=== PATIENT | female | born 1985 | race Caucasian/White ===

== ENCOUNTER 2017-04-28 20:04 | Emergency (ER) | payer SELFPAY ==
[2017-04-28 20:09] VITALS: BP 121/73
--- NOTE | 2017-04-28 20:25 | ED.ABDFE ---
HPI - Time seen Time seen: 20:20 - PCP Primary Care Physician: ROBERTS - Complaint Chief Complaint:: CONSTANT LOWER ABD PAIN SINCE THURSDAY NIGHT. DENIES ANY N/V/D, DENIES FEVER. - Nurses notes reviewed Nurses Notes Review: Yes - Source History Provided: Patient - Mode of arrival Mode of Arrival: Ambulatory - Timing Onset of Chief Complaint: 04/26/17 Came on: Gradually - Duration Duration: Constant How lon Duration: Days - Location Location: [facility] - Severity Severity: Moderate - Quality Quality: Aching - Context Onset: Gradually - Modifying Worsening Factors: Nothing Improving Factors: Nothing - Associated signs and symptoms Associated Signs and Symptoms: None - Other History Other History: hx of same in past PMH - PMH Past Medical History: Yes Past Medical History Comment: OVARIAN CYST Past Surgical History: Yes Past Surgical History Comment: PARTIAL HYSTERECTOMY - Family History History of Family Medical Conditions: No - Social History Type of Tobacco Use: Cigarettes Alcohol Use: None Do you use any recreational Drugs:: No Lives With: Spouse Lives Where: Home - infectious screening Have you traveled outside the country in the last 6 months?: No Isolation: Standard ROS - Review of Systems Constitutional: No Symptoms Reported Eyes: No Symptoms Reported ENTM: No Symptoms Reported Respiratoy: No Symptoms Reported Cardiovascular: No Symptoms Reported Gastrointestinal/Abdominal: Abdominal Pain (both lower quadrants) Genitourinary: No Symptoms Reported Neurological: No Symptoms Reported Musculoskeletal: No Symptoms Reported Integumentary: No Symptoms Reported Hematologic/Lymphatic: No Symptoms Reported Endocrine: No Symptoms Reported Psychiatric: No Symptoms Reported All Other Systems: Reviewed and Negative PE - Vital Signs Vitals: Temperature 99.1 F Pulse Rate 73 Respiratory Rate 16 Blood Pressure 121/73 O2 Sat by Pulse Oximetry 98 - General Limitations: No Limitations General Appearance: Alert, In No Apparent Distress - Head Head Exam: Normal Inspection - Eyes Eye exam: Normal Appearance, EOMI. negative: Scleral Icterus, Conjunctival Injection - Neck Neck Exam: Normal Inspection, Full ROM, Trachea Midline - Respiratory Respiratory Exam: negative: Accessory Muscle Use, Respiratory Distress - Cardiovascular Cardiovascular Exam: Regular Rate - Abdominal Exam Abdominal Exam: Normal Inspection, Normal Bowel Sounds, Soft, Tenderness (mild bilateral lower quadrant pain). negative: Distention, Guarding, Rebound - Extremeties Extremities Exam: Normal Inspection, Full ROM - Neurologic Neurological Exam: Alert, Oriented X3, CN II-XII Intact - Psychiatric Psychiatric Exam: Normal Mood - Skin Skin Exam: Intact, Normal Color ROR - Labs Reviewed Result Diagrams: 04/28/17 20:38 04/28/17 20:38 Laboratory: WBC 10.3 X10^3/uL (3.6-10.0) H 04/28/17 20:38 RBC 4.34 X10^6/uL (3.5-5.4) 04/28/17 20:38 Hgb 14.1 g/dL (12.0-16.0) 04/28/17 20:38 Hct 40.4 % (36.0-47.0) 04/28/17 20:38 MCV 93.3 fL (80.0-100.0) 04/28/17 20:38 MCH 32.6 pg (27.0-34.0) 04/28/17 20:38 MCHC 35.0 g/dL (33.0-35.0) 04/28/17 20:38 RDW 12.7 % (11.6-16.5) 04/28/17 20:38 Plt Count 323 X10^3/uL (150.0-450.0) 04/28/17 20:38 MPV 8.3 fL (7.4-11.0) 04/28/17 20:38 Neut % 49.3 % (42.0-75.0) 04/28/17 20:38 Lymph % 38.7 % (21.0-51.0) 04/28/17 20:38 Riley % 5.9 % (0.0-13.0) 04/28/17 20:38 Eos % 4.8 % (0.9-2.9) H 04/28/17 20:38 Baso % 1.3 % (0.2-1.0) H 04/28/17 20:38 Neut # 5.1 x10^3/uL (2.2-4.8) H 04/28/17 20:38 Lymph # 4.0 X10^3/uL (1.3-2.9) H 04/28/17 20:38 Riley # 0.6 x10^3/uL (0.3-0.8) 04/28/17 20:38 Eos # 0.5 x10^3/uL (0.0-0.2) H 04/28/17 20:38 Baso # 0.1 X10^3/uL (0.0-0.1) 04/28/17 20:38 Absolute Nucleated RBC 0.1 /100WBC 04/28/17 20:38 Sodium 144 mmol/L (136-145) 04/28/17 20:38 Corrected Sodium TNP 04/28/17 20:38 Potassium 3.8 mmol/L (3.5-5.1) 04/28/17 20:38 Chloride 109 mmol/L (98-107) H 04/28/17 20:38 Carbon Dioxide 25.2 mmol/L (21-32) 04/28/17 20:38 BUN 11 mg/dL (7-18) 04/28/17 20:38 Creatinine 0.86 mg/dL (0.55-1.02) 04/28/17 20:38 Est GFR (MDRD) Af Amer > 60 (>60) 04/28/17 20:38 Est GFR (MDRD) Non-Af > 60 (>60) 04/28/17 20:38 Glucose 84 mg/dL (65-99) 04/28/17 20:38 Calcium 8.4 mg/dL (8.5-10.1) L 04/28/17 20:38 Corrected Calcium TNP 04/28/17 20:38 Total Bilirubin 0.30 mg/dL (0.2-1.0) 04/28/17 20:38 AST 19 Units/L (15-37) 04/28/17 20:38 ALT 45 Units/L (12-78) 04/28/17 20:38 Alkaline Phosphatase 57 Units/L (46-116) 04/28/17 20:38 Total Protein 6.4 g/dL (6.4-8.2) 04/28/17 20:38 Albumin 3.4 g/dL (3.4-5.0) 04/28/17 20:38 Globulin 3.0 g/dL (2.5-4.5) 04/28/17 20:38 Albumin/Globulin Ratio 1.1 Ratio (1.1-2.1) 04/28/17 20:38 Specimen Type Clean catch urine 04/28/17 20:43 Urine Color Yellow (YELLOW) 04/28/17 20:43 Urine Appearance Hazy (CLEAR) 04/28/17 20:43 Urine pH 5.0 (5.0 - 8.0) 04/28/17 20:43 Ur Specific [place] 1.025 (1.000-1.030) 04/28/17 20:43 Urine Protein 2+ (NEGATIVE) 04/28/17 20:43 Urine Glucose (UA) Negative (NEGATIVE) 04/28/17 20:43 Urine Ketones 1+ (NEGATIVE) 04/28/17 20:43 Urine Occult Blood Negative (NEGATIVE) 04/28/17 20:43 Urine Nitrite Negative (NEGATIVE) 04/28/17 20:43 Urine Bilirubin 1+ (NEGATIVE) 04/28/17 20:43 Urine Urobilinogen 1+ (NORMAL) 04/28/17 20:43 Ur Leukocyte Esterase 1+ (NEGATIVE) 04/28/17 20:43 Urine RBC 0-2 /HPF (NEGATIVE) 04/28/17 20:43 Urine WBC 3-5 /HPF (NEGATIVE) 04/28/17 20:43 Ur Squamous Epith Cells Few /HPF (NEGATIVE) 04/28/17 20:43 Urine Bacteria Trace /HPF (NEGATIVE) 04/28/17 20:43 Urine Mucus Few /HPF (NEGATIVE) 04/28/17 20:43 Ur Culture Indicated? No/not indicated 04/28/17 20:43 Urine Opiates Screen Negative (NEG=<300) 04/28/17 20:43 Urine Methadone Screen Negative (NEG=<300) 04/28/17 20:43 Ur Barbiturates Screen Negative (NEG=<200) 04/28/17 20:43 Ur Phencyclidine Scrn Negative (NEG=<25) 04/28/17 20:43 Ur Amphetamines Screen Negative (NEG=<1000) 04/28/17 20:43 U Benzodiazepines Scrn Negative (NEG=<200) 04/28/17 20:43 Urine Cocaine Screen Negative (NEG=<300) 04/28/17 20:43 U Marijuana (THC) Screen Negative (NEG=<50) 04/28/17 20:43 - XRAY XRAY Interpreted by: Radiologist XRAY Findings: CT abdo/pelvis: right ovarian cyst - Diagnosis Discharge Problem: Ovarian cyst - Discharge Plan Condition: Stable Prescriptions: Tramadol HCl [ULTRAM 50 MG *] 50 mg PO Q8H PRN #21 tab PRN Reason: Pain - Follow ups/Referrals Follow ups/Referrals: NFD,None [Primary Care Provider] - 3 days - Instructions
[2017-04-28 20:50] LABS: BASOPHILS # (AUTO) 0.1 X10^3/uL (0.0-0.1); BASOPHILS % (AUTO) 1.3 % (0.2-1.0); EOSINOPHILS # (AUTO) 0.5 x10^3/uL (0.0-0.2); EOSINOPHILS % (AUTO) 4.8 % (0.9-2.9); HEMATOCRIT 40.4 % (36.0-47.0); HEMOGLOBIN 14.1 g/dL (12.0-16.0); LYMPHOCYTES % (AUTO) 38.7 % (21.0-51.0); MEAN CORPUSCULAR HEMOGLOBIN 32.6 pg (27.0-34.0); MEAN CORPUSCULAR VOLUME 93.3 fL (80.0-100.0); MEAN PLATELET VOLUME 8.3 fL (7.4-11.0); MONOCYTES # (AUTO) 0.6 x10^3/uL (0.3-0.8); MONOCYTES % (AUTO) 5.9 % (0.0-13.0); NEUTROPHILS # (AUTO) 5.1 x10^3/uL (2.2-4.8); NEUTROPHILS % (AUTO) 49.3 % (42.0-75.0); PLATELET COUNT 323 X10^3/uL (150.0-450.0); RED BLOOD COUNT 4.34 X10^6/uL (3.5-5.4); RED CELL DISTRIBUTION WIDTH 12.7 % (11.6-16.5); WHITE BLOOD COUNT 10.3 X10^3/uL (3.6-10.0)
[2017-04-28 20:51] LABS: BILIRUBIN,URINE 1+ (NEGATIVE); BLOOD/HEMOGLOBIN,URINE NEGATIVE (NEGATIVE); GLUCOSE, URINE NEGATIVE (NEGATIVE); KETONES,URINE 1+ (NEGATIVE); LEUKOCYTE ESTERASE ,URINE 1+ (NEGATIVE); NITRITES,URINE NEGATIVE (NEGATIVE); PROTEIN,URINE 2+ (NEGATIVE); UROBILINOGEN,URINE 1+ (NORMAL)
[2017-04-28 21:00] LABS: ALANINE AMINOTRANSFERASE 45 Units/L (12-78); ALBUMIN 3.4 g/dL (3.4-5.0); ALKALINE PHOSPHATASE 57 Units/L (46-116); ASPARTATE AMINO TRANSFERASE 19 Units/L (15-37); BLOOD UREA NITROGEN 11 mg/dL (7-18); CALCIUM 8.4 mg/dL (8.5-10.1); CARBON DIOXIDE 25.2 mmol/L (21-32); CHLORIDE 109 mmol/L (98-107); CREATININE 0.86 mg/dL (0.55-1.02); GLUCOSE 84 mg/dL (65-99); SODIUM 144 mmol/L (136-145); TOTAL PROTEIN 6.4 g/dL (6.4-8.2); eGFR BLACK RACES > 60 (>60); eGFR NON BLACK RACES > 60 (>60)
[2017-04-28 21:04] LABS: APPEARANCE,URINE HAZY (CLEAR); BACTERIA,URINE TRACE /HPF (NEGATIVE); COLOR,URINE YELLOW (YELLOW); MUCUS,URINE FEW /HPF (NEGATIVE); RBC,URINE 0-2 /HPF (NEGATIVE); SQUAMOUS EPITHELIAL CELL,UR FEW /HPF (NEGATIVE)
[2017-04-28] MEDS ORDERED: NS 100 ML IV 100 ML IV ONE (21:19)
--- NOTE | 2017-04-28 22:20 | CT ---
HISTORY: Subacute lower abdominal pain Study: CT abdomen and pelvis with contrast Comparison: None Technique: Multiple axial images of the abdomen and pelvis were obtained from the lung bases to the pubic symphysis after the administration of IV contrast. AEC was utilized. Findings: The visualized portions of the lung bases are unremarkable. The liver, spleen, pancreas, kidneys, a nd adrenal glands are unremarkable other than incidental tiny left renal hypodensities which are too small to accurately characterize but most likely reflect benign cysts. The gallbladder is unremarka ble in its CT appearance. No significant mesenteric or retroperitoneal lymphadenopathy can be obser joseph. No free fluid or free air is seen within the abdomen. No bowel wall thickening or bowel dilat ation is present. The patient is status post hysterectomy. However , there is bilateral heterogeneo us adnexal soft tissue fullness which may represent remaining ovaries with a 2 cm right ovarian cyst for which nonemergent temporal surveillance ultrasound is recommended. Unopacified loops of small b owel could also give this appearance. Bilateral pelvic sidewall lymphadenopathy cannot be excluded i f the patient has a previous history of oophorectomy. There is mild injection of the suprapubic mese nteric fat for which correlation with urinalysis is recommended as these findings could be seen with cystitis. The urinary bladder is grossly unremarkable. The bony structures are grossly intact. IMPRESSION: 1. Possible findings of cystitis for which correlation with urinalysis is recommended. 2. Status post hysterectomy with probable remaining ovaries and a 2 cm right ovarian cyst for which temporal surveillance pelvic ultrasound is recommended. 3. Tiny left renal hypodensities favored to represent benign cysts. Reported By:
[2017-04-28] MEDS ORDERED: ULTRAM PO ONE (22:28)
[2017-04-28] MEDS ORDERED: ULTRAM ONE (22:29)
== END 2017-04-28 22:41 | disposition home or self-care (01) ==
LOC: ER 20:13
DX: N83.201 Unspecified ovarian cyst, right side (principal); R10.31 Right lower quadrant pain
CPT/HCPCS: 36415; 74177; 80053; 80307; 81001; 85025; 96365; 99283; A4222; G0434

== ENCOUNTER 2017-05-01 23:19 | Emergency (ER) | payer SELFPAY ==
[2017-05-01 23:26] VITALS: BP 107/72; BMI 18.2
[2017-05-02 01:14] LABS: BILIRUBIN,URINE NEGATIVE (NEGATIVE); BLOOD/HEMOGLOBIN,URINE NEGATIVE (NEGATIVE); GLUCOSE, URINE NEGATIVE (NEGATIVE); KETONES,URINE NEGATIVE (NEGATIVE); LEUKOCYTE ESTERASE ,URINE NEGATIVE (NEGATIVE); NITRITES,URINE NEGATIVE (NEGATIVE); PH,URINE 6.5 (5.0 - 8.0); PROTEIN,URINE NEGATIVE (NEGATIVE); UROBILINOGEN,URINE NORMAL (NORMAL)
[2017-05-02 01:18] LABS: APPEARANCE,URINE CLEAR (CLEAR); COLOR,URINE YELLOW (YELLOW); RBC,URINE NONE SEEN /HPF (NEGATIVE)
[2017-05-02 01:19] LABS: BACTERIA,URINE TRACE /HPF (NEGATIVE); SQUAMOUS EPITHELIAL CELL,UR FEW /HPF (NEGATIVE)
[2017-05-02] MEDS ORDERED: TORADOL 30 MG VIAL IVP STA (01:22)
[2017-05-02] MEDS ORDERED: NS 1000 ML 1,000 ML IV ONE (01:22)
--- NOTE | 2017-05-02 01:26 | DR.GENAD ---
HPI - PCP Primary Care Physician: Mirna - Complaint/Symptoms Chief Complaint Doctors Comments: Patient complains of RLQ pain for the past five days getting progressively worst today with nausea. States she is having sharp pain RLQ that is non radiating with the pain being 10 of 10. states she was in the emergency room two days ago with the same pain and they told her she had an ovarian cyst. she was trying to see Dr. Roberst today but she did not have any insurance or money so she was unable to see him. State she smokes one pack cigarettes daily but denies alcohol or drug usage. state she had had a partial hysterectomy 2012. States she has had a problem with kidney stones in the past. Chief Complaint:: "Thursday I came in the ER and discovered that I have cysts on my right overy. They gave me tramadol but that's not even touching it. I tried to go to Dr. Roberts today but there was something wrong with my insurance and I didn't have the money to pay." Self Treatment fo Chief Complaint: Tramadol and ibuprofen - Nurses notes reviewed Nurses Notes Review: Yes - Source History Provided: Patient - Mode of Arrival Mode of Arrival: Ambulatory - Timing Onset of Chief Complaint: 04/26/17 Came on: Gradually - Duration Duration: Intermittent How lon Duration: Days - Location Location: RLQ pain - Severity Severity: Moderate, Severe - Modifying Factors Worsens:: nothing Improves:: nothing PMH - PMH Past Medical History: Yes Past Medical History Comment: ovarian cyst Past Surgical History: Yes 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 - Family History History of Family Medical Conditions: No - Social History Does patient currently use any type of tobacco product: Yes Have you used tobacco products in the last 12 months: Yes Type of Tobacco Use: Cigarettes Does any household member use tobacco: No Alcohol Use: None Do you use any recreational Drugs:: No Lives With: Spouse Lives Where: Home - infectious screening In the last 2 months have you had wt loss of >10#?: NO Have you had fever, night sweats or hemotysis?: No Have you traveled outside the country in the last 6 months?: No Isolation: Standard ROS - Review of Systems Constitutional: No Symptoms Reported Eyes: No Symptoms Reported ENTM: No Symptoms Reported Respiratoy: No Symptoms Reported Cardiovascular: No Symptoms Reported Gastrointestinal/Abdominal: No Symptoms Reported, Abdominal Pain (RLQ tendederness) Genitourinary: No Symptoms Reported. negative: See HPI, Discharge, Dysuria, Frequency, Hematuria, Pain, Bleeding, Other Neurological: No Symptoms Reported Musculoskeletal: No Symptoms Reported Integumentary: No Symptoms Reported Hematologic/Lymphatic: No Symptoms Reported Endocrine: No Symptoms Reported Psychiatric: No Symptoms Reported PE - Vital Signs Vitals: Temperature 98.1 F Pulse Rate 65 Respiratory Rate 20 Blood Pressure 107/72 O2 Sat by Pulse Oximetry 98 - General Limitations: No Limitations General Appearance: Alert, In Distress (mild) - Head Head Exam: Normal Inspection, Atraumatic, Normocephalic - Eyes Eye exam: Normal Appearance, PERRL, EOMI. negative: Scleral Icterus, Conjunctival Injection, Nystagmus, Miosis, Mydrasis, Periorbital Swelling, Periorbital Tenderness, Other - ENT ENT Exam: Normal Exam, Normal Oropharynx, Normal External Ear Exam, Mucous Membranes Moist, TM's Normal Bilaterally External Ear Exam: Normal External Inspection TM/Canal Exam: Bilateral Normal Nose Exam: Normal Nose Exam Mouth Exam: Normal Inspection Throat Exam: Normal Inspection - Neck Neck Exam: Normal Inspection, Full ROM, Trachea Midline - Chest Chest Inspection: Normal Inspection, Symmetric Chest Wall Rise - Respiratory Respiratory Exam: Normal Lung Sounds Bilat Respiratory Exam: Bilateral Clear to Auscultation - Cardiovascular Cardiovascular Exam: Regular Rate, Normal Rhythm, Normal Heart Sounds - Abdominal Exam Abdominal Exam: Normal Inspection, Normal Bowel Sounds, Soft, Tenderness, Guarding, Hyperactive Bowel Sounds Abdominal Tenderness: RLQ, Moderate - Extremities Extremities Exam: Normal Inspection, Full ROM, Normal Capillary Refill. negative: Tenderness, Edema, Joint Swelling, Calf Tenderness, Other - Back Back Exam: Normal Inspection, Full ROM. negative: Tenderness, (R) CVA Tenderness, (L) CVA Tenderness, Muscle Spasm, Paraspinal Tenderness, Vertebral Tenderness, Rashes, (R) Sciatic Notch Tenderness, (L) Sciatic Notch Tendern, (R ) Straight Leg Raise, (L) Straight Leg Raise, Other - Neurologic Neurological Exam: Alert, Oriented X3, CN II-XII Intact, Normal Gait, Reflexes Normal - Psychiatric Psychiatric Exam: Normal Affect, Normal Mood. negative: Depressed, Agitated, Anxious, Flat Affect, Manic, Homicidal Ideation, Suicidal Ideation, Other - Skin Skin Exam: Warm, Dry, Intact, Normal Color. negative: Rash, Cyanosis, Diaphoresis, Erythema, Pallor, Mottled, Other ROR - Labs Reviewed Laboratory Results Reviewed?: Yes (All labs and x-ray results reviewed and discussed with patient) Result Diagrams: 05/02/17 01:32 05/02/17 01:32 Laboratory: WBC 10.3 X10^3/uL (3.6-10.0) H 05/02/17 01:32 RBC 4.51 X10^6/uL (3.5-5.4) 05/02/17 01:32 Hgb 14.6 g/dL (12.0-16.0) 05/02/17 01:32 Hct 41.8 % (36.0-47.0) 05/02/17 01:32 MCV 92.7 fL (80.0-100.0) 05/02/17 01:32 MCH 32.4 pg (27.0-34.0) 05/02/17 01:32 MCHC 35.0 g/dL (33.0-35.0) 05/02/17 01:32 RDW 12.6 % (11.6-16.5) 05/02/17 01:32 Plt Count 350 X10^3/uL (150.0-450.0) 05/02/17 01:32 MPV 8.1 fL (7.4-11.0) 05/02/17 01:32 Neut % 44.5 % (42.0-75.0) 05/02/17 01:32 Lymph % 44.7 % (21.0-51.0) 05/02/17 01:32 [place] % 4.3 % (0.0-13.0) 05/02/17 01:32 Eos % 3.2 % (0.9-2.9) H 05/02/17 01:32 Baso % 3.3 % (0.2-1.0) H 05/02/17 01:32 Neut # 4.6 x10^3/uL (2.2-4.8) 05/02/17 01:32 Lymph # 4.6 X10^3/uL (1.3-2.9) H 05/02/17 01:32 [place] # 0.4 x10^3/uL (0.3-0.8) 05/02/17 01:32 Eos # 0.3 x10^3/uL (0.0-0.2) H 05/02/17 01:32 Baso # 0.3 X10^3/uL (0.0-0.1) H 05/02/17 01:32 Absolute Nucleated RBC 0.1 /100WBC 05/02/17 01:32 Sodium 141 mmol/L (136-145) 05/02/17 01:32 Corrected Sodium TNP 05/02/17 01:32 Potassium 4.1 mmol/L (3.5-5.1) 05/02/17 01:32 Chloride 106 mmol/L (98-107) 05/02/17 01:32 Carbon Dioxide 26.4 mmol/L (21-32) 05/02/17 01:32 BUN 6 mg/dL (7-18) L 05/02/17 01:32 Creatinine 0.74 mg/dL (0.55-1.02) 05/02/17 01:32 Est GFR (MDRD) Af Amer > 60 (>60) 05/02/17 01:32 Est GFR (MDRD) Non-Af > 60 (>60) 05/02/17 01:32 Glucose 85 mg/dL (65-99) 05/02/17 01:32 Calcium 8.6 mg/dL (8.5-10.1) 05/02/17 01:32 Corrected Calcium TNP 05/02/17 01:32 Total Bilirubin 0.40 mg/dL (0.2-1.0) 05/02/17 01:32 AST 15 Units/L (15-37) 05/02/17 01:32 ALT 33 Units/L (12-78) 05/02/17 01:32 Alkaline Phosphatase 59 Units/L (46-116) 05/02/17 01:32 Total Protein 6.8 g/dL (6.4-8.2) 05/02/17 01:32 Albumin 3.7 g/dL (3.4-5.0) 05/02/17 01:32 Globulin 3.1 g/dL (2.5-4.5) 05/02/17 01:32 Albumin/Globulin Ratio 1.2 Ratio (1.1-2.1) 05/02/17 01:32 Amylase 117 Units/L (25-115) H 05/02/17 01:32 Lipase 164 Units/L (73-393) 05/02/17 01:32 Specimen Type Clean catch urine 05/02/17 01:04 Urine Color Yellow (YELLOW) 05/02/17 01:04 Urine Appearance Clear (CLEAR) 05/02/17 01:04 Urine pH 6.5 (5.0 - 8.0) 05/02/17 01:04 Ur Specific [place] 1.010 (1.000-1.030) 05/02/17 01:04 Urine Protein Negative (NEGATIVE) 05/02/17 01:04 Urine Glucose (UA) Negative (NEGATIVE) 05/02/17 01:04 Urine Ketones Negative (NEGATIVE) 05/02/17 01:04 Urine Occult Blood Negative (NEGATIVE) 05/02/17 01:04 Urine Nitrite Negative (NEGATIVE) 05/02/17 01:04 Urine Bilirubin Negative (NEGATIVE) 05/02/17 01:04 Urine Urobilinogen Normal (NORMAL) 05/02/17 01:04 Ur Leukocyte Esterase Negative (NEGATIVE) 05/02/17 01:04 Urine RBC None seen /HPF (NEGATIVE) 05/02/17 01:04 Urine WBC 0-1 /HPF (NEGATIVE) 05/02/17 01:04 Ur Squamous Epith Cells Few /HPF (NEGATIVE) 05/02/17 01:04 Urine Bacteria Trace /HPF (NEGATIVE) 05/02/17 01:04 Ur Culture Indicated? No/not indicated 05/02/17 01:04 Urine Opiates Screen Negative (NEG=<300) 05/02/17 01:04 Urine Methadone Screen Negative (NEG=<300) 05/02/17 01:04 Ur Barbiturates Screen Negative (NEG=<200) 05/02/17 01:04 Ur Phencyclidine Scrn Negative (NEG=<25) 05/02/17 01:04 Ur Amphetamines Screen Negative (NEG=<1000) 05/02/17 01:04 U Benzodiazepines Scrn Negative (NEG=<200) 05/02/17 01:04 Urine Cocaine Screen Negative (NEG=<300) 05/02/17 01:04 U Marijuana (THC) Screen Negative (NEG=<50) 05/02/17 01:04 - XRAY XRAY Interpreted by: Radiologist (CT abdomen: No acute process identified. 2 cm right ovarian corpus luteal cyst; right nonobstructing right stone) - Diagnosis Discharge Problem: Ovarian cyst, Right kidney stone Abdominal pain Qualifiers: Abdominal location: generalized Qualified Code(s): R10.84 - Generalized abdominal pain - Discharge Plan Disposition: 01 HOME, SELF-CARE Condition: Stable Prescriptions: Acetaminophen/Codeine Tab [TYLENOL w/CODEINE #3 (300 MG/30 MG) *] 1 tab PO Q4- 6H PRN #24 tab PRN Reason: Pain Naproxen [NAPROSYN 500 MG *] 500 mg PO BID PRN #24 tab PRN Reason: Pain/Inflammation - Follow ups/Referrals Follow ups/Referrals: KEVIN ROBERTS [Primary Care Provider] - 3 days GRETEL GONZALEZ [STAFF PHYSICIAN] - 3 days - Instructions Instructions: Abdominal Pain, Adult, [id number], Ovarian Cyst, Kidney Stones , [id number]
[2017-05-02 01:38] LABS: EOSINOPHILS # (AUTO) 0.3 x10^3/uL (0.0-0.2); HEMATOCRIT 41.8 % (36.0-47.0); HEMOGLOBIN 14.6 g/dL (12.0-16.0); MEAN PLATELET VOLUME 8.1 fL (7.4-11.0); WHITE BLOOD COUNT 10.3 X10^3/uL (3.6-10.0)
[2017-05-02 01:43] LABS: BASOPHILS # (AUTO) 0.3 X10^3/uL (0.0-0.1); BASOPHILS % (AUTO) 3.3 % (0.2-1.0); EOSINOPHILS % (AUTO) 3.2 % (0.9-2.9); LYMPHOCYTES # (AUTO) 4.6 X10^3/uL (1.3-2.9); LYMPHOCYTES % (AUTO) 44.7 % (21.0-51.0); MEAN CORPUSCULAR HEMOGLOBIN 32.4 pg (27.0-34.0); MEAN CORPUSCULAR VOLUME 92.7 fL (80.0-100.0); MONOCYTES # (AUTO) 0.4 x10^3/uL (0.3-0.8); MONOCYTES % (AUTO) 4.3 % (0.0-13.0); NEUTROPHILS # (AUTO) 4.6 x10^3/uL (2.2-4.8); NEUTROPHILS % (AUTO) 44.5 % (42.0-75.0); PLATELET COUNT 350 X10^3/uL (150.0-450.0); RED BLOOD COUNT 4.51 X10^6/uL (3.5-5.4); RED CELL DISTRIBUTION WIDTH 12.6 % (11.6-16.5)
[2017-05-02 01:50] LABS: ALANINE AMINOTRANSFERASE 33 Units/L (12-78); ALBUMIN 3.7 g/dL (3.4-5.0); ALKALINE PHOSPHATASE 59 Units/L (46-116); AMYLASE 117 Units/L (25-115); ASPARTATE AMINO TRANSFERASE 15 Units/L (15-37); BLOOD UREA NITROGEN 6 mg/dL (7-18); CALCIUM 8.6 mg/dL (8.5-10.1); CARBON DIOXIDE 26.4 mmol/L (21-32); CHLORIDE 106 mmol/L (98-107); CREATININE 0.74 mg/dL (0.55-1.02); GLUCOSE 85 mg/dL (65-99); LIPASE 164 Units/L (73-393); SODIUM 141 mmol/L (136-145); TOTAL PROTEIN 6.8 g/dL (6.4-8.2); eGFR BLACK RACES > 60 (>60); eGFR NON BLACK RACES > 60 (>60)
[2017-05-02] MEDS ORDERED: NS 1000 ML 1,000 ML ONE (02:18)
[2017-05-02] MEDS ORDERED: TORADOL 30 MG VIAL ONE (02:39)
[2017-05-02] MEDS ORDERED: DEMEROL INJ IVP ONE (03:24)
[2017-05-02] MEDS ORDERED: ZOFRAN INJ 4 MG VIAL IVP ONE (03:25)
[2017-05-02] MEDS ORDERED: ZOFRAN INJ 4 MG VIAL ONE (03:28)
[2017-05-02] MEDS ORDERED: DEMEROL INJ ONE (03:28)
[2017-05-02] MEDS ORDERED: NS 100 ML IV 100 ML IV ONE (03:51)
--- NOTE | 2017-05-02 04:27 | CT ---
CT abdomen and pelvis with contrast Indication: Severe lower abdominal pain Comparison: 04/28/2017 Technique: CT images of the abdomen pelvis were obtained after IV contrast administration. Automatic exposure control was utilized. Findings: No aggressive osseous lesion. The lung bases are clear. There is mild intrahepatic and extrahepatic biliary dilation, without obvious obstructing stone or a mpullary lesion; this finding is unchanged from prior. The gallbladder, remaining liver, spleen, sto mach, duodenum, pancreas, and adrenals are unremarkable. There is a tiny nonobstructing right midpol e stone. Small probable cyst of the left lower pole are noted. No significant bowel thickening or di latation of the lower GI tract identified. The appendix appears normal. The uterus is absent. There is a peripherally enhancing 2 cm right ovarian cyst is suggestive for a corpus luteal cyst. The left ovary is grossly unremarkable. The urinary bladder and rectum are unremarkable . No significant free fluid or adenopathy identified. Impression: 1. No acute process identified to explain patient's symptoms. The appendix appears normal. 2. 2 cm right ovarian corpus luteal cyst. 3. Stable mild intrahepatic and extrahepatic biliary dilation. Correlation with cholestatic markers for obstruction recommended. Reported By:
== END 2017-05-02 05:15 | disposition home or self-care (01) ==
LOC: ER 23:19
DX: N83.201 Unspecified ovarian cyst, right side (principal); N20.0 Calculus of kidney; R10.31 Right lower quadrant pain
CPT/HCPCS: 36415; 74177; 80053; 80307; 81001; 82150; 83690; 85025; 96365; 96374; 96375; 99283; A4216; A4222; G0434; J1885; J2175; J2405

== ENCOUNTER 2017-05-15 19:59 | Emergency (ER) | payer SELFPAY ==
[2017-05-15 20:07] VITALS: BP 97/68; BMI 17.7
--- NOTE | 2017-05-15 20:50 | DR.GENAD ---
HPI - PCP Primary Care Physician: Dr. Roberts - Complaint/Symptoms Chief Complaint Doctors Comments: Patient was seen on 05/02/17 CT ob abd/pelv with contrast: No no agrressive osseous lesion. There is a tiny nonobstructing right midpole stone. Small probable cyst of the left lower pole are noted. No significant bowel thickening or dilatation of the lower GI tract identified. Appendix appears normal.There is a peripherally enhancintg 2cm right luteal cyst. The left ovary is grossly unremarkable. Comparison : 04/28/17. 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 - Family History History of Family Medical Conditions: No - Social History Alcohol Use: None Do you use any recreational Drugs:: No - infectious screening Have you traveled outside the country in the last 6 months?: No ROS - Review of Systems Constitutional: No Symptoms Reported Eyes: No Symptoms Reported ENTM: No Symptoms Reported Respiratoy: No Symptoms Reported Cardiovascular: No Symptoms Reported Gastrointestinal/Abdominal: No Symptoms Reported Genitourinary: No Symptoms Reported Neurological: No Symptoms Reported Musculoskeletal: No Symptoms Reported Integumentary: No Symptoms Reported Hematologic/Lymphatic: No Symptoms Reported Endocrine: No Symptoms Reported Psychiatric: No Symptoms Reported All Other Systems: Reviewed and Negative PE - Vital Signs Vitals: Temperature 98.5 F Pulse Rate 86 Respiratory Rate 18 Blood Pressure 97/68 O2 Sat by Pulse Oximetry 98 - General General Appearance: Alert, In No Apparent Distress - Head Head Exam: Normal Inspection, Atraumatic - Eyes Eye exam: Normal Appearance, PERRL, EOMI - ENT ENT Exam: Normal Exam External Ear Exam: Normal External Inspection TM/Canal Exam: Bilateral Normal Nose Exam: Normal Nose Exam Mouth Exam: Normal Inspection Throat Exam: Normal Inspection - Neck Neck Exam: Normal Inspection - Chest Chest Inspection: Normal Inspection - Respiratory Respiratory Exam: Normal Lung Sounds Bilat Respiratory Exam: Bilateral Clear to Auscultation - Cardiovascular Cardiovascular Exam: Regular Rate, Normal Rhythm - Abdominal Exam Abdominal Exam: Normal Inspection Abdominal Tenderness: negative: RUQ, RLQ, LUQ, LLQ, Epigastrium, Suprapubic, Diffuse, Mild, Moderate, Severe, Other - Extremities Extremities Exam: Normal Inspection, Full ROM - Back Back Exam: Normal Inspection, Tenderness (right flank tenderness) - Neurologic Neurological Exam: Alert, Oriented X3, CN II-XII Intact - Psychiatric Psychiatric Exam: Normal Affect - Skin Skin Exam: Warm, Dry, Intact Course - Treatment Treatment: Reviewed results of previous two CT of pelvis/abdomen - Diagnosis Discharge Problem: corpus luteal cyst, Right Kidney stone-non obstructing - Discharge Plan Condition: Stable - Follow ups/Referrals Follow ups/Referrals: KEVIN ROBERTS [Primary Care Provider] - 3 days - Instructions
[2017-05-15] MEDS ORDERED: TORADOL 60 MG VIAL IM ONE (20:54)
[2017-05-15] MEDS ORDERED: TORADOL 60 MG VIAL ONE (20:59)
== END 2017-05-15 21:17 | disposition home or self-care (01) ==
LOC: ER 20:13
DX: N83.11 Corpus luteum cyst of right ovary (principal); N20.0 Calculus of kidney
CPT/HCPCS: 96372; 99282; J1885

== ENCOUNTER 2017-10-09 08:38 | Emergency (ER) | payer SELFPAY ==
[2017-10-09 08:46] VITALS: BP 101/71; BMI 17.8
--- NOTE | 2017-10-09 09:07 | DR.GENAD ---
HPI - PCP Primary Care Physician: NONE - Complaint/Symptoms Chief Complaint Doctors Comments: Patient reports that has throat has been bothering her for two to three days. She denies fever, vomoting or diarrhea. She denies headache. Chief Complaint:: "MY THROAT IS BOTHERING ME." Self Treatment fo Chief Complaint: NONE - Source History Provided: Patient - Mode of Arrival Mode of Arrival: Ambulatory - Timing Onset of Chief Complaint: 10/07/17 PMH - PMH Past Medical History: No Past Medical History: Kidney Stones Past Surgical History: Yes Surgical History: [employer] Surgery, Hysterectomy - Family History History of Family Medical Conditions: No - Social History Does patient currently use any type of tobacco product: Yes Have you used tobacco products in the last 12 months: Yes Type of Tobacco Use: Cigarettes How many years tobacco product used: 20 Does any household member use tobacco: Yes Alcohol Use: None Do you use any recreational Drugs:: No Lives With: Family Lives Where: Home - infectious screening In the last 2 months have you had wt loss of >10#?: NO Have you had fever, night sweats or hemotysis?: No Have you traveled outside the country in the last 6 months?: No Isolation: Standard ROS - Review of Systems Eyes: No Symptoms Reported ENTM: No Symptoms Reported, Ear Pain, Throat Pain Respiratoy: No Symptoms Reported Cardiovascular: No Symptoms Reported Gastrointestinal/Abdominal: No Symptoms Reported Genitourinary: No Symptoms Reported Neurological: No Symptoms Reported Musculoskeletal: No Symptoms Reported Integumentary: No Symptoms Reported Hematologic/Lymphatic: No Symptoms Reported Endocrine: No Symptoms Reported Psychiatric: No Symptoms Reported All Other Systems: Reviewed and Negative PE - Vital Signs Vitals: Temperature 98.5 F Pulse Rate 86 Respiratory Rate 18 Blood Pressure 101/71 O2 Sat by Pulse Oximetry 99 - General General Appearance: Alert, In No Apparent Distress - Head Head Exam: Normal Inspection, Atraumatic - Eyes Eye exam: Normal Appearance, PERRL, EOMI - ENT ENT Exam: Normal Exam External Ear Exam: Normal External Inspection TM/Canal Exam: Bilateral Normal Nose Exam: Normal Nose Exam Mouth Exam: Normal Inspection Throat Exam: Normal Inspection - Neck Neck Exam: Normal Inspection - Chest Chest Inspection: Normal Inspection - Respiratory Respiratory Exam: Normal Lung Sounds Bilat Respiratory Exam: Bilateral Clear to Auscultation - Cardiovascular Cardiovascular Exam: Regular Rate, Normal Rhythm - Abdominal Exam Abdominal Exam: Normal Inspection Abdominal Tenderness: negative: RUQ, RLQ, LUQ, LLQ, Epigastrium, Suprapubic, Diffuse, Mild, Moderate, Severe, Other - Extremities Extremities Exam: Normal Inspection - Back Back Exam: Normal Inspection - Neurologic Neurological Exam: Alert, Oriented X3, CN II-XII Intact - Psychiatric Psychiatric Exam: Normal Affect - Skin Skin Exam: Warm, Dry, Intact ROR - Labs Reviewed Laboratory Results Reviewed?: Yes (strep negative) Laboratory: Streptococcus Screen Negative (NEGATIVE) 10/09/17 09:17 - Diagnosis Discharge Problem: Pharyngitis Qualifiers: Pharyngitis/tonsillitis etiology: other specified organisms Qualified Code(s): J02.8 - Acute pharyngitis due to other specified organisms - Discharge Plan Condition: Stable - Follow ups/Referrals Follow ups/Referrals: NFD,None [Primary Care Provider] - 3 days - Instructions
== END 2017-10-09 09:55 | disposition home or self-care (01) ==
LOC: ER 08:49
DX: J02.8 Acute pharyngitis due to other specified organisms (principal)
CPT/HCPCS: 87070; 87880; 99282

== ENCOUNTER 2021-09-06 17:19 | Inpatient (IN) ==
[2021-09-06 17:25] VITALS: BMI 15.3
--- NOTE | 2021-09-06 17:45 | DR.GENAD ---
HPI Time Seen Time Seen by Provider: 09/06/21 17:39 PCP Primary Care Physician: NO PRIMARY MD HPI Comment HPI Comment: PATIENT IS 36YR OLD FEMALE WITH NAUSEA, VOMITING BLOOD AND DIZZINESS. GOT SICK THURSDAY WITH DIARRHEA. NOW DIARRHEA IS BETTER BUT VOMITING BLOOD. SHE IS WEAK AND DIZZY. NO FEVER. Complaint/Symptoms Chief Complaint Doctors Comments: ABDOMINAL PAIN, DIZZINESS AND VOMITING BLOOD. Chief Complaint:: PT C/O UPPER ABDOMINAL PAIN, VOMITING BLOOD, & DIZZINESS X1.5 WEEKS. PT DENIES ANY DIARRHEA @ THIS TIME. PT IS NOT ACTIVELY VOMITING @ THIS TIME. COVID-19 Coronavirus risk:travel/contact w/high risk person: No Has patient experienced Coronavirus symptoms: No Nurses notes reviewed Nurses Notes Review: Yes Source History Provided: Patient Mode of Arrival Mode of Arrival: Wheelchair Timing Onset of Chief Complaint: 08/27/21 Came on: Suddenly Duration Duration: Intermittent Duration: Days Location Location: ABDOMEN. PMH PMH Past Medical History: Yes Past Medical History: Kidney Stones Past Surgical History: Yes Surgical History: Cholecystectomy, [employer]OL[employer]CENT PSYCHIATRIST Surgery and Hysterectomy Family History History of Family Medical Conditions: No Social History Does patient currently use any type of tobacco product: Yes Have you used tobacco products in the last 12 months: Yes Type of Tobacco Use: Cigarettes Do you use any recreational Drugs:: No Travel Risk Coronavirus risk:travel/contact w/high risk person: No Has patient experienced Coronavirus symptoms: No Infectious screening Have you traveled outside the country in the last 6 months?: No Isolation: Standard ROS Review of Systems Constitutional: See HPI, Weakness and Fatigue; negative Fever Eyes: No Symptoms Reported and See HPI ENTM: No Symptoms Reported and See HPI; negative Nose Discharge and Nose Congestion Respiratoy: No Symptoms Reported and See HPI; negative Moist Cough, Short of Breath and Wheezing Cardiovascular: No Symptoms Reported and See HPI; negative Chest Pain Gastrointestinal/Abdominal: No Symptoms Reported, See HPI, Abdominal Pain and Nausea; negative Diarrhea and Vomiting Genitourinary: No Symptoms Reported and See HPI; negative Dysuria, Frequency and Hematuria Neurological: See HPI, Headache, Weakness and Dizziness Musculoskeletal: No Symptoms Reported and See HPI; negative Back Pain and Muscle Pain Integumentary: No Symptoms Reported and See HPI; negative Change in Color, Rash and Juandice Hematologic/Lymphatic: No Symptoms Reported and See HPI Endocrine: No Symptoms Reported and See HPI; negative Increased Thirst and Increased Urine Psychiatric: No Symptoms Reported and See HPI All Other Systems: Reviewed and Negative PE Vital Signs Vitals: Temperature 99.1 F Pulse Rate 95 Respiratory Rate 13 Blood Pressure [Left Arm] 119/75 Blood Pressure 128/78 O2 Sat by Pulse Oximetry 100 General Limitations: No Limitations General Appearance: Alert and In No Apparent Distress Head Head Exam: Normal Inspection Eyes Eye exam: Normal Appearance and PERRL; negative Scleral Icterus and Conjunctival Injection ENT ENT Exam: Normal Exam, Normal Oropharynx, Normal External Ear Exam and TM's Normal Bilaterally External Ear Exam: Normal External Inspection; negative Mastoid Tenderness TM/Canal Exam: Bilateral: Normal Nose Exam: Normal Nose Exam Mouth Exam: Normal Inspection; negative Lip Swelling and Tongue Swelling Throat Exam: Normal Inspection; negative Tonsillar Erythema, Tonsillomegaly and Tonsillar Exudate Neck Neck Exam: Normal Inspection and Trachea Midline; negative Tenderness and Lymphadenopathy Chest Chest Inspection: Normal Inspection and Symmetric Chest Wall Rise; negative Tenderness Respiratory Respiratory Exam: Normal Lung Sounds Bilat; negative Accessory Muscle Use, Chest Wall Tenderness and Respiratory Distress Respiratory Exam: Bilateral: Clear to Auscultation Cardiovascular Cardiovascular Exam: Regular Rate, Normal Rhythm and Normal Heart Sounds; negative Diastolic Murmur Abdominal Exam Abdominal Exam: Normal Inspection, Normal Bowel Sounds and Soft; negative Tenderness Extremities Extremities Exam: Normal Inspection and Normal Capillary Refill Back Back Exam: Normal Inspection; negative (R) CVA Tenderness and (L) CVA Tenderness Neurologic Neurological Exam: Alert and Oriented X3 Psychiatric Psychiatric Exam: Normal Affect and Normal Mood Skin Skin Exam: Warm, Dry, Intact and Normal Color MDM Differential Diagnosis Differential Diagnosis: ABDOMINAL PAIN, HEMATEMESIS, DIARRHEA, DIZZINESS. COURSE Treatment Treatment: SEE ORDERS. Education/Counseling Education/Counseling: Patient Educated On: Diagnosis ROR Labs Reviewed Result Diagrams: 09/06/21 18:19 09/06/21 18:03 Laboratory: WBC 14.0 X10^3/uL (3.6-10.0) H 09/06/21 18:19 RBC 1.10 X10^6/uL (3.5-5.4) L 09/06/21 18:19 Hgb 3.2 g/dL (12.0-16.0) L* 09/06/21 18: Hct 9.9 % (36.0-47.0) L* 09/06/21 18:19 MCV 90.1 fL (80.0-100.0) 09/06/21 18:19 MCH 29.5 pg (27.0-34.0) 09/06/21 18:19 MCHC 32.8 g/dL (33.0-35.0) L 09/06/21 18:19 RDW 18.1 % (11.6-16.5) H 09/06/21 18:19 Plt Count 802 X10^3/uL (150.0-450.0) H 09/06/21 18:19 MPV 6.4 fL (7.4-11.0) L 09/06/21 18:19 Neut % (Auto) 68.4 % (42.0-75.0) 09/06/21 18:19 Lymph % (Auto) 23.2 % (21.0-51.0) 09/06/21 18:19 [place] % (Auto) 5.9 % (0.0-13.0) 09/06/21 18:19 Eos % (Auto) 1.4 % (0.9-2.9) 09/06/21 18:19 Baso % (Auto) 1.1 % (0.2-1.0) H 09/06/21 18:19 Neut # (Auto) 9.6 x10^3/uL (2.2-4.8) H 09/06/21 18:19 Lymph # (Auto) 3.3 X10^3/uL (1.3-2.9) H 09/06/21 18:19 [place] # (Auto) 0.8 x10^3/uL (0.3-0.8) 09/06/21 18:19 Eos # (Auto) 0.2 x10^3/uL (0.0-0.2) 09/06/21 18:19 Baso # (Auto) 0.2 X10^3/uL (0.0-0.1) H 09/06/21 18:19 Absolute Nucleated RBC 0.1 /100WBC 09/06/21 18:19 PT 13.4 SECONDS (11.8-14.3) 09/06/21 18:03 INR Target Range - 09/06/21 18:03 INR 1.07 (0.8-1.3) 09/06/21 18:03 APTT 27.1 SECONDS (22.9-36.5) 09/06/21 18:03 PTT Comment - 09/06/21 18:03 Sodium 136 mmol/L (136-145) 09/06/21 18:03 Corrected Sodium TNP 09/06/21 18:03 Potassium 3.1 mmol/L (3.5-5.1) L 09/06/21 18:03 Chloride 100 mmol/L (98-107) 09/06/21 18:03 Carbon Dioxide 28.7 mmol/L (21-32) 09/06/21 18:03 BUN 19 mg/dL (7-18) H 09/06/21 18:03 Creatinine 0.74 mg/dL (0.55-1.02) 09/06/21 18:03 Est GFR (MDRD) Af Amer > 60 (>60) 09/06/21 18:03 Est GFR (MDRD) Non-Af > 60 (>60) 09/06/21 18:03 Glucose 100 mg/dL (65-99) H 09/06/21 18:03 Calcium 8.0 mg/dL (8.5-10.1) L 09/06/21 18:03 Corrected Calcium 9.2 mg/dL (8.5-10.1) 09/06/21 18:03 Iron 8 ug/dL (50-175) L 09/06/21 18:03 Transferrin 297 mg/dL (202-364) 09/06/21 18:03 Ferritin 6 ng/mL (8-252) L 09/06/21 18:03 Total Bilirubin 0.10 mg/dL (0.2-1.0) L 09/06/21 18:03 AST 12 Units/L (15-37) L 09/06/21 18:03 ALT 12 Units/L (12-78) 09/06/21 18:03 Alkaline Phosphatase 68 Units/L (46-116) 09/06/21 18:03 Total Protein 5.8 g/dL (6.4-8.2) L 09/06/21 18:03 Albumin 2.5 g/dL (3.4-5.0) L 09/06/21 18:03 Globulin 3.3 g/dL (2.5-4.5) 09/06/21 18:03 Albumin/Globulin Ratio 0.8 Ratio (1.1-2.1) L 09/06/21 18:03 Amylase 120 Units/L (25-115) H 09/06/21 18:03 Lipase 157 Units/L (73-393) 09/06/21 18:03 Vitamin B12 938 pg/mL (193-986) 09/06/21 18:03 Folate 12.1 ng/mL (>8.6) 09/06/21 18:03 Specimen Type Catherized urine 09/06/21 21:04 Urine Color Yellow (YELLOW) 09/06/21 21:04 Urine Appearance Clear (CLEAR) 09/06/21 21:04 Urine pH 6.0 (5.0 - 8.0) 09/06/21 21:04 Ur Specific [place] 1.015 (1.000-1.030) 09/06/21 21:04 Urine Protein Negative (NEGATIVE) 09/06/21 21:04 Urine Glucose (UA) Negative (NEGATIVE) 09/06/21 21:04 Urine Ketones Negative (NEGATIVE) 09/06/21 21:04 Urine Occult Blood Negative (NEGATIVE) 09/06/21 21:04 Urine Nitrite Negative (NEGATIVE) 09/06/21 21:04 Urine Bilirubin Negative (NEGATIVE) 09/06/21 21:04 Urine Urobilinogen Normal (NORMAL) 09/06/21 21:04 Ur Leukocyte Esterase Negative (NEGATIVE) 09/06/21 21:04 SARS-CoV-2 (PCR) Negative (NEGATIVE) 09/06/21 20:34 Influenza Type A (PCR) Negative (NEGATIVE) 09/06/21 20:34 Influenza Type B (PCR) Negative (NEGATIVE) 09/06/21 20:34 RSV (PCR) Negative (NEGATIVE) 09/06/21 20:34 Blood Type A POSITIVE 09/06/21 18:19 Antibody Screen Negative 09/06/21 18:19 Crossmatch See Detail 09/06/21 18:19 Opioid Opioid Risk Tool Age (Nikunj box if 16-45): Yes History of Preadolescent Sexual Abuse: No Total: 1 Total Score Risk Category: Low Risk Copyright: Kerwin MAYA predicting aberrant behaviors
[2021-09-06] MEDS ORDERED: NS 1000 ML 1,000 ML IV ONE (17:51)
[2021-09-06] MEDS ORDERED: NS 1000 ML 1,000 ML ONE (17:57)
[2021-09-06 18:10] LABS: BASOPHILS # (AUTO) 0.2 X10^3/uL (0.0-0.1); BASOPHILS % (AUTO) 1.1 % (0.2-1.0); EOSINOPHILS # (AUTO) 0.2 x10^3/uL (0.0-0.2); EOSINOPHILS % (AUTO) 1.4 % (0.9-2.9); LYMPHOCYTES # (AUTO) 3.3 X10^3/uL (1.3-2.9); LYMPHOCYTES % (AUTO) 23.2 % (21.0-51.0); MEAN CORPUSCULAR HEMOGLOBIN 29.5 pg (27.0-34.0); MEAN CORPUSCULAR HGB CONC 32.8 g/dL (33.0-35.0); MEAN CORPUSCULAR VOLUME 90.1 fL (80.0-100.0); MEAN PLATELET VOLUME 6.4 fL (7.4-11.0); MONOCYTES # (AUTO) 0.8 x10^3/uL (0.3-0.8); MONOCYTES % (AUTO) 5.9 % (0.0-13.0); NEUTROPHILS # (AUTO) 9.6 x10^3/uL (2.2-4.8); NEUTROPHILS % (AUTO) 68.4 % (42.0-75.0); PLATELET COUNT 802 X10^3/uL (150.0-450.0); RED CELL DISTRIBUTION WIDTH 18.1 % (11.6-16.5)
[2021-09-06 18:22] LABS: ALANINE AMINOTRANSFERASE 12 Units/L (12-78); ALBUMIN 2.5 g/dL (3.4-5.0); ALKALINE PHOSPHATASE 68 Units/L (46-116); AMYLASE 120 Units/L (25-115); ASPARTATE AMINO TRANSFERASE 12 Units/L (15-37); BLOOD UREA NITROGEN 19 mg/dL (7-18); CARBON DIOXIDE 28.7 mmol/L (21-32); CHLORIDE 100 mmol/L (98-107); COR CA(FOR HYPOALB) 9.2 mg/dL (8.5-10.1); CREATININE 0.74 mg/dL (0.55-1.02); LIPASE 157 Units/L (73-393); SODIUM 136 mmol/L (136-145); TOTAL PROTEIN 5.8 g/dL (6.4-8.2); eGFR NON BLACK RACES > 60 (>60)
[2021-09-06 18:35] LABS: HEMOGLOBIN 3.2 g/dL (12.0-16.0)
[2021-09-06 18:36] LABS: HEMATOCRIT 9.9 % (36.0-47.0)
[2021-09-06] MEDS ORDERED: NS 250 ML IV 250 ML IV ONE ×3 (19:47→23:41)
[2021-09-06] MEDS ORDERED: PROTONIX INJ 40 MG VIAL ONE (19:48)
[2021-09-06] MEDS ORDERED: NS 100 ML IV 100 ML ONE (19:48)
--- NOTE | 2021-09-06 20:37 | CT ---
EXAM: CT ABDOMEN AND PELVIS WITHOUT INTRAVENOUS CONTRASTHISTORY: Upper abdominal pain. Vomiting blood. Dizziness x1/2 weeks.TECHNIQUE: Spiral axial CT images are obtained through the abdomen and pelvis without the administration of intravenous contrast. Additional coronal and sagittal reformatted images are reconstructed.DOSIMETRY: Total DLP 427.5 mGycm; CTDI 8.3 mGyCOMPARISON: CT abdomen pelvis dated October 10, 2020.FINDINGS:GASTROINTESTINAL TRACT: There is no evidence for hiatal hernia, bowel herniation, bowel obstruction, colitis or diverticulitis. A normal-appearing appendix is seen. Abundant fecal material is seen within the large bowel loops; nonspecific finding; rule out constipation.GENITOURINARY SYSTEM: The kidneys are unremarkable. There is no ureteral calculus or stigmata of obstructive uropathy. The urinary bladder is grossly unremarkable for a non-dedicated exam.CT ABDOMEN: Status post interval cholecystectomy. The liver, spleen, pancreas, adrenal glands, aorta, and inferior vena cava are within normal limits for a noncontrast CT scan. There is no intra-abdominal or retroperitoneal lymphadenopathy, free fluid, or free air seen. No abdominal herniation is noted.CT PELVIS: Status post hysterectomy. The visualized bony structures are within normal limits. No pelvic sidewall or inguinal lymphadenopathy is seen. No inguinal herniation is noted. No free fluid or free air is seen.LUNG BASES: The lung bases are clear.IMPRESSION:1. No gross acute abnormality seen.2. No evidence for renal stone disease or obstructive uropathy.3. No evidence for acute appendicitis, bowel herniation/obstruction, colitis or diverticulitis seen.4. Abundant fecal material is seen within the large bowel loops; nonspecific finding; rule out constipation.5. No free fluid, free air, mass lesions, or lymphadenopathy seen.6. Status post cholecystectomy and hysterectomy.Electronically signed by: Ophelia Sampson (Sep 06, 2021 20:35:18)
[2021-09-06] MEDS ORDERED: OFIRMEV IV 1000 MG VIAL 1,000 MG/100 ML VIAL IV PRN (20:41)
[2021-09-06] MEDS ORDERED: OFIRMEV IV 1000 MG VIAL 1,000 MG/100 ML VIAL IV ONE (20:46)
[2021-09-06] MEDS: PROTONIX INJ 40 MG VIAL 80 MG in NS 100 ML IV 80 ML IV SCH (21:22)
[2021-09-06 21:28] LABS: BILIRUBIN,URINE NEGATIVE (NEGATIVE); BLOOD/HEMOGLOBIN,URINE NEGATIVE (NEGATIVE); GLUCOSE, URINE NEGATIVE (NEGATIVE); KETONES,URINE NEGATIVE (NEGATIVE); LEUKOCYTE ESTERASE ,URINE NEGATIVE (NEGATIVE); NITRITES,URINE NEGATIVE (NEGATIVE); PROTEIN,URINE NEGATIVE (NEGATIVE); UROBILINOGEN,URINE NORMAL (NORMAL)
[2021-09-06 21:34] LABS: APPEARANCE,URINE CLEAR (CLEAR); COLOR,URINE YELLOW (YELLOW)
[2021-09-06] MEDS ORDERED: BENADRYL INJ 50 MG VIAL IVP ONE (21:46)
[2021-09-06] MEDS ORDERED: BENADRYL INJ 50 MG VIAL ONE (21:48)
[2021-09-07 02:49] LABS: HEMATOCRIT 19.6 % (36.0-47.0); HEMOGLOBIN 6.6 g/dL (12.0-16.0)
[2021-09-07] MEDS ORDERED: DEMEROL INJ IVP PRN ×2 (03:42→08:43)
[2021-09-07] MEDS ORDERED: DEMEROL INJ ONE (03:44)
[2021-09-07] MEDS ORDERED: ZOFRAN INJ 4 MG VIAL ONE (03:44)
[2021-09-07] MEDS ORDERED: ZOFRAN INJ 4 MG VIAL IVP PRN (03:45)
[2021-09-07] MEDS ORDERED: ROCEPHIN 1 GRAM IV PREMIX 1 G/50 ML IV.SOLN. IV ONE (03:48)
[2021-09-07] MEDS: ROCEPHIN 1 GRAM IV PREMIX 1 G/50 ML IV.SOLN. IV SCH ×2 (04:07→09:25)
[2021-09-07] MEDS ORDERED: NS 100 ML IV 100 ML ONE ×2 (05:45→09:12)
[2021-09-07] MEDS ORDERED: PROTONIX INJ 40 MG VIAL ONE (05:45)
[2021-09-07] MEDS: PROTONIX INJ 40 MG VIAL 80 MG in NS 100 ML IV 80 ML IV SCH ×2 (05:54→17:20)
[2021-09-07 07:47] LABS: BASOPHILS # (AUTO) 0.1 X10^3/uL (0.0-0.1); BASOPHILS % (AUTO) 1.3 % (0.2-1.0); EOSINOPHILS # (AUTO) 0.1 x10^3/uL (0.0-0.2); EOSINOPHILS % (AUTO) 1.4 % (0.9-2.9); HEMATOCRIT 25.7 % (36.0-47.0); LYMPHOCYTES # (AUTO) 3.1 X10^3/uL (1.3-2.9); LYMPHOCYTES % (AUTO) 28.9 % (21.0-51.0); MEAN CORPUSCULAR HGB CONC 34.5 g/dL (33.0-35.0); MEAN CORPUSCULAR VOLUME 84.1 fL (80.0-100.0); MEAN PLATELET VOLUME 6.4 fL (7.4-11.0); MONOCYTES # (AUTO) 0.7 x10^3/uL (0.3-0.8); MONOCYTES % (AUTO) 6.7 % (0.0-13.0); NEUTROPHILS # (AUTO) 6.7 x10^3/uL (2.2-4.8); NEUTROPHILS % (AUTO) 61.7 % (42.0-75.0); PLATELET COUNT 520 X10^3/uL (150.0-450.0); RED BLOOD COUNT 3.06 X10^6/uL (3.5-5.4); WHITE BLOOD COUNT 10.8 X10^3/uL (3.6-10.0)
[2021-09-07 07:52] LABS: HEMOGLOBIN 8.9 g/dL (12.0-16.0)
[2021-09-07 07:58] LABS: ALANINE AMINOTRANSFERASE 13 Units/L (12-78); ALBUMIN 2.4 g/dL (3.4-5.0); ALKALINE PHOSPHATASE 66 Units/L (46-116); ASPARTATE AMINO TRANSFERASE 18 Units/L (15-37); BLOOD UREA NITROGEN 13 mg/dL (7-18); CALCIUM 7.3 mg/dL (8.5-10.1); CARBON DIOXIDE 24.2 mmol/L (21-32); CHLORIDE 101 mmol/L (98-107); COR CA(FOR HYPOALB) 8.6 mg/dL (8.5-10.1); CREATININE 0.54 mg/dL (0.55-1.02); SODIUM 135 mmol/L (136-145); TOTAL PROTEIN 5.4 g/dL (6.4-8.2); eGFR NON BLACK RACES > 60 (>60)
[2021-09-07] MEDS ORDERED: DIPRIVAN VIAL 20 ML ONE (10:23)
[2021-09-07] MEDS ORDERED: NS 1000 ML 1,000 ML ONE (10:32)
--- NOTE | 2021-09-07 12:11 | DR.H&P ---
H&P History & Physical for Day of: H&P Date: 09/06/21 Chief Complaint Chief Complaint: Throwing up blood. Allergies Allergies Allergy/AdvReac Type Severity Reaction Status Date / Time No Known Drug Allergies Allergy Verified 10/10/20 08:57 History of Present Illness History of Present Illness: 36 yo wf with a recent hx of NVD and throwing up blood. Patient presented to ED and was worked up nd found she had a Hb of 3.2. She was typed and crossed for 4 unints PRBC's. Transfusion was started in ED. Past Medical History Past Medical History: Kidney Stones Past Surgical History Surgical History: Cholecystectomy and [employer] Surgery Social History Does patient currently use any type of tobacco product: Yes Have you used tobacco products in the last 12 months: Yes Type of Tobacco Use: Cigarettes Alcohol Use: None Drug Use: None Medications Home Medications: No Known Drug Allergies Allergy (Verified 10/10/20 08:57) Labs Result Diagrams: 09/07/21 07:40 09/07/21 07:40 Labs: Laboratory WBC 10.8 X10^3/uL (3.6-10.0) H 09/07/21 07:40 RBC 3.06 X10^6/uL (3.5-5.4) L 09/07/21 07:40 Hgb 8.9 g/dL (12.0-16.0) L D 09/07/21 07:40 Hct 25.7 % (36.0-47.0) L 09/07/21 07:40 MCV 84.1 fL (80.0-100.0) 09/07/21 07:40 MCH 29.0 pg (27.0-34.0) 09/07/21 07:40 MCHC 34.5 g/dL (33.0-35.0) 09/07/21 07:40 RDW 17.0 % (11.6-16.5) H 09/07/21 07:40 Plt Count 520 X10^3/uL (150.0-450.0) H 09/07/21 07:40 MPV 6.4 fL (7.4-11.0) L 09/07/21 07:40 Neut % (Auto) 61.7 % (42.0-75.0) 09/07/21 07:40 Lymph % (Auto) 28.9 % (21.0-51.0) 09/07/21 07:40 [place] % (Auto) 6.7 % (0.0-13.0) 09/07/21 07:40 Eos % (Auto) 1.4 % (0.9-2.9) 09/07/21 07:40 Baso % (Auto) 1.3 % (0.2-1.0) H 09/07/21 07:40 Neut # (Auto) 6.7 x10^3/uL (2.2-4.8) H 09/07/21 07:40 Lymph # (Auto) 3.1 X10^3/uL (1.3-2.9) H 09/07/21 07:40 [place] # (Auto) 0.7 x10^3/uL (0.3-0.8) 09/07/21 07:40 Eos # (Auto) 0.1 x10^3/uL (0.0-0.2) 09/07/21 07:40 Baso # (Auto) 0.1 X10^3/uL (0.0-0.1) 09/07/21 07:40 Absolute Nucleated RBC 0.1 /100WBC 09/07/21 07:40 PT 13.4 SECONDS (11.8-14.3) 09/06/21 18:03 INR Target Range - 09/06/21 18:03 INR 1.07 (0.8-1.3) 09/06/21 18:03 APTT 27.1 SECONDS (22.9-36.5) 09/06/21 18:03 PTT Comment - 09/06/21 18:03 Sodium 135 mmol/L (136-145) L 09/07/21 07:40 Corrected Sodium TNP 09/07/21 07:40 Potassium 3.1 mmol/L (3.5-5.1) L 09/07/21 07:40 Chloride 101 mmol/L (98-107) 09/07/21 07:40 Carbon Dioxide 24.2 mmol/L (21-32) 09/07/21 07:40 BUN 13 mg/dL (7-18) 09/07/21 07:40 Creatinine 0.54 mg/dL (0.55-1.02) L 09/07/21 07:40 Est GFR (MDRD) Af Amer > 60 (>60) 09/07/21 07:40 Est GFR (MDRD) Non-Af > 60 (>60) 09/07/21 07:40 Glucose 90 mg/dL (65-99) 09/07/21 07:40 Calcium 7.3 mg/dL (8.5-10.1) L 09/07/21 07:40 Corrected Calcium 8.6 mg/dL (8.5-10.1) 09/07/21 07:40 Magnesium 2.0 mg/dL (1.7-2.9) 09/07/21 07:40 Iron 8 ug/dL (50-175) L 09/06/21 18:03 Transferrin 297 mg/dL (202-364) 09/06/21 18:03 Ferritin 6 ng/mL (8-252) L 09/06/21 18:03 Total Bilirubin 0.60 mg/dL (0.2-1.0) 09/07/21 07:40 AST 18 Units/L (15-37) 09/07/21 07:40 ALT 13 Units/L (12-78) 09/07/21 07:40 Alkaline Phosphatase 66 Units/L (46-116) 09/07/21 07:40 Total Protein 5.4 g/dL (6.4-8.2) L 09/07/21 07:40 Albumin 2.4 g/dL (3.4-5.0) L 09/07/21 07:40 Globulin 3.0 g/dL (2.5-4.5) 09/07/21 07:40 Albumin/Globulin Ratio 0.8 Ratio (1.1-2.1) L 09/07/21 07:40 Amylase 120 Units/L (25-115) H 09/06/21 18:03 Lipase 157 Units/L (73-393) 09/06/21 18:03 Vitamin B12 938 pg/mL (193-986) 09/06/21 18:03 Folate 12.1 ng/mL (>8.6) 09/06/21 18:03 Specimen Type Catherized urine 09/06/21 21:04 Urine Color Yellow (YELLOW) 09/06/21 21:04 Urine Appearance Clear (CLEAR) 09/06/21 21:04 Urine pH 6.0 (5.0 - 8.0) 09/06/21 21:04 Ur Specific [place] 1.015 (1.000-1.030) 09/06/21 21:04 Urine Protein Negative (NEGATIVE) 09/06/21 21:04 Urine Glucose (UA) Negative (NEGATIVE) 09/06/21 21:04 Urine Ketones Negative (NEGATIVE) 09/06/21 21:04 Urine Occult Blood Negative (NEGATIVE) 09/06/21 21:04 Urine Nitrite Negative (NEGATIVE) 09/06/21 21:04 Urine Bilirubin Negative (NEGATIVE) 09/06/21 21:04 Urine Urobilinogen Normal (NORMAL) 09/06/21 21:04 Ur Leukocyte Esterase Negative (NEGATIVE) 09/06/21 21:04 SARS-CoV-2 (PCR) Negative (NEGATIVE) 09/06/21 20:34 Influenza Type A (PCR) Negative (NEGATIVE) 09/06/21 20:34 Influenza Type B (PCR) Negative (NEGATIVE) 09/06/21 20:34 RSV (PCR) Negative (NEGATIVE) 09/06/21 20:34 Tissue Pathology To follow 09/07/21 10:43 Blood Type A POSITIVE 09/06/21 18:19 Antibody Screen Negative 09/06/21 18:19 Crossmatch See Detail 09/06/21 18:19 Review of Systems Constitutional: Weakness Eyes: No Symptoms Reported ENT: No Symptoms Reported Respiratory: Shortness of Breath Cardiovascular: Chest Pain Gastrointestinal: Nausea, Vomiting, Abdominal Pain, Diarrhea and Hematochezia Genitourinary: No Symptoms Reported Musculoskeletal: No Symptoms Reported Skin: No Symptoms Reported Neurological: Weakness Physical Exam Vital Signs: Temperature 99.2 F Pulse Rate [Radial] 77 Pulse Rate 84 Respiratory Rate 20 Blood Pressure [Right Arm] 125/79 Blood Pressure [Left Arm] 120/72 Blood Pressure 125/75 O2 Sat by Pulse Oximetry 98 Oriented: Normal Eyes: Normal Nose: Normal Throat: Normal Respiratory: Clear Throughout Cardiovascular: Normal Auscultation: Bowel Sounds: Normal Palpation: Normal Tenderness: Epigastric and Mild Skin: Normal Musculoskeletal: Normal Psychiatric: Normal Mood Description: Appropriate Affect: Anxious Speech Pattern: Clear Assessment/Plan (1) Abdominal pain: Qualifiers: Abdominal location: epigastric Qualified Code(s): R10.13 - Epigastric pain Status: Acute Plan: Demerol for pain. (2) Anemia: Status: Acute Plan: Consulting Gen. Surg. Dr. Quiroz for EGD. Transfuse PRBC's. (3) Hematemesis with nausea: Status: Acute Plan: Anti emetics. Review H&P Reviewed: Yes Patient was examined?: Yes
--- NOTE | 2021-09-07 12:26 | PCM.PROG ---
Progress Note Progress Note for Day of Date of Exam: 09/07/21 Subjective Subjective: Feels a little better but she is still having abdominal pain in epigastrium. Past Medical Family Social History Past Med/Fam/Surg Hx: No changes since H&P Allergies: Allergies No Known Drug Allergies Allergy (Verified 10/10/20 08:57) Review of Systems ROS: No change since H&P Vital Signs and I&O's Vital Signs: Temperature 99.2 F Pulse Rate [Radial] 77 Pulse Rate 84 Respiratory Rate 20 Blood Pressure [Right Arm] 125/79 Blood Pressure [Left Arm] 120/72 Blood Pressure 125/75 O2 Sat by Pulse Oximetry 98 Intake and Output: Intake & Output 09/05/21 09/06/21 09/07/21 09/08/21 11:59 11:59 11:59 11:59 Intake Total 2260 / 2260 Output Total 1100 / 1100 Balance 1160 / 1160 Physical Exam Oriented: Normal Eyes: Normal Cardiovascular: Normal Auscultation: Bowel Sounds: Normal Tenderness: Epigastric and Mild Skin: Normal Musculoskeletal: Normal Psychiatric: Normal Mood Description: Appropriate Affect: Anxious Speech Pattern: Clear Laboratory and Diagnostics Result Diagrams: 09/07/21 07:40 09/07/21 07:40 Labs: Laboratory WBC 10.8 X10^3/uL (3.6-10.0) H 09/07/21 07:40 RBC 3.06 X10^6/uL (3.5-5.4) L 09/07/21 07:40 Hgb 8.9 g/dL (12.0-16.0) L D 09/07/21 07:40 Hct 25.7 % (36.0-47.0) L 09/07/21 07:40 MCV 84.1 fL (80.0-100.0) 09/07/21 07:40 MCH 29.0 pg (27.0-34.0) 09/07/21 07:40 MCHC 34.5 g/dL (33.0-35.0) 09/07/21 07:40 RDW 17.0 % (11.6-16.5) H 09/07/21 07:40 Plt Count 520 X10^3/uL (150.0-450.0) H 09/07/21 07:40 MPV 6.4 fL (7.4-11.0) L 09/07/21 07:40 Neut % (Auto) 61.7 % (42.0-75.0) 09/07/21 07:40 Lymph % (Auto) 28.9 % (21.0-51.0) 09/07/21 07:40 [place] % (Auto) 6.7 % (0.0-13.0) 09/07/21 07:40 Eos % (Auto) 1.4 % (0.9-2.9) 09/07/21 07:40 Baso % (Auto) 1.3 % (0.2-1.0) H 09/07/21 07:40 Neut # (Auto) 6.7 x10^3/uL (2.2-4.8) H 09/07/21 07:40 Lymph # (Auto) 3.1 X10^3/uL (1.3-2.9) H 09/07/21 07:40 [place] # (Auto) 0.7 x10^3/uL (0.3-0.8) 09/07/21 07:40 Eos # (Auto) 0.1 x10^3/uL (0.0-0.2) 09/07/21 07:40 Baso # (Auto) 0.1 X10^3/uL (0.0-0.1) 09/07/21 07:40 Absolute Nucleated RBC 0.1 /100WBC 09/07/21 07:40 PT 13.4 SECONDS (11.8-14.3) 09/06/21 18:03 INR Target Range - 09/06/21 18:03 INR 1.07 (0.8-1.3) 09/06/21 18:03 APTT 27.1 SECONDS (22.9-36.5) 09/06/21 18:03 PTT Comment - 09/06/21 18:03 Sodium 135 mmol/L (136-145) L 09/07/21 07:40 Corrected Sodium TNP 09/07/21 07:40 Potassium 3.1 mmol/L (3.5-5.1) L 09/07/21 07:40 Chloride 101 mmol/L (98-107) 09/07/21 07:40 Carbon Dioxide 24.2 mmol/L (21-32) 09/07/21 07:40 BUN 13 mg/dL (7-18) 09/07/21 07:40 Creatinine 0.54 mg/dL (0.55-1.02) L 09/07/21 07:40 Est GFR (MDRD) Af Amer > 60 (>60) 09/07/21 07:40 Est GFR (MDRD) Non-Af > 60 (>60) 09/07/21 07:40 Glucose 90 mg/dL (65-99) 09/07/21 07:40 Calcium 7.3 mg/dL (8.5-10.1) L 09/07/21 07:40 Corrected Calcium 8.6 mg/dL (8.5-10.1) 09/07/21 07:40 Magnesium 2.0 mg/dL (1.7-2.9) 09/07/21 07:40 Iron 8 ug/dL (50-175) L 09/06/21 18:03 Transferrin 297 mg/dL (202-364) 09/06/21 18:03 Ferritin 6 ng/mL (8-252) L 09/06/21 18:03 Total Bilirubin 0.60 mg/dL (0.2-1.0) 09/07/21 07:40 AST 18 Units/L (15-37) 09/07/21 07:40 ALT 13 Units/L (12-78) 09/07/21 07:40 Alkaline Phosphatase 66 Units/L (46-116) 09/07/21 07:40 Total Protein 5.4 g/dL (6.4-8.2) L 09/07/21 07:40 Albumin 2.4 g/dL (3.4-5.0) L 09/07/21 07:40 Globulin 3.0 g/dL (2.5-4.5) 09/07/21 07:40 Albumin/Globulin Ratio 0.8 Ratio (1.1-2.1) L 09/07/21 07:40 Amylase 120 Units/L (25-115) H 09/06/21 18:03 Lipase 157 Units/L (73-393) 09/06/21 18:03 Vitamin B12 938 pg/mL (193-986) 09/06/21 18:03 Folate 12.1 ng/mL (>8.6) 09/06/21 18:03 Specimen Type Catherized urine 09/06/21 21:04 Urine Color Yellow (YELLOW) 09/06/21 21:04 Urine Appearance Clear (CLEAR) 09/06/21 21:04 Urine pH 6.0 (5.0 - 8.0) 09/06/21 21:04 Ur Specific [place] 1.015 (1.000-1.030) 09/06/21 21:04 Urine Protein Negative (NEGATIVE) 09/06/21 21:04 Urine Glucose (UA) Negative (NEGATIVE) 09/06/21 21:04 Urine Ketones Negative (NEGATIVE) 09/06/21 21:04 Urine Occult Blood Negative (NEGATIVE) 09/06/21 21:04 Urine Nitrite Negative (NEGATIVE) 09/06/21 21:04 Urine Bilirubin Negative (NEGATIVE) 09/06/21 21:04 Urine Urobilinogen Normal (NORMAL) 09/06/21 21:04 Ur Leukocyte Esterase Negative (NEGATIVE) 09/06/21 21:04 SARS-CoV-2 (PCR) Negative (NEGATIVE) 09/06/21 20:34 Influenza Type A (PCR) Negative (NEGATIVE) 09/06/21 20:34 Influenza Type B (PCR) Negative (NEGATIVE) 09/06/21 20:34 RSV (PCR) Negative (NEGATIVE) 09/06/21 20:34 Tissue Pathology To follow 09/07/21 10:43 Blood Type A POSITIVE 09/06/21 18:19 Antibody Screen Negative 09/06/21 18:19 Crossmatch See Detail 09/06/21 18:19 Radiology Reviewed: Yes Plan (1) Upper GI bleed: Status: Acute Narrative Support Text: Bleed has resolved. Plan: PPI therapy. Transfuse as needed. (2) Duodenal ulcer: Status: Acute Narrative Support Text: EGD revealed a duodenal ulcer. Not bleeding at this time. Plan: Continue Protonix IV for now. (3) Abdominal pain: Status: Acute Qualifiers: Abdominal location: epigastric Qualified Code(s): R10.13 - Epigastric pain Plan: Demerol for pain. (4) Anemia: Status: Acute Narrative Support Text: Hb 8.9 after 3 units PRBC's Plan: Monitor H/H's. (5) Hematemesis with nausea: Status: Resolved Plan: Anti emetics.
[2021-09-07] MEDS: DEMEROL INJ IVP PRN ×3 (12:29→22:01)
[2021-09-07] MEDS: CARAFATE PO SCH ×3 (12:30→21:04)
[2021-09-07] MEDS ORDERED: LASIX IVP ONE (12:51)
[2021-09-07] MEDS ORDERED: MICRO K EXTEN CAP 10 MEQ PO PRN (14:09)
[2021-09-07] MEDS ORDERED: MAGNESIUM SULFATE 1 GRAM/100 mL PREMIX 1 G/100 ML BAG IV PRN (14:09)
[2021-09-07] MEDS ORDERED: K-RIDER 10 MEQ/NS 100 ML 10 MEQ/100 ML BAG IV PRN (14:09)
[2021-09-07] MEDS ORDERED: POTASSIUM CHL 60 MEQ/NS 0.45% 500 ML IV PRN (14:09)
[2021-09-07] MEDS ORDERED: POTASSIUM CHL 40 MEQ/NS 0.45% 500 ML IV PRN (14:09)
[2021-09-07] MEDS ORDERED: POTASSIUM CHLORIDE LIQ 20 MEQ UDC PO PRN (14:09)
[2021-09-07] MEDS ORDERED: KLOR-CON PO PRN (14:09)
[2021-09-07] MEDS: K-DUR TAB 20 MEQ PO PRN (14:23)
[2021-09-07 17:51] LABS: HEMATOCRIT 27.6 % (36.0-47.0); HEMOGLOBIN 9.5 g/dL (12.0-16.0)
[2021-09-08] MEDS: PROTONIX INJ 40 MG VIAL 80 MG in NS 100 ML IV 80 ML IV SCH ×3 (01:55→21:59)
[2021-09-08] MEDS: DEMEROL INJ IVP PRN ×2 (02:47→08:50)
[2021-09-08 06:02] LABS: BASOPHILS # (AUTO) 0.1 X10^3/uL (0.0-0.1); EOSINOPHILS # (AUTO) 0.3 x10^3/uL (0.0-0.2); EOSINOPHILS % (AUTO) 3.4 % (0.9-2.9); HEMATOCRIT 24.8 % (36.0-47.0); HEMOGLOBIN 8.8 g/dL (12.0-16.0); LYMPHOCYTES # (AUTO) 2.2 X10^3/uL (1.3-2.9); LYMPHOCYTES % (AUTO) 27.1 % (21.0-51.0); MEAN CORPUSCULAR HEMOGLOBIN 29.5 pg (27.0-34.0); MEAN CORPUSCULAR HGB CONC 35.2 g/dL (33.0-35.0); MEAN CORPUSCULAR VOLUME 83.8 fL (80.0-100.0); MEAN PLATELET VOLUME 6.8 fL (7.4-11.0); MONOCYTES # (AUTO) 0.7 x10^3/uL (0.3-0.8); MONOCYTES % (AUTO) 8.3 % (0.0-13.0); NEUTROPHILS # (AUTO) 4.9 x10^3/uL (2.2-4.8); NEUTROPHILS % (AUTO) 60.2 % (42.0-75.0); PLATELET COUNT 557 X10^3/uL (150.0-450.0); RED BLOOD COUNT 2.96 X10^6/uL (3.5-5.4); RED CELL DISTRIBUTION WIDTH 16.6 % (11.6-16.5); WHITE BLOOD COUNT 8.1 X10^3/uL (3.6-10.0)
[2021-09-08 06:10] LABS: ALANINE AMINOTRANSFERASE 15 Units/L (12-78); ALBUMIN 2.5 g/dL (3.4-5.0); ALKALINE PHOSPHATASE 64 Units/L (46-116); ASPARTATE AMINO TRANSFERASE 16 Units/L (15-37); BLOOD UREA NITROGEN 10 mg/dL (7-18); CARBON DIOXIDE 28.4 mmol/L (21-32); CHLORIDE 101 mmol/L (98-107); COR CA(FOR HYPOALB) 9.2 mg/dL (8.5-10.1); SODIUM 136 mmol/L (136-145); TOTAL PROTEIN 5.5 g/dL (6.4-8.2); eGFR NON BLACK RACES > 60 (>60)
[2021-09-08] MEDS: CARAFATE PO SCH ×4 (06:32→21:10)
[2021-09-08] MEDS: K-DUR TAB 20 MEQ PO PRN (06:32)
[2021-09-08] MEDS: ROCEPHIN 1 GRAM IV PREMIX 1 G/50 ML IV.SOLN. IV SCH (08:42)
--- NOTE | 2021-09-08 14:31 | DR.PROGNOT ---
Hospital Progress Notes - Progress Note for Day of: Progress Note Date: 09/08/21 - Chief Complaint Chief Complaint: no bleeding .. still having moderate upper abdominal pain . no vomiting . stable Hgb - Past Medical Family Social History Past Med/Fam/Surg Hx: No changes since H&P Allergies: Allergies No Known Drug Allergies Allergy (Verified 10/10/20 08:57) - Review Of Systems ROS: No change since H&P - Vital Signs Vital Signs: Temperature 97.5 F Pulse Rate [Radial] 63 Pulse Rate 84 Respiratory Rate 18 Blood Pressure [Right Arm] 125/81 Blood Pressure [Left Arm] 120/72 Blood Pressure 125/75 O2 Sat by Pulse Oximetry 100 - Physical Exam Oriented: Normal Eyes: Normal Nose: Normal Throat: Normal Cardiovascular: Normal GI:Auscultation: Normal GI:Palpation: Normal GI: Tenderness: Epigastric (soft abdomen with moderate upper abdominal tenderness .. BS+), Mild Skin: Normal Musculoskeletal: Normal Psychiatric: Normal Mood Description: Appropriate Affect: Anxious Speech Pattern: Clear, Appropriate - Laboratory and Diagnostics Result Diagrams: 09/08/21 04:28 09/08/21 08:05 Labs: 09/06/21 21:14 Blood Blood Culture - Preliminary 09/06/21 21:10 Blood Blood Culture - Preliminary Laboratory WBC 8.1 X10^3/uL (3.6-10.0) 09/08/21 04:28 RBC 2.96 X10^6/uL (3.5-5.4) L 09/08/21 04:28 Hgb 8.8 g/dL (12.0-16.0) L 09/08/21 04:28 Hct 24.8 % (36.0-47.0) L 09/08/21 04:28 MCV 83.8 fL (80.0-100.0) 09/08/21 04:28 MCH 29.5 pg (27.0-34.0) 09/08/21 04:28 MCHC 35.2 g/dL (33.0-35.0) H 09/08/21 04:28 RDW 16.6 % (11.6-16.5) H 09/08/21 04:28 Plt Count 557 X10^3/uL (150.0-450.0) H 09/08/21 04:28 MPV 6.8 fL (7.4-11.0) L 09/08/21 04:28 Neut % (Auto) 60.2 % (42.0-75.0) 09/08/21 04:28 Lymph % (Auto) 27.1 % (21.0-51.0) 09/08/21 04:28 [place] % (Auto) 8.3 % (0.0-13.0) 09/08/21 04:28 Eos % (Auto) 3.4 % (0.9-2.9) H 09/08/21 04:28 Baso % (Auto) 1.0 % (0.2-1.0) 09/08/21 04:28 Neut # (Auto) 4.9 x10^3/uL (2.2-4.8) H 09/08/21 04:28 Lymph # (Auto) 2.2 X10^3/uL (1.3-2.9) 09/08/21 04:28 [place] # (Auto) 0.7 x10^3/uL (0.3-0.8) 09/08/21 04:28 Eos # (Auto) 0.3 x10^3/uL (0.0-0.2) H 09/08/21 04:28 Baso # (Auto) 0.1 X10^3/uL (0.0-0.1) 09/08/21 04:28 Absolute Nucleated RBC 0.2 /100WBC 09/08/21 04:28 PT 13.4 SECONDS (11.8-14.3) 09/06/21 18:03 INR Target Range - 09/06/21 18:03 INR 1.07 (0.8-1.3) 09/06/21 18:03 APTT 27.1 SECONDS (22.9-36.5) 09/06/21 18:03 PTT Comment - 09/06/21 18:03 Sodium 136 mmol/L (136-145) 09/08/21 04:28 Corrected Sodium TNP 09/08/21 04:28 Potassium 3.6 mmol/L (3.5-5.1) 09/08/21 08:05 Chloride 101 mmol/L (98-107) 09/08/21 04:28 Carbon Dioxide 28.4 mmol/L (21-32) 09/08/21 04:28 BUN 10 mg/dL (7-18) 09/08/21 04:28 Creatinine 0.40 mg/dL (0.55-1.02) L 09/08/21 04:28 Est GFR (MDRD) Af Amer > 60 (>60) 09/08/21 04:28 Est GFR (MDRD) Non-Af > 60 (>60) 09/08/21 04:28 Glucose 92 mg/dL (65-99) 09/08/21 04:28 Calcium 8.0 mg/dL (8.5-10.1) L 09/08/21 04:28 Corrected Calcium 9.2 mg/dL (8.5-10.1) 09/08/21 04:28 Magnesium 2.0 mg/dL (1.7-2.9) 09/08/21 04:28 Iron 8 ug/dL (50-175) L 09/06/21 18:03 Transferrin 297 mg/dL (202-364) 09/06/21 18:03 Ferritin 6 ng/mL (8-252) L 09/06/21 18:03 Total Bilirubin 0.40 mg/dL (0.2-1.0) 09/08/21 04:28 AST 16 Units/L (15-37) 09/08/21 04:28 ALT 15 Units/L (12-78) 09/08/21 04:28 Alkaline Phosphatase 64 Units/L (46-116) 09/08/21 04:28 Total Protein 5.5 g/dL (6.4-8.2) L 09/08/21 04:28 Albumin 2.5 g/dL (3.4-5.0) L 09/08/21 04:28 Globulin 3.0 g/dL (2.5-4.5) 09/08/21 04:28 Albumin/Globulin Ratio 0.8 Ratio (1.1-2.1) L 09/08/21 04:28 Amylase 120 Units/L (25-115) H 09/06/21 18:03 Lipase 157 Units/L (73-393) 09/06/21 18:03 Vitamin B12 938 pg/mL (193-986) 09/06/21 18:03 Folate 12.1 ng/mL (>8.6) 09/06/21 18:03 Specimen Type Catherized urine 09/06/21 21:04 Urine Color Yellow (YELLOW) 09/06/21 21:04 Urine Appearance Clear (CLEAR) 09/06/21 21:04 Urine pH 6.0 (5.0 - 8.0) 09/06/21 21:04 Ur Specific [place] 1.015 (1.000-1.030) 09/06/21 21:04 Urine Protein Negative (NEGATIVE) 09/06/21 21:04 Urine Glucose (UA) Negative (NEGATIVE) 09/06/21 21:04 Urine Ketones Negative (NEGATIVE) 09/06/21 21:04 Urine Occult Blood Negative (NEGATIVE) 09/06/21 21:04 Urine Nitrite Negative (NEGATIVE) 09/06/21 21:04 Urine Bilirubin Negative (NEGATIVE) 09/06/21 21:04 Urine Urobilinogen Normal (NORMAL) 09/06/21 21:04 Ur Leukocyte Esterase Negative (NEGATIVE) 09/06/21 21:04 SARS-CoV-2 (PCR) Negative (NEGATIVE) 09/06/21 20:34 Influenza Type A (PCR) Negative (NEGATIVE) 09/06/21 20:34 Influenza Type B (PCR) Negative (NEGATIVE) 09/06/21 20:34 RSV (PCR) Negative (NEGATIVE) 09/06/21 20:34 Tissue Pathology To follow 09/07/21 10:43 Blood Type A POSITIVE 09/06/21 18:19 Antibody Screen Negative 09/06/21 18:19 Crossmatch See Detail 09/06/21 18:19 - Assessment and Plan 1: bleeding duodenal ulcer . anemia 2nd to the ulcer .. same plan .. could b e discharged in am on Protonix BID and Carafate TID.. will follow in one week .. needs future repeated Endoscopy ..
--- NOTE | 2021-09-08 16:11 | PCM.PROG ---
Progress Note Progress Note for Day of Date of Exam: 09/08/21 Subjective Subjective: Feels a little better but she is still having abdominal pain in epigastrium. Past Medical Family Social History Past Med/Fam/Surg Hx: No changes since H&P Allergies: Allergies No Known Drug Allergies Allergy (Verified 10/10/20 08:57) Review of Systems ROS: No change since H&P Vital Signs and I&O's Vital Signs: Temperature 97.8 F Pulse Rate [Radial] 64 Pulse Rate 84 Respiratory Rate 18 Blood Pressure [Right Arm] 152/83 Blood Pressure [Left Arm] 120/72 Blood Pressure 125/75 O2 Sat by Pulse Oximetry 99 Intake and Output: Intake & Output 09/06/21 09/07/21 09/08/21 09/09/21 11:59 11:59 11:59 11:59 Intake Total 2260 / 2260 1380 / 1380 Output Total 1100 / 1100 6000 / 6000 Balance 1160 / 1160 -4620 / -4620 Physical Exam Oriented: Normal Eyes: Normal Nose: Normal Throat: Normal Cardiovascular: Normal Auscultation: Bowel Sounds: Normal Tenderness: Epigastric (soft abdomen with moderate upper abdominal tenderness .. BS+), Mild and Moderate Skin: Normal Musculoskeletal: Normal Psychiatric: Normal Mood Description: Appropriate Affect: Anxious Speech Pattern: Clear and Appropriate Laboratory and Diagnostics Result Diagrams: 09/08/21 04:28 09/08/21 08:05 Labs: 09/06/21 21:14 Blood Blood Culture - Preliminary 09/06/21 21:10 Blood Blood Culture - Preliminary Laboratory WBC 8.1 X10^3/uL (3.6-10.0) 09/08/21 04:28 RBC 2.96 X10^6/uL (3.5-5.4) L 09/08/21 04:28 Hgb 8.8 g/dL (12.0-16.0) L 09/08/21 04:28 Hct 24.8 % (36.0-47.0) L 09/08/21 04:28 MCV 83.8 fL (80.0-100.0) 09/08/21 04:28 MCH 29.5 pg (27.0-34.0) 09/08/21 04:28 MCHC 35.2 g/dL (33.0-35.0) H 09/08/21 04:28 RDW 16.6 % (11.6-16.5) H 09/08/21 04:28 Plt Count 557 X10^3/uL (150.0-450.0) H 09/08/21 04:28 MPV 6.8 fL (7.4-11.0) L 09/08/21 04:28 Neut % (Auto) 60.2 % (42.0-75.0) 09/08/21 04:28 Lymph % (Auto) 27.1 % (21.0-51.0) 09/08/21 04:28 [place] % (Auto) 8.3 % (0.0-13.0) 09/08/21 04:28 Eos % (Auto) 3.4 % (0.9-2.9) H 09/08/21 04:28 Baso % (Auto) 1.0 % (0.2-1.0) 09/08/21 04:28 Neut # (Auto) 4.9 x10^3/uL (2.2-4.8) H 09/08/21 04:28 Lymph # (Auto) 2.2 X10^3/uL (1.3-2.9) 09/08/21 04:28 [place] # (Auto) 0.7 x10^3/uL (0.3-0.8) 09/08/21 04:28 Eos # (Auto) 0.3 x10^3/uL (0.0-0.2) H 09/08/21 04:28 Baso # (Auto) 0.1 X10^3/uL (0.0-0.1) 09/08/21 04:28 Absolute Nucleated RBC 0.2 /100WBC 09/08/21 04:28 PT 13.4 SECONDS (11.8-14.3) 09/06/21 18:03 INR Target Range - 09/06/21 18:03 INR 1.07 (0.8-1.3) 09/06/21 18:03 APTT 27.1 SECONDS (22.9-36.5) 09/06/21 18:03 PTT Comment - 09/06/21 18:03 Sodium 136 mmol/L (136-145) 09/08/21 04:28 Corrected Sodium TNP 09/08/21 04:28 Potassium 3.6 mmol/L (3.5-5.1) 09/08/21 08:05 Chloride 101 mmol/L (98-107) 09/08/21 04:28 Carbon Dioxide 28.4 mmol/L (21-32) 09/08/21 04:28 BUN 10 mg/dL (7-18) 09/08/21 04:28 Creatinine 0.40 mg/dL (0.55-1.02) L 09/08/21 04:28 Est GFR (MDRD) Af Amer > 60 (>60) 09/08/21 04:28 Est GFR (MDRD) Non-Af > 60 (>60) 09/08/21 04:28 Glucose 92 mg/dL (65-99) 09/08/21 04:28 Calcium 8.0 mg/dL (8.5-10.1) L 09/08/21 04:28 Corrected Calcium 9.2 mg/dL (8.5-10.1) 09/08/21 04:28 Magnesium 2.0 mg/dL (1.7-2.9) 09/08/21 04:28 Iron 8 ug/dL (50-175) L 09/06/21 18:03 Transferrin 297 mg/dL (202-364) 09/06/21 18:03 Ferritin 6 ng/mL (8-252) L 09/06/21 18:03 Total Bilirubin 0.40 mg/dL (0.2-1.0) 09/08/21 04:28 AST 16 Units/L (15-37) 09/08/21 04:28 ALT 15 Units/L (12-78) 09/08/21 04:28 Alkaline Phosphatase 64 Units/L (46-116) 09/08/21 04:28 Total Protein 5.5 g/dL (6.4-8.2) L 09/08/21 04:28 Albumin 2.5 g/dL (3.4-5.0) L 09/08/21 04:28 Globulin 3.0 g/dL (2.5-4.5) 09/08/21 04:28 Albumin/Globulin Ratio 0.8 Ratio (1.1-2.1) L 09/08/21 04:28 Amylase 120 Units/L (25-115) H 09/06/21 18:03 Lipase 157 Units/L (73-393) 09/06/21 18:03 Vitamin B12 938 pg/mL (193-986) 09/06/21 18:03 Folate 12.1 ng/mL (>8.6) 09/06/21 18:03 Specimen Type Catherized urine 09/06/21 21:04 Urine Color Yellow (YELLOW) 09/06/21 21:04 Urine Appearance Clear (CLEAR) 09/06/21 21:04 Urine pH 6.0 (5.0 - 8.0) 09/06/21 21:04 Ur Specific [place] 1.015 (1.000-1.030) 09/06/21 21:04 Urine Protein Negative (NEGATIVE) 09/06/21 21:04 Urine Glucose (UA) Negative (NEGATIVE) 09/06/21 21:04 Urine Ketones Negative (NEGATIVE) 09/06/21 21:04 Urine Occult Blood Negative (NEGATIVE) 09/06/21 21:04 Urine Nitrite Negative (NEGATIVE) 09/06/21 21:04 Urine Bilirubin Negative (NEGATIVE) 09/06/21 21:04 Urine Urobilinogen Normal (NORMAL) 09/06/21 21:04 Ur Leukocyte Esterase Negative (NEGATIVE) 09/06/21 21:04 SARS-CoV-2 (PCR) Negative (NEGATIVE) 09/06/21 20:34 Influenza Type A (PCR) Negative (NEGATIVE) 09/06/21 20:34 Influenza Type B (PCR) Negative (NEGATIVE) 09/06/21 20:34 RSV (PCR) Negative (NEGATIVE) 09/06/21 20:34 Tissue Pathology To follow 09/07/21 10:43 Blood Type A POSITIVE 09/06/21 18:19 Antibody Screen Negative 09/06/21 18:19 Crossmatch See Detail 09/06/21 18:19 Plan (1) Upper GI bleed: Status: Acute Plan: PPI therapy. Transfuse as needed. (2) Duodenal ulcer: Status: Acute Plan: Continue Protonix IV for now. Plan on discharge home in am. (3) Abdominal pain: Status: Acute Qualifiers: Abdominal location: epigastric Qualified Code(s): R10.13 - Epigastric pain Plan: Demerol for pain. (4) Anemia: Status: Acute Narrative Support Text: stable Plan: CBC in am. (5) Hematemesis with nausea: Status: Resolved Plan: Anti emetics.
[2021-09-08] MEDS ORDERED: NS 500 ML IV 0 ML IV ONE (20:08)
[2021-09-08] MEDS ORDERED: TYLENOL 325 MG TAB PO PRN (20:31)
[2021-09-08] MEDS: NS 500 ML IV 500 ML IV PRN (20:39)
[2021-09-09] MEDS: CARAFATE PO SCH (05:43)
[2021-09-09] MEDS: NS 500 ML IV 500 ML IV PRN (06:22)
[2021-09-09] MEDS: PROTONIX INJ 40 MG VIAL 80 MG in NS 100 ML IV 80 ML IV SCH ×2 (06:22→09:29)
[2021-09-09 06:41] LABS: BASOPHILS # (AUTO) 0.1 X10^3/uL (0.0-0.1); BASOPHILS % (AUTO) 0.9 % (0.2-1.0); EOSINOPHILS # (AUTO) 0.4 x10^3/uL (0.0-0.2); EOSINOPHILS % (AUTO) 3.9 % (0.9-2.9); HEMATOCRIT 26.3 % (36.0-47.0); HEMOGLOBIN 9.1 g/dL (12.0-16.0); LYMPHOCYTES # (AUTO) 2.3 X10^3/uL (1.3-2.9); LYMPHOCYTES % (AUTO) 20.8 % (21.0-51.0); MEAN CORPUSCULAR HEMOGLOBIN 29.2 pg (27.0-34.0); MEAN CORPUSCULAR HGB CONC 34.6 g/dL (33.0-35.0); MEAN CORPUSCULAR VOLUME 84.2 fL (80.0-100.0); MEAN PLATELET VOLUME 6.9 fL (7.4-11.0); MONOCYTES # (AUTO) 0.7 x10^3/uL (0.3-0.8); MONOCYTES % (AUTO) 6.5 % (0.0-13.0); NEUTROPHILS # (AUTO) 7.4 x10^3/uL (2.2-4.8); NEUTROPHILS % (AUTO) 67.9 % (42.0-75.0); PLATELET COUNT 608 X10^3/uL (150.0-450.0); RED BLOOD COUNT 3.13 X10^6/uL (3.5-5.4); RED CELL DISTRIBUTION WIDTH 17.2 % (11.6-16.5)
[2021-09-09 06:57] LABS: ALANINE AMINOTRANSFERASE 17 Units/L (12-78); ALBUMIN 2.5 g/dL (3.4-5.0); ALKALINE PHOSPHATASE 70 Units/L (46-116); ASPARTATE AMINO TRANSFERASE 23 Units/L (15-37); BLOOD UREA NITROGEN 10 mg/dL (7-18); CALCIUM 8.2 mg/dL (8.5-10.1); CARBON DIOXIDE 24.8 mmol/L (21-32); CHLORIDE 104 mmol/L (98-107); COR CA(FOR HYPOALB) 9.4 mg/dL (8.5-10.1); CREATININE 0.47 mg/dL (0.55-1.02); SODIUM 139 mmol/L (136-145); TOTAL PROTEIN 5.8 g/dL (6.4-8.2); eGFR NON BLACK RACES > 60 (>60)
--- NOTE | 2021-09-09 08:17 | DR.PROGNOT ---
Hospital Progress Notes - Progress Note for Day of: Progress Note Date: 09/09/21 - Chief Complaint Chief Complaint: no bleeding .. only mild upper abdominal pain . no vomiting . stable Hgb - Past Medical Family Social History Past Med/Fam/Surg Hx: No changes since H&P Allergies: Allergies No Known Drug Allergies Allergy (Verified 10/10/20 08:57) - Review Of Systems ROS: No change since H&P - Vital Signs Vital Signs: Temperature 98.8 F Pulse Rate [Radial] 71 Pulse Rate 84 Respiratory Rate 18 Blood Pressure [Right Arm] 123/71 Blood Pressure [Left Arm] 120/72 Blood Pressure 125/75 O2 Sat by Pulse Oximetry 99 - Physical Exam Oriented: Normal Eyes: Normal Nose: Normal Throat: Normal Cardiovascular: Normal GI:Auscultation: Normal GI:Palpation: Normal GI: Tenderness: Epigastric (soft abdomen with moderate upper abdominal tenderness .. BS+), Mild, Moderate Skin: Normal Musculoskeletal: Normal Psychiatric: Normal Mood Description: Appropriate Affect: Anxious Speech Pattern: Clear, Appropriate - Laboratory and Diagnostics Result Diagrams: 09/09/21 05:30 09/09/21 05:30 Labs: 09/06/21 21:14 Blood Blood Culture - Preliminary 09/06/21 21:10 Blood Blood Culture - Preliminary Laboratory WBC 11.0 X10^3/uL (3.6-10.0) H 09/09/21 05:30 RBC 3.13 X10^6/uL (3.5-5.4) L 09/09/21 05:30 Hgb 9.1 g/dL (12.0-16.0) L 09/09/21 05:30 Hct 26.3 % (36.0-47.0) L 09/09/21 05:30 MCV 84.2 fL (80.0-100.0) 09/09/21 05:30 MCH 29.2 pg (27.0-34.0) 09/09/21 05:30 MCHC 34.6 g/dL (33.0-35.0) 09/09/21 05:30 RDW 17.2 % (11.6-16.5) H 09/09/21 05:30 Plt Count 608 X10^3/uL (150.0-450.0) H 09/09/21 05:30 MPV 6.9 fL (7.4-11.0) L 09/09/21 05:30 Neut % (Auto) 67.9 % (42.0-75.0) 09/09/21 05:30 Lymph % (Auto) 20.8 % (21.0-51.0) L 09/09/21 05:30 [place] % (Auto) 6.5 % (0.0-13.0) 09/09/21 05:30 Eos % (Auto) 3.9 % (0.9-2.9) H 09/09/21 05:30 Baso % (Auto) 0.9 % (0.2-1.0) 09/09/21 05:30 Neut # (Auto) 7.4 x10^3/uL (2.2-4.8) H 09/09/21 05:30 Lymph # (Auto) 2.3 X10^3/uL (1.3-2.9) 09/09/21 05:30 [place] # (Auto) 0.7 x10^3/uL (0.3-0.8) 09/09/21 05:30 Eos # (Auto) 0.4 x10^3/uL (0.0-0.2) H 09/09/21 05:30 Baso # (Auto) 0.1 X10^3/uL (0.0-0.1) 09/09/21 05:30 Absolute Nucleated RBC 0.0 /100WBC 09/09/21 05:30 PT 13.4 SECONDS (11.8-14.3) 09/06/21 18:03 INR Target Range - 09/06/21 18:03 INR 1.07 (0.8-1.3) 09/06/21 18:03 APTT 27.1 SECONDS (22.9-36.5) 09/06/21 18:03 PTT Comment - 09/06/21 18:03 Sodium 139 mmol/L (136-145) 09/09/21 05:30 Corrected Sodium TNP 09/09/21 05:30 Potassium 3.5 mmol/L (3.5-5.1) 09/09/21 05:30 Chloride 104 mmol/L (98-107) 09/09/21 05:30 Carbon Dioxide 24.8 mmol/L (21-32) 09/09/21 05:30 BUN 10 mg/dL (7-18) 09/09/21 05:30 Creatinine 0.47 mg/dL (0.55-1.02) L 09/09/21 05:30 Est GFR (MDRD) Af Amer > 60 (>60) 09/09/21 05:30 Est GFR (MDRD) Non-Af > 60 (>60) 09/09/21 05:30 Glucose 91 mg/dL (65-99) 09/09/21 05:30 Calcium 8.2 mg/dL (8.5-10.1) L 09/09/21 05:30 Corrected Calcium 9.4 mg/dL (8.5-10.1) 09/09/21 05:30 Magnesium 2.0 mg/dL (1.7-2.9) 09/08/21 04:28 Iron 8 ug/dL (50-175) L 09/06/21 18:03 Transferrin 297 mg/dL (202-364) 09/06/21 18:03 Ferritin 6 ng/mL (8-252) L 09/06/21 18:03 Total Bilirubin 0.20 mg/dL (0.2-1.0) 09/09/21 05:30 AST 23 Units/L (15-37) 09/09/21 05:30 ALT 17 Units/L (12-78) 09/09/21 05:30 Alkaline Phosphatase 70 Units/L (46-116) 09/09/21 05:30 Total Protein 5.8 g/dL (6.4-8.2) L 09/09/21 05:30 Albumin 2.5 g/dL (3.4-5.0) L 09/09/21 05:30 Globulin 3.3 g/dL (2.5-4.5) 09/09/21 05:30 Albumin/Globulin Ratio 0.8 Ratio (1.1-2.1) L 09/09/21 05:30 Amylase 120 Units/L (25-115) H 09/06/21 18:03 Lipase 157 Units/L (73-393) 09/06/21 18:03 Vitamin B12 938 pg/mL (193-986) 09/06/21 18:03 Folate 12.1 ng/mL (>8.6) 09/06/21 18:03 Specimen Type Catherized urine 09/06/21 21:04 Urine Color Yellow (YELLOW) 09/06/21 21:04 Urine Appearance Clear (CLEAR) 09/06/21 21:04 Urine pH 6.0 (5.0 - 8.0) 09/06/21 21:04 Ur Specific [place] 1.015 (1.000-1.030) 09/06/21 21:04 Urine Protein Negative (NEGATIVE) 09/06/21 21:04 Urine Glucose (UA) Negative (NEGATIVE) 09/06/21 21:04 Urine Ketones Negative (NEGATIVE) 09/06/21 21:04 Urine Occult Blood Negative (NEGATIVE) 09/06/21 21:04 Urine Nitrite Negative (NEGATIVE) 09/06/21 21:04 Urine Bilirubin Negative (NEGATIVE) 09/06/21 21:04 Urine Urobilinogen Normal (NORMAL) 09/06/21 21:04 Ur Leukocyte Esterase Negative (NEGATIVE) 09/06/21 21:04 SARS-CoV-2 (PCR) Negative (NEGATIVE) 09/06/21 20:34 Influenza Type A (PCR) Negative (NEGATIVE) 09/06/21 20:34 Influenza Type B (PCR) Negative (NEGATIVE) 09/06/21 20:34 RSV (PCR) Negative (NEGATIVE) 09/06/21 20:34 Tissue Pathology To follow 09/07/21 10:43 Blood Type A POSITIVE 09/06/21 18:19 Antibody Screen Negative 09/06/21 18:19 Crossmatch See Detail 09/06/21 18:19 - Assessment and Plan 1: bleeding duodenal ulcer . anemia 2nd to the ulcer .. same plan .. could be discharged on Protonix BID and Carafate TID.. will follow in 2 weeks .. needs future repeated Endoscopy ..
[2021-09-09 09:26] VITALS: BP 121/74
[2021-09-09] MEDS: ROCEPHIN 1 GRAM IV PREMIX 1 G/50 ML IV.SOLN. IV SCH (09:28)
--- NOTE | 2021-09-10 10:50 | W.DIS.FURT ---
Summary of Discharge Discharge Summary of Date Date of Exam: 09/09/21 Admission Date Date of Admission: 09/06/21 Admission Diagnosis Hospital Course: Patient was admitted for Profound anemia Hb of 3.1 She recieved 3 units of PRBC's which raised her Hb to 8.9. She had an EGD which showed a duodenal ulcer which was not bleeding. The following next 2 days her Hb was stable and she was discharged home in stable condition. Vital Signs: Vital Signs (72 hours) 09/07/21 10:55 09/07/21 11:10 09/07/21 11:25 Temperature 98.2 F 98.2 F Pulse Rate [Radial] 68 74 62 Respiratory Rate 18 18 18 Blood Pressure [Right Arm] 124/77 125/83 131/81 O2 Sat by Pulse Oximetry 100 100 100 09/07/21 11:55 09/07/21 12:29 09/07/21 12:56 Temperature Pulse Rate [Radial] 71 69 Respiratory Rate 20 20 20 Blood Pressure [Right Arm] 129/77 118/73 O2 Sat by Pulse Oximetry 100 100 09/07/21 12:59 09/07/21 16:00 09/07/21 17:33 Temperature 98.4 F Pulse Rate [Radial] 64 Respiratory Rate 20 20 20 Blood Pressure [Right Arm] 119/81 O2 Sat by Pulse Oximetry 96 09/07/21 18:03 09/07/21 20:00 09/07/21 22:01 Temperature 98.4 F Pulse Rate [Radial] 74 Respiratory Rate 20 18 18 Blood Pressure [Right Arm] 115/77 O2 Sat by Pulse Oximetry 100 09/07/21 22:31 09/07/21 23:59 09/08/21 02:47 Temperature 98.2 F Pulse Rate [Radial] 61 Respiratory Rate 20 18 18 Blood Pressure [Right Arm] 128/75 O2 Sat by Pulse Oximetry 99 09/08/21 03:17 09/08/21 03:59 09/08/21 08:00 Temperature 98.3 F 97.5 F L Pulse Rate [Radial] 61 63 Respiratory Rate 18 18 20 Blood Pressure [Right Arm] 128/78 125/81 O2 Sat by Pulse Oximetry 99 100 09/08/21 08:50 09/08/21 09:20 09/08/21 12:00 Temperature 97.8 F Pulse Rate [Radial] 64 Respiratory Rate 20 18 18 Blood Pressure [Right Arm] 152/83 O2 Sat by Pulse Oximetry 99 09/08/21 16:00 09/08/21 20:00 09/08/21 21:10 Temperature 98.3 F 98.5 F Pulse Rate [Radial] 70 76 Respiratory Rate 18 18 18 Blood Pressure [Right Arm] 129/80 119/68 O2 Sat by Pulse Oximetry 99 100 09/08/21 22:07 09/09/21 00:00 09/09/21 04:00 Temperature 98.3 F 98.8 F Pulse Rate [Radial] 74 71 Respiratory Rate 18 18 18 Blood Pressure [Right Arm] 126/80 123/71 O2 Sat by Pulse Oximetry 100 99 09/09/21 08:00 Temperature 98.1 F Pulse Rate [Radial] 72 Respiratory Rate 18 Blood Pressure [Right Arm] 121/74 O2 Sat by Pulse Oximetry 100 Labs: Laboratory Last Values WBC 11.0 X10^3/uL (3.6-10.0) H 09/09/21 05:30 RBC 3.13 X10^6/uL (3.5-5.4) L 09/09/21 05:30 Hgb 9.1 g/dL (12.0-16.0) L 09/09/21 05:30 Hct 26.3 % (36.0-47.0) L 09/09/21 05:30 MCV 84.2 fL (80.0-100.0) 09/09/21 05:30 MCH 29.2 pg (27.0-34.0) 09/09/21 05:30 MCHC 34.6 g/dL (33.0-35.0) 09/09/21 05:30 RDW 17.2 % (11.6-16.5) H 09/09/21 05:30 Plt Count 608 X10^3/uL (150.0-450.0) H 09/09/21 05:30 MPV 6.9 fL (7.4-11.0) L 09/09/21 05:30 Neut % (Auto) 67.9 % (42.0-75.0) 09/09/21 05:30 Lymph % (Auto) 20.8 % (21.0-51.0) L 09/09/21 05:30 [place] % (Auto) 6.5 % (0.0-13.0) 09/09/21 05:30 Eos % (Auto) 3.9 % (0.9-2.9) H 09/09/21 05:30 Baso % (Auto) 0.9 % (0.2-1.0) 09/09/21 05:30 Neut # (Auto) 7.4 x10^3/uL (2.2-4.8) H 09/09/21 05:30 Lymph # (Auto) 2.3 X10^3/uL (1.3-2.9) 09/09/21 05:30 [place] # (Auto) 0.7 x10^3/uL (0.3-0.8) 09/09/21 05:30 Eos # (Auto) 0.4 x10^3/uL (0.0-0.2) H 09/09/21 05:30 Baso # (Auto) 0.1 X10^3/uL (0.0-0.1) 09/09/21 05:30 Absolute Nucleated RBC 0.0 /100WBC 09/09/21 05:30 PT 13.4 SECONDS (11.8-14.3) 09/06/21 18:03 INR Target Range - 09/06/21 18:03 INR 1.07 (0.8-1.3) 09/06/21 18:03 APTT 27.1 SECONDS (22.9-36.5) 09/06/21 18:03 PTT Comment - 09/06/21 18:03 Sodium 139 mmol/L (136-145) 09/09/21 05:30 Corrected Sodium TNP 09/09/21 05:30 Potassium 3.5 mmol/L (3.5-5.1) 09/09/21 05:30 Chloride 104 mmol/L (98-107) 09/09/21 05:30 Carbon Dioxide 24.8 mmol/L (21-32) 09/09/21 05:30 BUN 10 mg/dL (7-18) 09/09/21 05:30 Creatinine 0.47 mg/dL (0.55-1.02) L 09/09/21 05:30 Est GFR (MDRD) Af Amer > 60 (>60) 09/09/21 05:30 Est GFR (MDRD) Non-Af > 60 (>60) 09/09/21 05:30 Glucose 91 mg/dL (65-99) 09/09/21 05:30 Calcium 8.2 mg/dL (8.5-10.1) L 09/09/21 05:30 Corrected Calcium 9.4 mg/dL (8.5-10.1) 09/09/21 05:30 Magnesium 2.0 mg/dL (1.7-2.9) 09/08/21 04:28 Iron 8 ug/dL (50-175) L 09/06/21 18:03 Transferrin 297 mg/dL (202-364) 09/06/21 18:03 Ferritin 6 ng/mL (8-252) L 09/06/21 18:03 Total Bilirubin 0.20 mg/dL (0.2-1.0) 09/09/21 05:30 AST 23 Units/L (15-37) 09/09/21 05:30 ALT 17 Units/L (12-78) 09/09/21 05:30 Alkaline Phosphatase 70 Units/L (46-116) 09/09/21 05:30 Total Protein 5.8 g/dL (6.4-8.2) L 09/09/21 05:30 Albumin 2.5 g/dL (3.4-5.0) L 09/09/21 05:30 Globulin 3.3 g/dL (2.5-4.5) 09/09/21 05:30 Albumin/Globulin Ratio 0.8 Ratio (1.1-2.1) L 09/09/21 05:30 Amylase 120 Units/L (25-115) H 09/06/21 18:03 Lipase 157 Units/L (73-393) 09/06/21 18:03 Vitamin B12 938 pg/mL (193-986) 09/06/21 18:03 Folate 12.1 ng/mL (>8.6) 09/06/21 18:03 Specimen Type Catherized urine 09/06/21 21:04 Urine Color Yellow (YELLOW) 09/06/21 21:04 Urine Appearance Clear (CLEAR) 09/06/21 21:04 Urine pH 6.0 (5.0 - 8.0) 09/06/21 21:04 Ur Specific [place] 1.015 (1.000-1.030) 09/06/21 21:04 Urine Protein Negative (NEGATIVE) 09/06/21 21:04 Urine Glucose (UA) Negative (NEGATIVE) 09/06/21 21:04 Urine Ketones Negative (NEGATIVE) 09/06/21 21:04 Urine Occult Blood Negative (NEGATIVE) 09/06/21 21:04 Urine Nitrite Negative (NEGATIVE) 09/06/21 21:04 Urine Bilirubin Negative (NEGATIVE) 09/06/21 21:04 Urine Urobilinogen Normal (NORMAL) 09/06/21 21:04 Ur Leukocyte Esterase Negative (NEGATIVE) 09/06/21 21:04 SARS-CoV-2 (PCR) Negative (NEGATIVE) 09/06/21 20:34 Influenza Type A (PCR) Negative (NEGATIVE) 09/06/21 20:34 Influenza Type B (PCR) Negative (NEGATIVE) 09/06/21 20:34 RSV (PCR) Negative (NEGATIVE) 09/06/21 20:34 Tissue Pathology To follow 09/07/21 10:43 Blood Type A POSITIVE 09/06/21 18:19 Antibody Screen Negative 09/06/21 18:19 Crossmatch See Detail 09/06/21 18:19 Reason For Visit: SEVERE ANEMIA,GI BLEED/HEMATEMESIS,ABDOMINAL PAIN Discharge Date Discharge Date: 09/09/21 Discharge Diagnosis All Active Problems (Updated 09/09/21 @ 15:38 by ISMAEL FIGUEROA) Duodenal ulcer (Acute) Upper GI bleed (Acute) Anemia (Acute) Ovarian cyst (Acute) Abdominal pain (Acute) Ovarian cyst (Acute) Right kidney stone (Acute) Pharyngitis (Acute) Reactive airway disease (Acute) Abscess, dental (Acute) Acute gingivitis (Acute) Tooth ache (Acute) Dental caries (Acute) Jaw pain (Acute) Plan of Treatment: Continue with present treatment and follow up plan. Pt is to keep follow up appointment as instructed and take medications as ordered. Discharge Medications Discharge Medications: No Known Drug Allergies Allergy (Verified 10/10/20 08:57) New Prescriptions ferrous sulfate [Iron (ferrous sulfate)] 325 mg PO DAILY #30 tab 09/09/21 [Rx] omeprazole 40 mg PO DAILY #30 cap 09/09/21 [Rx] pantoprazole [Protonix] 40 mg PO QAM #30 tab 09/09/21 [Rx] sucralfate [Carafate] 1 g PO QACHS 30 Days #120 tab 09/09/21 [Rx] Discharge Disposition Discharge Disposition: Patient discharged home in stable condition. Discharge Plan Discharge Plan Hospital Course: Patient was admitted for Profound anemia Hb of 3.1 She recieved 3 units of PRBC's which raised her Hb to 8.9. She had an EGD which showed a duodenal ulcer which was not bleeding. The following next 2 days her Hb was stable and she was discharged home in stable condition. Patient Disposition: 01 HOME, SELF-CARE Condition: Stable Health Concerns: Post Hospitalization: new medications and changes needed to prevent readmission or further decline. Pt educated and given instructions on all concerns. Care Plan Goals: Problem: Respiratory Complications Goal: Improved Uncomplicated Respiratory Status Instructions: Follow provided instructions. Follow up with primary physician as directed. Contact primary care physician or report to the closest Emergency Room if condition worsens. Plan of Treatment: Continue with present treatment and follow up plan. Pt is to keep follow up appointment as instructed and take medications as ordered. Prescriptions: New omeprazole 40 mg Capsule,Delayed Release(Dr/Ec) 40 mg PO DAILY Qty: 30 RF: 2 ferrous sulfate [Iron (ferrous sulfate)] 325 mg (65 mg iron) Tablet 325 mg PO DAILY Qty: 30 RF: 2 sucralfate [Carafate] 1 gram Tablet 1 g PO QACHS 30 Days Qty: 120 RF: 1 pantoprazole [Protonix] 40 mg Tablet,Delayed Release (Dr/Ec) 40 mg PO QAM Qty: 30 RF: 1 Follow ups/Referrals Follow ups/Referrals: ISMAEL FIGUEROA [STAFF PHYSICIAN] - 09/23/21 9:00 am SHAHID RUSH [STAFF PHYSICIAN] - 09/24/21 9:30 am Instructions Instructions: Anemia, Peptic Ulcer, [id number], Steps to Quit Smoking, [id number], Hematemesis, Peptic Ulcer Eating Plan, Gastrointestinal Bleeding, [id number], Esophagogastroduodenoscopy, Care After, [place] Diet Stand Alone Forms: Precautions for [facility], [facility], Patient Portal, Social Distancing
== END 2021-09-09 10:05 | disposition home or self-care (01) | DRG 379 ==
LOC: ER 17:19 → U 23:10 → MED/SURG 09-07 08:30
PROVIDERS: ADMIT Family Medicine; ATTEND Family Medicine
DX: R42 Dizziness and giddiness; K92.2 Gastrointestinal hemorrhage, unspecified; K92.0 Hematemesis; D64.89 Other specified anemias; R10.13 Epigastric pain; Z20.822 Contact with and (suspected) exposure to COVID-19; K26.3 Acute duodenal ulcer without hemorrhage or perforation

== ENCOUNTER 2024-08-07 11:12 | Inpatient (IN) ==
[2024-08-07 11:19] VITALS: BMI 16.8
--- NOTE | 2024-08-07 11:20 | DR.GENAD ---
HPI Time Seen Time Seen by Provider: 08/07/24 11:19 PCP Primary Care Physician: Kofi Pastor Complaint/Symptoms Chief Complaint Doctors Comments: Patient states that she has a h/o Gi bleed.She began to feel weak, sweaty yesterday, had a syncopal episode today and abdominal pain. Patient denies: n,v,fever,chills. Chief Complaint:: Pt states she didn't feel well yesterday and broke out into a sweat this morning and then passed out in the hallway. Pt states she then started passing blood in her stool. Pt did not hit anything when she fell and denies injuries. Denies fever, chills, n/v. Pt has a hx of bleeding ulcers and this happened that time as well. Source History Provided: Patient and Significant Other Mode of Arrival Mode of Arrival: Ambulatory Timing Onset of Chief Complaint: 08/07/24 PMH PMH Past Medical History: Yes Past Medical History: Kidney Stones Past Medical History Comment: Ulcers Past Surgical History: Yes Surgical History: Cholecystectomy and Hysterectomy Family History History of Family Medical Conditions: No Social History Type of Tobacco Use: Cigarettes Alcohol Use: Rarely Do you use any recreational Drugs:: Yes (weed) Lives With: Spouse Lives Where: Home Infectious screening Have you traveled outside the country in the last 6 months?: No Isolation: Standard ROS Review of Systems Constitutional: Diaphoresis and Weakness Eyes: No Symptoms Reported ENTM: No Symptoms Reported Respiratoy: No Symptoms Reported Cardiovascular: Syncope Gastrointestinal/Abdominal: Abdominal Pain and Other (hematochezia) Genitourinary: No Symptoms Reported Neurological: No Symptoms Reported Musculoskeletal: No Symptoms Reported Integumentary: No Symptoms Reported Hematologic/Lymphatic: No Symptoms Reported Endocrine: No Symptoms Reported Psychiatric: No Symptoms Reported All Other Systems: Reviewed and Negative PE Vital Signs Vitals: Vital Signs Temperature 98.1 F Pulse Rate 83 Pulse Rate 94 Pulse Rate 96 Pulse Rate 109 Respiratory Rate 15 Respiratory Rate 44 Respiratory Rate 31 Respiratory Rate 20 Blood Pressure 119/59 Blood Pressure 100/56 O2 Sat by Pulse Oximetry 100 O2 Sat by Pulse Oximetry 100 O2 Sat by Pulse Oximetry 100 O2 Sat by Pulse Oximetry 100 General Limitations: No Limitations General Appearance: Alert and In No Apparent Distress Head Head Exam: Normal Inspection Eyes Eye exam: Normal Appearance ENT ENT Exam: Normal Exam External Ear Exam: Normal External Inspection TM/Canal Exam: Bilateral: Normal Nose Exam: Normal Nose Exam Mouth Exam: Normal Inspection Throat Exam: Normal Inspection Neck Neck Exam: Normal Inspection Chest Chest Inspection: Normal Inspection Respiratory Respiratory Exam: Normal Lung Sounds Bilat Respiratory Exam: Bilateral: Clear to Auscultation Cardiovascular Cardiovascular Exam: Regular Rate and Normal Rhythm Abdominal Exam Abdominal Exam: Soft and Tenderness Abdominal Tenderness: RLQ and LLQ Extremities Extremities Exam: Normal Inspection Back Back Exam: Normal Inspection Neurologic Neurological Exam: Alert and Oriented X3 Psychiatric Psychiatric Exam: Normal Affect and Normal Mood Skin Skin Exam: Warm, Dry, Intact and Normal Color MDM Differential Diagnosis Differential Diagnosis: Gi bleed,symptomatic anemia,electrolyte disorder COURSE Treatment Treatment: Patient was placed in an exam room. IV access was initiated and patient received normal saline 1 L IV( second liter currently in progress at 125 mL/h), Protonix 80 mg IV. Patient's labs were reviewed. CMP revealed potassium of 2.9 and patient is receiving 10 mill equivalents of potassium IV, magnesium is 1.7 patient is receiving 1 g of magnesium sulfate IV, BUN is 32, WBC is 15.7. Discussed case with Dr. Do general surgeon. Dr. Do states that he will consult on the patient. He would like the patient admitted to the medical service. Discussed case with Dr. Paz. Dr. Paz has accepted the patient to the medical service at [facility]. Patient has been stable in the ED. ROR Labs Reviewed Laboratory Results Reviewed?: Yes 08/07/24 11:30 08/07/24 11:30 Laboratory: WBC 15.7 X10^3/uL (3.6-10.0) H 08/07/24 11:30 RBC 2.15 X10^6/uL (3.5-5.4) L 08/07/24 11:30 Hgb 5.0 g/dL (12.0-16.0) L* 08/07/24 11:30 Hct 16.4 % (36.0-47.0) L* 08/07/24 11:30 MCV 76.0 fL (80.0-100.0) L 08/07/24 11:30 MCH 23.4 pg (27.0-34.0) L 08/07/24 11:30 MCHC 30.7 g/dL (33.0-35.0) L 08/07/24 11:30 RDW 20.0 % (11.6-16.5) H 08/07/24 11:30 Plt Count 609 X10^3/uL (150.0-450.0) H 08/07/24 11:30 MPV 7.1 fL (7.4-11.0) L 08/07/24 11:30 Neut % (Auto) 79.0 % (42.0-75.0) H 08/07/24 11:30 Lymph % (Auto) 16.8 % (21.0-51.0) L 08/07/24 11:30 [place] % (Auto) 2.2 % (0.0-13.0) 08/07/24 11:30 Eos % (Auto) 0.8 % (0.9-2.9) L 08/07/24 11:30 Baso % (Auto) 1.2 % (0.2-1.0) H 08/07/24 11:30 Neut # (Auto) 12.4 x10^3/uL (2.2-4.8) H 08/07/24 11:30 Lymph # (Auto) 2.6 X10^3/uL (1.3-2.9) 08/07/24 11:30 [place] # (Auto) 0.3 x10^3/uL (0.3-0.8) 08/07/24 11:30 Eos # (Auto) 0.1 x10^3/uL (0.0-0.2) 08/07/24 11:30 Baso # (Auto) 0.2 X10^3/uL (0.0-0.1) H 08/07/24 11:30 Absolute Nucleated RBC 0.2 /100WBC 08/07/24 11:30 Sodium 140 mmol/L (136-145) 08/07/24 11:30 Corrected Sodium TNP 08/07/24 11:30 Potassium 2.9 mmol/L (3.5-5.1) L* 08/07/24 11:30 Chloride 105 mmol/L (98-107) 08/07/24 11:30 Carbon Dioxide 22.6 mmol/L (21-32) 08/07/24 11:30 BUN 32 mg/dL (7-18) H 08/07/24 11:30 Creatinine 0.79 mg/dL (0.55-1.02) 08/07/24 11:30 Est GFR (MDRD) Af Amer > 60 (>60) 08/07/24 11:30 Est GFR (MDRD) Non-Af > 60 (>60) 08/07/24 11:30 Glucose 102 mg/dL (65-99) H 08/07/24 11:30 Lactic Acid 1.1 mmol/L (0.4-2.0) 08/07/24 11:33 Calcium 8.5 mg/dL (8.5-10.1) 08/07/24 11:30 Corrected Calcium 9.5 mg/dL (8.5-10.1) 08/07/24 11:30 Magnesium 1.7 mg/dL (2.0-2.9) L 08/07/24 11:30 Total Bilirubin 0.10 mg/dL (0.2-1.0) L 08/07/24 11:30 AST 25 Units/L (15-37) 08/07/24 11:30 ALT 13 Units/L (12-78) 08/07/24 11:30 Alkaline Phosphatase 78 Units/L (46-116) 08/07/24 11:30 Total Protein 6.2 g/dL (6.4-8.2) L 08/07/24 11:30 Albumin 2.7 g/dL (3.4-5.0) L 08/07/24 11:30 Globulin 3.5 g/dL (2.5-4.5) 08/07/24 11:30 Albumin/Globulin Ratio 0.8 Ratio (1.1-2.1) L 08/07/24 11:30 Amylase 129 Units/L (25-115) H 08/07/24 11:30 Lipase 53 Units/L (16-77) 08/07/24 11:30 Stool Occult Blood Positive (NEGATIVE) A 08/07/24 11:29 Opioid Opioid Risk Tool Age (Nikunj box if 16-45): Yes History of Preadolescent Sexual Abuse: No Total: 1 Total Score Risk Category: Low Risk Copyright: Kerwin MAYA predicting aberrant behaviors Discharge Plan Diagnosis Discharge Problem: Symptomatic anemia, Gastrointestinal hemorrhage, Acute hypokalemia, Hypomagnesemia Discharge Plan Patient Disposition: ADMITTED INPATIENT Condition: Stable Prescriptions: No Action [facility] Health Concerns: Post Hospitalization: new medications and changes needed to prevent readmission or further decline. Pt educated and given instructions on all concerns. Plan of Treatment: Continue with present treatment and follow up plan. Pt is to keep follow up appointment as instructed and take medications as ordered. Orders to Discharge Patient Discharge Orders: Transfer (Routine); Ordered 08/07/24 Ordered By: Liliane oHrn Instructions Stand Alone Forms: Post Hospital Follow Up Care
[2024-08-07] MEDS: PROTONIX INJ 40 MG VIAL IVP ONE (11:34)
[2024-08-07] MEDS: NS 1,000 ML IV 1,000 ML IV ONE ×2 (11:34→12:38)
[2024-08-07 11:46] LABS: MEAN PLATELET VOLUME 7.1 fL (7.4-11.0)
[2024-08-07 11:50] LABS: BASOPHILS # (AUTO) 0.2 X10^3/uL (0.0-0.1); BASOPHILS % (AUTO) 1.2 % (0.2-1.0); EOSINOPHILS # (AUTO) 0.1 x10^3/uL (0.0-0.2); EOSINOPHILS % (AUTO) 0.8 % (0.9-2.9); LYMPHOCYTES # (AUTO) 2.6 X10^3/uL (1.3-2.9); LYMPHOCYTES % (AUTO) 16.8 % (21.0-51.0); MEAN CORPUSCULAR HEMOGLOBIN 23.4 pg (27.0-34.0); MEAN CORPUSCULAR HGB CONC 30.7 g/dL (33.0-35.0); MONOCYTES # (AUTO) 0.3 x10^3/uL (0.3-0.8); MONOCYTES % (AUTO) 2.2 % (0.0-13.0); NEUTROPHILS # (AUTO) 12.4 x10^3/uL (2.2-4.8); PLATELET COUNT 609 X10^3/uL (150.0-450.0); RED BLOOD COUNT 2.15 X10^6/uL (3.5-5.4); WHITE BLOOD COUNT 15.7 X10^3/uL (3.6-10.0)
[2024-08-07 11:54] LABS: HEMATOCRIT 16.4 % (36.0-47.0)
[2024-08-07 11:57] LABS: ALANINE AMINOTRANSFERASE 13 Units/L (12-78); ALBUMIN 2.7 g/dL (3.4-5.0); ALKALINE PHOSPHATASE 78 Units/L (46-116); AMYLASE 129 Units/L (25-115); ASPARTATE AMINO TRANSFERASE 25 Units/L (15-37); BLOOD UREA NITROGEN 32 mg/dL (7-18); CALCIUM 8.5 mg/dL (8.5-10.1); CARBON DIOXIDE 22.6 mmol/L (21-32); CHLORIDE 105 mmol/L (98-107); COR CA(FOR HYPOALB) 9.5 mg/dL (8.5-10.1); CREATININE 0.79 mg/dL (0.55-1.02); GLUCOSE 102 mg/dL (65-99); LIPASE 53 Units/L (16-77); SODIUM 140 mmol/L (136-145); TOTAL PROTEIN 6.2 g/dL (6.4-8.2); eGFR NON BLACK RACES > 60 (>60)
[2024-08-07 11:59] LABS: POTASSIUM 2.9 mmol/L (3.5-5.1)
[2024-08-07] MEDS: K-RIDER 10 MEQ/100 ML WATER 10 MEQ/100 ML BAG IV ONE (12:11)
[2024-08-07] MEDS: MAGNESIUM SULFATE 1 GRAM/100 mL PREMIX 1 G/100 ML BAG IV ONE ×2 (13:14→15:55)
[2024-08-07] MEDS: MORPHINE SULFATE INJ 4 MG IVP PRN (13:59)
[2024-08-07 14:14] LABS: BILIRUBIN,URINE NEGATIVE (NEGATIVE); BLOOD/HEMOGLOBIN,URINE NEGATIVE (NEGATIVE); GLUCOSE, URINE NEGATIVE (NEGATIVE); KETONES,URINE NEGATIVE (NEGATIVE); LEUKOCYTE ESTERASE ,URINE NEGATIVE (NEGATIVE); NITRITES,URINE NEGATIVE (NEGATIVE); PROTEIN,URINE NEGATIVE (NEGATIVE); UROBILINOGEN,URINE NORMAL (NORMAL)
[2024-08-07 14:20] LABS: APPEARANCE,URINE CLEAR (CLEAR); COLOR,URINE STRAW (YELLOW)
[2024-08-07] MEDS: NS 1,000 ML IV 1,000 ML IV SCH (15:50)
[2024-08-07] MEDS: NS 250 ML IV 250 ML IV ONE (15:53)
[2024-08-07] MEDS ORDERED: MAGNESIUM SULFATE 1 GRAM/100 mL PREMIX 1 G/100 ML BAG IV SCH (16:00)
[2024-08-07] MEDS: K-DUR TAB 20 MEQ PO SCH (16:45)
[2024-08-07] MEDS: MAG-OX TAB PO ONE (16:45)
[2024-08-07] MEDS ORDERED: K-RIDER 10 MEQ/100 ML WATER 10 MEQ/100 ML BAG IV SCH (17:00)
[2024-08-07] MEDS ORDERED: NORCO 5/325 MG TAB PO PRN (17:04)
[2024-08-07] MEDS: NORCO 5/325 MG TAB PO PRN (17:26)
[2024-08-07] MEDS: NS 500 ML IV 500 ML IV ONE (22:19)
[2024-08-08] MEDS: HIBICLENS WASH EXT ONE (01:16)
[2024-08-08 01:47] LABS: HEMATOCRIT 22.8 % (36.0-47.0); HEMOGLOBIN 7.5 g/dL (12.0-16.0)
[2024-08-08 06:25] LABS: ALANINE AMINOTRANSFERASE 42 Units/L (12-78); ALBUMIN 2.4 g/dL (3.4-5.0); ALKALINE PHOSPHATASE 344 Units/L (46-116); ASPARTATE AMINO TRANSFERASE 115 Units/L (15-37); BASOPHILS # (AUTO) 0.1 X10^3/uL (0.0-0.1); BASOPHILS % (AUTO) 1.4 % (0.2-1.0); BLOOD UREA NITROGEN 13 mg/dL (7-18); CALCIUM 7.1 mg/dL (8.5-10.1); CHLORIDE 108 mmol/L (98-107); COR CA(FOR HYPOALB) 8.4 mg/dL (8.5-10.1); CREATININE 0.47 mg/dL (0.55-1.02); EOSINOPHILS # (AUTO) 0.2 x10^3/uL (0.0-0.2); EOSINOPHILS % (AUTO) 1.7 % (0.9-2.9); GLUCOSE 68 mg/dL (65-99); HEMATOCRIT 25.6 % (36.0-47.0); HEMOGLOBIN 8.4 g/dL (12.0-16.0); LYMPHOCYTES # (AUTO) 1.6 X10^3/uL (1.3-2.9); LYMPHOCYTES % (AUTO) 15.7 % (21.0-51.0); MAGNESIUM 1.7 mg/dL (2.0-2.9); MEAN CORPUSCULAR HEMOGLOBIN 26.6 pg (27.0-34.0); MEAN CORPUSCULAR HGB CONC 32.7 g/dL (33.0-35.0); MEAN CORPUSCULAR VOLUME 81.3 fL (80.0-100.0); MONOCYTES # (AUTO) 0.5 x10^3/uL (0.3-0.8); MONOCYTES % (AUTO) 5.1 % (0.0-13.0); NEUTROPHILS # (AUTO) 7.8 x10^3/uL (2.2-4.8); NEUTROPHILS % (AUTO) 76.1 % (42.0-75.0); PLATELET COUNT 469 X10^3/uL (150.0-450.0); POTASSIUM 3.1 mmol/L (3.5-5.1); RED BLOOD COUNT 3.15 X10^6/uL (3.5-5.4); RED CELL DISTRIBUTION WIDTH 18.6 % (11.6-16.5); SODIUM 139 mmol/L (136-145); TOTAL PROTEIN 5.8 g/dL (6.4-8.2); WHITE BLOOD COUNT 10.3 X10^3/uL (3.6-10.0); eGFR NON BLACK RACES > 60 (>60)
[2024-08-08] MEDS ORDERED: CONSULT PHARMACY - POTASSIUM & MAGNESIUM XX SCH (07:00)
--- NOTE | 2024-08-08 08:31 | DR.H&P ---
H&P History & Physical for Day of: H&P Date: 08/07/24 Chief Complaint Chief Complaint: abdominal pain, weakness History of Present Illness History of Present Illness: Patient is a 39y/o female with a PMH of GERD, PUD, anemia presented with abdominal pain and generalized weakness for the past few days. Patient reports feeling worse today. She also reports bloody stools. ER work up showed elevated WBC, Hgb5.0 K 2.9. Patient was admitted for symptomatic anemia and GI bleed. She was started on hydration and blood transfusion. She was also started on IV Protonix. Dr Spears has been consulted. Labs/imaging reviewed: - Hgb 5.0 K 2.9 FOBT + Mag 1.7 Plan: will admit on med surg with tele, transfuse 2 units PRBCs, monitor Hgb closely. Replace electrolytes as per protocol. Continue hydration. Continue IV protonix. Continue pain control. Follow surgery recommendations. NPO for now. Monitor AM labs/imaging. Past Medical History Past Medical History: Kidney Stones Past Surgical History Surgical History: Cholecystectomy Social History Does patient currently use any type of tobacco product: No Type of Tobacco Use: Cigarettes Does any household member use tobacco: No Alcohol Use: Occasionally Drug Use: Marijuana Medications Home Medications: Home Medications Medication Instructions Recorded Confirmed Type NK 08/07/24 08/07/24 History Allergies Allergies Allergy/AdvReac Type Severity Reaction Status Date / Time No Known Drug Allergies Allergy Unknown Verified 08/07/24 11:23 Labs 08/08/24 05:17 08/08/24 05:17 Labs: Laboratory WBC 15.7 X10^3/uL (3.6-10.0) H 08/07/24 11:30 RBC 2.15 X10^6/uL (3.5-5.4) L 08/07/24 11:30 Hgb 5.0 g/dL (12.0-16.0) L* 08/07/24 11:30 Hct 16.4 % (36.0-47.0) L* 08/07/24 11:30 MCV 76.0 fL (80.0-100.0) L 08/07/24 11:30 MCH 23.4 pg (27.0-34.0) L 08/07/24 11:30 MCHC 30.7 g/dL (33.0-35.0) L 08/07/24 11:30 RDW 20.0 % (11.6-16.5) H 08/07/24 11:30 Plt Count 609 X10^3/uL (150.0-450.0) H 08/07/24 11:30 MPV 7.1 fL (7.4-11.0) L 08/07/24 11:30 Neut % (Auto) 79.0 % (42.0-75.0) H 08/07/24 11:30 Lymph % (Auto) 16.8 % (21.0-51.0) L 08/07/24 11:30 [place] % (Auto) 2.2 % (0.0-13.0) 08/07/24 11:30 Eos % (Auto) 0.8 % (0.9-2.9) L 08/07/24 11:30 Baso % (Auto) 1.2 % (0.2-1.0) H 08/07/24 11:30 Neut # (Auto) 12.4 x10^3/uL (2.2-4.8) H 08/07/24 11:30 Lymph # (Auto) 2.6 X10^3/uL (1.3-2.9) 08/07/24 11:30 [place] # (Auto) 0.3 x10^3/uL (0.3-0.8) 08/07/24 11:30 Eos # (Auto) 0.1 x10^3/uL (0.0-0.2) 08/07/24 11:30 Baso # (Auto) 0.2 X10^3/uL (0.0-0.1) H 08/07/24 11:30 Absolute Nucleated RBC 0.2 /100WBC 08/07/24 11:30 Sodium 140 mmol/L (136-145) 08/07/24 11:30 Corrected Sodium TNP 08/07/24 11:30 Potassium 2.9 mmol/L (3.5-5.1) L* 08/07/24 11:30 Chloride 105 mmol/L (98-107) 08/07/24 11:30 Carbon Dioxide 22.6 mmol/L (21-32) 08/07/24 11:30 BUN 32 mg/dL (7-18) H 08/07/24 11:30 Creatinine 0.79 mg/dL (0.55-1.02) 08/07/24 11:30 Est GFR (MDRD) Af Amer > 60 (>60) 08/07/24 11:30 Est GFR (MDRD) Non-Af > 60 (>60) 08/07/24 11:30 Glucose 102 mg/dL (65-99) H 08/07/24 11:30 Lactic Acid 1.1 mmol/L (0.4-2.0) 08/07/24 11:33 Calcium 8.5 mg/dL (8.5-10.1) 08/07/24 11:30 Corrected Calcium 9.5 mg/dL (8.5-10.1) 08/07/24 11:30 Magnesium 1.7 mg/dL (2.0-2.9) L 08/07/24 11:30 Total Bilirubin 0.10 mg/dL (0.2-1.0) L 08/07/24 11:30 AST 25 Units/L (15-37) 08/07/24 11:30 ALT 13 Units/L (12-78) 08/07/24 11:30 Alkaline Phosphatase 78 Units/L (46-116) 08/07/24 11:30 Total Protein 6.2 g/dL (6.4-8.2) L 08/07/24 11:30 Albumin 2.7 g/dL (3.4-5.0) L 08/07/24 11:30 Globulin 3.5 g/dL (2.5-4.5) 08/07/24 11:30 Albumin/Globulin Ratio 0.8 Ratio (1.1-2.1) L 08/07/24 11:30 Amylase 129 Units/L (25-115) H 08/07/24 11:30 Lipase 53 Units/L (16-77) 08/07/24 11:30 Specimen Type Clean catch urine 08/07/24 14:09 Urine Color Straw (YELLOW) 08/07/24 14:09 Urine Appearance Clear (CLEAR) 08/07/24 14:09 Urine pH 6.0 (5.0 - 8.0) 08/07/24 14:09 Ur Specific [place] 1.015 (1.000-1.030) 08/07/24 14:09 Urine Protein Negative (NEGATIVE) 08/07/24 14:09 Urine Glucose (UA) Negative (NEGATIVE) 08/07/24 14:09 Urine Ketones Negative (NEGATIVE) 08/07/24 14:09 Urine Blood Negative (NEGATIVE) 08/07/24 14:09 Urine Nitrite Negative (NEGATIVE) 08/07/24 14:09 Urine Bilirubin Negative (NEGATIVE) 08/07/24 14:09 Urine Urobilinogen Normal (NORMAL) 08/07/24 14:09 Ur Leukocyte Esterase Negative (NEGATIVE) 08/07/24 14:09 Stool Occult Blood Positive (NEGATIVE) A 08/07/24 11:29 Urine Opiates Screen Negative (NEG=<300) 08/07/24 14:09 Urine Methadone Screen Negative (NEG=<300) 08/07/24 14:09 Ur Barbiturates Screen Negative (NEG=<200) 08/07/24 14:09 Ur Phencyclidine Scrn Negative (NEG=<25) 08/07/24 14:09 Ur Amphetamines Screen Negative (NEG=<1000) 08/07/24 14:09 U Benzodiazepines Scrn Negative (NEG=<200) 08/07/24 14:09 Urine Cocaine Screen Negative (NEG=<300) 08/07/24 14:09 U Marijuana (THC) Screen Positive (NEG=<50) A 08/07/24 14:09 SARS-CoV-2 (PCR) Negative (NEGATIVE) 08/07/24 12:25 Blood Type A POSITIVE 08/07/24 11:33 Antibody Screen Negative 08/07/24 11:33 Crossmatch See Detail 08/07/24 11:33 Review of Systems Constitutional: No Symptoms Reported Eyes: No Symptoms Reported ENT: No Symptoms Reported Respiratory: No Symptoms Reported Cardiovascular: No Symptoms Reported Gastrointestinal: Abdominal Pain Genitourinary: No Symptoms Reported Musculoskeletal: No Symptoms Reported Skin: No Symptoms Reported Neurological: No Symptoms Reported Physical Exam Vital Signs: Vital Signs Temperature 98.1 F Pulse Rate 85 Pulse Rate 82 Pulse Rate 83 Pulse Rate 94 Pulse Rate 96 Pulse Rate 109 Respiratory Rate 20 Respiratory Rate 16 Respiratory Rate 18 Respiratory Rate 20 Respiratory Rate 17 Respiratory Rate 14 Respiratory Rate 15 Respiratory Rate 44 Respiratory Rate 31 Respiratory Rate 20 Blood Pressure 112/61 Blood Pressure 119/59 Blood Pressure 100/56 O2 Sat by Pulse Oximetry 100 O2 Sat by Pulse Oximetry 100 O2 Sat by Pulse Oximetry 100 O2 Sat by Pulse Oximetry 100 O2 Sat by Pulse Oximetry 100 O2 Sat by Pulse Oximetry 100 Oriented: Normal Eyes: Normal Ear: Normal Nose: Normal Throat: Normal Respiratory: Clear Throughout Cardiovascular: Normal : Normal Auscultation: Bowel Sounds: Normal Palpation: Normal Tenderness: Epigastric and Moderate Skin: Normal Musculoskeletal: Normal Psychiatric: Normal Mood Description: Calm and Appropriate Affect: Normal Speech Pattern: Clear and Appropriate Assessment/Plan (1) Acute GI bleeding: Status: Acute Plan: NPO, consult general surgery-Dr Morton transfuse 2 units packed red blood cells IVF, IV protonix (2) Symptomatic anemia: Status: Acute (3) Acute hypokalemia: Status: Acute (4) Hypomagnesemia: Status: Acute Review H&P Reviewed: Yes Patient was examined?: Yes
[2024-08-08] MEDS: PROTONIX INJ 40 MG VIAL IVP SCH (08:46)
[2024-08-08] MEDS: CONSULT PHARMACY - POTASSIUM & MAGNESIUM XX SCH (08:53)
[2024-08-08] MEDS: PROTONIX INJ 40 MG VIAL 80 MG in NS 100 ML IV 80 ML IV SCH (08:53)
[2024-08-08] MEDS: NS 1,000 ML IV 1,000 ML IV SCH (08:53)
[2024-08-08] MEDS ORDERED: K-DUR TAB 20 MEQ PO SCH (09:00)
[2024-08-08] MEDS ORDERED: MAG-OX TAB PO SCH (09:00)
[2024-08-08] MEDS: NS + KCL 20 MEQ/L 1,000 ML with MAGNESIUM SULFATE 50% INJ VIAL 1 G IV SCH (09:28)
[2024-08-08] MEDS: DIPRIVAN VIAL 20 ML ONE (10:15)
--- NOTE | 2024-08-08 11:44 | PCM.PROG ---
Progress Note Progress Note for Day of Date of Exam: 08/08/24 Subjective Subjective: Patient seen at bedside, no acute events overnight. Patient just came back from EGD. She is admitted for generalized weakness and symptomatic anemia. She did receive 2 units PRBCs, Hgb today 8.4. She is currently on IV fluids and IV protonix. EGD showed pre-pyloric ulcer, no active bleeding. Labs/imaging reviewed: -Hgb 8.4 K 3.1 Mg 1.7 Plan: follow surgery recommendations. Monitor H&H. Continue IV protonix. Diet as per surgery. Continue hydration and pain control. Replace electrolytes as per protocol. Monitor AM labs/imaging. Past Medical Family Social History Allergies: Allergies No Known Drug Allergies Allergy (Unknown, Verified 08/07/24 11:23) Onset Date: 09/23/2021 Vital Signs and I&O's Vital Signs: Vital Signs Temperature 98.0 F Temperature 97.8 F Pulse Rate [Bilateral Radial] 81 Pulse Rate [Bilateral Radial] 76 Respiratory Rate 18 Respiratory Rate 18 Respiratory Rate 18 Respiratory Rate 18 Respiratory Rate 20 Respiratory Rate 20 Blood Pressure [Right Arm] 171/98 Blood Pressure [Right Arm] 177/96 O2 Sat by Pulse Oximetry 96 O2 Sat by Pulse Oximetry 99 Intake and Output: Intake & Output 08/05/24 08/06/24 08/07/24 08/08/24 23:59 23:59 23:59 23:59 Intake Total 2313 / 2613 1394 / 1394 Balance 2313 / 2613 1394 / 1394 Physical Exam Eyes: Normal Ear: Normal Nose: Normal Throat: Normal Respiratory: Generalized and Diminished Cardiovascular: Normal Auscultation: Bowel Sounds: Normal Palpation: Normal Tenderness: Normal Skin: Normal Musculoskeletal: Normal Psychiatric: Normal Mood Description: Calm and Appropriate Affect: Normal Laboratory and Diagnostics 08/08/24 05:17 08/08/24 05:17 Labs: Laboratory WBC 10.3 X10^3/uL (3.6-10.0) H 08/08/24 05:17 RBC 3.15 X10^6/uL (3.5-5.4) L 08/08/24 05:17 Hgb 8.4 g/dL (12.0-16.0) L 08/08/24 05:17 Hct 25.6 % (36.0-47.0) L 08/08/24 05:17 MCV 81.3 fL (80.0-100.0) 08/08/24 05:17 MCH 26.6 pg (27.0-34.0) L 08/08/24 05:17 MCHC 32.7 g/dL (33.0-35.0) L 08/08/24 05:17 RDW 18.6 % (11.6-16.5) H 08/08/24 05:17 Plt Count 469 X10^3/uL (150.0-450.0) H 08/08/24 05:17 MPV 7.0 fL (7.4-11.0) L 08/08/24 05:17 Neut % (Auto) 76.1 % (42.0-75.0) H 08/08/24 05:17 Lymph % (Auto) 15.7 % (21.0-51.0) L 08/08/24 05:17 [place] % (Auto) 5.1 % (0.0-13.0) 08/08/24 05:17 Eos % (Auto) 1.7 % (0.9-2.9) 08/08/24 05:17 Baso % (Auto) 1.4 % (0.2-1.0) H 08/08/24 05:17 Neut # (Auto) 7.8 x10^3/uL (2.2-4.8) H 08/08/24 05:17 Lymph # (Auto) 1.6 X10^3/uL (1.3-2.9) 08/08/24 05:17 [place] # (Auto) 0.5 x10^3/uL (0.3-0.8) 08/08/24 05:17 Eos # (Auto) 0.2 x10^3/uL (0.0-0.2) 08/08/24 05:17 Baso # (Auto) 0.1 X10^3/uL (0.0-0.1) 08/08/24 05:17 Absolute Nucleated RBC 0.4 /100WBC 08/08/24 05:17 Sodium 139 mmol/L (136-145) 08/08/24 05:17 Corrected Sodium TNP 08/08/24 05:17 Potassium 3.1 mmol/L (3.5-5.1) L 08/08/24 05:17 Chloride 108 mmol/L (98-107) H 08/08/24 05:17 Carbon Dioxide 22.0 mmol/L (21-32) 08/08/24 05:17 BUN 13 mg/dL (7-18) 08/08/24 05:17 Creatinine 0.47 mg/dL (0.55-1.02) L 08/08/24 05:17 Est GFR (MDRD) Af Amer > 60 (>60) 08/08/24 05:17 Est GFR (MDRD) Non-Af > 60 (>60) 08/08/24 05:17 Glucose 68 mg/dL (65-99) 08/08/24 05:17 Lactic Acid 1.1 mmol/L (0.4-2.0) 08/07/24 11:33 Calcium 7.1 mg/dL (8.5-10.1) L 08/08/24 05:17 Corrected Calcium 8.4 mg/dL (8.5-10.1) L 08/08/24 05:17 Magnesium 1.7 mg/dL (2.0-2.9) L 08/08/24 05:17 Total Bilirubin 0.60 mg/dL (0.2-1.0) 08/08/24 05:17 AST 115 Units/L (15-37) H 08/08/24 05:17 ALT 42 Units/L (12-78) 08/08/24 05:17 Alkaline Phosphatase 344 Units/L (46-116) H 08/08/24 05:17 Total Protein 5.8 g/dL (6.4-8.2) L 08/08/24 05:17 Albumin 2.4 g/dL (3.4-5.0) L 08/08/24 05:17 Globulin 3.4 g/dL (2.5-4.5) 08/08/24 05:17 Albumin/Globulin Ratio 0.7 Ratio (1.1-2.1) L 08/08/24 05:17 Amylase 129 Units/L (25-115) H 08/07/24 11:30 Lipase 53 Units/L (16-77) 08/07/24 11:30 Specimen Type Clean catch urine 08/07/24 14:09 Urine Color Straw (YELLOW) 08/07/24 14:09 Urine Appearance Clear (CLEAR) 08/07/24 14:09 Urine pH 6.0 (5.0 - 8.0) 08/07/24 14:09 Ur Specific [place] 1.015 (1.000-1.030) 08/07/24 14:09 Urine Protein Negative (NEGATIVE) 08/07/24 14:09 Urine Glucose (UA) Negative (NEGATIVE) 08/07/24 14:09 Urine Ketones Negative (NEGATIVE) 08/07/24 14:09 Urine Blood Negative (NEGATIVE) 08/07/24 14:09 Urine Nitrite Negative (NEGATIVE) 08/07/24 14:09 Urine Bilirubin Negative (NEGATIVE) 08/07/24 14:09 Urine Urobilinogen Normal (NORMAL) 08/07/24 14:09 Ur Leukocyte Esterase Negative (NEGATIVE) 08/07/24 14:09 Stool Occult Blood Positive (NEGATIVE) A 08/07/24 11:29 Urine Opiates Screen Negative (NEG=<300) 08/07/24 14:09 Urine Methadone Screen Negative (NEG=<300) 08/07/24 14:09 Ur Barbiturates Screen Negative (NEG=<200) 08/07/24 14:09 Ur Phencyclidine Scrn Negative (NEG=<25) 08/07/24 14:09 Ur Amphetamines Screen Negative (NEG=<1000) 08/07/24 14:09 U Benzodiazepines Scrn Negative (NEG=<200) 08/07/24 14:09 Urine Cocaine Screen Negative (NEG=<300) 08/07/24 14:09 U Marijuana (THC) Screen Positive (NEG=<50) A 08/07/24 14:09 SARS-CoV-2 (PCR) Negative (NEGATIVE) 08/07/24 12:25 Blood Type A POSITIVE 08/07/24 11:33 Antibody Screen Negative 08/07/24 11:33 Crossmatch See Detail 08/07/24 11:33 Plan (1) Acute GI bleeding: Status: Acute Plan: (2) Symptomatic anemia: Status: Acute (3) Generalized weakness: Status: Acute (4) Acute hypokalemia: Status: Acute (5) Hypomagnesemia: Status: Acute (6) PUD (peptic ulcer disease): Status: Acute
[2024-08-08] MEDS: CARAFATE PO SCH (14:24)
[2024-08-09 05:48] LABS: BASOPHILS # (AUTO) 0.1 X10^3/uL (0.0-0.1); BASOPHILS % (AUTO) 1.4 % (0.2-1.0); EOSINOPHILS # (AUTO) 0.2 x10^3/uL (0.0-0.2); EOSINOPHILS % (AUTO) 2.2 % (0.9-2.9); HEMATOCRIT 24.1 % (36.0-47.0); HEMOGLOBIN 7.9 g/dL (12.0-16.0); LYMPHOCYTES # (AUTO) 1.4 X10^3/uL (1.3-2.9); LYMPHOCYTES % (AUTO) 20.5 % (21.0-51.0); MEAN CORPUSCULAR HEMOGLOBIN 26.3 pg (27.0-34.0); MEAN CORPUSCULAR HGB CONC 32.9 g/dL (33.0-35.0); MEAN CORPUSCULAR VOLUME 80.1 fL (80.0-100.0); MEAN PLATELET VOLUME 6.5 fL (7.4-11.0); MONOCYTES # (AUTO) 0.5 x10^3/uL (0.3-0.8); MONOCYTES % (AUTO) 7.5 % (0.0-13.0); NEUTROPHILS # (AUTO) 4.7 x10^3/uL (2.2-4.8); NEUTROPHILS % (AUTO) 68.4 % (42.0-75.0); PLATELET COUNT 425 X10^3/uL (150.0-450.0); RED BLOOD COUNT 3.01 X10^6/uL (3.5-5.4); RED CELL DISTRIBUTION WIDTH 18.5 % (11.6-16.5); WHITE BLOOD COUNT 6.9 X10^3/uL (3.6-10.0)
[2024-08-09 06:08] LABS: ALANINE AMINOTRANSFERASE 139 Units/L (12-78); ALBUMIN 2.5 g/dL (3.4-5.0); ALKALINE PHOSPHATASE 612 Units/L (46-116); ASPARTATE AMINO TRANSFERASE 299 Units/L (15-37); BLOOD UREA NITROGEN 3 mg/dL (7-18); CALCIUM 7.4 mg/dL (8.5-10.1); CARBON DIOXIDE 22.8 mmol/L (21-32); CHLORIDE 105 mmol/L (98-107); COR CA(FOR HYPOALB) 8.6 mg/dL (8.5-10.1); CREATININE 0.36 mg/dL (0.55-1.02); GLUCOSE 82 mg/dL (65-99); MAGNESIUM 1.9 mg/dL (2.0-2.9); POTASSIUM 3.4 mmol/L (3.5-5.1); SODIUM 137 mmol/L (136-145); TOTAL PROTEIN 5.9 g/dL (6.4-8.2); eGFR NON BLACK RACES > 60 (>60)
[2024-08-09] MEDS ORDERED: CONSULT PHARMACY - POTASSIUM & MAGNESIUM XX SCH (07:00)
[2024-08-09] MEDS: K-DUR TAB 20 MEQ PO SCH (09:01)
[2024-08-09] MEDS: MAG-OX TAB PO SCH (09:01)
[2024-08-09] MEDS ORDERED: NS 100 ML IV 100 ML ONE (09:36)
[2024-08-09] MEDS ORDERED: READI-CAT 2 ONE (09:36)
[2024-08-09] MEDS ORDERED: OMNIPAQUE 350 mg/mL 100 mL BTL 100 ML ONE (09:36)
--- NOTE | 2024-08-09 10:06 | PCM.PROG ---
Progress Note Progress Note for Day of Date of Exam: 08/09/24 Subjective Subjective: Patient seen at bedside, no acute events noted. She states she is having generalized lower abdominal pain. She had some nausea, no vomiting or diarrhea. No bleeding noted. She did tolerate liquids yesterday. She is currently admitted for GI bleed and anemia. She had EGD done yesterday which showed ulcer with no active bleeding. Dr Spears ordered CTAP this morning. Labs/imaging reviewed: -Hgb 7.9 WBC 6.9 K:3.4 Ma.9 AST/ALT:299/139 AP 612 Plan: follow surgery recommendations. CTAP pending. Check amylase & lipase. Monitor H&H, repeat at 12pm. Transfuse <7. Continue IV protonix and carafate. Diet as per surgery, NPO for now. Continue hydration and pain control. Replace electrolytes as per protocol. Monitor AM labs/imaging. Past Medical Family Social History Allergies: Allergies No Known Drug Allergies Allergy (Unknown, Verified 08/07/24 11:23) Onset Date: 09/23/2021 Vital Signs and I&O's Vital Signs: Vital Signs Temperature 98.5 F Pulse Rate [Bilateral Radial] 75 Respiratory Rate 18 Respiratory Rate 19 Respiratory Rate 18 Blood Pressure [Left Arm] 159/98 O2 Sat by Pulse Oximetry 98 Intake and Output: Intake & Output 08/06/24 08/07/24 08/08/24 08/09/24 23:59 23:59 23:59 23:59 Intake Total 2313 / 2613 4030 / 4030 824 / 824 Balance 2313 / 2613 4030 / 4030 824 / 824 Physical Exam Oriented: Normal Eyes: Normal Ear: Normal Nose: Normal Throat: Normal Respiratory: Normal Cardiovascular: Normal Auscultation: Bowel Sounds: Normal Tenderness: RLQ, LLQ, Periumbilical and Mild Skin: Normal Musculoskeletal: Normal Psychiatric: Normal Mood Description: Calm and Appropriate Affect: Normal Speech Pattern: Clear Laboratory and Diagnostics 08/09/24 05:30 08/09/24 05:30 Labs: Laboratory WBC 6.9 X10^3/uL (3.6-10.0) 08/09/24 05:30 RBC 3.01 X10^6/uL (3.5-5.4) L 08/09/24 05:30 Hgb 7.9 g/dL (12.0-16.0) L 08/09/24 05:30 Hct 24.1 % (36.0-47.0) L 08/09/24 05:30 MCV 80.1 fL (80.0-100.0) 08/09/24 05:30 MCH 26.3 pg (27.0-34.0) L 08/09/24 05:30 MCHC 32.9 g/dL (33.0-35.0) L 08/09/24 05:30 RDW 18.5 % (11.6-16.5) H 08/09/24 05:30 Plt Count 425 X10^3/uL (150.0-450.0) 08/09/24 05:30 MPV 6.5 fL (7.4-11.0) L 08/09/24 05:30 Neut % (Auto) 68.4 % (42.0-75.0) 08/09/24 05:30 Lymph % (Auto) 20.5 % (21.0-51.0) L 08/09/24 05:30 [place] % (Auto) 7.5 % (0.0-13.0) 08/09/24 05:30 Eos % (Auto) 2.2 % (0.9-2.9) 08/09/24 05:30 Baso % (Auto) 1.4 % (0.2-1.0) H 08/09/24 05:30 Neut # (Auto) 4.7 x10^3/uL (2.2-4.8) 08/09/24 05:30 Lymph # (Auto) 1.4 X10^3/uL (1.3-2.9) 08/09/24 05:30 [place] # (Auto) 0.5 x10^3/uL (0.3-0.8) 08/09/24 05:30 Eos # (Auto) 0.2 x10^3/uL (0.0-0.2) 08/09/24 05:30 Baso # (Auto) 0.1 X10^3/uL (0.0-0.1) 08/09/24 05:30 Absolute Nucleated RBC 0.2 /100WBC 08/09/24 05:30 Sodium 137 mmol/L (136-145) 08/09/24 05:30 Corrected Sodium TNP 08/09/24 05:30 Potassium 3.4 mmol/L (3.5-5.1) L 08/09/24 05:30 Chloride 105 mmol/L (98-107) 08/09/24 05:30 Carbon Dioxide 22.8 mmol/L (21-32) 08/09/24 05:30 BUN 3 mg/dL (7-18) L 08/09/24 05:30 Creatinine 0.36 mg/dL (0.55-1.02) L 08/09/24 05:30 Est GFR (MDRD) Af Amer > 60 (>60) 08/09/24 05:30 Est GFR (MDRD) Non-Af > 60 (>60) 08/09/24 05:30 Glucose 82 mg/dL (65-99) 08/09/24 05:30 Lactic Acid 1.1 mmol/L (0.4-2.0) 08/07/24 11:33 Calcium 7.4 mg/dL (8.5-10.1) L 08/09/24 05:30 Corrected Calcium 8.6 mg/dL (8.5-10.1) 08/09/24 05:30 Magnesium 1.9 mg/dL (2.0-2.9) L 08/09/24 05:30 Total Bilirubin 0.40 mg/dL (0.2-1.0) 08/09/24 05:30 AST 299 Units/L (15-37) H 08/09/24 05:30 ALT 139 Units/L (12-78) H 08/09/24 05:30 Alkaline Phosphatase 612 Units/L (46-116) H 08/09/24 05:30 Total Protein 5.9 g/dL (6.4-8.2) L 08/09/24 05:30 Albumin 2.5 g/dL (3.4-5.0) L 08/09/24 05:30 Globulin 3.4 g/dL (2.5-4.5) 08/09/24 05:30 Albumin/Globulin Ratio 0.7 Ratio (1.1-2.1) L 08/09/24 05:30 Amylase 129 Units/L (25-115) H 08/07/24 11:30 Lipase 53 Units/L (16-77) 08/07/24 11:30 Specimen Type Clean catch urine 08/07/24 14:09 Urine Color Straw (YELLOW) 08/07/24 14:09 Urine Appearance Clear (CLEAR) 08/07/24 14:09 Urine pH 6.0 (5.0 - 8.0) 08/07/24 14:09 Ur Specific [place] 1.015 (1.000-1.030) 08/07/24 14:09 Urine Protein Negative (NEGATIVE) 08/07/24 14:09 Urine Glucose (UA) Negative (NEGATIVE) 08/07/24 14:09 Urine Ketones Negative (NEGATIVE) 08/07/24 14:09 Urine Blood Negative (NEGATIVE) 08/07/24 14:09 Urine Nitrite Negative (NEGATIVE) 08/07/24 14:09 Urine Bilirubin Negative (NEGATIVE) 08/07/24 14:09 Urine Urobilinogen Normal (NORMAL) 08/07/24 14:09 Ur Leukocyte Esterase Negative (NEGATIVE) 08/07/24 14:09 Stool Occult Blood Positive (NEGATIVE) A 08/07/24 11:29 Urine Opiates Screen Negative (NEG=<300) 08/07/24 14:09 Urine Methadone Screen Negative (NEG=<300) 08/07/24 14:09 Ur Barbiturates Screen Negative (NEG=<200) 08/07/24 14:09 Ur Phencyclidine Scrn Negative (NEG=<25) 08/07/24 14:09 Ur Amphetamines Screen Negative (NEG=<1000) 08/07/24 14:09 U Benzodiazepines Scrn Negative (NEG=<200) 08/07/24 14:09 Urine Cocaine Screen Negative (NEG=<300) 08/07/24 14:09 U Marijuana (THC) Screen Positive (NEG=<50) A 08/07/24 14:09 SARS-CoV-2 (PCR) Negative (NEGATIVE) 08/07/24 12:25 Blood Type A POSITIVE 08/07/24 11:33 Antibody Screen Negative 08/07/24 11:33 Crossmatch See Detail 08/07/24 11:33 Plan (1) Acute GI bleeding: Status: Acute (2) Symptomatic anemia: Status: Acute (3) Generalized weakness: Status: Acute (4) Acute hypokalemia: Status: Acute (5) Hypomagnesemia: Status: Acute (6) PUD (peptic ulcer disease): Status: Acute
[2024-08-09 12:13] LABS: HEMATOCRIT 25.1 % (36.0-47.0); HEMOGLOBIN 8.3 g/dL (12.0-16.0)
--- NOTE | 2024-08-09 15:07 | CT ---
EXAM:CT abdomen and pelvis with IV contrastHISTORY:ABD PAIN -COMPARISON:CT 09/06/2021TECHNIQUE:Multiple axial images of the abdomen and pelvis were obtained from the lung bases to the pubic symphysis following the administration of IV contrast. Dose reduction techniques including Automated Exposure Control (AEC) and adjustment of mA and kV were utilized.FINDINGS:The visualized portions of the lung bases reveal linear atelectasis at both CP angles.The liver and spleen are normal in size.Prior cholecystectomy. There is mild prominence of the intra and extrahepatic biliary ducts. Common bile duct appears larger than on prior study measuring 1.1 cm in diameter..Pancreatic duct is borderline enlarged. No mass is seen in the pancreas but there is questionable wall thickening in the descending duodenum near the ampulla. This may be the cause of the biliary and pancreatic ductal prominence. This could be duodenitis or duodenal mass.The adrenal glands appear normal.Subcentimeter benign renal cysts are suspected. Phleboliths are seen in the pelvis. Ureters and bladder appear normal.There appears to be wall thickening in the gastric antrum and duodenum. There is no evidence of small-bowel obstruction but there is mild increased fluid and air in the small bowel. Consider possible gastroenteritis and duodenitis. Duodenal mass cannot be excluded on this study. Normal appendix is seen.No adnexal masses are seen.Abdominal aorta is normal in size.No suspicious lymphadenopathy.Trace free pelvic fluid is seen.No acute bony abnormality is seen.IMPRESSION:Wall thickening is suspected in the gastric antrum and duodenal. There is mild increased fluid and air in nondilated small bowel loops. Consider possible gastroenteritis but duodenal mass cannot be completely excluded. Correlation with endoscopy or upper GI series may be useful.There is borderline enlargement of the pancreatic duct and mild increase in size of the common bile duct since 2020. This is probably associated with the wall thickening in the duodenum.THIS IS AN ELECTRONICALLY VERIFIED FINAL REPORT08/09/2024 3:04 PM - Electronically signed by Kaden Jimenez MD
--- NOTE | 2024-08-09 17:00 | DR.PROGNOT ---
HOSPITAL PROGRESS NOTE Progress Note for Day of: Progress Note Date: 08/09/24 Chief Complaint Chief Complaint: Patient is complaining of abdominal pain with nausea. White count is 6.9 and hemoglobin 8.3. Alkaline phosphatase is elevated to 612, AST is up to 299 with normal bilirubin 0.4. Abdominal pelvic CT scan showed inflammation and thickened distal gastric wall consistent with a peptic ulcer disease. The rest of exam is normal. No further evidence of active bleeding and patient is being treated for her large prepyloric ulcer. Past Medical Family Social History Allergies: Allergies No Known Drug Allergies Allergy (Unknown, Verified 08/07/24 11:23) Onset Date: 09/23/2021 Vital Signs Vital Signs: Vital Signs Temperature 98.3 F Temperature 98.4 F Pulse Rate [Bilateral Radial] 82 Pulse Rate [Bilateral Radial] 83 Respiratory Rate 19 Respiratory Rate 18 Respiratory Rate 18 Respiratory Rate 19 Respiratory Rate 18 Blood Pressure [Left Arm] 176/98 Blood Pressure [Left Arm] 180/106 Blood Pressure [Left Arm] 163/98 O2 Sat by Pulse Oximetry 98 O2 Sat by Pulse Oximetry 99 Physical Exam Oriented: Normal Eyes: Normal Ear: Normal Nose: Normal Throat: Normal Respiratory: Normal Cardiovascular: Normal : Normal GI:Auscultation: Normal GI:Palpation: Normal GI: Tenderness: RLQ, LLQ, Periumbilical and Mild Skin: Normal Musculoskeletal: Normal Psychiatric: Normal Mood Description: Calm and Appropriate Affect: Normal Speech Pattern: Clear Laboratory and Diagnostics 08/09/24 12:00 08/09/24 05:30 Labs: 08/07/24 14:05 Blood Blood Culture - Preliminary 08/07/24 13:50 Blood Blood Culture - Preliminary Laboratory WBC 6.9 X10^3/uL (3.6-10.0) 08/09/24 05:30 RBC 3.01 X10^6/uL (3.5-5.4) L 08/09/24 05:30 Hgb 8.3 g/dL (12.0-16.0) L 08/09/24 12:00 Hct 25.1 % (36.0-47.0) L 08/09/24 12:00 MCV 80.1 fL (80.0-100.0) 08/09/24 05:30 MCH 26.3 pg (27.0-34.0) L 08/09/24 05:30 MCHC 32.9 g/dL (33.0-35.0) L 08/09/24 05:30 RDW 18.5 % (11.6-16.5) H 08/09/24 05:30 Plt Count 425 X10^3/uL (150.0-450.0) 08/09/24 05:30 MPV 6.5 fL (7.4-11.0) L 08/09/24 05:30 Neut % (Auto) 68.4 % (42.0-75.0) 08/09/24 05:30 Lymph % (Auto) 20.5 % (21.0-51.0) L 08/09/24 05:30 [place] % (Auto) 7.5 % (0.0-13.0) 08/09/24 05:30 Eos % (Auto) 2.2 % (0.9-2.9) 08/09/24 05:30 Baso % (Auto) 1.4 % (0.2-1.0) H 08/09/24 05:30 Neut # (Auto) 4.7 x10^3/uL (2.2-4.8) 08/09/24 05:30 Lymph # (Auto) 1.4 X10^3/uL (1.3-2.9) 08/09/24 05:30 [place] # (Auto) 0.5 x10^3/uL (0.3-0.8) 08/09/24 05:30 Eos # (Auto) 0.2 x10^3/uL (0.0-0.2) 08/09/24 05:30 Baso # (Auto) 0.1 X10^3/uL (0.0-0.1) 08/09/24 05:30 Absolute Nucleated RBC 0.2 /100WBC 08/09/24 05:30 Sodium 137 mmol/L (136-145) 08/09/24 05:30 Corrected Sodium TNP 08/09/24 05:30 Potassium 3.4 mmol/L (3.5-5.1) L 08/09/24 05:30 Chloride 105 mmol/L (98-107) 08/09/24 05:30 Carbon Dioxide 22.8 mmol/L (21-32) 08/09/24 05:30 BUN 3 mg/dL (7-18) L 08/09/24 05:30 Creatinine 0.36 mg/dL (0.55-1.02) L 08/09/24 05:30 Est GFR (MDRD) Af Amer > 60 (>60) 08/09/24 05:30 Est GFR (MDRD) Non-Af > 60 (>60) 08/09/24 05:30 Glucose 82 mg/dL (65-99) 08/09/24 05:30 Lactic Acid 1.1 mmol/L (0.4-2.0) 08/07/24 11:33 Calcium 7.4 mg/dL (8.5-10.1) L 08/09/24 05:30 Corrected Calcium 8.6 mg/dL (8.5-10.1) 08/09/24 05:30 Magnesium 1.9 mg/dL (2.0-2.9) L 08/09/24 05:30 Total Bilirubin 0.40 mg/dL (0.2-1.0) 08/09/24 05:30 AST 299 Units/L (15-37) H 08/09/24 05:30 ALT 139 Units/L (12-78) H 08/09/24 05:30 Alkaline Phosphatase 612 Units/L (46-116) H 08/09/24 05:30 Total Protein 5.9 g/dL (6.4-8.2) L 08/09/24 05:30 Albumin 2.5 g/dL (3.4-5.0) L 08/09/24 05:30 Globulin 3.4 g/dL (2.5-4.5) 08/09/24 05:30 Albumin/Globulin Ratio 0.7 Ratio (1.1-2.1) L 08/09/24 05:30 Amylase 129 Units/L (25-115) H 08/07/24 11:30 Lipase 53 Units/L (16-77) 08/07/24 11:30 Specimen Type Clean catch urine 08/07/24 14:09 Urine Color Straw (YELLOW) 08/07/24 14:09 Urine Appearance Clear (CLEAR) 08/07/24 14:09 Urine pH 6.0 (5.0 - 8.0) 08/07/24 14:09 Ur Specific [place] 1.015 (1.000-1.030) 08/07/24 14:09 Urine Protein Negative (NEGATIVE) 08/07/24 14:09 Urine Glucose (UA) Negative (NEGATIVE) 08/07/24 14:09 Urine Ketones Negative (NEGATIVE) 08/07/24 14:09 Urine Blood Negative (NEGATIVE) 08/07/24 14:09 Urine Nitrite Negative (NEGATIVE) 08/07/24 14:09 Urine Bilirubin Negative (NEGATIVE) 08/07/24 14:09 Urine Urobilinogen Normal (NORMAL) 08/07/24 14:09 Ur Leukocyte Esterase Negative (NEGATIVE) 08/07/24 14:09 Stool Occult Blood Positive (NEGATIVE) A 08/07/24 11:29 Urine Opiates Screen Negative (NEG=<300) 08/07/24 14:09 Urine Methadone Screen Negative (NEG=<300) 08/07/24 14:09 Ur Barbiturates Screen Negative (NEG=<200) 08/07/24 14:09 Ur Phencyclidine Scrn Negative (NEG=<25) 08/07/24 14:09 Ur Amphetamines Screen Negative (NEG=<1000) 08/07/24 14:09 U Benzodiazepines Scrn Negative (NEG=<200) 08/07/24 14:09 Urine Cocaine Screen Negative (NEG=<300) 08/07/24 14:09 U Marijuana (THC) Screen Positive (NEG=<50) A 08/07/24 14:09 SARS-CoV-2 (PCR) Negative (NEGATIVE) 08/07/24 12:25 Blood Type A POSITIVE 08/07/24 11:33 Antibody Screen Negative 08/07/24 11:33 Crossmatch See Detail 08/07/24 11:33 Assessment and Plan 1: Active peptic ulcer disease at the distal antrum. Patient is on IV Protonix and oral Carafate. Same medication, pain control, Repeat endoscopy in 2 months. Awaiting biopsy report. Problem Patient Problems: Patient Problems Symptomatic anemia (Acute) D64.9 Gastrointestinal hemorrhage (Acute) K92.2 Acute hypokalemia (Acute) E87.6 Hypomagnesemia (Acute) E83.42
[2024-08-10 06:20] LABS: BASOPHILS # (AUTO) 0.1 X10^3/uL (0.0-0.1); BASOPHILS % (AUTO) 2.1 % (0.2-1.0); EOSINOPHILS # (AUTO) 0.2 x10^3/uL (0.0-0.2); EOSINOPHILS % (AUTO) 3.2 % (0.9-2.9); HEMATOCRIT 25.5 % (36.0-47.0); HEMOGLOBIN 8.4 g/dL (12.0-16.0); LYMPHOCYTES # (AUTO) 1.7 X10^3/uL (1.3-2.9); LYMPHOCYTES % (AUTO) 27.1 % (21.0-51.0); MEAN CORPUSCULAR HEMOGLOBIN 26.6 pg (27.0-34.0); MEAN CORPUSCULAR HGB CONC 32.9 g/dL (33.0-35.0); MEAN PLATELET VOLUME 6.7 fL (7.4-11.0); MONOCYTES # (AUTO) 0.5 x10^3/uL (0.3-0.8); MONOCYTES % (AUTO) 7.6 % (0.0-13.0); NEUTROPHILS # (AUTO) 3.8 x10^3/uL (2.2-4.8); PLATELET COUNT 452 X10^3/uL (150.0-450.0); RED BLOOD COUNT 3.15 X10^6/uL (3.5-5.4); WHITE BLOOD COUNT 6.3 X10^3/uL (3.6-10.0)
[2024-08-10 06:36] LABS: ALANINE AMINOTRANSFERASE 103 Units/L (12-78); ALBUMIN 2.6 g/dL (3.4-5.0); ALKALINE PHOSPHATASE 523 Units/L (46-116); AMYLASE 167 Units/L (25-115); ASPARTATE AMINO TRANSFERASE 102 Units/L (15-37); BLOOD UREA NITROGEN 6 mg/dL (7-18); CALCIUM 7.8 mg/dL (8.5-10.1); CARBON DIOXIDE 21.7 mmol/L (21-32); CHLORIDE 106 mmol/L (98-107); COR CA(FOR HYPOALB) 8.9 mg/dL (8.5-10.1); CREATININE 0.42 mg/dL (0.55-1.02); GLUCOSE 78 mg/dL (65-99); LIPASE 33 Units/L (16-77); POTASSIUM 3.4 mmol/L (3.5-5.1); SODIUM 137 mmol/L (136-145); TOTAL PROTEIN 6.1 g/dL (6.4-8.2); eGFR NON BLACK RACES > 60 (>60)
[2024-08-10] MEDS ORDERED: CONSULT PHARMACY - POTASSIUM & MAGNESIUM XX SCH (07:00)
[2024-08-10] MEDS: K-DUR TAB 20 MEQ PO SCH (08:26)
--- NOTE | 2024-08-10 11:39 | DR.PROGNOT ---
HOSPITAL PROGRESS NOTE Progress Note for Day of: Progress Note Date: 08/10/24 Chief Complaint Chief Complaint: Abdominal pain is controlled with medications. No nausea or vomiting today. Hemoglobin is 8.4 and stable. CAT scan showed thickening of the antrum with the prominent head of the pancreas and slight enlargement of the common bile duct as well as the pancreatic duct from the peptic ulcer disease and penetrating ulcer. Normal serum bilirubin and other liver enzymes are still elevated but trending. Slight elevated lipase. Past Medical Family Social History Allergies: Allergies No Known Drug Allergies Allergy (Unknown, Verified 08/07/24 11:23) Onset Date: 09/23/2021 Vital Signs Vital Signs: Vital Signs Temperature 98.0 F Temperature 98.0 F Pulse Rate [Bilateral Radial] 76 Pulse Rate [Bilateral Radial] 71 Pulse Rate 84 Respiratory Rate 18 Respiratory Rate 18 Respiratory Rate 18 Respiratory Rate 18 Blood Pressure [Left Arm] 183/103 Blood Pressure [Left Arm] 173/98 O2 Sat by Pulse Oximetry 98 O2 Sat by Pulse Oximetry 99 O2 Sat by Pulse Oximetry 99 Physical Exam Oriented: Normal Eyes: Normal Ear: Normal Nose: Normal Throat: Normal Respiratory: Normal Cardiovascular: Normal : Normal GI:Auscultation: Normal GI:Palpation: Normal GI: Tenderness: RLQ, LLQ, Periumbilical and Mild Skin: Normal Musculoskeletal: Normal Psychiatric: Normal Mood Description: Calm and Appropriate Affect: Normal Speech Pattern: Clear Laboratory and Diagnostics 08/10/24 05:25 08/10/24 05:25 Labs: 08/07/24 14:05 Blood Blood Culture - Preliminary 08/07/24 13:50 Blood Blood Culture - Preliminary Laboratory WBC 6.3 X10^3/uL (3.6-10.0) 08/10/24 05:25 RBC 3.15 X10^6/uL (3.5-5.4) L 08/10/24 05:25 Hgb 8.4 g/dL (12.0-16.0) L 08/10/24 05:25 Hct 25.5 % (36.0-47.0) L 08/10/24 05:25 MCV 81.0 fL (80.0-100.0) 08/10/24 05:25 MCH 26.6 pg (27.0-34.0) L 08/10/24 05:25 MCHC 32.9 g/dL (33.0-35.0) L 08/10/24 05:25 RDW 19.0 % (11.6-16.5) H 08/10/24 05:25 Plt Count 452 X10^3/uL (150.0-450.0) H 08/10/24 05:25 MPV 6.7 fL (7.4-11.0) L 08/10/24 05:25 Neut % (Auto) 60.0 % (42.0-75.0) 08/10/24 05:25 Lymph % (Auto) 27.1 % (21.0-51.0) 08/10/24 05:25 [place] % (Auto) 7.6 % (0.0-13.0) 08/10/24 05:25 Eos % (Auto) 3.2 % (0.9-2.9) H 08/10/24 05:25 Baso % (Auto) 2.1 % (0.2-1.0) H 08/10/24 05:25 Neut # (Auto) 3.8 x10^3/uL (2.2-4.8) 08/10/24 05:25 Lymph # (Auto) 1.7 X10^3/uL (1.3-2.9) 08/10/24 05:25 [place] # (Auto) 0.5 x10^3/uL (0.3-0.8) 08/10/24 05:25 Eos # (Auto) 0.2 x10^3/uL (0.0-0.2) 08/10/24 05:25 Baso # (Auto) 0.1 X10^3/uL (0.0-0.1) 08/10/24 05:25 Absolute Nucleated RBC 0.1 /100WBC 08/10/24 05:25 Sodium 137 mmol/L (136-145) 08/10/24 05:25 Corrected Sodium TNP 08/10/24 05:25 Potassium 3.4 mmol/L (3.5-5.1) L 08/10/24 05:25 Chloride 106 mmol/L (98-107) 08/10/24 05:25 Carbon Dioxide 21.7 mmol/L (21-32) 08/10/24 05:25 BUN 6 mg/dL (7-18) L 08/10/24 05:25 Creatinine 0.42 mg/dL (0.55-1.02) L 08/10/24 05:25 Est GFR (MDRD) Af Amer > 60 (>60) 08/10/24 05:25 Est GFR (MDRD) Non-Af > 60 (>60) 08/10/24 05:25 Glucose 78 mg/dL (65-99) 08/10/24 05:25 Lactic Acid 1.1 mmol/L (0.4-2.0) 08/07/24 11:33 Calcium 7.8 mg/dL (8.5-10.1) L 08/10/24 05:25 Corrected Calcium 8.9 mg/dL (8.5-10.1) 08/10/24 05:25 Magnesium 2.0 mg/dL (2.0-2.9) 08/10/24 05:25 Total Bilirubin 0.20 mg/dL (0.2-1.0) 08/10/24 05:25 AST 102 Units/L (15-37) H 08/10/24 05:25 ALT 103 Units/L (12-78) H 08/10/24 05:25 Alkaline Phosphatase 523 Units/L (46-116) H 08/10/24 05:25 Total Protein 6.1 g/dL (6.4-8.2) L 08/10/24 05:25 Albumin 2.6 g/dL (3.4-5.0) L 08/10/24 05:25 Globulin 3.5 g/dL (2.5-4.5) 08/10/24 05:25 Albumin/Globulin Ratio 0.7 Ratio (1.1-2.1) L 08/10/24 05:25 Amylase 167 Units/L (25-115) H 08/10/24 05:25 Lipase 33 Units/L (16-77) 08/10/24 05:25 Specimen Type Clean catch urine 08/07/24 14:09 Urine Color Straw (YELLOW) 08/07/24 14:09 Urine Appearance Clear (CLEAR) 08/07/24 14:09 Urine pH 6.0 (5.0 - 8.0) 08/07/24 14:09 Ur Specific [place] 1.015 (1.000-1.030) 08/07/24 14:09 Urine Protein Negative (NEGATIVE) 08/07/24 14:09 Urine Glucose (UA) Negative (NEGATIVE) 08/07/24 14:09 Urine Ketones Negative (NEGATIVE) 08/07/24 14:09 Urine Blood Negative (NEGATIVE) 08/07/24 14:09 Urine Nitrite Negative (NEGATIVE) 08/07/24 14:09 Urine Bilirubin Negative (NEGATIVE) 08/07/24 14:09 Urine Urobilinogen Normal (NORMAL) 08/07/24 14:09 Ur Leukocyte Esterase Negative (NEGATIVE) 08/07/24 14:09 Stool Occult Blood Positive (NEGATIVE) A 08/07/24 11:29 Urine Opiates Screen Negative (NEG=<300) 08/07/24 14:09 Urine Methadone Screen Negative (NEG=<300) 08/07/24 14:09 Ur Barbiturates Screen Negative (NEG=<200) 08/07/24 14:09 Ur Phencyclidine Scrn Negative (NEG=<25) 08/07/24 14:09 Ur Amphetamines Screen Negative (NEG=<1000) 08/07/24 14:09 U Benzodiazepines Scrn Negative (NEG=<200) 08/07/24 14:09 Urine Cocaine Screen Negative (NEG=<300) 08/07/24 14:09 U Marijuana (THC) Screen Positive (NEG=<50) A 08/07/24 14:09 SARS-CoV-2 (PCR) Negative (NEGATIVE) 08/07/24 12:25 Blood Type A POSITIVE 08/07/24 11:33 Antibody Screen Negative 08/07/24 11:33 Crossmatch See Detail 08/07/24 11:33 Assessment and Plan 1: Active peptic ulcer disease at the distal antrum. Patient is on IV Protonix and oral Carafate. Same medication, pain control, Repeat endoscopy in 2 months. Awaiting biopsy report. Problem Patient Problems: Patient Problems Symptomatic anemia (Acute) D64.9 Gastrointestinal hemorrhage (Acute) K92.2 Acute hypokalemia (Acute) E87.6 Hypomagnesemia (Acute) E83.42
--- NOTE | 2024-08-10 12:34 | PCM.PROG ---
Progress Note Progress Note for Day of Date of Exam: 08/10/24 Subjective Subjective: Patient seen at bedside, no acute events noted. She states she is feeling slightly better. Denies N/V. She still has some lower abdominal pain, similar to yesterday. CTAP showed inflammatory changes around the duodenum and pancreatic head and gastroenteritis. She has been tolerating current diet. She reports having a history of IBS alternating between constipation and diarrhea. She has never seen GI. Labs/imaging reviewed: -Hgb 8.4 WBC 6.3 K:3.4 AST/ALT trending down amylase elevated -CTAP reviewed Plan: follow surgery recommendations. Diet per surgery, advance as tolerated. Continue IV protonix and carafate. Continue hydration and pain control. Replace electrolytes as per protocol. Monitor AM labs/imaging. Possible discharge tomorrow. Will need repeat EGD in 2 months. She will need to follow-up with surgery outpatient. Past Medical Family Social History Allergies: Allergies No Known Drug Allergies Allergy (Unknown, Verified 08/07/24 11:23) Onset Date: 09/23/2021 Vital Signs and I&O's Vital Signs: Vital Signs Temperature 98.0 F Pulse Rate [Bilateral Radial] 76 Pulse Rate 84 Respiratory Rate 18 Respiratory Rate 18 Respiratory Rate 18 Blood Pressure [Left Arm] 183/103 O2 Sat by Pulse Oximetry 98 O2 Sat by Pulse Oximetry 99 Intake and Output: Intake & Output 08/07/24 08/08/24 08/09/24 08/10/24 23:59 23:59 23:59 23:59 Intake Total 2313 / 2613 4030 / 4030 1366 / 1366 774 / 774 Balance 2313 / 2613 4030 / 4030 1366 / 1366 774 / 774 Physical Exam Oriented: Normal Eyes: Normal Ear: Normal Nose: Normal Throat: Normal Respiratory: Normal Cardiovascular: Normal Auscultation: Bowel Sounds: Normal Tenderness: RLQ, LLQ, Periumbilical and Mild Skin: Normal Musculoskeletal: Normal Psychiatric: Normal Mood Description: Calm and Appropriate Affect: Normal Speech Pattern: Clear Laboratory and Diagnostics 08/10/24 05:25 08/10/24 05:25 Labs: 08/07/24 14:05 Blood Blood Culture - Preliminary 08/07/24 13:50 Blood Blood Culture - Preliminary Laboratory WBC 6.3 X10^3/uL (3.6-10.0) 08/10/24 05:25 RBC 3.15 X10^6/uL (3.5-5.4) L 08/10/24 05:25 Hgb 8.4 g/dL (12.0-16.0) L 08/10/24 05:25 Hct 25.5 % (36.0-47.0) L 08/10/24 05:25 MCV 81.0 fL (80.0-100.0) 08/10/24 05:25 MCH 26.6 pg (27.0-34.0) L 08/10/24 05:25 MCHC 32.9 g/dL (33.0-35.0) L 08/10/24 05:25 RDW 19.0 % (11.6-16.5) H 08/10/24 05:25 Plt Count 452 X10^3/uL (150.0-450.0) H 08/10/24 05:25 MPV 6.7 fL (7.4-11.0) L 08/10/24 05:25 Neut % (Auto) 60.0 % (42.0-75.0) 08/10/24 05:25 Lymph % (Auto) 27.1 % (21.0-51.0) 08/10/24 05:25 [place] % (Auto) 7.6 % (0.0-13.0) 08/10/24 05:25 Eos % (Auto) 3.2 % (0.9-2.9) H 08/10/24 05:25 Baso % (Auto) 2.1 % (0.2-1.0) H 08/10/24 05:25 Neut # (Auto) 3.8 x10^3/uL (2.2-4.8) 08/10/24 05:25 Lymph # (Auto) 1.7 X10^3/uL (1.3-2.9) 08/10/24 05:25 [place] # (Auto) 0.5 x10^3/uL (0.3-0.8) 08/10/24 05:25 Eos # (Auto) 0.2 x10^3/uL (0.0-0.2) 08/10/24 05:25 Baso # (Auto) 0.1 X10^3/uL (0.0-0.1) 08/10/24 05:25 Absolute Nucleated RBC 0.1 /100WBC 08/10/24 05:25 Sodium 137 mmol/L (136-145) 08/10/24 05:25 Corrected Sodium TNP 08/10/24 05:25 Potassium 3.4 mmol/L (3.5-5.1) L 08/10/24 05:25 Chloride 106 mmol/L (98-107) 08/10/24 05:25 Carbon Dioxide 21.7 mmol/L (21-32) 08/10/24 05:25 BUN 6 mg/dL (7-18) L 08/10/24 05:25 Creatinine 0.42 mg/dL (0.55-1.02) L 08/10/24 05:25 Est GFR (MDRD) Af Amer > 60 (>60) 08/10/24 05:25 Est GFR (MDRD) Non-Af > 60 (>60) 08/10/24 05:25 Glucose 78 mg/dL (65-99) 08/10/24 05:25 Lactic Acid 1.1 mmol/L (0.4-2.0) 08/07/24 11:33 Calcium 7.8 mg/dL (8.5-10.1) L 08/10/24 05:25 Corrected Calcium 8.9 mg/dL (8.5-10.1) 08/10/24 05:25 Magnesium 2.0 mg/dL (2.0-2.9) 08/10/24 05:25 Total Bilirubin 0.20 mg/dL (0.2-1.0) 08/10/24 05:25 AST 102 Units/L (15-37) H 08/10/24 05:25 ALT 103 Units/L (12-78) H 08/10/24 05:25 Alkaline Phosphatase 523 Units/L (46-116) H 08/10/24 05:25 Total Protein 6.1 g/dL (6.4-8.2) L 08/10/24 05:25 Albumin 2.6 g/dL (3.4-5.0) L 08/10/24 05:25 Globulin 3.5 g/dL (2.5-4.5) 08/10/24 05:25 Albumin/Globulin Ratio 0.7 Ratio (1.1-2.1) L 08/10/24 05:25 Amylase 167 Units/L (25-115) H 08/10/24 05:25 Lipase 33 Units/L (16-77) 08/10/24 05:25 Specimen Type Clean catch urine 08/07/24 14:09 Urine Color Straw (YELLOW) 08/07/24 14:09 Urine Appearance Clear (CLEAR) 08/07/24 14:09 Urine pH 6.0 (5.0 - 8.0) 08/07/24 14:09 Ur Specific [place] 1.015 (1.000-1.030) 08/07/24 14:09 Urine Protein Negative (NEGATIVE) 08/07/24 14:09 Urine Glucose (UA) Negative (NEGATIVE) 08/07/24 14:09 Urine Ketones Negative (NEGATIVE) 08/07/24 14:09 Urine Blood Negative (NEGATIVE) 08/07/24 14:09 Urine Nitrite Negative (NEGATIVE) 08/07/24 14:09 Urine Bilirubin Negative (NEGATIVE) 08/07/24 14:09 Urine Urobilinogen Normal (NORMAL) 08/07/24 14:09 Ur Leukocyte Esterase Negative (NEGATIVE) 08/07/24 14:09 Stool Occult Blood Positive (NEGATIVE) A 08/07/24 11:29 Urine Opiates Screen Negative (NEG=<300) 08/07/24 14:09 Urine Methadone Screen Negative (NEG=<300) 08/07/24 14:09 Ur Barbiturates Screen Negative (NEG=<200) 08/07/24 14:09 Ur Phencyclidine Scrn Negative (NEG=<25) 08/07/24 14:09 Ur Amphetamines Screen Negative (NEG=<1000) 08/07/24 14:09 U Benzodiazepines Scrn Negative (NEG=<200) 08/07/24 14:09 Urine Cocaine Screen Negative (NEG=<300) 08/07/24 14:09 U Marijuana (THC) Screen Positive (NEG=<50) A 08/07/24 14:09 SARS-CoV-2 (PCR) Negative (NEGATIVE) 08/07/24 12:25 Blood Type A POSITIVE 08/07/24 11:33 Antibody Screen Negative 08/07/24 11:33 Crossmatch See Detail 08/07/24 11:33 Plan (1) Acute GI bleeding: Status: Acute (2) Symptomatic anemia: Status: Acute (3) Generalized weakness: Status: Acute (4) Acute hypokalemia: Status: Acute (5) Hypomagnesemia: Status: Acute (6) PUD (peptic ulcer disease): Status: Acute (7) Acute pancreatitis: Status: Acute Qualifiers: Pancreatitis type: unspecified pancreatitis type Acute pancreatitis complication: unspecified Qualified Code(s): K85.90 - Acute pancreatitis without necrosis or infection, unspecified
[2024-08-10] MEDS ORDERED: CATAPRES TAB 0.1 MG PO ONE (16:31)
[2024-08-10] MEDS: ZESTRIL TAB 10 MG PO SCH (17:25)
[2024-08-10] MEDS ORDERED: MAGNESIUM SULFATE 50% INJ VIAL ONE (19:04)
[2024-08-11 06:40] LABS: BASOPHILS # (AUTO) 0.1 X10^3/uL (0.0-0.1); BASOPHILS % (AUTO) 1.8 % (0.2-1.0); EOSINOPHILS # (AUTO) 0.3 x10^3/uL (0.0-0.2); EOSINOPHILS % (AUTO) 3.7 % (0.9-2.9); HEMATOCRIT 25.9 % (36.0-47.0); HEMOGLOBIN 8.3 g/dL (12.0-16.0); LYMPHOCYTES # (AUTO) 1.8 X10^3/uL (1.3-2.9); LYMPHOCYTES % (AUTO) 23.1 % (21.0-51.0); MEAN CORPUSCULAR HEMOGLOBIN 26.3 pg (27.0-34.0); MEAN CORPUSCULAR HGB CONC 32.2 g/dL (33.0-35.0); MEAN CORPUSCULAR VOLUME 81.5 fL (80.0-100.0); MEAN PLATELET VOLUME 6.9 fL (7.4-11.0); MONOCYTES # (AUTO) 0.6 x10^3/uL (0.3-0.8); MONOCYTES % (AUTO) 7.5 % (0.0-13.0); NEUTROPHILS # (AUTO) 4.9 x10^3/uL (2.2-4.8); NEUTROPHILS % (AUTO) 63.9 % (42.0-75.0); PLATELET COUNT 506 X10^3/uL (150.0-450.0); RED BLOOD COUNT 3.17 X10^6/uL (3.5-5.4); RED CELL DISTRIBUTION WIDTH 19.6 % (11.6-16.5); WHITE BLOOD COUNT 7.8 X10^3/uL (3.6-10.0)
[2024-08-11 06:50] LABS: ALANINE AMINOTRANSFERASE 75 Units/L (12-78); ALBUMIN 2.6 g/dL (3.4-5.0); ALKALINE PHOSPHATASE 430 Units/L (46-116); ASPARTATE AMINO TRANSFERASE 59 Units/L (15-37); BLOOD UREA NITROGEN 4 mg/dL (7-18); CALCIUM 7.7 mg/dL (8.5-10.1); CARBON DIOXIDE 24.4 mmol/L (21-32); CHLORIDE 108 mmol/L (98-107); COR CA(FOR HYPOALB) 8.8 mg/dL (8.5-10.1); CREATININE 0.38 mg/dL (0.55-1.02); GLUCOSE 92 mg/dL (65-99); MAGNESIUM 1.9 mg/dL (2.0-2.9); POTASSIUM 3.6 mmol/L (3.5-5.1); SODIUM 141 mmol/L (136-145); eGFR NON BLACK RACES > 60 (>60)
[2024-08-11] MEDS ORDERED: CONSULT PHARMACY - POTASSIUM & MAGNESIUM XX SCH (08:00)
[2024-08-11] MEDS: MAG-OX TAB PO SCH (08:17)
[2024-08-11 09:18] VITALS: BP 169/99; PULSE 72; RESP 17; TEMP 97.4; O2SAT 95
--- NOTE | 2024-08-16 09:59 | W.DIS.FURT ---
Summary of Discharge Discharge Summary of Date Date of Exam: 08/11/24 Admission Date Date of Admission: 08/07/24 Admission Diagnosis Patient Problems (Updated 08/10/24 @ 12:33 by Shelby Palacios) Symptomatic anemia (Acute) D64.9 Gastrointestinal hemorrhage (Acute) K92.2 Acute hypokalemia (Acute) E87.6 Hypomagnesemia (Acute) E83.42 Hospital Course: Patient is a 39 year old female admitted for GI bleed, symptomatic anemia, and electrolyte abnormalities. Her hospital/treatment course included:Diet per surgery, advance as tolerated. IV protonix and carafate. Continue hydration and pain control. Electrolytes replaced as per protocol. CTAP showed inflammatory changes around the duodenum and pancreatic head and gastroenteritis. She reports having a history of IBS alternating between constipation and diarrhea. EGD revealed: Large prepyloric ulcer. No active bleeding. Clear bile in the stomach. We were unable to go beyond the ulcer into the duodenum. Will need repeat EGD in 2 months. Pt discharged in stable condition. Rx carafate and protonix. Pt to follow up with general surgery. She also desires to see GI, referral placed to Dr Lucero. Instrcuted to follow up with pcp in 1 week. Vital Signs: Vital Signs (72 hours) 08/08/24 10:15 08/08/24 14:30 08/08/24 17:50 Temperature Pulse Rate Pulse Rate [Bilateral Radial] Respiratory Rate 18 18 Blood Pressure [Left Arm] Blood Pressure [Right Arm] O2 Sat by Pulse Oximetry Oxygen Delivery Method Room Air Oxygen Flow Rate 2 FIO2% 28 08/08/24 10:20 08/08/24 10:35 08/08/24 10:50 Temperature 97.6 F 97.2 F L 97.6 F Pulse Rate Pulse Rate [Bilateral Radial] 75 78 76 Respiratory Rate 18 19 18 Blood Pressure [Left Arm] Blood Pressure [Right Arm] 158/91 163/103 171/96 O2 Sat by Pulse Oximetry 96 97 99 Oxygen Delivery Method Room Air Room Air Room Air Oxygen Flow Rate FIO2% 08/08/24 11:05 08/08/24 11:20 08/08/24 16:00 Temperature 97.7 F 97.6 F 98.1 F Pulse Rate Pulse Rate [Bilateral Radial] 77 72 77 Respiratory Rate 18 18 18 Blood Pressure [Left Arm] Blood Pressure [Right Arm] 164/97 163/94 176/98 O2 Sat by Pulse Oximetry 98 97 94 L Oxygen Delivery Method Room Air Room Air Room Air Oxygen Flow Rate FIO2% 08/08/24 15:00 08/08/24 19:34 08/08/24 22:22 Temperature Pulse Rate Pulse Rate [Bilateral Radial] Respiratory Rate 18 18 18 Blood Pressure [Left Arm] Blood Pressure [Right Arm] O2 Sat by Pulse Oximetry Oxygen Delivery Method Oxygen Flow Rate FIO2% 08/08/24 20:15 08/08/24 19:00 08/08/24 20:00 Temperature 98.1 F Pulse Rate Pulse Rate [Bilateral Radial] 87 Respiratory Rate 18 Blood Pressure [Left Arm] Blood Pressure [Right Arm] 167/101 O2 Sat by Pulse Oximetry 99 Oxygen Delivery Method Nasal Cannula Room Air Room Air Oxygen Flow Rate 2 FIO2% 28 08/08/24 20:04 08/09/24 00:00 08/08/24 23:22 Temperature 98.1 F Pulse Rate Pulse Rate [Bilateral Radial] 67 Respiratory Rate 18 18 17 Blood Pressure [Left Arm] 170/99 Blood Pressure [Right Arm] O2 Sat by Pulse Oximetry 98 Oxygen Delivery Method Room Air Oxygen Flow Rate FIO2% 08/09/24 01:32 08/09/24 05:12 08/09/24 02:02 Temperature Pulse Rate Pulse Rate [Bilateral Radial] Respiratory Rate 18 19 18 Blood Pressure [Left Arm] Blood Pressure [Right Arm] O2 Sat by Pulse Oximetry Oxygen Delivery Method Oxygen Flow Rate FIO2% 08/09/24 04:00 08/09/24 06:12 08/09/24 10:13 Temperature 98.5 F Pulse Rate Pulse Rate [Bilateral Radial] 75 Respiratory Rate 18 18 18 Blood Pressure [Left Arm] 159/98 Blood Pressure [Right Arm] O2 Sat by Pulse Oximetry 98 Oxygen Delivery Method Room Air Oxygen Flow Rate FIO2% 08/09/24 14:08 08/09/24 15:33 08/09/24 07:00 Temperature Pulse Rate Pulse Rate [Bilateral Radial] Respiratory Rate 18 18 Blood Pressure [Left Arm] Blood Pressure [Right Arm] O2 Sat by Pulse Oximetry Oxygen Delivery Method Room Air Oxygen Flow Rate FIO2% 08/09/24 08:00 08/09/24 12:00 08/09/24 16:00 Temperature 98.3 F 98.4 F 98.3 F Pulse Rate Pulse Rate [Bilateral Radial] 79 83 82 Respiratory Rate 18 19 19 Blood Pressure [Left Arm] 175/95 163/98 180/106 Blood Pressure [Right Arm] O2 Sat by Pulse Oximetry 98 99 98 Oxygen Delivery Method Room Air Room Air Room Air Oxygen Flow Rate 19 FIO2% 08/09/24 16:45 08/09/24 19:24 08/09/24 22:45 Temperature Pulse Rate Pulse Rate [Bilateral Radial] Respiratory Rate 20 19 Blood Pressure [Left Arm] 176/98 Blood Pressure [Right Arm] O2 Sat by Pulse Oximetry Oxygen Delivery Method Oxygen Flow Rate FIO2% 08/10/24 00:04 08/09/24 19:00 08/09/24 20:00 Temperature 98.2 F Pulse Rate Pulse Rate [Bilateral Radial] 68 Respiratory Rate 18 18 Blood Pressure [Left Arm] 172/94 Blood Pressure [Right Arm] O2 Sat by Pulse Oximetry 98 Oxygen Delivery Method Room Air Room Air Oxygen Flow Rate FIO2% 08/09/24 19:54 08/09/24 23:45 08/10/24 00:00 Temperature 98.2 F Pulse Rate Pulse Rate [Bilateral Radial] 71 Respiratory Rate 18 18 18 Blood Pressure [Left Arm] 172/96 Blood Pressure [Right Arm] O2 Sat by Pulse Oximetry 99 Oxygen Delivery Method Room Air Oxygen Flow Rate FIO2% 08/10/24 00:34 08/10/24 04:00 08/10/24 09:02 Temperature 98.0 F Pulse Rate Pulse Rate [Bilateral Radial] 71 Respiratory Rate 18 18 18 Blood Pressure [Left Arm] 173/98 Blood Pressure [Right Arm] O2 Sat by Pulse Oximetry 99 Oxygen Delivery Method Room Air Oxygen Flow Rate FIO2% 08/10/24 13:51 08/10/24 09:51 08/10/24 09:51 Temperature Pulse Rate 84 Pulse Rate [Bilateral Radial] Respiratory Rate 19 Blood Pressure [Left Arm] Blood Pressure [Right Arm] O2 Sat by Pulse Oximetry 98 Oxygen Delivery Method Room Air Oxygen Flow Rate FIO2% 21 08/10/24 08:00 08/10/24 07:00 08/10/24 12:00 Temperature 98.0 F 98.2 F Pulse Rate Pulse Rate [Bilateral Radial] 76 75 Respiratory Rate 18 19 Blood Pressure [Left Arm] 183/103 166/99 Blood Pressure [Right Arm] O2 Sat by Pulse Oximetry 99 98 Oxygen Delivery Method Room Air Room Air Room Air Oxygen Flow Rate FIO2% 08/10/24 10:02 08/10/24 08:10 08/10/24 16:00 Temperature 98.2 F Pulse Rate Pulse Rate [Bilateral Radial] 75 Respiratory Rate 18 19 Blood Pressure [Left Arm] 177/98 192/100 Blood Pressure [Right Arm] O2 Sat by Pulse Oximetry 98 Oxygen Delivery Method Room Air Oxygen Flow Rate FIO2% 08/10/24 16:25 08/10/24 14:51 08/10/24 19:33 Temperature Pulse Rate Pulse Rate [Bilateral Radial] Respiratory Rate 18 20 Blood Pressure [Left Arm] 188/82 Blood Pressure [Right Arm] O2 Sat by Pulse Oximetry Oxygen Delivery Method Oxygen Flow Rate FIO2% 08/10/24 19:00 08/10/24 20:00 08/10/24 23:58 Temperature 98.5 F Pulse Rate Pulse Rate [Bilateral Radial] 70 Respiratory Rate 20 22 Blood Pressure [Left Arm] 171/99 Blood Pressure [Right Arm] O2 Sat by Pulse Oximetry 99 Oxygen Delivery Method Room Air Room Air Oxygen Flow Rate FIO2% 08/10/24 20:33 08/10/24 23:52 08/10/24 23:54 Temperature 98.9 F Pulse Rate Pulse Rate [Bilateral Radial] 63 Respiratory Rate 19 17 Blood Pressure [Left Arm] 188/95 178/80 Blood Pressure [Right Arm] O2 Sat by Pulse Oximetry 98 Oxygen Delivery Method Room Air Oxygen Flow Rate FIO2% 08/10/24 21:00 08/10/24 21:00 08/11/24 00:28 Temperature Pulse Rate 66 Pulse Rate [Bilateral Radial] Respiratory Rate 18 Blood Pressure [Left Arm] Blood Pressure [Right Arm] O2 Sat by Pulse Oximetry 98 Oxygen Delivery Method Room Air Oxygen Flow Rate FIO2% 08/11/24 04:00 08/11/24 07:00 08/11/24 08:16 Temperature 98.3 F Pulse Rate Pulse Rate [Bilateral Radial] 74 Respiratory Rate 18 Blood Pressure [Left Arm] 176/103 Blood Pressure [Right Arm] O2 Sat by Pulse Oximetry 98 Oxygen Delivery Method Room Air Room Air Room Air Oxygen Flow Rate FIO2% 08/11/24 08:00 Temperature 97.4 F L Pulse Rate Pulse Rate [Bilateral Radial] 72 Respiratory Rate 17 Blood Pressure [Left Arm] 169/99 Blood Pressure [Right Arm] O2 Sat by Pulse Oximetry 95 Oxygen Delivery Method Room Air Oxygen Flow Rate FIO2% Labs: Laboratory Last Values WBC 7.8 X10^3/uL (3.6-10.0) 08/11/24 05:38 RBC 3.17 X10^6/uL (3.5-5.4) L 08/11/24 05:38 Hgb 8.3 g/dL (12.0-16.0) L 08/11/24 05:38 Hct 25.9 % (36.0-47.0) L 08/11/24 05:38 MCV 81.5 fL (80.0-100.0) 08/11/24 05:38 MCH 26.3 pg (27.0-34.0) L 08/11/24 05:38 MCHC 32.2 g/dL (33.0-35.0) L 08/11/24 05:38 RDW 19.6 % (11.6-16.5) H 08/11/24 05:38 Plt Count 506 X10^3/uL (150.0-450.0) H 08/11/24 05:38 MPV 6.9 fL (7.4-11.0) L 08/11/24 05:38 Neut % (Auto) 63.9 % (42.0-75.0) 08/11/24 05:38 Lymph % (Auto) 23.1 % (21.0-51.0) 08/11/24 05:38 [place] % (Auto) 7.5 % (0.0-13.0) 08/11/24 05:38 Eos % (Auto) 3.7 % (0.9-2.9) H 08/11/24 05:38 Baso % (Auto) 1.8 % (0.2-1.0) H 08/11/24 05:38 Neut # (Auto) 4.9 x10^3/uL (2.2-4.8) H 08/11/24 05:38 Lymph # (Auto) 1.8 X10^3/uL (1.3-2.9) 08/11/24 05:38 [place] # (Auto) 0.6 x10^3/uL (0.3-0.8) 08/11/24 05:38 Eos # (Auto) 0.3 x10^3/uL (0.0-0.2) H 08/11/24 05:38 Baso # (Auto) 0.1 X10^3/uL (0.0-0.1) 08/11/24 05:38 Absolute Nucleated RBC 0.1 /100WBC 08/11/24 05:38 Sodium 141 mmol/L (136-145) 08/11/24 05:38 Corrected Sodium TNP 08/11/24 05:38 Potassium 3.6 mmol/L (3.5-5.1) 08/11/24 05:38 Chloride 108 mmol/L (98-107) H 08/11/24 05:38 Carbon Dioxide 24.4 mmol/L (21-32) 08/11/24 05:38 BUN 4 mg/dL (7-18) L 08/11/24 05:38 Creatinine 0.38 mg/dL (0.55-1.02) L 08/11/24 05:38 Est GFR (MDRD) Af Amer > 60 (>60) 08/11/24 05:38 Est GFR (MDRD) Non-Af > 60 (>60) 08/11/24 05:38 Glucose 92 mg/dL (65-99) 08/11/24 05:38 Lactic Acid 1.1 mmol/L (0.4-2.0) 08/07/24 11:33 Calcium 7.7 mg/dL (8.5-10.1) L 08/11/24 05:38 Corrected Calcium 8.8 mg/dL (8.5-10.1) 08/11/24 05:38 Magnesium 1.9 mg/dL (2.0-2.9) L 08/11/24 05:38 Total Bilirubin 0.20 mg/dL (0.2-1.0) 08/11/24 05:38 AST 59 Units/L (15-37) H 08/11/24 05:38 ALT 75 Units/L (12-78) 08/11/24 05:38 Alkaline Phosphatase 430 Units/L (46-116) H 08/11/24 05:38 Total Protein 6.0 g/dL (6.4-8.2) L 08/11/24 05:38 Albumin 2.6 g/dL (3.4-5.0) L 08/11/24 05:38 Globulin 3.4 g/dL (2.5-4.5) 08/11/24 05:38 Albumin/Globulin Ratio 0.8 Ratio (1.1-2.1) L 08/11/24 05:38 Amylase 167 Units/L (25-115) H 08/10/24 05:25 Lipase 33 Units/L (16-77) 08/10/24 05:25 Specimen Type Clean catch urine 08/07/24 14:09 Urine Color Straw (YELLOW) 08/07/24 14:09 Urine Appearance Clear (CLEAR) 08/07/24 14:09 Urine pH 6.0 (5.0 - 8.0) 08/07/24 14:09 Ur Specific [place] 1.015 (1.000-1.030) 08/07/24 14:09 Urine Protein Negative (NEGATIVE) 08/07/24 14:09 Urine Glucose (UA) Negative (NEGATIVE) 08/07/24 14:09 Urine Ketones Negative (NEGATIVE) 08/07/24 14:09 Urine Blood Negative (NEGATIVE) 08/07/24 14:09 Urine Nitrite Negative (NEGATIVE) 08/07/24 14:09 Urine Bilirubin Negative (NEGATIVE) 08/07/24 14:09 Urine Urobilinogen Normal (NORMAL) 08/07/24 14:09 Ur Leukocyte Esterase Negative (NEGATIVE) 08/07/24 14:09 Stool Occult Blood Positive (NEGATIVE) A 08/07/24 11:29 Urine Opiates Screen Negative (NEG=<300) 08/07/24 14:09 Urine Methadone Screen Negative (NEG=<300) 08/07/24 14:09 Ur Barbiturates Screen Negative (NEG=<200) 08/07/24 14:09 Ur Phencyclidine Scrn Negative (NEG=<25) 08/07/24 14:09 Ur Amphetamines Screen Negative (NEG=<1000) 08/07/24 14:09 U Benzodiazepines Scrn Negative (NEG=<200) 08/07/24 14:09 Urine Cocaine Screen Negative (NEG=<300) 08/07/24 14:09 U Marijuana (THC) Screen Positive (NEG=<50) A 08/07/24 14:09 SARS-CoV-2 (PCR) Negative (NEGATIVE) 08/07/24 12:25 Blood Type A POSITIVE 08/07/24 11:33 Antibody Screen Negative 08/07/24 11:33 Crossmatch See Detail 08/07/24 11:33 Reason For Visit: SYMPTOMATIC ANEMIA, GASTROINTESTINAL HEMORRHAGE Discharge Date Discharge Date: 08/11/24 Discharge Diagnosis All Active Problems (Updated 08/10/24 @ 12:33 by Shelby Palacios) Acute pancreatitis (Acute) PUD (peptic ulcer disease) (Acute) Generalized weakness (Acute) Symptomatic anemia (Acute) Gastrointestinal hemorrhage (Acute) Acute hypokalemia (Acute) Hypomagnesemia (Acute) IBS (irritable bowel syndrome) (Acute) Anemia (Acute) Abdominal pain (Acute) Acute GI bleeding (Acute) Hematemesis (Acute) Diarrhea (Acute) Fever (Acute) Duodenal ulcer (Acute) Upper GI bleed (Acute) Anemia (Acute) Ovarian cyst (Acute) Abdominal pain (Acute) Ovarian cyst (Acute) Right kidney stone (Acute) Pharyngitis (Acute) Reactive airway disease (Acute) Abscess, dental (Acute) Acute gingivitis (Acute) Tooth ache (Acute) Dental caries (Acute) Jaw pain (Acute) Plan of Treatment: Continue with present treatment and follow up plan. Pt is to keep follow up appointment as instructed and take medications as ordered. Discharge Medications Discharge Medications: No Known Drug Allergies Allergy (Unknown, Verified 08/07/24 11:23) New Prescriptions pantoprazole 40 mg tablet,delayed release (Protonix) 40 mg PO BID #30 tabs 08/11/24 [Rx] sucralfate 1 gram tablet (Carafate) 1 g PO QACHS #120 tabs 08/11/24 [Rx] Discharge Disposition Assessment: No distress noted. Discharge Plan Discharge Plan Hospital Course: Patient is a 39 year old female admitted for GI bleed, symptomatic anemia, and electrolyte abnormalities. Her hospital/treatment course included:Diet per surgery, advance as tolerated. IV protonix and carafate. Continue hydration and pain control. Electrolytes replaced as per protocol. CTAP showed inflammatory changes around the duodenum and pancreatic head and gastroenteritis. She reports having a history of IBS alternating between constipation and diarrhea. EGD revealed: Large prepyloric ulcer. No active bleeding. Clear bile in the stomach. We were unable to go beyond the ulcer into the duodenum. Will need repeat EGD in 2 months. Pt discharged in stable condition. Rx carafate and protonix. Pt to follow up with general surgery. She also desires to see GI, referral placed to Dr Lucero. Instrcuted to follow up with pcp in 1 week. Patient Disposition: 01 HOME, SELF-CARE Condition: Stable Health Concerns: Post Hospitalization: new medications and changes needed to prevent readmission or further decline. Pt educated and given instructions on all concerns. Care Plan Goals: Problem: Pain/Alteration in Comfort Goal: Improve/ Resolve Pain; Achieve Pain Tolerance Instructions: Take pain medications as prescribed. Contact your primary care provider if your pain is unrelieved or worsens. Follow up with primary care provider as directed. Plan of Treatment: Continue with present treatment and follow up plan. Pt is to keep follow up appointment as instructed and take medications as ordered. Assessment: No distress noted. Prescriptions: New sucralfate [Carafate] 1 gram Tablet 1 g PO QACHS Qty: 120 0RF pantoprazole [Protonix] 40 mg Tablet,Delayed Release (Dr/Ec) 40 mg PO BID Qty: 30 0RF Follow ups/Referrals Follow ups/Referrals: SHAHID SIDDIQUI [STAFF PHYSICIAN] - 08/25/24 10:00 am Instructions Instructions: Health Risks of Smoking, Anemia, Peptic Ulcer, [id number], Upper Endoscopy, Care After, Abdominal Pain, Adult, [id number] Stand Alone Forms: Excuse From Work or School, Post Hospital Follow Up Care
== END 2024-08-11 11:00 | disposition home or self-care (01) | DRG 439 ==
LOC: MED/SURG 11:12 → ER 11:12 → OBSVTOIN 12:57 → MED/SURG 13:16
PROVIDERS: ADMIT Family Medicine; ATTEND Family Medicine
DX: R55 Syncope and collapse; D64.89 Other specified anemias; E83.42 Hypomagnesemia; R53.1 Weakness; K85.90 Acute pancreatitis without necrosis or infection, unspecified; Z20.822 Contact with and (suspected) exposure to COVID-19; K92.2 Gastrointestinal hemorrhage, unspecified; E87.6 Hypokalemia; K27.9 Peptic ulcer, site unspecified, unspecified as acute or chronic, without hemorrhage or perforation

== ENCOUNTER 2025-01-03 15:35 | Inpatient (IN) ==
[2025-01-03 17:28] LABS: BASOPHILS # (AUTO) 0.1 X10^3/uL (0.0-0.1); BASOPHILS % (AUTO) 1.1 % (0.2-1.0); EOSINOPHILS # (AUTO) 0.1 x10^3/uL (0.0-0.2); HEMATOCRIT 40.4 % (36.0-47.0); HEMOGLOBIN 13.4 g/dL (12.0-16.0); LYMPHOCYTES # (AUTO) 1.6 X10^3/uL (1.3-2.9); LYMPHOCYTES % (AUTO) 14.3 % (21.0-51.0); MEAN CORPUSCULAR HEMOGLOBIN 30.2 pg (27.0-34.0); MEAN CORPUSCULAR HGB CONC 33.2 g/dL (33.0-35.0); MEAN CORPUSCULAR VOLUME 91.1 fL (80.0-100.0); MONOCYTES # (AUTO) 0.8 x10^3/uL (0.3-0.8); MONOCYTES % (AUTO) 6.8 % (0.0-13.0); NEUTROPHILS # (AUTO) 8.7 x10^3/uL (2.2-4.8); NEUTROPHILS % (AUTO) 76.8 % (42.0-75.0); PLATELET COUNT 434 X10^3/uL (150.0-450.0); RED BLOOD COUNT 4.43 X10^6/uL (3.5-5.4); RED CELL DISTRIBUTION WIDTH 24.5 % (11.6-16.5); WHITE BLOOD COUNT 11.3 X10^3/uL (3.6-10.0)
[2025-01-03 17:34] LABS: ALANINE AMINOTRANSFERASE 175 Units/L (12-78); ALBUMIN 3.8 g/dL (3.4-5.0); ALKALINE PHOSPHATASE 407 Units/L (46-116); ASPARTATE AMINO TRANSFERASE 244 Units/L (15-37); BLOOD UREA NITROGEN 30 mg/dL (7-18); CALCIUM 9.3 mg/dL (8.5-10.1); CARBON DIOXIDE 24.5 mmol/L (21-32); CHLORIDE 102 mmol/L (98-107); CREATININE 0.73 mg/dL (0.55-1.02); GLUCOSE 89 mg/dL (65-99); LIPASE 97 Units/L (16-77); POTASSIUM 4.5 mmol/L (3.5-5.1); SODIUM 137 mmol/L (136-145); TOTAL PROTEIN 7.8 g/dL (6.4-8.2); eGFR NON BLACK RACES > 60 (>60)
[2025-01-03 17:53] LABS: PLATELET MORPHOLOGY COMMENT NORMAL (NORMAL)
[2025-01-03 17:55] LABS: ANISOCYTOSIS 3+
[2025-01-03 19:19] LABS: BILIRUBIN,URINE NEGATIVE (NEGATIVE); BLOOD/HEMOGLOBIN,URINE 4+ (NEGATIVE); GLUCOSE, URINE NEGATIVE (NEGATIVE); KETONES,URINE 2+ (NEGATIVE); LEUKOCYTE ESTERASE ,URINE NEGATIVE (NEGATIVE); NITRITES,URINE NEGATIVE (NEGATIVE); PROTEIN,URINE 2+ (NEGATIVE); UROBILINOGEN,URINE NORMAL (NORMAL)
[2025-01-03 19:23] LABS: APPEARANCE,URINE CLEAR (CLEAR); BACTERIA,URINE NEGATIVE /HPF (NEGATIVE); COLOR,URINE YELLOW (YELLOW); RBC,URINE 30-50 /HPF (0-3); SQUAMOUS EPITHELIAL CELL,UR RARE /HPF (NEGATIVE)
--- NOTE | 2025-01-03 19:42 | DR.GIBLEED ---
HPI <Richard Downey - Last Filed: 01/03/25 20:10> Time Seen Time Seen by Provider: 01/03/25 17:06 Primary Care Physician Primary Care Physician: Complaints Chief Complaint Doctors Comments: 39 yo F, hx of PUD, c/o bilat upper abd pain for the past month with increasing severity. States she has had multiple transfusions. States Dr Morton told her to go to the ER for possible admission for eval and treatment of PUD. States she has had persistent and increasing weakness. Denies other complaints. Chief Complaint:: pt states that she has had an ulcer for 4 years now and has had a bleed about a year ago. She states she has been feeling weak, losing her balance, and feeling SOB for a little over a week now along with pain that starts on her right side and comes across her whole abdomen. COVID-19 Has patient experienced Coronavirus symptoms: No Source History Provided: Patient Mode of Arrival Mode of Arrival: Ambulatory Timing Onset of Chief Complaint: 12/25/24 PMH <Richard Downey - Last Filed: 01/03/25 20:10> PMH Past Medical History: Yes Past Medical History: Kidney Stones Past Medical History Comment: bleeding ulcer Past Surgical History: Yes Surgical History: Cholecystectomy and Hysterectomy Past Surgical History Comment: partial hysterectomy Family History History of Family Medical Conditions: No Social History Does patient currently use any type of tobacco product: Yes Have you used tobacco products in the last 12 months: Yes Type of Tobacco Use: Cigarettes Alcohol Use: None Do you use any recreational Drugs:: Yes (marijuana) Lives Where: Home Travel Risk Has patient experienced Coronavirus symptoms: No Infectious screening Have you traveled outside the country in the last 6 months?: Yes Travel History Location: [place] Isolation: Standard ROS <Richard Downey - Last Filed: 01/03/25 20:10> Review of Systems Constitutional: negative Chills or Fever Gastrointestinal/Abdominal: Abdominal Pain (epigastric, bilat upper) and Nausea; negative Vomiting All Other Systems: Reviewed and Negative PE <Richard Downey Last Filed: 01/03/25 20:10> Vital Signs Vitals: Vital Signs Temperature 98.3 F Pulse Rate 91 Respiratory Rate 20 Respiratory Rate 20 Blood Pressure 133/87 O2 Sat by Pulse Oximetry 94 General Limitations: No Limitations General Appearance: Alert and In No Apparent Distress Head Head Exam: Normal Inspection Eyes Eye exam: Normal Appearance ENT ENT Exam: Normal Exam Neck Neck Exam: Normal Inspection Chest Chest Inspection: Normal Inspection Respiratory Respiratory Exam: Normal Lung Sounds Bilat Respiratory Exam: Bilateral: Clear to Auscultation Cardiovascular Cardiovascular Exam: Regular Rate and Normal Rhythm Abdominal Exam Abdominal Exam: Tenderness (bilat upper abd); negative Distention, Guarding, Layla ound or Rigidity Rectal Rectal Exam: Deferred Extremities Extremities Exam: Normal Inspection Back Back Exam: Normal Inspection Neurologic Neurological Exam: Alert and Oriented X3 Psychiatric Psychiatric Exam: Normal Affect and Normal Mood Skin Skin Exam: Warm, Dry, Intact and Normal Color <Alisha Jesus - Last Filed: 01/03/25 22:03> Vital Signs Vitals: Vital Signs Temperature 98.3 F Pulse Rate 91 Respiratory Rate 20 Respiratory Rate 20 Blood Pressure 133/87 O2 Sat by Pulse Oximetry 94 <Alisha Jesus - Last Filed: 01/03/25 22:03> Treatment Treatment: 2030 Care received at shift change; thin, alert female resting comfortably, on phone; denies excessive use of tylenol and denies etoh use; agreeable to admission Consultation Call Returned: 20:30 (Dr Do accepts admission.) ROR <Richard Downey - Last Filed: 01/03/25 20:10> Labs Reviewed 01/03/25 17:16 01/03/25 17:16 Laboratory: WBC 11.3 X10^3/uL (3.6-10.0) H 01/03/25 17:16 RBC 4.43 X10^6/uL (3.5-5.4) 01/03/25 17:16 Hgb 13.4 g/dL (12.0-16.0) 01/03/25 17:16 Hct 40.4 % (36.0-47.0) 01/03/25 17:16 MCV 91.1 fL (80.0-100.0) 01/03/25 17:16 MCH 30.2 pg (27.0-34.0) 01/03/25 17:16 MCHC 33.2 g/dL (33.0-35.0) 01/03/25 17:16 RDW 24.5 % (11.6-16.5) H 01/03/25 17:16 Plt Count 434 X10^3/uL (150.0-450.0) 01/03/25 17:16 Plt Count Comment Adequate (ADEQUATE) 01/03/25 17:16 MPV 7.0 fL (7.4-11.0) L 01/03/25 17:16 Neut % (Auto) 76.8 % (42.0-75.0) H 01/03/25 17:16 Lymph % (Auto) 14.3 % (21.0-51.0) L 01/03/25 17:16 [place] % (Auto) 6.8 % (0.0-13.0) 01/03/25 17:16 Eos % (Auto) 1.0 % (0.9-2.9) 01/03/25 17:16 Baso % (Auto) 1.1 % (0.2-1.0) H 01/03/25 17:16 Neut # (Auto) 8.7 x10^3/uL (2.2-4.8) H 01/03/25 17:16 Lymph # (Auto) 1.6 X10^3/uL (1.3-2.9) 01/03/25 17:16 [place] # (Auto) 0.8 x10^3/uL (0.3-0.8) 01/03/25 17:16 Eos # (Auto) 0.1 x10^3/uL (0.0-0.2) 01/03/25 17:16 Baso # (Auto) 0.1 X10^3/uL (0.0-0.1) 01/03/25 17:16 Absolute Nucleated RBC 0.0 /100WBC 01/03/25 17:16 Plt Morphology Comment Normal (NORMAL) 01/03/25 17:16 RBC Morphology Abnormal (NORMAL) A 01/03/25 17:16 Anisocytosis 3+ A 01/03/25 17:16 Sodium 137 mmol/L (136-145) 01/03/25 17:16 Corrected Sodium TNP 01/03/25 17:16 Potassium 4.5 mmol/L (3.5-5.1) 01/03/25 17:16 Chloride 102 mmol/L (98-107) 01/03/25 17:16 Carbon Dioxide 24.5 mmol/L (21-32) 01/03/25 17:16 BUN 30 mg/dL (7-18) H 01/03/25 17:16 Creatinine 0.73 mg/dL (0.55-1.02) 01/03/25 17:16 Est GFR (MDRD) Af Amer > 60 (>60) 01/03/25 17:16 Est GFR (MDRD) Non-Af > 60 (>60) 01/03/25 17:16 Glucose 89 mg/dL (65-99) 01/03/25 17:16 Calcium 9.3 mg/dL (8.5-10.1) 01/03/25 17:16 Corrected Calcium TNP 01/03/25 17:16 Total Bilirubin 0.30 mg/dL (0.2-1.0) 01/03/25 17:16 AST 244 Units/L (15-37) H 01/03/25 17:16 ALT 175 Units/L (12-78) H 01/03/25 17:16 Alkaline Phosphatase 407 Units/L (46-116) H 01/03/25 17:16 Total Protein 7.8 g/dL (6.4-8.2) 01/03/25 17:16 Albumin 3.8 g/dL (3.4-5.0) 01/03/25 17:16 Globulin 4.0 g/dL (2.5-4.5) 01/03/25 17:16 Albumin/Globulin Ratio 1.0 Ratio (1.1-2.1) L 01/03/25 17:16 Lipase 97 Units/L (16-77) H 01/03/25 17:16 Specimen Type Clean catch urine 01/03/25 18:51 Urine Color Yellow (YELLOW) 01/03/25 18:51 Urine Appearance Clear (CLEAR) 01/03/25 18:51 Urine pH 5.0 (5.0 - 8.0) 01/03/25 18:51 Ur Specific [place] 1.020 (1.000-1.030) 01/03/25 18:51 Urine Protein 2+ (NEGATIVE) 01/03/25 18:51 Urine Glucose (UA) Negative (NEGATIVE) 01/03/25 18:51 Urine Ketones 2+ (NEGATIVE) 01/03/25 18:51 Urine Blood 4+ (NEGATIVE) 01/03/25 18:51 Urine Nitrite Negative (NEGATIVE) 01/03/25 18:51 Urine Bilirubin Negative (NEGATIVE) 01/03/25 18:51 Urine Urobilinogen Normal (NORMAL) 01/03/25 18:51 Ur Leukocyte Esterase Negative (NEGATIVE) 01/03/25 18:51 Urine RBC 30-50 /HPF (0-3) A 01/03/25 18:51 Urine WBC 0-2 /HPF (0-5) 01/03/25 18:51 Ur Squamous Epith Cells Rare /HPF (NEGATIVE) 01/03/25 18:51 Urine Bacteria Negative /HPF (NEGATIVE) 01/03/25 18:51 Ur Culture Indicated? No/not indicated 01/03/25 18:51 <Alisha Jesus - Last Filed: 01/03/25 22:03> Labs Reviewed Laboratory Results Reviewed?: Yes Laboratory: WBC 11.3 X10^3/uL (3.6-10.0) H 01/03/25 17:16 RBC 4.43 X10^6/uL (3.5-5.4) 01/03/25 17:16 Hgb 13.4 g/dL (12.0-16.0) 01/03/25 17:16 Hct 40.4 % (36.0-47.0) 01/03/25 17:16 MCV 91.1 fL (80.0-100.0) 01/03/25 17:16 MCH 30.2 pg (27.0-34.0) 01/03/25 17:16 MCHC 33.2 g/dL (33.0-35.0) 01/03/25 17:16 RDW 24.5 % (11.6-16.5) H 01/03/25 17:16 Plt Count 434 X10^3/uL (150.0-450.0) 01/03/25 17:16 Plt Count Comment Adequate (ADEQUATE) 01/03/25 17:16 MPV 7.0 fL (7.4-11.0) L 01/03/25 17:16 Neut % (Auto) 76.8 % (42.0-75.0) H 01/03/25 17:16 Lymph % (Auto) 14.3 % (21.0-51.0) L 01/03/25 17:16 [place] % (Auto) 6.8 % (0.0-13.0) 01/03/25 17:16 Eos % (Auto) 1.0 % (0.9-2.9) 01/03/25 17:16 Baso % (Auto) 1.1 % (0.2-1.0) H 01/03/25 17:16 Neut # (Auto) 8.7 x10^3/uL (2.2-4.8) H 01/03/25 17:16 Lymph # (Auto) 1.6 X10^3/uL (1.3-2.9) 01/03/25 17:16 [place] # (Auto) 0.8 x10^3/uL (0.3-0.8) 01/03/25 17:16 Eos # (Auto) 0.1 x10^3/uL (0.0-0.2) 01/03/25 17:16 Baso # (Auto) 0.1 X10^3/uL (0.0-0.1) 01/03/25 17:16 Absolute Nucleated RBC 0.0 /100WBC 01/03/25 17:16 Plt Morphology Comment Normal (NORMAL) 01/03/25 17:16 RBC Morphology Abnormal (NORMAL) A 01/03/25 17:16 Anisocytosis 3+ A 01/03/25 17:16 Sodium 137 mmol/L (136-145) 01/03/25 17:16 Corrected Sodium TNP 01/03/25 17:16 Potassium 4.5 mmol/L (3.5-5.1) 01/03/25 17:16 Chloride 102 mmol/L (98-107) 01/03/25 17:16 Carbon Dioxide 24.5 mmol/L (21-32) 01/03/25 17:16 BUN 30 mg/dL (7-18) H 01/03/25 17:16 Creatinine 0.73 mg/dL (0.55-1.02) 01/03/25 17:16 Est GFR (MDRD) Af Amer > 60 (>60) 01/03/25 17:16 Est GFR (MDRD) Non-Af > 60 (>60) 01/03/25 17:16 Glucose 89 mg/dL (65-99) 01/03/25 17:16 Calcium 9.3 mg/dL (8.5-10.1) 01/03/25 17:16 Corrected Calcium TNP 01/03/25 17:16 Total Bilirubin 0.30 mg/dL (0.2-1.0) 01/03/25 17:16 AST 244 Units/L (15-37) H 01/03/25 17:16 ALT 175 Units/L (12-78) H 01/03/25 17:16 Alkaline Phosphatase 407 Units/L (46-116) H 01/03/25 17:16 Total Protein 7.8 g/dL (6.4-8.2) 01/03/25 17:16 Albumin 3.8 g/dL (3.4-5.0) 01/03/25 17:16 Globulin 4.0 g/dL (2.5-4.5) 01/03/25 17:16 Albumin/Globulin Ratio 1.0 Ratio (1.1-2.1) L 01/03/25 17:16 Lipase 97 Units/L (16-77) H 01/03/25 17:16 Specimen Type Clean catch urine 01/03/25 18:51 Urine Color Yellow (YELLOW) 01/03/25 18:51 Urine Appearance Clear (CLEAR) 01/03/25 18:51 Urine pH 5.0 (5.0 - 8.0) 01/03/25 18:51 Ur Specific [place] 1.020 (1.000-1.030) 01/03/25 18:51 Urine Protein 2+ (NEGATIVE) 01/03/25 18:51 Urine Glucose (UA) Negative (NEGATIVE) 01/03/25 18:51 Urine Ketones 2+ (NEGATIVE) 01/03/25 18:51 Urine Blood 4+ (NEGATIVE) 01/03/25 18:51 Urine Nitrite Negative (NEGATIVE) 01/03/25 18:51 Urine Bilirubin Negative (NEGATIVE) 01/03/25 18:51 Urine Urobilinogen Normal (NORMAL) 01/03/25 18:51 Ur Leukocyte Esterase Negative (NEGATIVE) 01/03/25 18:51 Urine RBC 30-50 /HPF (0-3) A 01/03/25 18:51 Urine WBC 0-2 /HPF (0-5) 01/03/25 18:51 Ur Squamous Epith Cells Rare /HPF (NEGATIVE) 01/03/25 18:51 Urine Bacteria Negative /HPF (NEGATIVE) 01/03/25 18:51 Ur Culture Indicated? No/not indicated 01/03/25 18:51 XRAY XRAY Interpreted by: Radiologist X-ray Results: ct abd/pelvis: 1. Abundant fecal material is seen within the large bowel loops and rectum consistent with constipation (new finding). 2. Up to 4.5 cm dilated air and liquid stool filled right sided large bowel loops (proximal to the fecal column) in keeping with obstipation and/or impending diarrhea. 3. No evidence for acute appendicitis, bowel herniation, colitis or diverticulitis seen. 4 No evidence for pyelonephritis, renal stone disease or obstructive uropathy. 5 No free fluid, free air, mass lesions, or lymphadenopathy seen. 6. Status post cholecystectomy. 7. Mild intrahepatic and extrahepatic biliary ductal dilatation (CHD measures up to 1.9 cm, with abrupt transition to normal caliber CBD (4.6 mm)), without discernible obstructing stone or pancreatic head mass lesion; stable findings, suspicious for postcholecystectomy state, with possible CHD/CBD stricture. Coronal image 14-19; axial image 16-31. 8. Consider follow-up MRCP or HIDA scan if obstructive biliary disease is cl inically suspected. 9. Acute nodular left lower lobe parenchymal infiltrate consistent with acute bronchopneumonia in the appropriate clinical setting (new findings). Axial image 1-9, lung windows. Opioid <Richard Downey - Last Filed: 01/03/25 20:10> Opioid Risk Tool Age (Nikunj box if 16-45): Yes History of Preadolescent Sexual Abuse: No Total: 1 Total Score Risk Category: Low Risk Copyright: Kerwin MAYA predicting aberrant behaviors <Alisha Jesus - Last Filed: 01/03/25 22:03> Opioid Risk Tool Total: 1 Total Score Risk Category: Low Risk Discharge Plan Diagnosis Discharge Problem: PUD (peptic ulcer disease), LLL pneumonia, Abdominal pain, Elevated LFTs, Constipation Discharge Plan Patient Disposition: 09 ADMITTED INPATIENT Condition: Stable ADDITIONAL NOTES <Richard Downey - Last Filed: 01/03/25 20:10> Additional Notes Additional Notes: Signed out to Dr Jesus for final dispo at 2008.
--- NOTE | 2025-01-03 20:09 | CT ---
EXAM: CT ABDOMEN AND PELVIS WITH INTRAVENOUS CONTRAST HISTORY: Right-sided abdominal pain. Ulcer for 4 years. Status post bleed 1 year ago. Weakness. L osing her balance. Shortness of breath. TECHNIQUE: Spiral axial CT images are obtained through the abdomen and pelvis without the administrat ion of oral contrast and with the administration of intravenous contrast. Additional coronal and sagi ttal reformatted images are reconstructed. COMPARISON: CT abdomen pelvis dated August 09, 2024. FINDINGS: GASTROINTESTINAL TRACT: There is no evidence for bowel herniation, bowel obstruction, colitis or dive rticulitis. A normal-appearing appendix is seen. Abundant fecal material is seen within the large alicia wel loops and rectum consistent with constipation (new finding). There are up to 4.5 cm dilated air and liquid stool filled right sided large bowel loops (proximal to the fecal column) in keeping with obstipation and/or impending diarrhea. GENITOURINARY SYSTEM: The kidneys are unremarkable. There is no ureteral calculus or stigmata of obst ructive uropathy. The urinary bladder is grossly unremarkable for a non-dedicated exam. BILIARY SYSTEM: The patient is status post cholecystectomy. There is mild intrahepatic and extrahepat ic biliary ductal dilatation (CHD measures up to 1.9 cm, with abrupt transition to normal caliber CBD (4.6 mm)), without discernible obstructing stone or pancreatic head mass lesion; stable findings, benitez spicious for postcholecystectomy state, with possible CHD/CBD stricture. Coronal image 14-19; axial image 16-31. Consider follow-up MRCP or HIDA scan if obstructive biliary disease is clinically suspe cted. CT ABDOMEN: The liver, spleen, pancreas, adrenal glands, aorta, and inferior vena cava are within nor mal limits for a CT scan. There is no intra-abdominal or retroperitoneal lymphadenopathy, free fluid , or free air seen. No abdominal herniation is noted. CT PELVIS: No pelvic sidewall or inguinal lymphadenopathy is seen. No inguinal herniation is noted. No free fluid or free air is seen. BONES AND JOINTS: The visualized bony structures are within normal limits. LUNG BASES: There is acute nodular left lower lobe parenchymal infiltrate consistent with acute bronc hopneumonia in the appropriate clinical setting. Axial image 1-9, lung windows. IMPRESSION: 1. Abundant fecal material is seen within the large bowel loops and rectum consistent with constipat ion (new finding). 2. Up to 4.5 cm dilated air and liquid stool filled right sided large bowel loops (proximal to the f ecal column) in keeping with obstipation and/or impending diarrhea. 3. No evidence for acute appendicitis, bowel herniation, colitis or diverticulitis seen. 4 No evidence for pyelonephritis, renal stone disease or obstructive uropathy. 5 No free fluid, free air, mass lesions, or lymphadenopathy seen. 6. Status post cholecystectomy. 7. Mild intrahepatic and extrahepatic biliary ductal dilatation (CHD measures up to 1.9 cm, with abr upt transition to normal caliber CBD (4.6 mm)), without discernible obstructing stone or pancreatic h ead mass lesion; stable findings, suspicious for postcholecystectomy state, with possible CHD/CBD str icture. Coronal image 14-19; axial image 16-31. 8. Consider follow-up MRCP or HIDA scan if obstructive biliary disease is clinically suspected. 9. Acute nodular left lower lobe parenchymal infiltrate consistent with acute bronchopneumonia in th e appropriate clinical setting (new findings). Axial image 1-9, lung windows. THIS IS AN ELECTRONICALLY VERIFIED FINAL REPORT 01/03/2025 8:06 PM - Electronically signed by Ophelia Head MD
[2025-01-03] MEDS: ZOFRAN INJ 4 MG VIAL IVP ONE (20:11)
[2025-01-03] MEDS: MORPHINE SULFATE INJ 4 MG IVP ONE (20:16)
[2025-01-03] MEDS: NS 1,000 ML IV 1,000 ML IV SCH (20:56)
[2025-01-03] MEDS: ROCEPHIN VIAL 1 GRAM 1 G in NS 100 ML IV 100 ML IV SCH (20:56)
[2025-01-03] MEDS: MORPHINE SULFATE INJ 2 MG INJ IVP PRN (22:42)
[2025-01-03 23:14] VITALS: BMI 17.3
[2025-01-04] MEDS: PROTONIX INJ 40 MG VIAL IVP SCH (00:01)
[2025-01-04] MEDS: MORPHINE SULFATE INJ 4 MG IVP PRN (00:02)
[2025-01-04 06:17] LABS: BASOPHILS # (AUTO) 0.1 X10^3/uL (0.0-0.1); EOSINOPHILS # (AUTO) 0.1 x10^3/uL (0.0-0.2); EOSINOPHILS % (AUTO) 1.5 % (0.9-2.9); HEMATOCRIT 34.8 % (36.0-47.0); HEMOGLOBIN 11.7 g/dL (12.0-16.0); LYMPHOCYTES # (AUTO) 1.3 X10^3/uL (1.3-2.9); LYMPHOCYTES % (AUTO) 20.6 % (21.0-51.0); MEAN CORPUSCULAR HEMOGLOBIN 30.8 pg (27.0-34.0); MEAN CORPUSCULAR HGB CONC 33.5 g/dL (33.0-35.0); MEAN CORPUSCULAR VOLUME 91.8 fL (80.0-100.0); MEAN PLATELET VOLUME 7.1 fL (7.4-11.0); MONOCYTES # (AUTO) 0.4 x10^3/uL (0.3-0.8); MONOCYTES % (AUTO) 5.8 % (0.0-13.0); NEUTROPHILS # (AUTO) 4.6 x10^3/uL (2.2-4.8); NEUTROPHILS % (AUTO) 71.1 % (42.0-75.0); PLATELET COUNT 354 X10^3/uL (150.0-450.0); RED CELL DISTRIBUTION WIDTH 24.2 % (11.6-16.5); WHITE BLOOD COUNT 6.5 X10^3/uL (3.6-10.0)
[2025-01-04 06:28] LABS: ALANINE AMINOTRANSFERASE 326 Units/L (12-78); ALBUMIN 3.1 g/dL (3.4-5.0); ALKALINE PHOSPHATASE 490 Units/L (46-116); ASPARTATE AMINO TRANSFERASE 544 Units/L (15-37); BLOOD UREA NITROGEN 23 mg/dL (7-18); CALCIUM 8.4 mg/dL (8.5-10.1); CHLORIDE 104 mmol/L (98-107); COR CA(FOR HYPOALB) 9.1 mg/dL (8.5-10.1); CREATININE 0.45 mg/dL (0.55-1.02); GLUCOSE 76 mg/dL (65-99); SODIUM 137 mmol/L (136-145); TOTAL PROTEIN 6.6 g/dL (6.4-8.2); eGFR NON BLACK RACES > 60 (>60)
[2025-01-04 06:56] LABS: ANISOCYTOSIS 3+; PLATELET MORPHOLOGY COMMENT NORMAL (NORMAL); STOMATOCYTES SLIGHT
[2025-01-04] MEDS: OMNIPAQUE 350 mg/mL 100 mL BTL 100 ML ONE (07:14)
[2025-01-04] MEDS: DUONEB 0.5 MG/3 MG (3 mL) NEB SCH (09:23)
[2025-01-04] MEDS: PULMICORT NEB TX 0.5 MG NEB SCH (09:23)
[2025-01-04] MEDS ORDERED: STERILE WATER IRRIGATION IR ONE (10:47)
[2025-01-04] MEDS: CONSULT PHARMACY - POTASSIUM & MAGNESIUM XX SCH (11:54)
[2025-01-04] MEDS: NS 1,000 ML IV 250 ML IV PRN (14:20)
[2025-01-04] MEDS: DIPRIVAN VIAL 140 ML IVP PRN (14:28)
[2025-01-04] MEDS: DIPRIVAN VIAL 20 ML ONE (15:51)
[2025-01-04] MEDS: CARAFATE PO SCH (21:06)
[2025-01-05 07:29] LABS: BASOPHILS # (AUTO) 0.1 X10^3/uL (0.0-0.1); BASOPHILS % (AUTO) 1.4 % (0.2-1.0); EOSINOPHILS # (AUTO) 0.1 x10^3/uL (0.0-0.2); EOSINOPHILS % (AUTO) 1.4 % (0.9-2.9); HEMATOCRIT 34.5 % (36.0-47.0); HEMOGLOBIN 11.3 g/dL (12.0-16.0); LYMPHOCYTES # (AUTO) 1.8 X10^3/uL (1.3-2.9); LYMPHOCYTES % (AUTO) 28.2 % (21.0-51.0); MEAN CORPUSCULAR HEMOGLOBIN 30.4 pg (27.0-34.0); MEAN CORPUSCULAR HGB CONC 32.9 g/dL (33.0-35.0); MEAN CORPUSCULAR VOLUME 92.5 fL (80.0-100.0); MEAN PLATELET VOLUME 6.9 fL (7.4-11.0); MONOCYTES # (AUTO) 0.5 x10^3/uL (0.3-0.8); MONOCYTES % (AUTO) 7.7 % (0.0-13.0); NEUTROPHILS # (AUTO) 3.9 x10^3/uL (2.2-4.8); NEUTROPHILS % (AUTO) 61.3 % (42.0-75.0); PLATELET COUNT 328 X10^3/uL (150.0-450.0); RED BLOOD COUNT 3.72 X10^6/uL (3.5-5.4); RED CELL DISTRIBUTION WIDTH 23.4 % (11.6-16.5); WHITE BLOOD COUNT 6.4 X10^3/uL (3.6-10.0)
[2025-01-05 07:38] LABS: ALANINE AMINOTRANSFERASE 506 Units/L (12-78); ALKALINE PHOSPHATASE 634 Units/L (46-116); ASPARTATE AMINO TRANSFERASE 645 Units/L (15-37); BLOOD UREA NITROGEN 15 mg/dL (7-18); CALCIUM 8.3 mg/dL (8.5-10.1); CARBON DIOXIDE 24.5 mmol/L (21-32); CHLORIDE 109 mmol/L (98-107); COR CA(FOR HYPOALB) 9.1 mg/dL (8.5-10.1); CREATININE 0.45 mg/dL (0.55-1.02); GLUCOSE 83 mg/dL (65-99); POTASSIUM 4.4 mmol/L (3.5-5.1); SODIUM 140 mmol/L (136-145); TOTAL PROTEIN 6.4 g/dL (6.4-8.2); eGFR NON BLACK RACES > 60 (>60)
[2025-01-05 08:22] LABS: ANISOCYTOSIS 2+; PLATELET MORPHOLOGY COMMENT NORMAL (NORMAL); STOMATOCYTES SLIGHT
--- NOTE | 2025-01-05 08:24 | DR.PROGNOT ---
HOSPITAL PROGRESS NOTE Progress Note for Day of: Progress Note Date: 01/05/25 Chief Complaint Chief Complaint: Still complaining of mid abdominal pain and nausea. EGD showed large distal antral ulcer with mild bleeding. It seems to be its intractable ulcer for long period of time without improvement. Patient has elevated liver enzymes AST is 645, ALT 506, alkaline phosphatase is 634 with normal bilirubin 0.5. Her CAT scan showed possible stricture of the common hepatic or common bile duct. Electrolytes, BUN/creatinine are normal. Patient is afebrile, the abdomen is soft and flat with diffuse upper abdominal tenderness. Patient is for MRCP today, possible partial gastrectomy in the morning. Medical consultation was obtained. Past Medical Family Social History Allergies: Allergies No Known Drug Allergies Allergy (Unknown, Verified 11/24/24 14:05) Onset Date: 09/23/2021 Vital Signs Vital Signs: Vital Signs Temperature 99.0 F Pulse Rate [Right Brachial] 71 Respiratory Rate 20 Respiratory Rate 21 Respiratory Rate 20 Blood Pressure [Right Arm] 168/64 O2 Sat by Pulse Oximetry 97 Physical Exam Oriented: Normal Eyes: Normal Ear: Normal Nose: Normal Throat: Normal Respiratory: Normal Cardiovascular: Normal : Normal GI: Tenderness: Other (Diffuse abdominal tenderness with soft abdomen, bowel sounds present.) Speech Pattern: Clear and Appropriate Laboratory and Diagnostics 01/04/25 05:40 01/05/25 07:18 Labs: 01/04/25 20:10 Sputum - Expectorated Sputum - Final Laboratory WBC 6.5 X10^3/uL (3.6-10.0) 01/04/25 05:40 RBC 3.80 X10^6/uL (3.5-5.4) 01/04/25 05:40 Hgb 11.7 g/dL (12.0-16.0) L 01/04/25 05:40 Hct 34.8 % (36.0-47.0) L 01/04/25 05:40 MCV 91.8 fL (80.0-100.0) 01/04/25 05:40 MCH 30.8 pg (27.0-34.0) 01/04/25 05:40 MCHC 33.5 g/dL (33.0-35.0) 01/04/25 05:40 RDW 24.2 % (11.6-16.5) H 01/04/25 05:40 Plt Count 354 X10^3/uL (150.0-450.0) 01/04/25 05:40 Plt Count Comment Adequate (ADEQUATE) 01/04/25 05:40 MPV 7.1 fL (7.4-11.0) L 01/04/25 05:40 Neut % (Auto) 71.1 % (42.0-75.0) 01/04/25 05:40 Lymph % (Auto) 20.6 % (21.0-51.0) L 01/04/25 05:40 [place] % (Auto) 5.8 % (0.0-13.0) 01/04/25 05:40 Eos % (Auto) 1.5 % (0.9-2.9) 01/04/25 05:40 Baso % (Auto) 1.0 % (0.2-1.0) 01/04/25 05:40 Neut # (Auto) 4.6 x10^3/uL (2.2-4.8) 01/04/25 05:40 Lymph # (Auto) 1.3 X10^3/uL (1.3-2.9) 01/04/25 05:40 [place] # (Auto) 0.4 x10^3/uL (0.3-0.8) 01/04/25 05:40 Eos # (Auto) 0.1 x10^3/uL (0.0-0.2) 01/04/25 05:40 Baso # (Auto) 0.1 X10^3/uL (0.0-0.1) 01/04/25 05:40 Absolute Nucleated RBC 0.0 /100WBC 01/04/25 05:40 Plt Morphology Comment Normal (NORMAL) 01/04/25 05:40 RBC Morphology Abnormal (NORMAL) A 01/04/25 05:40 Anisocytosis 3+ A 01/04/25 05:40 Stomatocytes Slight A 01/04/25 05:40 Sodium 140 mmol/L (136-145) 01/05/25 07:18 Corrected Sodium TNP 01/05/25 07:18 Potassium 4.4 mmol/L (3.5-5.1) 01/05/25 07:18 Chloride 109 mmol/L (98-107) H 01/05/25 07:18 Carbon Dioxide 24.5 mmol/L (21-32) 01/05/25 07:18 BUN 15 mg/dL (7-18) 01/05/25 07:18 Creatinine 0.45 mg/dL (0.55-1.02) L 01/05/25 07:18 Est GFR (MDRD) Af Amer > 60 (>60) 01/05/25 07:18 Est GFR (MDRD) Non-Af > 60 (>60) 01/05/25 07:18 Glucose 83 mg/dL (65-99) 01/05/25 07:18 Calcium 8.3 mg/dL (8.5-10.1) L 01/05/25 07:18 Corrected Calcium 9.1 mg/dL (8.5-10.1) 01/05/25 07:18 Total Bilirubin 0.50 mg/dL (0.2-1.0) 01/05/25 07:18 AST 645 Units/L (15-37) H 01/05/25 07:18 ALT 506 Units/L (12-78) H 01/05/25 07:18 Alkaline Phosphatase 634 Units/L (46-116) H 01/05/25 07:18 Total Protein 6.4 g/dL (6.4-8.2) 01/05/25 07:18 Albumin 3.0 g/dL (3.4-5.0) L 01/05/25 07:18 Globulin 3.4 g/dL (2.5-4.5) 01/05/25 07:18 Albumin/Globulin Ratio 0.9 Ratio (1.1-2.1) L 01/05/25 07:18 Lipase 97 Units/L (16-77) H 01/03/25 17:16 Specimen Type Clean catch urine 01/03/25 18:51 Urine Color Yellow (YELLOW) 01/03/25 18:51 Urine Appearance Clear (CLEAR) 01/03/25 18:51 Urine pH 5.0 (5.0 - 8.0) 01/03/25 18:51 Ur Specific [place] 1.020 (1.000-1.030) 01/03/25 18:51 Urine Protein 2+ (NEGATIVE) 01/03/25 18:51 Urine Glucose (UA) Negative (NEGATIVE) 01/03/25 18:51 Urine Ketones 2+ (NEGATIVE) 01/03/25 18:51 Urine Blood 4+ (NEGATIVE) 01/03/25 18:51 Urine Nitrite Negative (NEGATIVE) 01/03/25 18:51 Urine Bilirubin Negative (NEGATIVE) 01/03/25 18:51 Urine Urobilinogen Normal (NORMAL) 01/03/25 18:51 Ur Leukocyte Esterase Negative (NEGATIVE) 01/03/25 18:51 Urine RBC 30-50 /HPF (0-3) A 01/03/25 18:51 Urine WBC 0-2 /HPF (0-5) 01/03/25 18:51 Ur Squamous Epith Cells Rare /HPF (NEGATIVE) 01/03/25 18:51 Urine Bacteria Negative /HPF (NEGATIVE) 01/03/25 18:51 Ur Culture Indicated? No/not indicated 01/03/25 18:51 Assessment and Plan 1: Intractable peptic ulcer disease without improvement on medications. Recurrent episodes of anemia required transfusion from bleeding ulcers. Elevated liver enzymes with normal bilirubin. For MRCP this morning possible gastrectomy in a.m. 2: Liver dysfunction to be further evaluated. 3: Abnormal CAT scan of the abdomen and pelvis with possible stricture of the common bile duct. For MRCP today. Medical consultation will be obtained. Problem Patient Problems: Patient Problems LLL pneumonia (Acute) J18.9 Abdominal pain (Acute) R10.9 Elevated LFTs (Acute) R79.89 Constipation (Acute) K59.00 PUD (peptic ulcer disease) (Acute) K27.9
--- NOTE | 2025-01-05 10:37 | EKG ---
Test Reason : pre op Blood Pressure : */* mmHG Vent. Rate : 60 BPM Atrial Rate : 60 BPM P-R Int : 178 ms QRS Dur : 72 ms QT Int : 384 ms P-R-T Axes : 68 86 48 degrees QTc Int : 384 ms Normal sinus rhythm Minimal voltage criteria for LVH, may be normal variant ( Sokolow-Farley ) Borderline ECG No previous ECGs available Confirmed by Solomon Newsome MD ([id number]) on 01/05/2025 11:50:55 AM Referred By: Confirmed By: Solomon Newsome MD
--- NOTE | 2025-01-05 12:02 | MRI ---
EXAM: MRI ABDOMEN WITHOUT CONTRAST WITH MRCP HISTORY: Elevated liver enzymes, Stricture common bile duct; . COMPARISON: CT January 03, 2025. TECHNIQUE: Using a phased-array coil, MRI of the abdomen was obtained without contrast. In addition to standard imaging, MRCP sequences were acquired including 3D reconstructions. FINDINGS: MRCP: GALLBLADDER: Absent HEPATOBILIARY: There is dilatation of the common duct which is somewhat bulbous measuring up to 17 mm in diameter. Very mild intrahepatic dilatation is present. Common bile duct through the pancreatic head region does appear somewhat narrowed without clear evidence of stones. Pancreatic duct is norm al in caliber PANCREATIC DUCT: Pancreatic duct is normal in caliber without obvious pancreatic mass MRI: LOWER THORAX: Normal LIVER: The liver shows no focal mass. There are no morphologic changes of cirrhosis. There is no e vidence of steatosis on in and out of phase imaging. SPLEEN: Normal PANCREAS: Normal appearance of the parenchyma. KIDNEYS: Normal ADRENAL GLANDS: Normal GI TRACT: Normal course and caliber, though examination not tailored for evaluation of the bowel. LYMPH NODES: No enlarged nodes VESSELS: Normal PERITONEUM / RETROPERITONEUM: No ascites BONES: Normal IMPRESSION: MRCP shows bulbous distention of the common bile duct measuring up to 17 mm in diameter with possible mild intrahepatic dilatation. No definite stones are seen. No clear evidence of pancreatic mass. Pancreatic duct is normal in caliber. In the setting of elevated liver enzymes, ERCP may be consider ed. THIS IS AN ELECTRONICALLY VERIFIED FINAL REPORT 01/05/2025 11:54 AM - Electronically signed by Kofi Busch MD
--- NOTE | 2025-01-05 13:09 | RAD ---
EXAM: CHEST, PA/LAT ADULT HISTORY: PRE OP PARTIAL GASTRECTOMY; HYSTER COMPARISON: No relevant prior studies were available for comparison at the time of interpretation. TECHNIQUE: CHEST, PA/LAT ADULT FINDINGS: Chest: Lines and tubes: None Mediastinum: Cardiac and mediastinal shadow is within normal limits for size and contour. Pulmonary vessels: No pulmonary vascular congestion. Lung diaz: Interstitial markings and hyperinflation of the lungs with diaphragmatic flattening. Pleura: No effusion. No pneumothorax. Bones and soft tissues: No acute osseous or soft tissue abnormality. IMPRESSION: 1. No acute cardiopulmonary abnormality THIS IS AN ELECTRONICALLY VERIFIED FINAL REPORT 01/05/2025 1:06 PM - Electronically signed by Keaton Beth MD
[2025-01-05] MEDS ORDERED: PHARMACY CONSULT - TPN XX SCH (14:00)
[2025-01-05] MEDS: MVI IV SCH (15:57)
[2025-01-05] MEDS: CLINIMIX IV SCH (15:57)
[2025-01-05] MEDS: DRUG FILTER EXTENSION SET ONE (15:57)
[2025-01-06] MEDS: DRUG FILTER EXTENSION SET ONE ×2 (04:08→13:53)
[2025-01-06 06:37] LABS: ALANINE AMINOTRANSFERASE 403 Units/L (12-78); ALKALINE PHOSPHATASE 644 Units/L (46-116); ASPARTATE AMINO TRANSFERASE 330 Units/L (15-37); BLOOD UREA NITROGEN 15 mg/dL (7-18); CALCIUM 8.5 mg/dL (8.5-10.1); CARBON DIOXIDE 24.1 mmol/L (21-32); CHLORIDE 106 mmol/L (98-107); COR CA(FOR HYPOALB) 9.3 mg/dL (8.5-10.1); CREATININE 0.38 mg/dL (0.55-1.02); GLUCOSE 100 mg/dL (65-99); POTASSIUM 3.7 mmol/L (3.5-5.1); SODIUM 140 mmol/L (136-145); TOTAL PROTEIN 6.4 g/dL (6.4-8.2); eGFR NON BLACK RACES > 60 (>60)
[2025-01-06 06:39] LABS: BASOPHILS # (AUTO) 0.1 X10^3/uL (0.0-0.1); BASOPHILS % (AUTO) 1.2 % (0.2-1.0); EOSINOPHILS # (AUTO) 0.1 x10^3/uL (0.0-0.2); EOSINOPHILS % (AUTO) 2.3 % (0.9-2.9); HEMATOCRIT 31.7 % (36.0-47.0); HEMOGLOBIN 10.6 g/dL (12.0-16.0); LYMPHOCYTES # (AUTO) 1.4 X10^3/uL (1.3-2.9); MEAN CORPUSCULAR HEMOGLOBIN 31.1 pg (27.0-34.0); MEAN CORPUSCULAR HGB CONC 33.6 g/dL (33.0-35.0); MEAN CORPUSCULAR VOLUME 92.6 fL (80.0-100.0); MEAN PLATELET VOLUME 7.4 fL (7.4-11.0); MONOCYTES # (AUTO) 0.3 x10^3/uL (0.3-0.8); MONOCYTES % (AUTO) 6.7 % (0.0-13.0); NEUTROPHILS # (AUTO) 2.8 x10^3/uL (2.2-4.8); NEUTROPHILS % (AUTO) 59.8 % (42.0-75.0); PLATELET COUNT 292 X10^3/uL (150.0-450.0); RED BLOOD COUNT 3.42 X10^6/uL (3.5-5.4); RED CELL DISTRIBUTION WIDTH 23.3 % (11.6-16.5); WHITE BLOOD COUNT 4.7 X10^3/uL (3.6-10.0)
[2025-01-06 07:44] LABS: ANISOCYTOSIS 2+; PLATELET MORPHOLOGY COMMENT NORMAL (NORMAL); STOMATOCYTES 1+
[2025-01-06] MEDS ORDERED: CONSULT PHARMACY - POTASSIUM & MAGNESIUM XX SCH (08:00)
[2025-01-06] MEDS: POTASSIUM CHLORIDE LIQ PO SCH (08:43)
--- NOTE | 2025-01-06 11:38 | RAD ---
EXAM: CHEST, 1 VIEW HISTORY: PICC LINE PLACEMENT; COMPARISON: 01/05/2025 FINDINGS: The cardiomediastinal silhouette is stable. Left PICC placement with tip overlying the SVC. No acute airspace disease. No pneumothorax or effusion. No acute osseous abnormality. IMPRESSION: Expected positioning of left PICC with tip overlying the SVC. THIS IS AN ELECTRONICALLY VERIFIED FINAL REPORT 01/06/2025 11:35 AM - Electronically signed by Bharath Joaquin MD
--- NOTE | 2025-01-06 11:42 | DR.UPDATE ---
H&P Update Prescription drug monitoring program results: PDMP was not reviewed H&P Reviewed: Yes Any changes to H&P?: No Patient was examined?: Yes Vital Signs: Temp Pulse Pulse Resp BP BP Pulse Ox 01/06/25 09:27 01/06/25 08:42 22 01/06/25 08:27 01/06/25 04:41 22 01/06/25 04:00 98.5 F 65 18 138/77 97 01/06/25 04:11 22 01/05/25 23:58 98.6 F 81 22 129/76 96 01/05/25 21:03 20 01/05/25 20:09 77 97 01/05/25 20:09 01/05/25 20:33 19 01/05/25 19:00 01/05/25 19:48 99.2 F 70 19 152/80 97 01/05/25 16:00 98.8 F 84 18 130/78 97 01/05/25 16:03 19 01/05/25 15:33 20 01/05/25 12:00 98.9 F 82 18 135/86 96 01/05/25 11:00 22 01/05/25 08:00 98.8 F 77 19 143/94 95 01/05/25 09:08 01/05/25 08:41 70 93 L 01/05/25 10:30 20 01/05/25 04:00 99.0 F 71 20 168/64 97 01/05/25 03:38 21 01/05/25 03:08 20 01/04/25 23:46 99.0 F 72 21 133/77 96 01/04/25 21:36 18 01/04/25 21:06 20 01/04/25 20:11 77 98 01/04/25 19:47 98.5 F 79 20 147/80 96 01/04/25 19:00 01/04/25 17:07 18 01/04/25 15:45 98.1 F 81 18 154/96 97 01/04/25 15:30 98.3 F 80 20 156/93 95 01/04/25 15:15 98.2 F 77 20 160/89 96 01/04/25 15:00 98.2 F 79 18 146/87 96 01/04/25 14:45 98.1 F 80 18 131/82 97 01/04/25 12:00 98.3 F 74 21 151/90 95 01/04/25 10:40 22 01/04/25 09:34 01/04/25 09:25 83 93 L 01/04/25 16:37 20 01/04/25 10:10 20 01/04/25 08:00 98 F 82 21 151/92 95 01/04/25 05:50 20 01/04/25 00:32 18 01/04/25 04:00 97.6 F 82 16 151/73 96 01/04/25 00:00 98.2 F 92 H 16 136/85 96 01/03/25 21:45 98.1 F 93 H 20 144/98 96 01/03/25 23:18 21 133/87 98 01/03/25 23:12 21 01/03/25 22:46 01/04/25 05:20 24 01/04/25 00:02 21 01/03/25 22:42 22 01/03/25 21:41 18 98 01/03/25 21:12 98.1 F 84 20 133/91 98 01/03/25 20:46 18 01/03/25 20:16 20 01/03/25 16:10 98.3 F 91 H 20 133/87 94 L O2 Del Method FiO2 01/06/25 09:27 Room Air 01/06/25 08:42 01/06/25 08:27 Room Air 01/06/25 04:41 01/06/25 04:00 Room Air 01/06/25 04:11 01/05/25 23:58 Room Air 01/05/25 21:03 01/05/25 20:09 01/05/25 20:09 Room Air 01/05/25 20:33 01/05/25 19:00 Room Air 01/05/25 19:48 Room Air 01/05/25 16:00 Room Air 01/05/25 16:03 01/05/25 15:33 01/05/25 12:00 Room Air 01/05/25 11:00 01/05/25 08:00 Room Air 01/05/25 09:08 Room Air 01/05/25 08:41 01/05/25 10:30 01/05/25 04:00 Room Air 01/05/25 03:38 01/05/25 03:08 01/04/25 23:46 Room Air 01/04/25 21:36 01/04/25 21:06 01/04/25 20:11 01/04/25 19:47 Room Air 01/04/25 19:00 Room Air 01/04/25 17:07 01/04/25 15:45 01/04/25 15:30 01/04/25 15:15 01/04/25 15:00 01/04/25 14:45 01/04/25 12:00 Room Air 01/04/25 10:40 01/04/25 09:34 Room Air 01/04/25 09:25 01/04/25 16:37 01/04/25 10:10 01/04/25 08:00 Room Air 01/04/25 05:50 01/04/25 00:32 01/04/25 04:00 Room Air 01/04/25 00:00 Room Air 01/03/25 21:45 Room Air 01/03/25 23:18 Room Air 01/03/25 23:12 01/03/25 22:46 Room Air 01/04/25 05:20 01/04/25 00:02 01/03/25 22:42 01/03/25 21:41 Room Air 01/03/25 21:12 Room Air 01/03/25 20:46 01/03/25 20:16 01/03/25 16:10 Room Air Procedures (ALL) - Central Line Placement PCM.CLCO: written consent Time out performed: Yes Patient placed pm monitor/pulse ox: Yes MD prep: mask, gown, gloves, other Centrial line prep: chlorhexidine scrub, sterile drapes applied Local anesthsia used: lidocane 1% Ultrasound used for placement: Yes (left basilic id'd via u/s and cannulation visualized) Central line lumen ininserted: double (5.5fr arrowoicc. trimmed to 40 cm, 0cm exposed) Post procedure: good blood return, all ports aspirated, flushed,capped, sterile dressing applied Post procedure xray: tip oc catheter in good position (appears svc, rad report pending) Patient tolerated procedure: Yes Complications: none
[2025-01-06] MEDS: MORPHINE SULFATE INJ 4 MG IVP PRN (11:44)
[2025-01-06] MEDS: TORADOL TAB PO PRN (13:19)
[2025-01-06] MEDS: CLINIMIX 5 %/20 % 1,000 ML with MVI INJ (ADULT) 10 ML, TPN ELECTROLYTES 20 ML IV SCH (13:50)
[2025-01-06 15:40] LABS: BILIRUBIN,URINE NEGATIVE (NEGATIVE); BLOOD/HEMOGLOBIN,URINE NEGATIVE (NEGATIVE); GLUCOSE, URINE NEGATIVE (NEGATIVE); KETONES,URINE NEGATIVE (NEGATIVE); LEUKOCYTE ESTERASE ,URINE NEGATIVE (NEGATIVE); NITRITES,URINE NEGATIVE (NEGATIVE); PROTEIN,URINE NEGATIVE (NEGATIVE); UROBILINOGEN,URINE NORMAL (NORMAL)
[2025-01-06 15:42] LABS: APPEARANCE,URINE CLEAR (CLEAR); COLOR,URINE PALE YELLOW (YELLOW)
[2025-01-06] MEDS ORDERED: DEXTROSE 10% 1,000 ML IV PRN (18:40)
[2025-01-06 19:24] LABS: MAGNESIUM 1.6 mg/dL (2.0-2.9); PHOSPHORUS 2.9 mg/dL (2.6-4.7)
[2025-01-06] MEDS: COLACE CAP 100 MG PO SCH (20:43)
[2025-01-07 06:12] LABS: BASOPHILS % (AUTO) 0.9 % (0.2-1.0); EOSINOPHILS # (AUTO) 0.2 x10^3/uL (0.0-0.2); EOSINOPHILS % (AUTO) 3.3 % (0.9-2.9); HEMATOCRIT 33.8 % (36.0-47.0); HEMOGLOBIN 11.2 g/dL (12.0-16.0); LYMPHOCYTES # (AUTO) 1.5 X10^3/uL (1.3-2.9); LYMPHOCYTES % (AUTO) 27.9 % (21.0-51.0); MEAN CORPUSCULAR HEMOGLOBIN 31.1 pg (27.0-34.0); MEAN CORPUSCULAR HGB CONC 33.2 g/dL (33.0-35.0); MEAN CORPUSCULAR VOLUME 93.5 fL (80.0-100.0); MEAN PLATELET VOLUME 7.5 fL (7.4-11.0); MONOCYTES # (AUTO) 0.4 x10^3/uL (0.3-0.8); MONOCYTES % (AUTO) 6.9 % (0.0-13.0); NEUTROPHILS # (AUTO) 3.2 x10^3/uL (2.2-4.8); PLATELET COUNT 315 X10^3/uL (150.0-450.0); RED BLOOD COUNT 3.62 X10^6/uL (3.5-5.4); RED CELL DISTRIBUTION WIDTH 23.2 % (11.6-16.5); WHITE BLOOD COUNT 5.3 X10^3/uL (3.6-10.0)
[2025-01-07 06:22] LABS: PREALBUMIN 48.7 mg/dL (18-35.7)
[2025-01-07 06:26] LABS: ALANINE AMINOTRANSFERASE 492 Units/L (12-78); ALBUMIN 3.1 g/dL (3.4-5.0); ALKALINE PHOSPHATASE 744 Units/L (46-116); ASPARTATE AMINO TRANSFERASE 347 Units/L (15-37); BLOOD UREA NITROGEN 14 mg/dL (7-18); CALCIUM 8.5 mg/dL (8.5-10.1); CARBON DIOXIDE 25.1 mmol/L (21-32); CHLORIDE 107 mmol/L (98-107); COR CA(FOR HYPOALB) 9.2 mg/dL (8.5-10.1); COR NA(FOR HYPERGLY) 141 mmol/L (136-145); GLUCOSE 113 mg/dL (65-99); MAGNESIUM 1.7 mg/dL (2.0-2.9); SODIUM 141 mmol/L (136-145); TOTAL PROTEIN 6.6 g/dL (6.4-8.2); eGFR NON BLACK RACES > 60 (>60)
[2025-01-07] MEDS ORDERED: CONSULT PHARMACY - POTASSIUM & MAGNESIUM XX SCH (07:00)
[2025-01-07 07:09] LABS: ANISOCYTOSIS 2+; PLATELET MORPHOLOGY COMMENT NORMAL (NORMAL)
[2025-01-07 07:10] LABS: TARGET CELLS SLIGHT
--- NOTE | 2025-01-07 08:48 | DR.PROGNOT ---
HOSPITAL PROGRESS NOTE Progress Note for Day of: Progress Note Date: 01/06/25 Chief Complaint Chief Complaint: Still complaining of mid abdominal pain and nausea. EGD showed large distal antral ulcer with mild bleeding. It seems to be its intractable ulcer for long period of time without improvement. Patient has elevated liver enzymes AST is 645, ALT 506, alkaline phosphatase is 634 with normal bilirubin 0.5. Her CAT scan showed possible stricture of the common hepatic or common bile duct. Electrolytes, BUN/creatinine are normal. Patient is afebrile, the abdomen is soft and flat with diffuse upper abdominal tenderness. ERCP can not be done because of the partial gastric outlet obstruction and bleeding tendency. Awaiting hepatitis profile. Same TPN for now, possible surgery next week. Past Medical Family Social History Allergies: Allergies No Known Drug Allergies Allergy (Unknown, Verified 11/24/24 14:05) Onset Date: 09/23/2021 Vital Signs Vital Signs: Vital Signs Temperature 98.9 F Temperature 98.0 F Pulse Rate [Right Brachial] 70 Pulse Rate [Right Brachial] 64 Respiratory Rate 17 Respiratory Rate 16 Respiratory Rate 16 Respiratory Rate 20 Blood Pressure [Right Arm] 139/94 Blood Pressure [Right Arm] 139/82 O2 Sat by Pulse Oximetry 97 O2 Sat by Pulse Oximetry 96 Physical Exam Oriented: Normal Eyes: Normal Ear: Normal Nose: Normal Throat: Normal Respiratory: Normal Cardiovascular: Normal : Normal GI: Tenderness: Other (Diffuse abdominal tenderness with soft abdomen, bowel sounds present.) Speech Pattern: Clear and Appropriate Laboratory and Diagnostics 01/07/25 05:25 01/07/25 05:25 Labs: 01/04/25 20:10 Sputum - Expectorated Sputum Sputum Culture - Preliminary 01/04/25 20:10 Sputum - Expectorated Sputum - Final Laboratory WBC 5.3 X10^3/uL (3.6-10.0) 01/07/25 05:25 RBC 3.62 X10^6/uL (3.5-5.4) 01/07/25 05:25 Hgb 11.2 g/dL (12.0-16.0) L 01/07/25 05:25 Hct 33.8 % (36.0-47.0) L 01/07/25 05:25 MCV 93.5 fL (80.0-100.0) 01/07/25 05:25 MCH 31.1 pg (27.0-34.0) 01/07/25 05:25 MCHC 33.2 g/dL (33.0-35.0) 01/07/25 05:25 RDW 23.2 % (11.6-16.5) H 01/07/25 05:25 Plt Count 315 X10^3/uL (150.0-450.0) 01/07/25 05:25 Plt Count Comment Adequate (ADEQUATE) 01/07/25 05:25 MPV 7.5 fL (7.4-11.0) 01/07/25 05:25 Neut % (Auto) 61.0 % (42.0-75.0) 01/07/25 05:25 Lymph % (Auto) 27.9 % (21.0-51.0) 01/07/25 05:25 [place] % (Auto) 6.9 % (0.0-13.0) 01/07/25 05:25 Eos % (Auto) 3.3 % (0.9-2.9) H 01/07/25 05:25 Baso % (Auto) 0.9 % (0.2-1.0) 01/07/25 05:25 Neut # (Auto) 3.2 x10^3/uL (2.2-4.8) 01/07/25 05:25 Lymph # (Auto) 1.5 X10^3/uL (1.3-2.9) 01/07/25 05:25 [place] # (Auto) 0.4 x10^3/uL (0.3-0.8) 01/07/25 05:25 Eos # (Auto) 0.2 x10^3/uL (0.0-0.2) 01/07/25 05:25 Baso # (Auto) 0.0 X10^3/uL (0.0-0.1) 01/07/25 05:25 Absolute Nucleated RBC 0.0 /100WBC 01/07/25 05:25 Plt Morphology Comment Normal (NORMAL) 01/07/25 05:25 RBC Morphology Abnormal (NORMAL) A 01/07/25 05:25 Anisocytosis 2+ A 01/07/25 05:25 Target Cells Slight A 01/07/25 05:25 Stomatocytes 1+ A 01/06/25 05:35 Sodium 141 mmol/L (136-145) 01/07/25 05:25 Corrected Sodium 141 mmol/L (136-145) 01/07/25 05:25 Potassium 4.0 mmol/L (3.5-5.1) 01/07/25 05:25 Chloride 107 mmol/L (98-107) 01/07/25 05:25 Carbon Dioxide 25.1 mmol/L (21-32) 01/07/25 05:25 BUN 14 mg/dL (7-18) 01/07/25 05:25 Creatinine 0.40 mg/dL (0.55-1.02) L 01/07/25 05:25 Est GFR (MDRD) Af Amer > 60 (>60) 01/07/25 05:25 Est GFR (MDRD) Non-Af > 60 (>60) 01/07/25 05:25 Glucose 113 mg/dL (65-99) H 01/07/25 05:25 Calcium 8.5 mg/dL (8.5-10.1) 01/07/25 05:25 Corrected Calcium 9.2 mg/dL (8.5-10.1) 01/07/25 05:25 Phosphorus 2.9 mg/dL (2.6-4.7) 01/06/25 19:05 Magnesium 1.7 mg/dL (2.0-2.9) L 01/07/25 05:25 Total Bilirubin 0.40 mg/dL (0.2-1.0) 01/07/25 05:25 AST 347 Units/L (15-37) H 01/07/25 05:25 ALT 492 Units/L (12-78) H 01/07/25 05:25 Alkaline Phosphatase 744 Units/L (46-116) H 01/07/25 05:25 Total Protein 6.6 g/dL (6.4-8.2) 01/07/25 05:25 Albumin 3.1 g/dL (3.4-5.0) L 01/07/25 05:25 Globulin 3.5 g/dL (2.5-4.5) 01/07/25 05:25 Albumin/Globulin Ratio 0.9 Ratio (1.1-2.1) L 01/07/25 05:25 Prealbumin 48.7 mg/dL (18-35.7) H 01/07/25 05:25 Triglycerides 58 mg/dL (0-150) 01/06/25 19:05 Lipase 97 Units/L (16-77) H 01/03/25 17:16 Specimen Type Clean catch urine 01/06/25 13:56 Urine Color Pale yellow (YELLOW) 01/06/25 13:56 Urine Appearance Clear (CLEAR) 01/06/25 13:56 Urine pH 7.0 (5.0 - 8.0) 01/06/25 13:56 Ur Specific [place] 1.010 (1.000-1.030) 01/06/25 13:56 Urine Protein Negative (NEGATIVE) 01/06/25 13:56 Urine Glucose (UA) Negative (NEGATIVE) 01/06/25 13:56 Urine Ketones Negative (NEGATIVE) 01/06/25 13:56 Urine Blood Negative (NEGATIVE) 01/06/25 13:56 Urine Nitrite Negative (NEGATIVE) 01/06/25 13:56 Urine Bilirubin Negative (NEGATIVE) 01/06/25 13:56 Urine Urobilinogen Normal (NORMAL) 01/06/25 13:56 Ur Leukocyte Esterase Negative (NEGATIVE) 01/06/25 13:56 Urine RBC 30-50 /HPF (0-3) A 01/03/25 18:51 Urine WBC 0-2 /HPF (0-5) 01/03/25 18:51 Ur Squamous Epith Cells Rare /HPF (NEGATIVE) 01/03/25 18:51 Urine Bacteria Negative /HPF (NEGATIVE) 01/03/25 18:51 Ur Culture Indicated? No/not indicated 01/03/25 18:51 Urine Opiates Screen Positive (NEG=<300) A 01/06/25 13:56 Urine Methadone Screen Negative (NEG=<300) 01/06/25 13:56 Ur Barbiturates Screen Negative (NEG=<200) 01/06/25 13:56 Ur Phencyclidine Scrn Negative (NEG=<25) 01/06/25 13:56 Ur Amphetamines Screen Negative (NEG=<1000) 01/06/25 13:56 U Benzodiazepines Scrn Negative (NEG=<200) 01/06/25 13:56 Urine Cocaine Screen Negative (NEG=<300) 01/06/25 13:56 U Marijuana (THC) Screen Positive (NEG=<50) A 01/06/25 13:56 Resp Viral Panel (PCR) See scanned report 01/03/25 22:51 Assessment and Plan 1: Intractable peptic ulcer disease without improvement on medications. Recurrent episodes of anemia required transfusion from bleeding ulcers. Elevated liver enzymes with normal bilirubin. 2: Liver dysfunction to be further evaluated. 3: Abnormal CAT scan of the abdomen and pelvis with possible stricture of the common bile duct. Problem Patient Problems: Patient Problems (Updated 01/03/25 @ 20:49 by Alisha Jesus) LLL pneumonia (Acute) J18.9 Abdominal pain (Acute) R10.9 Elevated LFTs (Acute) R79.89 Constipation (Acute) K59.00 PUD (peptic ulcer disease) (Acute) K27.9
--- NOTE | 2025-01-07 09:20 | DR.PROGNOT ---
HOSPITAL PROGRESS NOTE Progress Note for Day of: Progress Note Date: 01/07/25 Chief Complaint Chief Complaint: Still complaining of mid abdominal pain and nausea. No vomiting, tolerating TPN with normal blood sugar. Patient has elevated liver enzymes AST is 645, ALT 506, alkaline phosphatase is 634 with normal bilirubin 0.5. Her CAT scan showed possible stricture of the common hepatic or common bile duct. Electrolytes, BUN/creatinine are normal. Patient is afebrile, the abdomen is soft and flat with diffuse upper abdominal tenderness. ERCP can not be done because of the partial gastric outlet obstruction and bleeding tendency. Awaiting hepatitis profile. Same TPN for now, possible surgery next week. Past Medical Family Social History Allergies: Allergies No Known Drug Allergies Allergy (Unknown, Verified 11/24/24 14:05) Onset Date: 09/23/2021 Review Of Systems ROS: No change since H&P Vital Signs Vital Signs: Vital Signs Temperature 98.9 F Temperature 98.0 F Pulse Rate [Right Brachial] 70 Pulse Rate [Right Brachial] 64 Respiratory Rate 17 Respiratory Rate 16 Respiratory Rate 16 Respiratory Rate 20 Blood Pressure [Right Arm] 139/94 Blood Pressure [Right Arm] 139/82 O2 Sat by Pulse Oximetry 97 O2 Sat by Pulse Oximetry 96 Physical Exam Oriented: Normal Eyes: Normal Ear: Normal Nose: Normal Throat: Normal Respiratory: Normal Cardiovascular: Normal : Normal GI: Tenderness: Other (Diffuse abdominal tenderness with soft abdomen, bowel sounds present.) Speech Pattern: Clear and Appropriate Laboratory and Diagnostics 01/07/25 05:25 01/07/25 05:25 Labs: 01/04/25 20:10 Sputum - Expectorated Sputum Sputum Culture - Preliminary 01/04/25 20:10 Sputum - Expectorated Sputum - Final Laboratory WBC 5.3 X10^3/uL (3.6-10.0) 01/07/25 05:25 RBC 3.62 X10^6/uL (3.5-5.4) 01/07/25 05:25 Hgb 11.2 g/dL (12.0-16.0) L 01/07/25 05:25 Hct 33.8 % (36.0-47.0) L 01/07/25 05:25 MCV 93.5 fL (80.0-100.0) 01/07/25 05:25 MCH 31.1 pg (27.0-34.0) 01/07/25 05:25 MCHC 33.2 g/dL (33.0-35.0) 01/07/25 05:25 RDW 23.2 % (11.6-16.5) H 01/07/25 05:25 Plt Count 315 X10^3/uL (150.0-450.0) 01/07/25 05:25 Plt Count Comment Adequate (ADEQUATE) 01/07/25 05:25 MPV 7.5 fL (7.4-11.0) 01/07/25 05:25 Neut % (Auto) 61.0 % (42.0-75.0) 01/07/25 05:25 Lymph % (Auto) 27.9 % (21.0-51.0) 01/07/25 05:25 [place] % (Auto) 6.9 % (0.0-13.0) 01/07/25 05:25 Eos % (Auto) 3.3 % (0.9-2.9) H 01/07/25 05:25 Baso % (Auto) 0.9 % (0.2-1.0) 01/07/25 05:25 Neut # (Auto) 3.2 x10^3/uL (2.2-4.8) 01/07/25 05:25 Lymph # (Auto) 1.5 X10^3/uL (1.3-2.9) 01/07/25 05:25 [place] # (Auto) 0.4 x10^3/uL (0.3-0.8) 01/07/25 05:25 Eos # (Auto) 0.2 x10^3/uL (0.0-0.2) 01/07/25 05:25 Baso # (Auto) 0.0 X10^3/uL (0.0-0.1) 01/07/25 05:25 Absolute Nucleated RBC 0.0 /100WBC 01/07/25 05:25 Plt Morphology Comment Normal (NORMAL) 01/07/25 05:25 RBC Morphology Abnormal (NORMAL) A 01/07/25 05:25 Anisocytosis 2+ A 01/07/25 05:25 Target Cells Slight A 01/07/25 05:25 Stomatocytes 1+ A 01/06/25 05:35 Sodium 141 mmol/L (136-145) 01/07/25 05:25 Corrected Sodium 141 mmol/L (136-145) 01/07/25 05:25 Potassium 4.0 mmol/L (3.5-5.1) 01/07/25 05:25 Chloride 107 mmol/L (98-107) 01/07/25 05:25 Carbon Dioxide 25.1 mmol/L (21-32) 01/07/25 05:25 BUN 14 mg/dL (7-18) 01/07/25 05:25 Creatinine 0.40 mg/dL (0.55-1.02) L 01/07/25 05:25 Est GFR (MDRD) Af Amer > 60 (>60) 01/07/25 05:25 Est GFR (MDRD) Non-Af > 60 (>60) 01/07/25 05:25 Glucose 113 mg/dL (65-99) H 01/07/25 05:25 Calcium 8.5 mg/dL (8.5-10.1) 01/07/25 05:25 Corrected Calcium 9.2 mg/dL (8.5-10.1) 01/07/25 05:25 Phosphorus 2.9 mg/dL (2.6-4.7) 01/06/25 19:05 Magnesium 1.7 mg/dL (2.0-2.9) L 01/07/25 05:25 Total Bilirubin 0.40 mg/dL (0.2-1.0) 01/07/25 05:25 AST 347 Units/L (15-37) H 01/07/25 05:25 ALT 492 Units/L (12-78) H 01/07/25 05:25 Alkaline Phosphatase 744 Units/L (46-116) H 01/07/25 05:25 Total Protein 6.6 g/dL (6.4-8.2) 01/07/25 05:25 Albumin 3.1 g/dL (3.4-5.0) L 01/07/25 05:25 Globulin 3.5 g/dL (2.5-4.5) 01/07/25 05:25 Albumin/Globulin Ratio 0.9 Ratio (1.1-2.1) L 01/07/25 05:25 Prealbumin 48.7 mg/dL (18-35.7) H 01/07/25 05:25 Triglycerides 58 mg/dL (0-150) 01/06/25 19:05 Lipase 97 Units/L (16-77) H 01/03/25 17:16 Specimen Type Clean catch urine 01/06/25 13:56 Urine Color Pale yellow (YELLOW) 01/06/25 13:56 Urine Appearance Clear (CLEAR) 01/06/25 13:56 Urine pH 7.0 (5.0 - 8.0) 01/06/25 13:56 Ur Specific [place] 1.010 (1.000-1.030) 01/06/25 13:56 Urine Protein Negative (NEGATIVE) 01/06/25 13:56 Urine Glucose (UA) Negative (NEGATIVE) 01/06/25 13:56 Urine Ketones Negative (NEGATIVE) 01/06/25 13:56 Urine Blood Negative (NEGATIVE) 01/06/25 13:56 Urine Nitrite Negative (NEGATIVE) 01/06/25 13:56 Urine Bilirubin Negative (NEGATIVE) 01/06/25 13:56 Urine Urobilinogen Normal (NORMAL) 01/06/25 13:56 Ur Leukocyte Esterase Negative (NEGATIVE) 01/06/25 13:56 Urine RBC 30-50 /HPF (0-3) A 01/03/25 18:51 Urine WBC 0-2 /HPF (0-5) 01/03/25 18:51 Ur Squamous Epith Cells Rare /HPF (NEGATIVE) 01/03/25 18:51 Urine Bacteria Negative /HPF (NEGATIVE) 01/03/25 18:51 Ur Culture Indicated? No/not indicated 01/03/25 18:51 Urine Opiates Screen Positive (NEG=<300) A 01/06/25 13:56 Urine Methadone Screen Negative (NEG=<300) 01/06/25 13:56 Ur Barbiturates Screen Negative (NEG=<200) 01/06/25 13:56 Ur Phencyclidine Scrn Negative (NEG=<25) 01/06/25 13:56 Ur Amphetamines Screen Negative (NEG=<1000) 01/06/25 13:56 U Benzodiazepines Scrn Negative (NEG=<200) 01/06/25 13:56 Urine Cocaine Screen Negative (NEG=<300) 01/06/25 13:56 U Marijuana (THC) Screen Positive (NEG=<50) A 01/06/25 13:56 Resp Viral Panel (PCR) See scanned report 01/03/25 22:51 Assessment and Plan 1: Intractable peptic ulcer disease without improvement on medications. Partial gastric outlet obstruction. Recurrent episodes of anemia required transfusion from bleeding ulcers. Elevated liver enzymes with normal bilirubin. 2: Liver dysfunction to be further evaluated. Awaiting hepatitis profile. 3: Abnormal CAT scan of the abdomen and pelvis with possible stricture of the common bile duct. Problem Patient Problems: Patient Problems (Updated 01/03/25 @ 20:49 by Alisha Jesus) LLL pneumonia (Acute) J18.9 Abdominal pain (Acute) R10.9 Elevated LFTs (Acute) R79.89 Constipation (Acute) K59.00 PUD (peptic ulcer disease) (Acute) K27.9
[2025-01-07] MEDS: MAG-OX TAB PO SCH (09:26)
[2025-01-07] MEDS: MILK OF MAGNESIA PO SCH (09:26)
[2025-01-07] MEDS: DRUG FILTER EXTENSION SET ONE (09:35)
--- NOTE | 2025-01-07 13:26 | DR.CONSULT ---
CONSULT Consultation for Day of: Date: 01/05/25 Chief Complaint Chief Complaint: abdominal pain nausea/vomiting Allergies Allergies Allergy/AdvReac Type Severity Reaction Status Date / Time No Known Drug Allergies Allergy Unknown Verified 11/24/24 14:05 History of Present Illness History of Present Illness: Patient is a 39-year-old female with a history of nonhealing peptic ulcer located in the prepyloric area and duodenum. She has had several endoscopies recently with findings of nonhealing ulcer and recurrent episodes of bleeding and anemia requiring transfusion, as well as the persistent pain. Medicine consulted for monitoring. Patient is scheduled for partial gastrectomy. AIT positive for strep pneum, pt is currently on rocephin. On exam patient does have some abdominal tenderness. IV morphine prn for pain management. Her liver enzymes are elevated, will continue IVF and monitor. CT abdomen and pelvis revealed possible stricture of the common hepatic or common bile duct, an MRCP has been ordered. Otherwise, continue with current treatment plan. Continue to monitor and follow up labs/imaging. Past Medical History Past Medical History: Kidney Stones Past Surgical History Surgical History: Cholecystectomy Social History Does patient currently use any type of tobacco product: Yes Have you used tobacco products in the last 12 months: Yes Type of Tobacco Use: Cigarettes Does any household member use tobacco: No Alcohol Use: Occasionally Drug Use: Marijuana Medications Home Medications: No Known Drug Allergies Allergy (Unknown, Verified 11/24/24 14:05) Review of Systems Constitutional: Weakness Eyes: No Symptoms Reported ENT: No Symptoms Reported Respiratory: No Symptoms Reported Cardiovascular: No Symptoms Reported Gastrointestinal: Nausea and Abdominal Pain Genitourinary: No Symptoms Reported Musculoskeletal: No Symptoms Reported Skin: No Symptoms Reported Neurological: No Symptoms Reported Physical Exam Vital Signs: Vital Signs Temperature 98.7 F Temperature 98.9 F Pulse Rate [Right Brachial] 79 Pulse Rate [Right Brachial] 70 Respiratory Rate 18 Respiratory Rate 17 Respiratory Rate 17 Respiratory Rate 17 Blood Pressure [Right Arm] 121/80 Blood Pressure [Right Arm] 139/94 O2 Sat by Pulse Oximetry 97 O2 Sat by Pulse Oximetry 97 Oriented: Normal Eyes: Normal Nose: Normal Throat: Normal Respiratory: Clear Throughout Cardiovascular: Normal Auscultation: Bowel Sounds: Normal Palpation: Normal Tenderness: Epigastric Skin: Normal Musculoskeletal: Normal Speech Pattern: Clear
--- NOTE | 2025-01-07 13:34 | PCM.PROG ---
Progress Note Progress Note for Day of Date of Exam: 01/06/25 Subjective Subjective: Patient is a 39-year-old female with a history of nonhealing peptic ulcer located in the prepyloric area and duodenum. She is admitted by general surgery and plan for partial gastrectomy. This morning she is sitting up in bed. No acute events overnight. She reports more abdominal pain. MRCP recommended ERCP however, unable to be done due to partial gastric outlet obstruction and bleeding tendency. Liver enzymes remain elevated, hepatitis panel pending. IV morphine prn for pain management, will increase to help manage symptoms. Will continue IVF, plan to start TPN. Otherwise, continue with current treatment plan. Continue to monitor and follow up labs/imaging. Past Medical Family Social History Allergies: Allergies No Known Drug Allergies Allergy (Unknown, Verified 11/24/24 14:05) Onset Date: 09/23/2021 Review of Systems ROS: No change since H&P Vital Signs and I&O's Vital Signs: Vital Signs Temperature 98.7 F Temperature 98.9 F Pulse Rate [Right Brachial] 79 Pulse Rate [Right Brachial] 70 Respiratory Rate 18 Respiratory Rate 17 Respiratory Rate 17 Respiratory Rate 17 Blood Pressure [Right Arm] 121/80 Blood Pressure [Right Arm] 139/94 O2 Sat by Pulse Oximetry 97 O2 Sat by Pulse Oximetry 97 Intake and Output: Intake & Output 01/04/25 01/05/25 01/06/25 01/07/25 23:59 23:59 23:59 23:59 Intake Total 2726 / 2726 3003 / 3003 5236 / 5236 1246 / 1246 Balance 2726 / 2726 3003 / 3003 5236 / 5236 1246 / 1246 Physical Exam Oriented: Normal Eyes: Normal Ear: Normal Nose: Normal Throat: Normal Respiratory: Normal Cardiovascular: Normal : Normal Auscultation: Bowel Sounds: Normal Tenderness: Epigastric Skin: Normal Musculoskeletal: Normal Speech Pattern: Clear Laboratory and Diagnostics 01/07/25 05:25 01/07/25 05: Labs: 01/04/25 20:10 Sputum - Expectorated Sputum Sputum Culture - Final 01/04/25 20:10 Sputum - Expectorated Sputum - Final Laboratory WBC 5.3 X10^3/uL (3.6-10.0) 01/07/25 05:25 RBC 3.62 X10^6/uL (3.5-5.4) 01/07/25 05:25 Hgb 11.2 g/dL (12.0-16.0) L 01/07/25 05:25 Hct 33.8 % (36.0-47.0) L 01/07/25 05:25 MCV 93.5 fL (80.0-100.0) 01/07/25 05:25 MCH 31.1 pg (27.0-34.0) 01/07/25 05:25 MCHC 33.2 g/dL (33.0-35.0) 01/07/25 05:25 RDW 23.2 % (11.6-16.5) H 01/07/25 05:25 Plt Count 315 X10^3/uL (150.0-450.0) 01/07/25 05:25 Plt Count Comment Adequate (ADEQUATE) 01/07/25 05:25 MPV 7.5 fL (7.4-11.0) 01/07/25 05:25 Neut % (Auto) 61.0 % (42.0-75.0) 01/07/25 05:25 Lymph % (Auto) 27.9 % (21.0-51.0) 01/07/25 05:25 [place] % (Auto) 6.9 % (0.0-13.0) 01/07/25 05:25 Eos % (Auto) 3.3 % (0.9-2.9) H 01/07/25 05:25 Baso % (Auto) 0.9 % (0.2-1.0) 01/07/25 05:25 Neut # (Auto) 3.2 x10^3/uL (2.2-4.8) 01/07/25 05:25 Lymph # (Auto) 1.5 X10^3/uL (1.3-2.9) 01/07/25 05:25 [place] # (Auto) 0.4 x10^3/uL (0.3-0.8) 01/07/25 05:25 Eos # (Auto) 0.2 x10^3/uL (0.0-0.2) 01/07/25 05:25 Baso # (Auto) 0.0 X10^3/uL (0.0-0.1) 01/07/25 05:25 Absolute Nucleated RBC 0.0 /100WBC 01/07/25 05:25 Plt Morphology Comment Normal (NORMAL) 01/07/25 05:25 RBC Morphology Abnormal (NORMAL) A 01/07/25 05:25 Anisocytosis 2+ A 01/07/25 05:25 Target Cells Slight A 01/07/25 05:25 Stomatocytes 1+ A 01/06/25 05:35 Sodium 141 mmol/L (136-145) 01/07/25 05:25 Corrected Sodium 141 mmol/L (136-145) 01/07/25 05:25 Potassium 4.0 mmol/L (3.5-5.1) 01/07/25 05:25 Chloride 107 mmol/L (98-107) 01/07/25 05:25 Carbon Dioxide 25.1 mmol/L (21-32) 01/07/25 05:25 BUN 14 mg/dL (7-18) 01/07/25 05:25 Creatinine 0.40 mg/dL (0.55-1.02) L 01/07/25 05:25 Est GFR (MDRD) Af Amer > 60 (>60) 01/07/25 05:25 Est GFR (MDRD) Non-Af > 60 (>60) 01/07/25 05:25 Glucose 113 mg/dL (65-99) H 01/07/25 05:25 Calcium 8.5 mg/dL (8.5-10.1) 01/07/25 05:25 Corrected Calcium 9.2 mg/dL (8.5-10.1) 01/07/25 05:25 Phosphorus 2.9 mg/dL (2.6-4.7) 01/06/25 19:05 Magnesium 1.7 mg/dL (2.0-2.9) L 01/07/25 05:25 Total Bilirubin 0.40 mg/dL (0.2-1.0) 01/07/25 05:25 AST 347 Units/L (15-37) H 01/07/25 05:25 ALT 492 Units/L (12-78) H 01/07/25 05:25 Alkaline Phosphatase 744 Units/L (46-116) H 01/07/25 05:25 Total Protein 6.6 g/dL (6.4-8.2) 01/07/25 05:25 Albumin 3.1 g/dL (3.4-5.0) L 01/07/25 05:25 Globulin 3.5 g/dL (2.5-4.5) 01/07/25 05:25 Albumin/Globulin Ratio 0.9 Ratio (1.1-2.1) L 01/07/25 05:25 Prealbumin 48.7 mg/dL (18-35.7) H 01/07/25 05:25 Triglycerides 58 mg/dL (0-150) 01/06/25 19:05 Lipase 97 Units/L (16-77) H 01/03/25 17:16 Specimen Type Clean catch urine 01/06/25 13:56 Urine Color Pale yellow (YELLOW) 01/06/25 13:56 Urine Appearance Clear (CLEAR) 01/06/25 13:56 Urine pH 7.0 (5.0 - 8.0) 01/06/25 13:56 Ur Specific [place] 1.010 (1.000-1.030) 01/06/25 13:56 Urine Protein Negative (NEGATIVE) 01/06/25 13:56 Urine Glucose (UA) Negative (NEGATIVE) 01/06/25 13:56 Urine Ketones Negative (NEGATIVE) 01/06/25 13:56 Urine Blood Negative (NEGATIVE) 01/06/25 13:56 Urine Nitrite Negative (NEGATIVE) 01/06/25 13:56 Urine Bilirubin Negative (NEGATIVE) 01/06/25 13:56 Urine Urobilinogen Normal (NORMAL) 01/06/25 13:56 Ur Leukocyte Esterase Negative (NEGATIVE) 01/06/25 13:56 Urine RBC 30-50 /HPF (0-3) A 01/03/25 18:51 Urine WBC 0-2 /HPF (0-5) 01/03/25 18:51 Ur Squamous Epith Cells Rare /HPF (NEGATIVE) 01/03/25 18:51 Urine Bacteria Negative /HPF (NEGATIVE) 01/03/25 18:51 Ur Culture Indicated? No/not indicated 01/03/25 18:51 Urine Opiates Screen Positive (NEG=<300) A 01/06/25 13:56 Urine Methadone Screen Negative (NEG=<300) 01/06/25 13:56 Ur Barbiturates Screen Negative (NEG=<200) 01/06/25 13:56 Ur Phencyclidine Scrn Negative (NEG=<25) 01/06/25 13:56 Ur Amphetamines Screen Negative (NEG=<1000) 01/06/25 13:56 U Benzodiazepines Scrn Negative (NEG=<200) 01/06/25 13:56 Urine Cocaine Screen Negative (NEG=<300) 01/06/25 13:56 U Marijuana (THC) Screen Positive (NEG=<50) A 01/06/25 13:56 Resp Viral Panel (PCR) See scanned report 01/03/25 22:51
[2025-01-07] MEDS: ZOFRAN INJ 4 MG VIAL IVP PRN (14:23)
--- NOTE | 2025-01-07 15:25 | NOTE.SOAP ---
Soap Note Note for Day of Date of Exam: 01/07/25 Subjective Data Subjective Data: No new complaints and no overnight events. Pending surgery Thursday. Objective Data Objective Data: Thin female in NAD. Pained facies. RRR. CTA b/l. Belly sore. Assessment Assessment: 1. Chronic gastric ulcer 2. Strep pneumoniae on sputum sample 3. Anemia of chronic disease Plan Plan: Rocephin, surgery Thursday, pain control, monitor vitals and labs.
[2025-01-08] MEDS: DRUG FILTER EXTENSION SET ONE (04:00)
[2025-01-08 04:53] LABS: BASOPHILS % (AUTO) 0.7 % (0.2-1.0); EOSINOPHILS # (AUTO) 0.2 x10^3/uL (0.0-0.2); EOSINOPHILS % (AUTO) 3.3 % (0.9-2.9); HEMATOCRIT 31.5 % (36.0-47.0); HEMOGLOBIN 10.5 g/dL (12.0-16.0); LYMPHOCYTES # (AUTO) 1.5 X10^3/uL (1.3-2.9); MEAN CORPUSCULAR HEMOGLOBIN 31.6 pg (27.0-34.0); MEAN CORPUSCULAR HGB CONC 33.5 g/dL (33.0-35.0); MEAN CORPUSCULAR VOLUME 94.3 fL (80.0-100.0); MEAN PLATELET VOLUME 7.4 fL (7.4-11.0); MONOCYTES # (AUTO) 0.4 x10^3/uL (0.3-0.8); MONOCYTES % (AUTO) 7.1 % (0.0-13.0); NEUTROPHILS # (AUTO) 3.3 x10^3/uL (2.2-4.8); NEUTROPHILS % (AUTO) 60.9 % (42.0-75.0); PLATELET COUNT 293 X10^3/uL (150.0-450.0); RED BLOOD COUNT 3.34 X10^6/uL (3.5-5.4); RED CELL DISTRIBUTION WIDTH 22.3 % (11.6-16.5); WHITE BLOOD COUNT 5.3 X10^3/uL (3.6-10.0)
[2025-01-08 05:23] LABS: ALANINE AMINOTRANSFERASE 524 Units/L (12-78); ALBUMIN 2.9 g/dL (3.4-5.0); ALKALINE PHOSPHATASE 702 Units/L (46-116); ASPARTATE AMINO TRANSFERASE 354 Units/L (15-37); BLOOD UREA NITROGEN 19 mg/dL (7-18); CALCIUM 8.3 mg/dL (8.5-10.1); CARBON DIOXIDE 25.6 mmol/L (21-32); CHLORIDE 106 mmol/L (98-107); COR CA(FOR HYPOALB) 9.2 mg/dL (8.5-10.1); CREATININE 0.58 mg/dL (0.55-1.02); GLUCOSE 106 mg/dL (65-99); POTASSIUM 4.1 mmol/L (3.5-5.1); SODIUM 138 mmol/L (136-145); eGFR NON BLACK RACES > 60 (>60)
[2025-01-08 06:52] LABS: PLATELET MORPHOLOGY COMMENT NORMAL (NORMAL)
[2025-01-08 06:53] LABS: ANISOCYTOSIS 2+
[2025-01-08 06:54] LABS: STOMATOCYTES PRESENT
[2025-01-08] MEDS ORDERED: NS 250 ML IV 0 ML IV ONE (08:46)
--- NOTE | 2025-01-08 14:51 | NOTE.SOAP ---
Soap Note Note for Day of Date of Exam: 01/08/25 Subjective Data Subjective Data: No events overnight. Patient reports she is doing well. Hepatitis panel negative. Objective Data Objective Data: Thin female in no acute distress. Head NCAT. Heart regular rate and rhythm. Lungs are clear. Assessment Assessment: 1. Chronic gastric ulcer 2. Strep pneumoniae on sputum sample 3. Anemia of chronic disease Plan Plan: Continue current. Proceed per surgery
[2025-01-09] MEDS: HIBICLENS WASH EXT ONE (02:40)
[2025-01-09 05:04] LABS: BASOPHILS # (AUTO) 0.1 X10^3/uL (0.0-0.1); BASOPHILS % (AUTO) 2.1 % (0.2-1.0); EOSINOPHILS # (AUTO) 0.2 x10^3/uL (0.0-0.2); EOSINOPHILS % (AUTO) 3.1 % (0.9-2.9); HEMATOCRIT 30.9 % (36.0-47.0); HEMOGLOBIN 10.5 g/dL (12.0-16.0); LYMPHOCYTES # (AUTO) 1.5 X10^3/uL (1.3-2.9); LYMPHOCYTES % (AUTO) 24.8 % (21.0-51.0); MEAN CORPUSCULAR HEMOGLOBIN 32.1 pg (27.0-34.0); MEAN CORPUSCULAR HGB CONC 34.1 g/dL (33.0-35.0); MEAN CORPUSCULAR VOLUME 94.1 fL (80.0-100.0); MEAN PLATELET VOLUME 7.7 fL (7.4-11.0); MONOCYTES # (AUTO) 0.4 x10^3/uL (0.3-0.8); MONOCYTES % (AUTO) 6.9 % (0.0-13.0); NEUTROPHILS # (AUTO) 3.7 x10^3/uL (2.2-4.8); NEUTROPHILS % (AUTO) 63.1 % (42.0-75.0); PLATELET COUNT 286 X10^3/uL (150.0-450.0); RED BLOOD COUNT 3.28 X10^6/uL (3.5-5.4); RED CELL DISTRIBUTION WIDTH 21.6 % (11.6-16.5); WHITE BLOOD COUNT 5.9 X10^3/uL (3.6-10.0)
[2025-01-09 05:32] LABS: ALANINE AMINOTRANSFERASE 395 Units/L (12-78); ALBUMIN 3.1 g/dL (3.4-5.0); ALKALINE PHOSPHATASE 617 Units/L (46-116); ASPARTATE AMINO TRANSFERASE 173 Units/L (15-37); BLOOD UREA NITROGEN 24 mg/dL (7-18); CALCIUM 8.6 mg/dL (8.5-10.1); CARBON DIOXIDE 23.2 mmol/L (21-32); CHLORIDE 105 mmol/L (98-107); COR CA(FOR HYPOALB) 9.3 mg/dL (8.5-10.1); GLUCOSE 98 mg/dL (65-99); POTASSIUM 4.3 mmol/L (3.5-5.1); SODIUM 136 mmol/L (136-145); TOTAL PROTEIN 6.4 g/dL (6.4-8.2); eGFR NON BLACK RACES > 60 (>60)
[2025-01-09 05:34] LABS: ANISOCYTOSIS 1+; OVALOCYTES SLIGHT; PLATELET MORPHOLOGY COMMENT NORMAL (NORMAL); TARGET CELLS SLIGHT; TEAR DROP CELLS 1+
--- NOTE | 2025-01-09 10:38 | PCM.PROG ---
Progress Note Progress Note for Day of Date of Exam: 01/09/25 Subjective Subjective: Patient seen at bedside, no acute events overnight. He is admitted for non-healing peptic ulcer located in the prepyloric area and duodenum. She is admitted by general surgery and plan for partial gastrectomy. Her LFTs have been elevated, trending down. Denies N/V/D. She did have 2 BMs this morning, no blood noted. Dr Spears is planning to do the surgery on Thu. She states toradol does not help control her abdominal pain, morphine works better but does not last long enough. She remains on TPN. Labs/imaging reviewed: -WBC 5.9 Hgb 10.5 K 4.3 BUN/Cr 24/0.5 AP 617 AST/ALT 173/395 -Hepatitis panel (-) Plan: Follow surgery recommendations. continue current treatment. Continue IV Rocephin for strep pneumonia. Will DC toradol, add Demerol. Continue IV morphine. Replace electrolytes prn. Continue TPN and hydration. Monitor AM labs/imaging. Past Medical Family Social History Allergies: Allergies No Known Drug Allergies Allergy (Unknown, Verified 11/24/24 14:05) Onset Date: 09/23/2021 Review of Systems ROS: No change since H&P Vital Signs and I&O's Vital Signs: Vital Signs Temperature 98.4 F Temperature 98.4 F Pulse Rate [Right Brachial] 63 Pulse Rate [Right Brachial] 65 Pulse Rate 82 Respiratory Rate 18 Respiratory Rate 18 Respiratory Rate 20 Respiratory Rate 18 Respiratory Rate 20 Blood Pressure [Right Arm] 142/73 Blood Pressure [Right Arm] 118/60 O2 Sat by Pulse Oximetry 98 O2 Sat by Pulse Oximetry 97 O2 Sat by Pulse Oximetry 97 Intake and Output: Intake & Output 01/06/25 01/07/25 01/08/25 01/09/25 23:59 23:59 23:59 23:59 Intake Total 5236 / 5236 4995 / 4995 4513 / 4513 1468 / 1468 Balance 5236 / 5236 4995 / 4995 4513 / 4513 1468 / 1468 Physical Exam Oriented: Normal Eyes: Normal Ear: Normal Nose: Normal Throat: Normal Respiratory: Normal Cardiovascular: Normal Auscultation: Bowel Sounds: Normal Tenderness: Epigastric Skin: Normal Musculoskeletal: Normal Psychiatric: Normal Mood Description: Calm Affect: Normal Speech Pattern: Clear and Appropriate Laboratory and Diagnostics 01/09/25 04:36 01/09/25 04:36 Labs: 01/04/25 20:10 Sputum - Expectorated Sputum Sputum Culture - Final 01/04/25 20:10 Sputum - Expectorated Sputum - Final Laboratory WBC 5.9 X10^3/uL (3.6-10.0) 01/09/25 04:36 RBC 3.28 X10^6/uL (3.5-5.4) L 01/09/25 04:36 Hgb 10.5 g/dL (12.0-16.0) L 01/09/25 04:36 Hct 30.9 % (36.0-47.0) L 01/09/25 04:36 MCV 94.1 fL (80.0-100.0) 01/09/25 04:36 MCH 32.1 pg (27.0-34.0) 01/09/25 04:36 MCHC 34.1 g/dL (33.0-35.0) 01/09/25 04:36 RDW 21.6 % (11.6-16.5) H 01/09/25 04:36 Plt Count 286 X10^3/uL (150.0-450.0) 01/09/25 04:36 Plt Count Comment Adequate (ADEQUATE) 01/09/25 04:36 MPV 7.7 fL (7.4-11.0) 01/09/25 04:36 Neut % (Auto) 63.1 % (42.0-75.0) 01/09/25 04:36 Lymph % (Auto) 24.8 % (21.0-51.0) 01/09/25 04:36 [place] % (Auto) 6.9 % (0.0-13.0) 01/09/25 04:36 Eos % (Auto) 3.1 % (0.9-2.9) H 01/09/25 04:36 Baso % (Auto) 2.1 % (0.2-1.0) H 01/09/25 04:36 Neut # (Auto) 3.7 x10^3/uL (2.2-4.8) 01/09/25 04:36 Lymph # (Auto) 1.5 X10^3/uL (1.3-2.9) 01/09/25 04:36 [place] # (Auto) 0.4 x10^3/uL (0.3-0.8) 01/09/25 04:36 Eos # (Auto) 0.2 x10^3/uL (0.0-0.2) 01/09/25 04:36 Baso # (Auto) 0.1 X10^3/uL (0.0-0.1) 01/09/25 04:36 Absolute Nucleated RBC 0.1 /100WBC 01/09/25 04:36 Plt Morphology Comment Normal (NORMAL) 01/09/25 04:36 RBC Morphology Abnormal (NORMAL) A 01/09/25 04:36 Anisocytosis 1+ A 01/09/25 04:36 Target Cells Slight A 01/09/25 04:36 Tear Drop Cells 1+ A 01/09/25 04:36 Ovalocytes Slight A 01/09/25 04:36 Stomatocytes Present 01/08/25 04:45 Sodium 136 mmol/L (136-145) 01/09/25 04:36 Corrected Sodium TNP 01/09/25 04:36 Potassium 4.3 mmol/L (3.5-5.1) 01/09/25 04:36 Chloride 105 mmol/L (98-107) 01/09/25 04:36 Carbon Dioxide 23.2 mmol/L (21-32) 01/09/25 04:36 BUN 24 mg/dL (7-18) H 01/09/25 04:36 Creatinine 0.50 mg/dL (0.55-1.02) L 01/09/25 04:36 Est GFR (MDRD) Af Amer > 60 (>60) 01/09/25 04:36 Est GFR (MDRD) Non-Af > 60 (>60) 01/09/25 04:36 Glucose 98 mg/dL (65-99) 01/09/25 04:36 Calcium 8.6 mg/dL (8.5-10.1) 01/09/25 04:36 Corrected Calcium 9.3 mg/dL (8.5-10.1) 01/09/25 04:36 Phosphorus 2.9 mg/dL (2.6-4.7) 01/06/25 19:05 Magnesium 2.0 mg/dL (2.0-2.9) 01/08/25 04:45 Total Bilirubin 0.40 mg/dL (0.2-1.0) 01/09/25 04:36 AST 173 Units/L (15-37) H 01/09/25 04:36 ALT 395 Units/L (12-78) H 01/09/25 04:36 Alkaline Phosphatase 617 Units/L (46-116) H 01/09/25 04:36 Total Protein 6.4 g/dL (6.4-8.2) 01/09/25 04:36 Albumin 3.1 g/dL (3.4-5.0) L 01/09/25 04:36 Globulin 3.3 g/dL (2.5-4.5) 01/09/25 04:36 Albumin/Globulin Ratio 0.9 Ratio (1.1-2.1) L 01/09/25 04:36 Prealbumin 48.7 mg/dL (18-35.7) H 01/07/25 05:25 Triglycerides 58 mg/dL (0-150) 01/06/25 19:05 Lipase 97 Units/L (16-77) H 01/03/25 17:16 Specimen Type Clean catch urine 01/06/25 13:56 Urine Color Pale yellow (YELLOW) 01/06/25 13:56 Urine Appearance Clear (CLEAR) 01/06/25 13:56 Urine pH 7.0 (5.0 - 8.0) 01/06/25 13:56 Ur Specific [place] 1.010 (1.000-1.030) 01/06/25 13:56 Urine Protein Negative (NEGATIVE) 01/06/25 13:56 Urine Glucose (UA) Negative (NEGATIVE) 01/06/25 13:56 Urine Ketones Negative (NEGATIVE) 01/06/25 13:56 Urine Blood Negative (NEGATIVE) 01/06/25 13:56 Urine Nitrite Negative (NEGATIVE) 01/06/25 13:56 Urine Bilirubin Negative (NEGATIVE) 01/06/25 13:56 Urine Urobilinogen Normal (NORMAL) 01/06/25 13:56 Ur Leukocyte Esterase Negative (NEGATIVE) 01/06/25 13:56 Urine RBC 30-50 /HPF (0-3) A 01/03/25 18:51 Urine WBC 0-2 /HPF (0-5) 01/03/25 18:51 Ur Squamous Epith Cells Rare /HPF (NEGATIVE) 01/03/25 18:51 Urine Bacteria Negative /HPF (NEGATIVE) 01/03/25 18:51 Ur Culture Indicated? No/not indicated 01/03/25 18:51 Urine Opiates Screen Positive (NEG=<300) A 01/06/25 13:56 Urine Methadone Screen Negative (NEG=<300) 01/06/25 13:56 Ur Barbiturates Screen Negative (NEG=<200) 01/06/25 13:56 Ur Phencyclidine Scrn Negative (NEG=<25) 01/06/25 13:56 Ur Amphetamines Screen Negative (NEG=<1000) 01/06/25 13:56 U Benzodiazepines Scrn Negative (NEG=<200) 01/06/25 13:56 Urine Cocaine Screen Negative (NEG=<300) 01/06/25 13:56 U Marijuana (THC) Screen Positive (NEG=<50) A 01/06/25 13:56 Hepatitis A IgM Ab Non-reactive (NON-REACTIVE) 01/05/25 07:18 Hep Bs Antigen Non-reactive (NON-REACTIVE) 01/05/25 07:18 Hep B Core IgM Ab Non-reactive (NON-REACTIVE) 01/05/25 07:18 Hepatitis C Antibody Non-reactive (NON-REACTIVE) 01/05/25 07:18 Resp Viral Panel (PCR) See scanned report 01/03/25 22:51 Plan (1) Abdominal pain: Status: Acute (2) Elevated LFTs: Status: Acute (3) Streptococcal pneumonia: Status: Acute (4) Hx of duodenal ulcer: Status: Chronic (5) Microcytic anemia: Status: Chronic (6) PUD (peptic ulcer disease): Status: Chronic
[2025-01-09] MEDS: DEMEROL INJ IVP PRN (11:06)
--- NOTE | 2025-01-09 11:37 | DR.PROGNOT ---
HOSPITAL PROGRESS NOTE Progress Note for Day of: Progress Note Date: 01/08/25 Chief Complaint Chief Complaint: Still complaining of mid abdominal pain and nausea. No vomiting, tolerating TPN with normal blood sugar. Patient has elevated liver enzymes AST is 354, ALT 524, alkaline phosphatase is 702 with normal bilirubin 0.5. Her CAT scan showed possible stricture of the common hepatic or common bile duct. Electrolytes, BUN/creatinine are normal. Patient is afebrile, the abdomen is soft and flat with diffuse upper abdominal tenderness. ERCP can not be done because of the partial gastric outlet obstruction and bleeding tendency. Awaiting hepatitis profile. Same TPN for now, possible surgery next we Past Medical Family Social History Allergies: Allergies No Known Drug Allergies Allergy (Unknown, Verified 11/24/24 14:05) Onset Date: 09/23/2021 Review Of Systems ROS: No change since H&P Vital Signs Vital Signs: Vital Signs Temperature 98.4 F Temperature 98.4 F Pulse Rate [Right Brachial] 63 Pulse Rate [Right Brachial] 65 Pulse Rate 82 Respiratory Rate 18 Respiratory Rate 18 Respiratory Rate 18 Respiratory Rate 20 Blood Pressure [Right Arm] 142/73 Blood Pressure [Right Arm] 118/60 O2 Sat by Pulse Oximetry 98 O2 Sat by Pulse Oximetry 97 O2 Sat by Pulse Oximetry 97 Physical Exam Oriented: Normal Eyes: Normal Ear: Normal Nose: Normal Throat: Normal Respiratory: Normal Cardiovascular: Normal : Normal GI:Auscultation: Normal GI:Palpation: Normal GI: Tenderness: Epigastric Skin: Normal Musculoskeletal: Normal Psychiatric: Normal Mood Description: Calm Affect: Normal Speech Pattern: Clear and Appropriate Laboratory and Diagnostics 01/09/25 04:36 01/09/25 04:36 Labs: 01/04/25 20:10 Sputum - Expectorated Sputum Sputum Culture - Final 01/04/25 20:10 Sputum - Expectorated Sputum - Final Laboratory WBC 5.9 X10^3/uL (3.6-10.0) 01/09/25 04:36 RBC 3.28 X10^6/uL (3.5-5.4) L 01/09/25 04:36 Hgb 10.5 g/dL (12.0-16.0) L 01/09/25 04:36 Hct 30.9 % (36.0-47.0) L 01/09/25 04:36 MCV 94.1 fL (80.0-100.0) 01/09/25 04:36 MCH 32.1 pg (27.0-34.0) 01/09/25 04:36 MCHC 34.1 g/dL (33.0-35.0) 01/09/25 04:36 RDW 21.6 % (11.6-16.5) H 01/09/25 04:36 Plt Count 286 X10^3/uL (150.0-450.0) 01/09/25 04:36 Plt Count Comment Adequate (ADEQUATE) 01/09/25 04:36 MPV 7.7 fL (7.4-11.0) 01/09/25 04:36 Neut % (Auto) 63.1 % (42.0-75.0) 01/09/25 04:36 Lymph % (Auto) 24.8 % (21.0-51.0) 01/09/25 04:36 [place] % (Auto) 6.9 % (0.0-13.0) 01/09/25 04:36 Eos % (Auto) 3.1 % (0.9-2.9) H 01/09/25 04:36 Baso % (Auto) 2.1 % (0.2-1.0) H 01/09/25 04:36 Neut # (Auto) 3.7 x10^3/uL (2.2-4.8) 01/09/25 04:36 Lymph # (Auto) 1.5 X10^3/uL (1.3-2.9) 01/09/25 04:36 [place] # (Auto) 0.4 x10^3/uL (0.3-0.8) 01/09/25 04:36 Eos # (Auto) 0.2 x10^3/uL (0.0-0.2) 01/09/25 04:36 Baso # (Auto) 0.1 X10^3/uL (0.0-0.1) 01/09/25 04:36 Absolute Nucleated RBC 0.1 /100WBC 01/09/25 04:36 Plt Morphology Comment Normal (NORMAL) 01/09/25 04:36 RBC Morphology Abnormal (NORMAL) A 01/09/25 04:36 Anisocytosis 1+ A 01/09/25 04:36 Target Cells Slight A 01/09/25 04:36 Tear Drop Cells 1+ A 01/09/25 04:36 Ovalocytes Slight A 01/09/25 04:36 Stomatocytes Present 01/08/25 04:45 Sodium 136 mmol/L (136-145) 01/09/25 04:36 Corrected Sodium TNP 01/09/25 04:36 Potassium 4.3 mmol/L (3.5-5.1) 01/09/25 04:36 Chloride 105 mmol/L (98-107) 01/09/25 04:36 Carbon Dioxide 23.2 mmol/L (21-32) 01/09/25 04:36 BUN 24 mg/dL (7-18) H 01/09/25 04:36 Creatinine 0.50 mg/dL (0.55-1.02) L 01/09/25 04:36 Est GFR (MDRD) Af Amer > 60 (>60) 01/09/25 04:36 Est GFR (MDRD) Non-Af > 60 (>60) 01/09/25 04:36 Glucose 98 mg/dL (65-99) 01/09/25 04:36 Calcium 8.6 mg/dL (8.5-10.1) 01/09/25 04:36 Corrected Calcium 9.3 mg/dL (8.5-10.1) 01/09/25 04:36 Phosphorus 2.9 mg/dL (2.6-4.7) 01/06/25 19:05 Magnesium 2.0 mg/dL (2.0-2.9) 01/08/25 04:45 Total Bilirubin 0.40 mg/dL (0.2-1.0) 01/09/25 04:36 AST 173 Units/L (15-37) H 01/09/25 04:36 ALT 395 Units/L (12-78) H 01/09/25 04:36 Alkaline Phosphatase 617 Units/L (46-116) H 01/09/25 04:36 Total Protein 6.4 g/dL (6.4-8.2) 01/09/25 04:36 Albumin 3.1 g/dL (3.4-5.0) L 01/09/25 04:36 Globulin 3.3 g/dL (2.5-4.5) 01/09/25 04:36 Albumin/Globulin Ratio 0.9 Ratio (1.1-2.1) L 01/09/25 04:36 Prealbumin 48.7 mg/dL (18-35.7) H 01/07/25 05:25 Triglycerides 58 mg/dL (0-150) 01/06/25 19:05 Lipase 97 Units/L (16-77) H 01/03/25 17:16 Specimen Type Clean catch urine 01/06/25 13:56 Urine Color Pale yellow (YELLOW) 01/06/25 13:56 Urine Appearance Clear (CLEAR) 01/06/25 13:56 Urine pH 7.0 (5.0 - 8.0) 01/06/25 13:56 Ur Specific [place] 1.010 (1.000-1.030) 01/06/25 13:56 Urine Protein Negative (NEGATIVE) 01/06/25 13:56 Urine Glucose (UA) Negative (NEGATIVE) 01/06/25 13:56 Urine Ketones Negative (NEGATIVE) 01/06/25 13:56 Urine Blood Negative (NEGATIVE) 01/06/25 13:56 Urine Nitrite Negative (NEGATIVE) 01/06/25 13:56 Urine Bilirubin Negative (NEGATIVE) 01/06/25 13:56 Urine Urobilinogen Normal (NORMAL) 01/06/25 13:56 Ur Leukocyte Esterase Negative (NEGATIVE) 01/06/25 13:56 Urine RBC 30-50 /HPF (0-3) A 01/03/25 18:51 Urine WBC 0-2 /HPF (0-5) 01/03/25 18:51 Ur Squamous Epith Cells Rare /HPF (NEGATIVE) 01/03/25 18:51 Urine Bacteria Negative /HPF (NEGATIVE) 01/03/25 18:51 Ur Culture Indicated? No/not indicated 01/03/25 18:51 Urine Opiates Screen Positive (NEG=<300) A 01/06/25 13:56 Urine Methadone Screen Negative (NEG=<300) 01/06/25 13:56 Ur Barbiturates Screen Negative (NEG=<200) 01/06/25 13:56 Ur Phencyclidine Scrn Negative (NEG=<25) 01/06/25 13:56 Ur Amphetamines Screen Negative (NEG=<1000) 01/06/25 13:56 U Benzodiazepines Scrn Negative (NEG=<200) 01/06/25 13:56 Urine Cocaine Screen Negative (NEG=<300) 01/06/25 13:56 U Marijuana (THC) Screen Positive (NEG=<50) A 01/06/25 13:56 Hepatitis A IgM Ab Non-reactive (NON-REACTIVE) 01/05/25 07:18 Hep Bs Antigen Non-reactive (NON-REACTIVE) 01/05/25 07:18 Hep B Core IgM Ab Non-reactive (NON-REACTIVE) 01/05/25 07:18 Hepatitis C Antibody Non-reactive (NON-REACTIVE) 01/05/25 07:18 Resp Viral Panel (PCR) See scanned report 01/03/25 22:51 Assessment and Plan 1: Intractable peptic ulcer disease without improvement on medications. Partial gastric outlet obstruction. Recurrent episodes of anemia required transfusion from bleeding ulcers. Elevated liver enzymes with normal bilirubin. 2: Liver dysfunction to be further evaluated. Awaiting hepatitis profile. 3: Abnormal CAT scan of the abdomen and pelvis with possible stricture of the common bile duct. Problem Patient Problems: Patient Problems LLL pneumonia (Acute) J18.9 Abdominal pain (Acute) R10.9 Elevated LFTs (Acute) R79.89 Constipation (Acute) K59.00 PUD (peptic ulcer disease) (Chronic) K27.9
--- NOTE | 2025-01-09 11:45 | DR.PROGNOT ---
HOSPITAL PROGRESS NOTE Progress Note for Day of: Progress Note Date: 01/09/25 Chief Complaint Chief Complaint: Still complaining of mid abdominal pain and nausea. No vomiting, tolerating TPN . WBC 3.2, Hgb 10.5. Hepatitis panel all negative . Patient has elevated liver enzymes AST is 173, ALT 395, alkaline phosphatase is 617 with normal bilirubin 0.5. Electrolytes, BUN/creatinine are normal. Patient is afebrile, the abdomen is soft and flat with diffuse upper abdominal tenderness. ERCP can not be done because of the partial gastric outlet obstruction and bleeding tendency. Same TPN for now, possible surgery in two days hopefully LFT are close to normal . Past Medical Family Social History Allergies: Allergies No Known Drug Allergies Allergy (Unknown, Verified 11/24/24 14:05) Onset Date: 09/23/2021 Review Of Systems ROS: No change since H&P Vital Signs Vital Signs: Vital Signs Temperature 98.4 F Temperature 98.4 F Pulse Rate [Right Brachial] 63 Pulse Rate [Right Brachial] 65 Pulse Rate 82 Respiratory Rate 18 Respiratory Rate 18 Respiratory Rate 18 Respiratory Rate 20 Blood Pressure [Right Arm] 142/73 Blood Pressure [Right Arm] 118/60 O2 Sat by Pulse Oximetry 98 O2 Sat by Pulse Oximetry 97 O2 Sat by Pulse Oximetry 97 Physical Exam Oriented: Normal Eyes: Normal Ear: Normal Nose: Normal Throat: Normal Respiratory: Normal Cardiovascular: Normal : Normal GI:Auscultation: Normal GI:Palpation: Normal GI: Tenderness: Epigastric Skin: Normal Musculoskeletal: Normal Psychiatric: Normal Mood Description: Calm Affect: Normal Speech Pattern: Clear and Appropriate Laboratory and Diagnostics 01/09/25 04:36 01/09/25 04:36 Labs: 01/04/25 20:10 Sputum - Expectorated Sputum Sputum Culture - Final 01/04/25 20:10 Sputum - Expectorated Sputum - Final Laboratory WBC 5.9 X10^3/uL (3.6-10.0) 01/09/25 04:36 RBC 3.28 X10^6/uL (3.5-5.4) L 01/09/25 04:36 Hgb 10.5 g/dL (12.0-16.0) L 01/09/25 04:36 Hct 30.9 % (36.0-47.0) L 01/09/25 04:36 MCV 94.1 fL (80.0-100.0) 01/09/25 04:36 MCH 32.1 pg (27.0-34.0) 01/09/25 04:36 MCHC 34.1 g/dL (33.0-35.0) 01/09/25 04:36 RDW 21.6 % (11.6-16.5) H 01/09/25 04:36 Plt Count 286 X10^3/uL (150.0-450.0) 01/09/25 04:36 Plt Count Comment Adequate (ADEQUATE) 01/09/25 04:36 MPV 7.7 fL (7.4-11.0) 01/09/25 04:36 Neut % (Auto) 63.1 % (42.0-75.0) 01/09/25 04:36 Lymph % (Auto) 24.8 % (21.0-51.0) 01/09/25 04:36 [place] % (Auto) 6.9 % (0.0-13.0) 01/09/25 04:36 Eos % (Auto) 3.1 % (0.9-2.9) H 01/09/25 04:36 Baso % (Auto) 2.1 % (0.2-1.0) H 01/09/25 04:36 Neut # (Auto) 3.7 x10^3/uL (2.2-4.8) 01/09/25 04:36 Lymph # (Auto) 1.5 X10^3/uL (1.3-2.9) 01/09/25 04:36 [place] # (Auto) 0.4 x10^3/uL (0.3-0.8) 01/09/25 04:36 Eos # (Auto) 0.2 x10^3/uL (0.0-0.2) 01/09/25 04:36 Baso # (Auto) 0.1 X10^3/uL (0.0-0.1) 01/09/25 04:36 Absolute Nucleated RBC 0.1 /100WBC 01/09/25 04:36 Plt Morphology Comment Normal (NORMAL) 01/09/25 04:36 RBC Morphology Abnormal (NORMAL) A 01/09/25 04:36 Anisocytosis 1+ A 01/09/25 04:36 Target Cells Slight A 01/09/25 04:36 Tear Drop Cells 1+ A 01/09/25 04:36 Ovalocytes Slight A 01/09/25 04:36 Stomatocytes Present 01/08/25 04:45 Sodium 136 mmol/L (136-145) 01/09/25 04:36 Corrected Sodium TNP 01/09/25 04:36 Potassium 4.3 mmol/L (3.5-5.1) 01/09/25 04:36 Chloride 105 mmol/L (98-107) 01/09/25 04:36 Carbon Dioxide 23.2 mmol/L (21-32) 01/09/25 04:36 BUN 24 mg/dL (7-18) H 01/09/25 04:36 Creatinine 0.50 mg/dL (0.55-1.02) L 01/09/25 04:36 Est GFR (MDRD) Af Amer > 60 (>60) 01/09/25 04:36 Est GFR (MDRD) Non-Af > 60 (>60) 01/09/25 04:36 Glucose 98 mg/dL (65-99) 01/09/25 04:36 Calcium 8.6 mg/dL (8.5-10.1) 01/09/25 04:36 Corrected Calcium 9.3 mg/dL (8.5-10.1) 01/09/25 04:36 Phosphorus 2.9 mg/dL (2.6-4.7) 01/06/25 19:05 Magnesium 2.0 mg/dL (2.0-2.9) 01/08/25 04:45 Total Bilirubin 0.40 mg/dL (0.2-1.0) 01/09/25 04:36 AST 173 Units/L (15-37) H 01/09/25 04:36 ALT 395 Units/L (12-78) H 01/09/25 04:36 Alkaline Phosphatase 617 Units/L (46-116) H 01/09/25 04:36 Total Protein 6.4 g/dL (6.4-8.2) 01/09/25 04:36 Albumin 3.1 g/dL (3.4-5.0) L 01/09/25 04:36 Globulin 3.3 g/dL (2.5-4.5) 01/09/25 04:36 Albumin/Globulin Ratio 0.9 Ratio (1.1-2.1) L 01/09/25 04:36 Prealbumin 48.7 mg/dL (18-35.7) H 01/07/25 05:25 Triglycerides 58 mg/dL (0-150) 01/06/25 19:05 Lipase 97 Units/L (16-77) H 01/03/25 17:16 Specimen Type Clean catch urine 01/06/25 13:56 Urine Color Pale yellow (YELLOW) 01/06/25 13:56 Urine Appearance Clear (CLEAR) 01/06/25 13:56 Urine pH 7.0 (5.0 - 8.0) 01/06/25 13:56 Ur Specific [place] 1.010 (1.000-1.030) 01/06/25 13:56 Urine Protein Negative (NEGATIVE) 01/06/25 13:56 Urine Glucose (UA) Negative (NEGATIVE) 01/06/25 13:56 Urine Ketones Negative (NEGATIVE) 01/06/25 13:56 Urine Blood Negative (NEGATIVE) 01/06/25 13:56 Urine Nitrite Negative (NEGATIVE) 01/06/25 13:56 Urine Bilirubin Negative (NEGATIVE) 01/06/25 13:56 Urine Urobilinogen Normal (NORMAL) 01/06/25 13:56 Ur Leukocyte Esterase Negative (NEGATIVE) 01/06/25 13:56 Urine RBC 30-50 /HPF (0-3) A 01/03/25 18:51 Urine WBC 0-2 /HPF (0-5) 01/03/25 18:51 Ur Squamous Epith Cells Rare /HPF (NEGATIVE) 01/03/25 18:51 Urine Bacteria Negative /HPF (NEGATIVE) 01/03/25 18:51 Ur Culture Indicated? No/not indicated 01/03/25 18:51 Urine Opiates Screen Positive (NEG=<300) A 01/06/25 13:56 Urine Methadone Screen Negative (NEG=<300) 01/06/25 13:56 Ur Barbiturates Screen Negative (NEG=<200) 01/06/25 13:56 Ur Phencyclidine Scrn Negative (NEG=<25) 01/06/25 13:56 Ur Amphetamines Screen Negative (NEG=<1000) 01/06/25 13:56 U Benzodiazepines Scrn Negative (NEG=<200) 01/06/25 13:56 Urine Cocaine Screen Negative (NEG=<300) 01/06/25 13:56 U Marijuana (THC) Screen Positive (NEG=<50) A 01/06/25 13:56 Hepatitis A IgM Ab Non-reactive (NON-REACTIVE) 01/05/25 07:18 Hep Bs Antigen Non-reactive (NON-REACTIVE) 01/05/25 07:18 Hep B Core IgM Ab Non-reactive (NON-REACTIVE) 01/05/25 07:18 Hepatitis C Antibody Non-reactive (NON-REACTIVE) 01/05/25 07:18 Resp Viral Panel (PCR) See scanned report 01/03/25 22:51 Assessment and Plan 1: Intractable peptic ulcer disease without improvement on medications. Partial gastric outlet obstruction. Recurrent episodes of anemia required transfusion from bleeding ulcers. Elevated liver enzymes with normal bilirubin. 2: Liver dysfunctions to be further evaluated. 3: Abnormal CAT scan of the abdomen and pelvis with possible stricture of the common bile duct. for surgery this we. Problem Patient Problems: Patient Problems LLL pneumonia (Acute) J18.9 Abdominal pain (Acute) R10.9 Elevated LFTs (Acute) R79.89 Constipation (Acute) K59.00 PUD (peptic ulcer disease) (Chronic) K27.9
[2025-01-09] MEDS ORDERED: DRUG FILTER EXTENSION SET ONE (15:45)
[2025-01-09 19:22] LABS: MAGNESIUM 2.1 mg/dL (2.0-2.9); PHOSPHORUS 3.1 mg/dL (2.6-4.7)
[2025-01-09] MEDS: MORPHINE SULFATE INJ 4 MG IVP PRN (21:02)
[2025-01-10 05:11] LABS: BASOPHILS # (AUTO) 0.1 X10^3/uL (0.0-0.1); EOSINOPHILS # (AUTO) 0.2 x10^3/uL (0.0-0.2); EOSINOPHILS % (AUTO) 3.4 % (0.9-2.9); HEMATOCRIT 32.4 % (36.0-47.0); HEMOGLOBIN 10.9 g/dL (12.0-16.0); LYMPHOCYTES # (AUTO) 1.7 X10^3/uL (1.3-2.9); MEAN CORPUSCULAR HGB CONC 33.7 g/dL (33.0-35.0); MEAN CORPUSCULAR VOLUME 94.8 fL (80.0-100.0); MEAN PLATELET VOLUME 7.6 fL (7.4-11.0); MONOCYTES # (AUTO) 0.5 x10^3/uL (0.3-0.8); MONOCYTES % (AUTO) 7.1 % (0.0-13.0); NEUTROPHILS # (AUTO) 4.6 x10^3/uL (2.2-4.8); NEUTROPHILS % (AUTO) 64.5 % (42.0-75.0); PLATELET COUNT 326 X10^3/uL (150.0-450.0); RED BLOOD COUNT 3.42 X10^6/uL (3.5-5.4); RED CELL DISTRIBUTION WIDTH 20.8 % (11.6-16.5); WHITE BLOOD COUNT 7.1 X10^3/uL (3.6-10.0)
[2025-01-10 05:26] LABS: ALANINE AMINOTRANSFERASE 300 Units/L (12-78); ALBUMIN 3.2 g/dL (3.4-5.0); ALKALINE PHOSPHATASE 581 Units/L (46-116); ASPARTATE AMINO TRANSFERASE 100 Units/L (15-37); BLOOD UREA NITROGEN 20 mg/dL (7-18); CALCIUM 8.9 mg/dL (8.5-10.1); CHLORIDE 104 mmol/L (98-107); COR CA(FOR HYPOALB) 9.5 mg/dL (8.5-10.1); CREATININE 0.44 mg/dL (0.55-1.02); GLUCOSE 106 mg/dL (65-99); POTASSIUM 4.3 mmol/L (3.5-5.1); SODIUM 137 mmol/L (136-145); TOTAL PROTEIN 6.7 g/dL (6.4-8.2); eGFR NON BLACK RACES > 60 (>60)
[2025-01-10 06:52] LABS: ANISOCYTOSIS 1+; PLATELET MORPHOLOGY COMMENT NORMAL (NORMAL); STOMATOCYTES SLIGHT
--- NOTE | 2025-01-10 08:36 | DR.PROGNOT ---
HOSPITAL PROGRESS NOTE Progress Note for Day of: Progress Note Date: 01/10/25 Chief Complaint Chief Complaint: Moderate abdominal pain, no nausea or vomiting and tolerating TPN well. Hepatitis profile was negative. Liver function tests are coming down with normal bilirubin. Patient is afebrile. Stable vital signs, abdomen is soft flat with moderate epigastric and right upper quadrant tenderness. For gastrectomy in the morning, the procedure was discussed and explained to the patient in details. The indication for that his intractable peptic ulcer disease with, partial gastric outlet obstruction, chronic anemia requiring transfusion from bleeding ulcer, ,chronic pain and weight loss. Past Medical Family Social History Allergies: Allergies No Known Drug Allergies Allergy (Unknown, Verified 11/24/24 14:05) Onset Date: 09/23/2021 Review Of Systems ROS: No change since H&P Vital Signs Vital Signs: Vital Signs Temperature 98.2 F Temperature 98.3 F Pulse Rate [Right Brachial] 70 Pulse Rate [Right Brachial] 78 Respiratory Rate 21 Respiratory Rate 19 Respiratory Rate 19 Respiratory Rate 21 Blood Pressure [Right Arm] 136/89 Blood Pressure [Right Arm] 122/75 O2 Sat by Pulse Oximetry 98 O2 Sat by Pulse Oximetry 97 Physical Exam Oriented: Normal Eyes: Normal Ear: Normal Nose: Normal Throat: Normal Respiratory: Normal Cardiovascular: Normal : Normal GI:Auscultation: Normal GI:Palpation: Normal GI: Tenderness: Epigastric Skin: Normal Musculoskeletal: Normal Psychiatric: Normal Mood Description: Calm Affect: Normal Speech Pattern: Clear and Appropriate Laboratory and Diagnostics 01/10/25 04:40 01/10/25 04:40 Labs: 01/04/25 20:10 Sputum - Expectorated Sputum Sputum Culture - Final 01/04/25 20:10 Sputum - Expectorated Sputum - Final Laboratory WBC 7.1 X10^3/uL (3.6-10.0) 01/10/25 04:40 RBC 3.42 X10^6/uL (3.5-5.4) L 01/10/25 04:40 Hgb 10.9 g/dL (12.0-16.0) L 01/10/25 04:40 Hct 32.4 % (36.0-47.0) L 01/10/25 04:40 MCV 94.8 fL (80.0-100.0) 01/10/25 04:40 MCH 32.0 pg (27.0-34.0) 01/10/25 04:40 MCHC 33.7 g/dL (33.0-35.0) 01/10/25 04:40 RDW 20.8 % (11.6-16.5) H 01/10/25 04:40 Plt Count 326 X10^3/uL (150.0-450.0) 01/10/25 04:40 Plt Count Comment Adequate (ADEQUATE) 01/10/25 04:40 MPV 7.6 fL (7.4-11.0) 01/10/25 04:40 Neut % (Auto) 64.5 % (42.0-75.0) 01/10/25 04:40 Lymph % (Auto) 24.0 % (21.0-51.0) 01/10/25 04:40 [place] % (Auto) 7.1 % (0.0-13.0) 01/10/25 04:40 Eos % (Auto) 3.4 % (0.9-2.9) H 01/10/25 04:40 Baso % (Auto) 1.0 % (0.2-1.0) 01/10/25 04:40 Neut # (Auto) 4.6 x10^3/uL (2.2-4.8) 01/10/25 04:40 Lymph # (Auto) 1.7 X10^3/uL (1.3-2.9) 01/10/25 04:40 [place] # (Auto) 0.5 x10^3/uL (0.3-0.8) 01/10/25 04:40 Eos # (Auto) 0.2 x10^3/uL (0.0-0.2) 01/10/25 04:40 Baso # (Auto) 0.1 X10^3/uL (0.0-0.1) 01/10/25 04:40 Absolute Nucleated RBC 0.0 /100WBC 01/10/25 04:40 Plt Morphology Comment Normal (NORMAL) 01/10/25 04:40 RBC Morphology Abnormal (NORMAL) A 01/10/25 04:40 Anisocytosis 1+ A 01/10/25 04:40 Target Cells Slight A 01/09/25 04:36 Tear Drop Cells 1+ A 01/09/25 04:36 Ovalocytes Slight A 01/09/25 04:36 Stomatocytes Slight A 01/10/25 04:40 Sodium 137 mmol/L (136-145) 01/10/25 04:40 Corrected Sodium TNP 01/10/25 04:40 Potassium 4.3 mmol/L (3.5-5.1) 01/10/25 04:40 Chloride 104 mmol/L (98-107) 01/10/25 04:40 Carbon Dioxide 24.0 mmol/L (21-32) 01/10/25 04:40 BUN 20 mg/dL (7-18) H 01/10/25 04:40 Creatinine 0.44 mg/dL (0.55-1.02) L 01/10/25 04:40 Est GFR (MDRD) Af Amer > 60 (>60) 01/10/25 04:40 Est GFR (MDRD) Non-Af > 60 (>60) 01/10/25 04:40 Glucose 106 mg/dL (65-99) H 01/10/25 04:40 Calcium 8.9 mg/dL (8.5-10.1) 01/10/25 04:40 Corrected Calcium 9.5 mg/dL (8.5-10.1) 01/10/25 04:40 Phosphorus 3.1 mg/dL (2.6-4.7) 01/09/25 18:55 Magnesium 2.1 mg/dL (2.0-2.9) 01/09/25 18:55 Total Bilirubin 0.20 mg/dL (0.2-1.0) 01/10/25 04:40 AST 100 Units/L (15-37) H 01/10/25 04:40 ALT 300 Units/L (12-78) H 01/10/25 04:40 Alkaline Phosphatase 581 Units/L (46-116) H 01/10/25 04:40 Total Protein 6.7 g/dL (6.4-8.2) 01/10/25 04:40 Albumin 3.2 g/dL (3.4-5.0) L 01/10/25 04:40 Globulin 3.5 g/dL (2.5-4.5) 01/10/25 04:40 Albumin/Globulin Ratio 0.9 Ratio (1.1-2.1) L 01/10/25 04:40 Prealbumin 48.7 mg/dL (18-35.7) H 01/07/25 05:25 Triglycerides 138 mg/dL (0-150) 01/09/25 18:55 Lipase 97 Units/L (16-77) H 01/03/25 17:16 Specimen Type Clean catch urine 01/06/25 13:56 Urine Color Pale yellow (YELLOW) 01/06/25 13:56 Urine Appearance Clear (CLEAR) 01/06/25 13:56 Urine pH 7.0 (5.0 - 8.0) 01/06/25 13:56 Ur Specific [place] 1.010 (1.000-1.030) 01/06/25 13:56 Urine Protein Negative (NEGATIVE) 01/06/25 13:56 Urine Glucose (UA) Negative (NEGATIVE) 01/06/25 13:56 Urine Ketones Negative (NEGATIVE) 01/06/25 13:56 Urine Blood Negative (NEGATIVE) 01/06/25 13:56 Urine Nitrite Negative (NEGATIVE) 01/06/25 13:56 Urine Bilirubin Negative (NEGATIVE) 01/06/25 13:56 Urine Urobilinogen Normal (NORMAL) 01/06/25 13:56 Ur Leukocyte Esterase Negative (NEGATIVE) 01/06/25 13:56 Urine RBC 30-50 /HPF (0-3) A 01/03/25 18:51 Urine WBC 0-2 /HPF (0-5) 01/03/25 18:51 Ur Squamous Epith Cells Rare /HPF (NEGATIVE) 01/03/25 18:51 Urine Bacteria Negative /HPF (NEGATIVE) 01/03/25 18:51 Ur Culture Indicated? No/not indicated 01/03/25 18:51 Urine Opiates Screen Positive (NEG=<300) A 01/06/25 13:56 Urine Methadone Screen Negative (NEG=<300) 01/06/25 13:56 Ur Barbiturates Screen Negative (NEG=<200) 01/06/25 13:56 Ur Phencyclidine Scrn Negative (NEG=<25) 01/06/25 13:56 Ur Amphetamines Screen Negative (NEG=<1000) 01/06/25 13:56 U Benzodiazepines Scrn Negative (NEG=<200) 01/06/25 13:56 Urine Cocaine Screen Negative (NEG=<300) 01/06/25 13:56 U Marijuana (THC) Screen Positive (NEG=<50) A 01/06/25 13:56 Hepatitis A IgM Ab Non-reactive (NON-REACTIVE) 01/05/25 07:18 Hep Bs Antigen Non-reactive (NON-REACTIVE) 01/05/25 07:18 Hep B Core IgM Ab Non-reactive (NON-REACTIVE) 01/05/25 07:18 Hepatitis C Antibody Non-reactive (NON-REACTIVE) 01/05/25 07:18 Resp Viral Panel (PCR) See scanned report 01/03/25 22:51 Assessment and Plan 1: Intractable peptic ulcer disease without improvement on medications. Chronic pain and weight loss. Partial gastric outlet obstruction. Recurrent episodes of anemia required transfusion from bleeding ulcers. Elevated liver enzymes with normal bilirubin. For partial gastrectomy in the morning. The procedure was discussed and explained to the patient in details. 2: Liver dysfunctions , improving slowly. Problem Patient Problems: Patient Problems (Updated 01/09/25 @ 10:37 by Shelby Palacios MD) LLL pneumonia (Acute) J18.9 Abdominal pain (Acute) R10.9 Elevated LFTs (Acute) R79.89 Constipation (Acute) K59.00 PUD (peptic ulcer disease) (Chronic) K27.9
--- NOTE | 2025-01-10 10:12 | PCM.PROG ---
Progress Note Progress Note for Day of Date of Exam: 01/10/25 Subjective Subjective: Patient seen at bedside, no acute events overnight. She is feeling better, abdominal pain has improved. Denies N/V/D. She is admitted for non- healing peptic ulcer located in the prepyloric area and duodenum. She is admitted by general surgery and plan for partial gastrectomy. Her LFTs have been elevated, trending down. Dr Spears is planning to do the surgery on tomorrow. She remains on TPN. Labs/imaging reviewed: -WBC 7.1 Hgb 10.9 K 4.3 BUN/Cr 20/0.44 AP 581 AST/ALT 100/300 -Hepatitis panel (-) Plan: Follow surgery recommendations. continue current treatment. Continue IV Rocephin for strep pneumonia. Continue Demerol prn. Continue IV morphine. Replace electrolytes prn. Continue TPN and hydration. Monitor AM labs/imaging. Past Medical Family Social History Allergies: Allergies No Known Drug Allergies Allergy (Unknown, Verified 11/24/24 14:05) Onset Date: 09/23/2021 Review of Systems ROS: No change since H&P Vital Signs and I&O's Vital Signs: Vital Signs Temperature 98.2 F Temperature 98.3 F Pulse Rate [Right Brachial] 70 Pulse Rate [Right Brachial] 78 Pulse Rate 72 Respiratory Rate 21 Respiratory Rate 19 Respiratory Rate 19 Respiratory Rate 21 Blood Pressure [Right Arm] 136/89 Blood Pressure [Right Arm] 122/75 O2 Sat by Pulse Oximetry 98 O2 Sat by Pulse Oximetry 98 O2 Sat by Pulse Oximetry 97 Intake and Output: Intake & Output 01/07/25 01/08/25 01/09/25 01/10/25 23:59 23:59 23:59 23:59 Intake Total 4995 / 4995 4513 / 4513 3068 / 3068 2714 / 2714 Balance 4995 / 4995 4513 / 4513 3068 / 3068 2714 / 2714 Physical Exam Oriented: Normal Eyes: Normal Ear: Normal Nose: Normal Throat: Normal Respiratory: Normal Cardiovascular: Normal : Normal Auscultation: Bowel Sounds: Normal Tenderness: Epigastric Skin: Normal Musculoskeletal: Normal Psychiatric: Normal Mood Description: Calm Affect: Normal Speech Pattern: Clear and Appropriate Laboratory and Diagnostics 01/10/25 04:40 01/10/25 04:40 Labs: 01/04/25 20:10 Sputum - Expectorated Sputum Sputum Culture - Final 01/04/25 20:10 Sputum - Expectorated Sputum - Final Laboratory WBC 7.1 X10^3/uL (3.6-10.0) 01/10/25 04:40 RBC 3.42 X10^6/uL (3.5-5.4) L 01/10/25 04:40 Hgb 10.9 g/dL (12.0-16.0) L 01/10/25 04:40 Hct 32.4 % (36.0-47.0) L 01/10/25 04:40 MCV 94.8 fL (80.0-100.0) 01/10/25 04:40 MCH 32.0 pg (27.0-34.0) 01/10/25 04:40 MCHC 33.7 g/dL (33.0-35.0) 01/10/25 04:40 RDW 20.8 % (11.6-16.5) H 01/10/25 04:40 Plt Count 326 X10^3/uL (150.0-450.0) 01/10/25 04:40 Plt Count Comment Adequate (ADEQUATE) 01/10/25 04:40 MPV 7.6 fL (7.4-11.0) 01/10/25 04:40 Neut % (Auto) 64.5 % (42.0-75.0) 01/10/25 04:40 Lymph % (Auto) 24.0 % (21.0-51.0) 01/10/25 04:40 [place] % (Auto) 7.1 % (0.0-13.0) 01/10/25 04:40 Eos % (Auto) 3.4 % (0.9-2.9) H 01/10/25 04:40 Baso % (Auto) 1.0 % (0.2-1.0) 01/10/25 04:40 Neut # (Auto) 4.6 x10^3/uL (2.2-4.8) 01/10/25 04:40 Lymph # (Auto) 1.7 X10^3/uL (1.3-2.9) 01/10/25 04:40 [place] # (Auto) 0.5 x10^3/uL (0.3-0.8) 01/10/25 04:40 Eos # (Auto) 0.2 x10^3/uL (0.0-0.2) 01/10/25 04:40 Baso # (Auto) 0.1 X10^3/uL (0.0-0.1) 01/10/25 04:40 Absolute Nucleated RBC 0.0 /100WBC 01/10/25 04:40 Plt Morphology Comment Normal (NORMAL) 01/10/25 04:40 RBC Morphology Abnormal (NORMAL) A 01/10/25 04:40 Anisocytosis 1+ A 01/10/25 04:40 Target Cells Slight A 01/09/25 04:36 Tear Drop Cells 1+ A 01/09/25 04:36 Ovalocytes Slight A 01/09/25 04:36 Stomatocytes Slight A 01/10/25 04:40 Sodium 137 mmol/L (136-145) 01/10/25 04:40 Corrected Sodium TNP 01/10/25 04:40 Potassium 4.3 mmol/L (3.5-5.1) 01/10/25 04:40 Chloride 104 mmol/L (98-107) 01/10/25 04:40 Carbon Dioxide 24.0 mmol/L (21-32) 01/10/25 04:40 BUN 20 mg/dL (7-18) H 01/10/25 04:40 Creatinine 0.44 mg/dL (0.55-1.02) L 01/10/25 04:40 Est GFR (MDRD) Af Amer > 60 (>60) 01/10/25 04:40 Est GFR (MDRD) Non-Af > 60 (>60) 01/10/25 04:40 Glucose 106 mg/dL (65-99) H 01/10/25 04:40 Calcium 8.9 mg/dL (8.5-10.1) 01/10/25 04:40 Corrected Calcium 9.5 mg/dL (8.5-10.1) 01/10/25 04:40 Phosphorus 3.1 mg/dL (2.6-4.7) 01/09/25 18:55 Magnesium 2.1 mg/dL (2.0-2.9) 01/09/25 18:55 Total Bilirubin 0.20 mg/dL (0.2-1.0) 01/10/25 04:40 AST 100 Units/L (15-37) H 01/10/25 04:40 ALT 300 Units/L (12-78) H 01/10/25 04:40 Alkaline Phosphatase 581 Units/L (46-116) H 01/10/25 04:40 Total Protein 6.7 g/dL (6.4-8.2) 01/10/25 04:40 Albumin 3.2 g/dL (3.4-5.0) L 01/10/25 04:40 Globulin 3.5 g/dL (2.5-4.5) 01/10/25 04:40 Albumin/Globulin Ratio 0.9 Ratio (1.1-2.1) L 01/10/25 04:40 Prealbumin 48.7 mg/dL (18-35.7) H 01/07/25 05:25 Triglycerides 138 mg/dL (0-150) 01/09/25 18:55 Lipase 97 Units/L (16-77) H 01/03/25 17:16 Specimen Type Clean catch urine 01/06/25 13:56 Urine Color Pale yellow (YELLOW) 01/06/25 13:56 Urine Appearance Clear (CLEAR) 01/06/25 13:56 Urine pH 7.0 (5.0 - 8.0) 01/06/25 13:56 Ur Specific [place] 1.010 (1.000-1.030) 01/06/25 13:56 Urine Protein Negative (NEGATIVE) 01/06/25 13:56 Urine Glucose (UA) Negative (NEGATIVE) 01/06/25 13:56 Urine Ketones Negative (NEGATIVE) 01/06/25 13:56 Urine Blood Negative (NEGATIVE) 01/06/25 13:56 Urine Nitrite Negative (NEGATIVE) 01/06/25 13:56 Urine Bilirubin Negative (NEGATIVE) 01/06/25 13:56 Urine Urobilinogen Normal (NORMAL) 01/06/25 13:56 Ur Leukocyte Esterase Negative (NEGATIVE) 01/06/25 13:56 Urine RBC 30-50 /HPF (0-3) A 01/03/25 18:51 Urine WBC 0-2 /HPF (0-5) 01/03/25 18:51 Ur Squamous Epith Cells Rare /HPF (NEGATIVE) 01/03/25 18:51 Urine Bacteria Negative /HPF (NEGATIVE) 01/03/25 18:51 Ur Culture Indicated? No/not indicated 01/03/25 18:51 Urine Opiates Screen Positive (NEG=<300) A 01/06/25 13:56 Urine Methadone Screen Negative (NEG=<300) 01/06/25 13:56 Ur Barbiturates Screen Negative (NEG=<200) 01/06/25 13:56 Ur Phencyclidine Scrn Negative (NEG=<25) 01/06/25 13:56 Ur Amphetamines Screen Negative (NEG=<1000) 01/06/25 13:56 U Benzodiazepines Scrn Negative (NEG=<200) 01/06/25 13:56 Urine Cocaine Screen Negative (NEG=<300) 01/06/25 13:56 U Marijuana (THC) Screen Positive (NEG=<50) A 01/06/25 13:56 Hepatitis A IgM Ab Non-reactive (NON-REACTIVE) 01/05/25 07:18 Hep Bs Antigen Non-reactive (NON-REACTIVE) 01/05/25 07:18 Hep B Core IgM Ab Non-reactive (NON-REACTIVE) 01/05/25 07:18 Hepatitis C Antibody Non-reactive (NON-REACTIVE) 01/05/25 07:18 Resp Viral Panel (PCR) See scanned report 01/03/25 22:51 Blood Type A POSITIVE 01/10/25 08:20 Antibody Screen Negative 01/10/25 08:20 Plan (1) Abdominal pain: Status: Acute (2) Elevated LFTs: Status: Acute (3) Streptococcal pneumonia: Status: Acute (4) Hx of duodenal ulcer: Status: Chronic (5) Microcytic anemia: Status: Chronic (6) PUD (peptic ulcer disease): Status: Chronic
[2025-01-10] MEDS: HIBICLENS WASH EXT ONE (20:29)
[2025-01-11] MEDS: DRUG FILTER EXTENSION SET ONE (02:55)
[2025-01-11 06:05] LABS: BASOPHILS % (AUTO) 0.7 % (0.2-1.0); EOSINOPHILS # (AUTO) 0.2 x10^3/uL (0.0-0.2); EOSINOPHILS % (AUTO) 3.3 % (0.9-2.9); HEMATOCRIT 33.8 % (36.0-47.0); HEMOGLOBIN 11.3 g/dL (12.0-16.0); LYMPHOCYTES # (AUTO) 1.7 X10^3/uL (1.3-2.9); LYMPHOCYTES % (AUTO) 28.4 % (21.0-51.0); MEAN CORPUSCULAR HEMOGLOBIN 31.6 pg (27.0-34.0); MEAN CORPUSCULAR HGB CONC 33.4 g/dL (33.0-35.0); MEAN CORPUSCULAR VOLUME 94.4 fL (80.0-100.0); MEAN PLATELET VOLUME 7.7 fL (7.4-11.0); MONOCYTES # (AUTO) 0.5 x10^3/uL (0.3-0.8); MONOCYTES % (AUTO) 7.9 % (0.0-13.0); NEUTROPHILS # (AUTO) 3.7 x10^3/uL (2.2-4.8); NEUTROPHILS % (AUTO) 59.7 % (42.0-75.0); PLATELET COUNT 361 X10^3/uL (150.0-450.0); RED BLOOD COUNT 3.58 X10^6/uL (3.5-5.4); RED CELL DISTRIBUTION WIDTH 21.4 % (11.6-16.5); WHITE BLOOD COUNT 6.1 X10^3/uL (3.6-10.0)
[2025-01-11 06:15] LABS: ALANINE AMINOTRANSFERASE 248 Units/L (12-78); ALBUMIN 3.5 g/dL (3.4-5.0); ALKALINE PHOSPHATASE 575 Units/L (46-116); ASPARTATE AMINO TRANSFERASE 81 Units/L (15-37); BLOOD UREA NITROGEN 28 mg/dL (7-18); CALCIUM 9.1 mg/dL (8.5-10.1); CARBON DIOXIDE 25.2 mmol/L (21-32); CHLORIDE 102 mmol/L (98-107); CREATININE 0.59 mg/dL (0.55-1.02); GLUCOSE 89 mg/dL (65-99); POTASSIUM 4.3 mmol/L (3.5-5.1); SODIUM 137 mmol/L (136-145); TOTAL PROTEIN 7.2 g/dL (6.4-8.2); eGFR NON BLACK RACES > 60 (>60)
[2025-01-11 06:40] LABS: ANISOCYTOSIS 1+; PLATELET MORPHOLOGY COMMENT NORMAL (NORMAL)
[2025-01-11 06:41] LABS: STOMATOCYTES 1+
[2025-01-11] MEDS: NOZIN NASAL SANITIZER TP ONE (08:15)
--- NOTE | 2025-01-11 09:55 | PCM.PROG ---
Progress Note Progress Note for Day of Date of Exam: 01/11/25 Subjective Subjective: Patient seen at bedside, no acute events overnight. She will be having surgery today. She is feeling better, abdominal pain has improved. Denies N/V/D. She is admitted for non-healing peptic ulcer located in the prepyloric area and duodenum. She is admitted by general surgery and plan for partial gastrectomy. Her LFTs have been elevated, trending down. Labs/imaging reviewed: -WBC 6.1 Hgb 11.3 K 4.3 BUN/Cr 28/0.59 AP 575 AST/ALT 81/249 -Hepatitis panel (-) Plan: Follow surgery recommendations. Plan for surgery today. NPO status. Continue current treatment. Continue IV Rocephin for strep pneumonia. Continue Demerol prn. Continue IV morphine. Replace electrolytes prn. Continue TPN and hydration. Monitor AM labs/imaging. Past Medical Family Social History Allergies: Allergies No Known Drug Allergies Allergy (Unknown, Verified 11/24/24 14:05) Onset Date: 09/23/2021 Review of Systems ROS: No change since H&P Vital Signs and I&O's Vital Signs: Vital Signs Temperature 97.4 F Temperature 97.6 F Pulse Rate [Right Brachial] 65 Pulse Rate [Right Brachial] 70 Pulse Rate 72 Respiratory Rate 16 Respiratory Rate 18 Respiratory Rate 18 Respiratory Rate 18 Respiratory Rate 19 Respiratory Rate 18 Respiratory Rate 18 Blood Pressure [Right Arm] 131/79 Blood Pressure [Right Arm] 123/70 O2 Sat by Pulse Oximetry 98 O2 Sat by Pulse Oximetry 98 O2 Sat by Pulse Oximetry 97 Intake and Output: Intake & Output 01/08/25 01/09/25 01/10/25 01/11/25 23:59 23:59 23:59 23:59 Intake Total 4513 / 4513 3068 / 3068 4576 / 4576 776 / 776 Balance 4513 / 4513 3068 / 3068 4576 / 4576 776 / 776 Physical Exam Oriented: Normal Eyes: Normal Ear: Normal Nose: Normal Throat: Normal Respiratory: Normal Cardiovascular: Normal Auscultation: Bowel Sounds: Normal Tenderness: Epigastric Skin: Normal Musculoskeletal: Normal Psychiatric: Normal Mood Description: Calm Affect: Normal Speech Pattern: Clear and Appropriate Laboratory and Diagnostics 01/11/25 05:42 01/11/25 05:42 Labs: 01/04/25 20:10 Sputum - Expectorated Sputum Sputum Culture - Final 01/04/25 20:10 Sputum - Expectorated Sputum - Final Laboratory WBC 6.1 X10^3/uL (3.6-10.0) 01/11/25 05:42 RBC 3.58 X10^6/uL (3.5-5.4) 01/11/25 05:42 Hgb 11.3 g/dL (12.0-16.0) L 01/11/25 05:42 Hct 33.8 % (36.0-47.0) L 01/11/25 05:42 MCV 94.4 fL (80.0-100.0) 01/11/25 05:42 MCH 31.6 pg (27.0-34.0) 01/11/25 05:42 MCHC 33.4 g/dL (33.0-35.0) 01/11/25 05:42 RDW 21.4 % (11.6-16.5) H 01/11/25 05:42 Plt Count 361 X10^3/uL (150.0-450.0) 01/11/25 05:42 Plt Count Comment Adequate (ADEQUATE) 01/11/25 05:42 MPV 7.7 fL (7.4-11.0) 01/11/25 05:42 Neut % (Auto) 59.7 % (42.0-75.0) 01/11/25 05:42 Lymph % (Auto) 28.4 % (21.0-51.0) 01/11/25 05:42 [place] % (Auto) 7.9 % (0.0-13.0) 01/11/25 05:42 Eos % (Auto) 3.3 % (0.9-2.9) H 01/11/25 05:42 Baso % (Auto) 0.7 % (0.2-1.0) 01/11/25 05:42 Neut # (Auto) 3.7 x10^3/uL (2.2-4.8) 01/11/25 05:42 Lymph # (Auto) 1.7 X10^3/uL (1.3-2.9) 01/11/25 05:42 [place] # (Auto) 0.5 x10^3/uL (0.3-0.8) 01/11/25 05:42 Eos # (Auto) 0.2 x10^3/uL (0.0-0.2) 01/11/25 05:42 Baso # (Auto) 0.0 X10^3/uL (0.0-0.1) 01/11/25 05:42 Absolute Nucleated RBC 0.1 /100WBC 01/11/25 05:42 Plt Morphology Comment Normal (NORMAL) 01/11/25 05:42 RBC Morphology Abnormal (NORMAL) A 01/11/25 05:42 Anisocytosis 1+ A 01/11/25 05:42 Target Cells Slight A 01/09/25 04:36 Tear Drop Cells 1+ A 01/09/25 04:36 Ovalocytes Slight A 01/09/25 04:36 Stomatocytes 1+ A 01/11/25 05:42 Sodium 137 mmol/L (136-145) 01/11/25 05:42 Corrected Sodium TNP 01/11/25 05:42 Potassium 4.3 mmol/L (3.5-5.1) 01/11/25 05:42 Chloride 102 mmol/L (98-107) 01/11/25 05:42 Carbon Dioxide 25.2 mmol/L (21-32) 01/11/25 05:42 BUN 28 mg/dL (7-18) H 01/11/25 05:42 Creatinine 0.59 mg/dL (0.55-1.02) 01/11/25 05:42 Est GFR (MDRD) Af Amer > 60 (>60) 01/11/25 05:42 Est GFR (MDRD) Non-Af > 60 (>60) 01/11/25 05:42 Glucose 89 mg/dL (65-99) 01/11/25 05:42 Calcium 9.1 mg/dL (8.5-10.1) 01/11/25 05:42 Corrected Calcium TNP 01/11/25 05:42 Phosphorus 3.1 mg/dL (2.6-4.7) 01/09/25 18:55 Magnesium 2.1 mg/dL (2.0-2.9) 01/09/25 18:55 Total Bilirubin 0.20 mg/dL (0.2-1.0) 01/11/25 05:42 AST 81 Units/L (15-37) H 01/11/25 05:42 ALT 248 Units/L (12-78) H 01/11/25 05:42 Alkaline Phosphatase 575 Units/L (46-116) H 01/11/25 05:42 Total Protein 7.2 g/dL (6.4-8.2) 01/11/25 05:42 Albumin 3.5 g/dL (3.4-5.0) 01/11/25 05:42 Globulin 3.7 g/dL (2.5-4.5) 01/11/25 05:42 Albumin/Globulin Ratio 0.9 Ratio (1.1-2.1) L 01/11/25 05:42 Prealbumin 48.7 mg/dL (18-35.7) H 01/07/25 05:25 Triglycerides 138 mg/dL (0-150) 01/09/25 18:55 Lipase 97 Units/L (16-77) H 01/03/25 17:16 Specimen Type Clean catch urine 01/06/25 13:56 Urine Color Pale yellow (YELLOW) 01/06/25 13:56 Urine Appearance Clear (CLEAR) 01/06/25 13:56 Urine pH 7.0 (5.0 - 8.0) 01/06/25 13:56 Ur Specific [place] 1.010 (1.000-1.030) 01/06/25 13:56 Urine Protein Negative (NEGATIVE) 01/06/25 13:56 Urine Glucose (UA) Negative (NEGATIVE) 01/06/25 13:56 Urine Ketones Negative (NEGATIVE) 01/06/25 13:56 Urine Blood Negative (NEGATIVE) 01/06/25 13:56 Urine Nitrite Negative (NEGATIVE) 01/06/25 13:56 Urine Bilirubin Negative (NEGATIVE) 01/06/25 13:56 Urine Urobilinogen Normal (NORMAL) 01/06/25 13:56 Ur Leukocyte Esterase Negative (NEGATIVE) 01/06/25 13:56 Urine RBC 30-50 /HPF (0-3) A 01/03/25 18:51 Urine WBC 0-2 /HPF (0-5) 01/03/25 18:51 Ur Squamous Epith Cells Rare /HPF (NEGATIVE) 01/03/25 18:51 Urine Bacteria Negative /HPF (NEGATIVE) 01/03/25 18:51 Ur Culture Indicated? No/not indicated 01/03/25 18:51 Urine Opiates Screen Positive (NEG=<300) A 01/06/25 13:56 Urine Methadone Screen Negative (NEG=<300) 01/06/25 13:56 Ur Barbiturates Screen Negative (NEG=<200) 01/06/25 13:56 Ur Phencyclidine Scrn Negative (NEG=<25) 01/06/25 13:56 Ur Amphetamines Screen Negative (NEG=<1000) 01/06/25 13:56 U Benzodiazepines Scrn Negative (NEG=<200) 01/06/25 13:56 Urine Cocaine Screen Negative (NEG=<300) 01/06/25 13:56 U Marijuana (THC) Screen Positive (NEG=<50) A 01/06/25 13:56 Hepatitis A IgM Ab Non-reactive (NON-REACTIVE) 01/05/25 07:18 Hep Bs Antigen Non-reactive (NON-REACTIVE) 01/05/25 07:18 Hep B Core IgM Ab Non-reactive (NON-REACTIVE) 01/05/25 07:18 Hepatitis C Antibody Non-reactive (NON-REACTIVE) 01/05/25 07:18 Resp Viral Panel (PCR) See scanned report 01/03/25 22:51 Blood Type A POSITIVE 01/10/25 08:20 Antibody Screen Negative 01/10/25 08:20 Plan (1) Abdominal pain: Status: Acute (2) Elevated LFTs: Status: Acute (3) Streptococcal pneumonia: Status: Acute (4) Hx of duodenal ulcer: Status: Chronic (5) Microcytic anemia: Status: Chronic (6) PUD (peptic ulcer disease): Status: Chronic
[2025-01-11] MEDS: LR 1,000 ML IV 1,000 ML IV ONE (11:45)
[2025-01-11] MEDS: ANCEF VIAL 1 GRAM ONE (11:58)
[2025-01-11] MEDS: NS 100 ML IV 100 ML ONE (11:58)
[2025-01-11] MEDS ORDERED: SUPRANE IN ONE (11:59)
[2025-01-11] MEDS: LR IV PRN (12:00)
[2025-01-11] MEDS: VERSED IVP PRN (12:02)
[2025-01-11] MEDS: ANCEF VIAL 1 GRAM IV PRN (12:02)
[2025-01-11] MEDS: FENTANYL VIAL INJ 100 mcg IVP PRN (12:09)
[2025-01-11] MEDS: XYLOCAINE 2 % (PLAIN) INJ PRN (12:09)
[2025-01-11] MEDS: DIPRIVAN VIAL 120 ML IVP PRN (12:10)
[2025-01-11] MEDS: PRECEDEX INJ VIAL IVP PRN (12:12)
[2025-01-11] MEDS: KETAMINE HCL IV PRN (12:14)
[2025-01-11] MEDS: POLYMYXIN B SULFATE ONE (12:27)
[2025-01-11] MEDS: OFIRMEV IV 1000 MG VIAL 1,000 MG/100 ML VIAL IV PRN (13:19)
[2025-01-11] MEDS ORDERED: DILAUDID INJ ONE (13:56)
[2025-01-11] MEDS: ZEMURON 100 MG VIAL IVP PRN (14:54)
[2025-01-11] MEDS ORDERED: REGLAN INJ 10 MG VIAL IVP PRN (15:07)
[2025-01-11] MEDS ORDERED: BARHEMSYS INJ IVP PRN (15:07)
[2025-01-11] MEDS ORDERED: ZOFRAN INJ 4 MG VIAL IVP PRN (15:07)
[2025-01-11] MEDS ORDERED: BENADRYL INJ 50 MG VIAL IVP PRN (15:07)
[2025-01-11] MEDS: MARCAINE 0.5% ONE (15:08)
[2025-01-11] MEDS: DILAUDID INJ IVP PRN ×3 (15:16→22:23)
[2025-01-11] MEDS: BRIDION IVP PRN (15:33)
[2025-01-11] MEDS ORDERED: D5 1/2 NS 1,000 ML 1,000 ML IV SCH (16:00)
[2025-01-11] MEDS: DILAUDID INJ ONE (16:06)
[2025-01-11] MEDS ORDERED: NARCAN INJ IVP PRN (16:40)
[2025-01-11] MEDS: MORPHINE SULFATE PCA 30 MG IVP PRN (16:50)
[2025-01-11] MEDS: NARCAN INJ IVP ONE (17:01)
[2025-01-11] MEDS: FENTANYL VIAL INJ 100 mcg ONE (17:29)
[2025-01-11] MEDS: VERSED ONE (17:29)
[2025-01-11] MEDS: BRIDION ONE (17:30)
[2025-01-11] MEDS: OFIRMEV IV 1000 MG VIAL 1,000 MG/100 ML VIAL IV ONE (17:32)
[2025-01-11] MEDS: XYLOCAINE 2 % (PLAIN) ONE (17:32)
[2025-01-11] MEDS: KETAMINE HCL ONE (17:34)
[2025-01-11] MEDS: PRECEDEX INJ VIAL ONE (17:34)
[2025-01-11] MEDS: ZEMURON 100 MG VIAL ONE ×2 (17:34→18:15)
[2025-01-11] MEDS: DIPRIVAN VIAL 20 ML ONE (17:34)
[2025-01-11] MEDS: ZOFRAN INJ 4 MG VIAL ONE (17:35)
[2025-01-11] MEDS: TORADOL 30 MG VIAL IVP PRN (17:36)
[2025-01-11] MEDS: SUPRANE IN ONE (18:13)
[2025-01-11] MEDS ORDERED: ANCEF VIAL 1 GRAM IVP SCH (22:00)
[2025-01-11] MEDS: FLAGYL IV PREMIX 500 MG BAG 500 MG/100 ML BAG IV SCH (23:33)
[2025-01-12] MEDS: D5 1/2 NS 1,000 ML 1,000 ML IV SCH ×3 (01:15→08:07)
[2025-01-12 01:22] LABS: HEMATOCRIT 25.9 % (36.0-47.0); HEMOGLOBIN 8.7 g/dL (12.0-16.0)
[2025-01-12] MEDS: NS 500 ML IV 500 ML IV ONE ×2 (01:55→16:19)
[2025-01-12] MEDS: NS 1,000 ML IV 1,000 ML IV SCH (01:57)
[2025-01-12] MEDS: NovoLIN R (or HumuLIN R) SUBCUT PRN (02:36)
[2025-01-12 04:57] LABS: BASOPHILS % (AUTO) 0.2 % (0.2-1.0); HEMATOCRIT 22.6 % (36.0-47.0); HEMOGLOBIN 7.6 g/dL (12.0-16.0); LYMPHOCYTES # (AUTO) 0.8 X10^3/uL (1.3-2.9); LYMPHOCYTES % (AUTO) 5.7 % (21.0-51.0); MEAN CORPUSCULAR HEMOGLOBIN 31.7 pg (27.0-34.0); MEAN CORPUSCULAR HGB CONC 33.6 g/dL (33.0-35.0); MEAN CORPUSCULAR VOLUME 94.3 fL (80.0-100.0); MEAN PLATELET VOLUME 8.2 fL (7.4-11.0); MONOCYTES # (AUTO) 0.9 x10^3/uL (0.3-0.8); MONOCYTES % (AUTO) 6.6 % (0.0-13.0); NEUTROPHILS # (AUTO) 12.4 x10^3/uL (2.2-4.8); NEUTROPHILS % (AUTO) 87.5 % (42.0-75.0); PLATELET COUNT 357 X10^3/uL (150.0-450.0); RED CELL DISTRIBUTION WIDTH 17.5 % (11.6-16.5); WHITE BLOOD COUNT 14.2 X10^3/uL (3.6-10.0)
[2025-01-12 05:29] LABS: ALANINE AMINOTRANSFERASE 216 Units/L (12-78); ALBUMIN 2.3 g/dL (3.4-5.0); ALKALINE PHOSPHATASE 391 Units/L (46-116); ASPARTATE AMINO TRANSFERASE 108 Units/L (15-37); BLOOD UREA NITROGEN 41 mg/dL (7-18); CALCIUM 7.9 mg/dL (8.5-10.1); CARBON DIOXIDE 25.6 mmol/L (21-32); CHLORIDE 101 mmol/L (98-107); COR CA(FOR HYPOALB) 9.3 mg/dL (8.5-10.1); COR NA(FOR HYPERGLY) 135 mmol/L (136-145); CREATININE 0.74 mg/dL (0.55-1.02); GLUCOSE 242 mg/dL (65-99); LIPASE > 250 Units/L (16-77); POTASSIUM 4.6 mmol/L (3.5-5.1); SODIUM 132 mmol/L (136-145); TOTAL PROTEIN 5.1 g/dL (6.4-8.2); eGFR NON BLACK RACES > 60 (>60)
[2025-01-12 06:29] LABS: ANISOCYTOSIS SLIGHT; PLATELET MORPHOLOGY COMMENT NORMAL (NORMAL)
--- NOTE | 2025-01-12 08:19 | DR.PROGNOT ---
HOSPITAL PROGRESS NOTE Progress Note for Day of: Progress Note Date: 01/12/25 Chief Complaint Chief Complaint: Postop partial gastrectomy day 1 for chronic intractable pyloric ulcer, chronic anemia required transfusion and gastric outlet obstruction. The findings were penetrating pyloric ulcer with dense scarring and partial obstruction. Complaining of significant incisional pain, WBC 14.2, hemoglobin 7.6, BUN 41, creatinine 0.4, blood sugar 242, bilirubin 0.3 all liver enzymes are still slightly elevated AST 108, ALT 216, alkaline phosphatase 391, lipase 350. Minimal drainage in MAILE and minimal drainage and NG tube, urine output is concentrated and IV fluid was increased last night, patient will be transfused with 1 unit of packed cells today. Same postoperative care, out of bed, same [employer], DVT prophylaxis and incentive spirometer.. Past Medical Family Social History Allergies: Allergies No Known Drug Allergies Allergy (Unknown, Verified 11/24/24 14:05) Onset Date: 09/23/2021 Review Of Systems ROS: No change since H&P Vital Signs Vital Signs: Vital Signs Temperature 97.5 F Temperature 98.1 F Pulse Rate [Right Brachial] 103 Pulse Rate [Right Brachial] 103 Pulse Rate [Right Brachial] 109 Pulse Rate [Right Brachial] 106 Pulse Rate [Right Brachial] 116 Pulse Rate [Right Brachial] 122 Pulse Rate [Right Brachial] 120 Respiratory Rate 12 Respiratory Rate 14 Respiratory Rate 19 Respiratory Rate 18 Respiratory Rate 15 Respiratory Rate 17 Respiratory Rate 19 Respiratory Rate 22 Blood Pressure [Right Arm] 173/96 Blood Pressure [Right Arm] 165/91 Blood Pressure [Right Arm] 140/90 Blood Pressure [Right Arm] 151/84 Blood Pressure [Right Arm] 156/72 Blood Pressure [Right Arm] 131/58 Blood Pressure [Right Arm] 129/57 O2 Sat by Pulse Oximetry 100 O2 Sat by Pulse Oximetry 100 O2 Sat by Pulse Oximetry 100 O2 Sat by Pulse Oximetry 100 O2 Sat by Pulse Oximetry 100 O2 Sat by Pulse Oximetry 100 O2 Sat by Pulse Oximetry 100 Physical Exam Oriented: Normal Eyes: Normal Ear: Normal Nose: Normal Throat: Normal Respiratory: Normal Cardiovascular: Normal : Normal GI:Auscultation: Absent GI:Palpation: Normal GI: Tenderness: Epigastric and Other (Diffuse incisional tenderness.) Skin: Normal Musculoskeletal: Normal Psychiatric: Normal Mood Description: Anxious Affect: Normal Speech Pattern: Clear and Appropriate Laboratory and Diagnostics 01/12/25 04:34 01/12/25 04:34 Labs: 01/04/25 20:10 Sputum - Expectorated Sputum Sputum Culture - Final 01/04/25 20:10 Sputum - Expectorated Sputum - Final Laboratory WBC 14.2 X10^3/uL (3.6-10.0) H D 01/12/25 04:34 RBC 2.40 X10^6/uL (3.5-5.4) L 01/12/25 04:34 Hgb 7.6 g/dL (12.0-16.0) L 01/12/25 04:34 Hct 22.6 % (36.0-47.0) L 01/12/25 04:34 MCV 94.3 fL (80.0-100.0) 01/12/25 04:34 MCH 31.7 pg (27.0-34.0) 01/12/25 04:34 MCHC 33.6 g/dL (33.0-35.0) 01/12/25 04:34 RDW 17.5 % (11.6-16.5) H 01/12/25 04:34 Plt Count 357 X10^3/uL (150.0-450.0) 01/12/25 04:34 Plt Count Comment Adequate (ADEQUATE) 01/12/25 04:34 MPV 8.2 fL (7.4-11.0) 01/12/25 04:34 Neut % (Auto) 87.5 % (42.0-75.0) H 01/12/25 04:34 Lymph % (Auto) 5.7 % (21.0-51.0) L 01/12/25 04:34 [place] % (Auto) 6.6 % (0.0-13.0) 01/12/25 04:34 Eos % (Auto) 0.0 % (0.9-2.9) L 01/12/25 04:34 Baso % (Auto) 0.2 % (0.2-1.0) 01/12/25 04:34 Neut # (Auto) 12.4 x10^3/uL (2.2-4.8) H 01/12/25 04:34 Lymph # (Auto) 0.8 X10^3/uL (1.3-2.9) L 01/12/25 04:34 [place] # (Auto) 0.9 x10^3/uL (0.3-0.8) H 01/12/25 04:34 Eos # (Auto) 0.0 x10^3/uL (0.0-0.2) 01/12/25 04:34 Baso # (Auto) 0.0 X10^3/uL (0.0-0.1) 01/12/25 04:34 Absolute Nucleated RBC 0.0 /100WBC 01/12/25 04:34 Plt Morphology Comment Normal (NORMAL) 01/12/25 04:34 RBC Morphology Abnormal (NORMAL) A 01/12/25 04:34 Anisocytosis Slight A 01/12/25 04:34 Target Cells Slight A 01/09/25 04:36 Tear Drop Cells 1+ A 01/09/25 04:36 Ovalocytes Slight A 01/09/25 04:36 Stomatocytes 1+ A 01/11/25 05:42 Sodium 132 mmol/L (136-145) L 01/12/25 04:34 Corrected Sodium 135 mmol/L (136-145) L 01/12/25 04:34 Potassium 4.6 mmol/L (3.5-5.1) 01/12/25 04:34 Chloride 101 mmol/L (98-107) 01/12/25 04:34 Carbon Dioxide 25.6 mmol/L (21-32) 01/12/25 04:34 BUN 41 mg/dL (7-18) H 01/12/25 04:34 Creatinine 0.74 mg/dL (0.55-1.02) 01/12/25 04:34 Est GFR (MDRD) Af Amer > 60 (>60) 01/12/25 04:34 Est GFR (MDRD) Non-Af > 60 (>60) 01/12/25 04:34 Glucose 242 mg/dL (65-99) H 01/12/25 04:34 Calcium 7.9 mg/dL (8.5-10.1) L 01/12/25 04:34 Corrected Calcium 9.3 mg/dL (8.5-10.1) 01/12/25 04:34 Phosphorus 3.1 mg/dL (2.6-4.7) 01/09/25 18:55 Magnesium 2.1 mg/dL (2.0-2.9) 01/09/25 18:55 Total Bilirubin 0.30 mg/dL (0.2-1.0) 01/12/25 04:34 AST 108 Units/L (15-37) H 01/12/25 04:34 ALT 216 Units/L (12-78) H 01/12/25 04:34 Alkaline Phosphatase 391 Units/L (46-116) H 01/12/25 04:34 Total Protein 5.1 g/dL (6.4-8.2) L 01/12/25 04:34 Albumin 2.3 g/dL (3.4-5.0) L 01/12/25 04:34 Globulin 2.8 g/dL (2.5-4.5) 01/12/25 04:34 Albumin/Globulin Ratio 0.8 Ratio (1.1-2.1) L 01/12/25 04:34 Prealbumin 48.7 mg/dL (18-35.7) H 01/07/25 05:25 Triglycerides 138 mg/dL (0-150) 01/09/25 18:55 Lipase > 250 Units/L (16-77) H 01/12/25 04:34 Specimen Type Clean catch urine 01/06/25 13:56 Urine Color Pale yellow (YELLOW) 01/06/25 13:56 Urine Appearance Clear (CLEAR) 01/06/25 13:56 Urine pH 7.0 (5.0 - 8.0) 01/06/25 13:56 Ur Specific [place] 1.010 (1.000-1.030) 01/06/25 13:56 Urine Protein Negative (NEGATIVE) 01/06/25 13:56 Urine Glucose (UA) Negative (NEGATIVE) 01/06/25 13:56 Urine Ketones Negative (NEGATIVE) 01/06/25 13:56 Urine Blood Negative (NEGATIVE) 01/06/25 13:56 Urine Nitrite Negative (NEGATIVE) 01/06/25 13:56 Urine Bilirubin Negative (NEGATIVE) 01/06/25 13:56 Urine Urobilinogen Normal (NORMAL) 01/06/25 13:56 Ur Leukocyte Esterase Negative (NEGATIVE) 01/06/25 13:56 Urine RBC 30-50 /HPF (0-3) A 01/03/25 18:51 Urine WBC 0-2 /HPF (0-5) 01/03/25 18:51 Ur Squamous Epith Cells Rare /HPF (NEGATIVE) 01/03/25 18:51 Urine Bacteria Negative /HPF (NEGATIVE) 01/03/25 18:51 Ur Culture Indicated? No/not indicated 01/03/25 18:51 Urine Opiates Screen Positive (NEG=<300) A 01/06/25 13:56 Urine Methadone Screen Negative (NEG=<300) 01/06/25 13:56 Ur Barbiturates Screen Negative (NEG=<200) 01/06/25 13:56 Ur Phencyclidine Scrn Negative (NEG=<25) 01/06/25 13:56 Ur Amphetamines Screen Negative (NEG=<1000) 01/06/25 13:56 U Benzodiazepines Scrn Negative (NEG=<200) 01/06/25 13:56 Urine Cocaine Screen Negative (NEG=<300) 01/06/25 13:56 U Marijuana (THC) Screen Positive (NEG=<50) A 01/06/25 13:56 Hepatitis A IgM Ab Non-reactive (NON-REACTIVE) 01/05/25 07:18 Hep Bs Antigen Non-reactive (NON-REACTIVE) 01/05/25 07:18 Hep B Core IgM Ab Non-reactive (NON-REACTIVE) 01/05/25 07:18 Hepatitis C Antibody Non-reactive (NON-REACTIVE) 01/05/25 07:18 Resp Viral Panel (PCR) See scanned report 01/03/25 22:51 Blood Type A POSITIVE 01/10/25 08:20 Antibody Screen Negative 01/10/25 08:20 Assessment and Plan 1: Postoperative day 1 partial gastrectomy. Penetrating pyloric ulcer, partial gastric outlet obstruction and chronic anemia required transfusion. Same postoperative care as mentioned above. On TPN. 2: Liver dysfunctions , improving slowly. 3: Scarring around the common bile duct which could explain the patient elevated liver function tests. Problem Patient Problems: Patient Problems LLL pneumonia (Acute) J18.9 Abdominal pain (Acute) R10.9 Elevated LFTs (Acute) R79.89 Constipation (Acute) K59.00 PUD (peptic ulcer disease) (Chronic) K27.9
[2025-01-12] MEDS: LOVENOX INJ 40 MG SYR SC SCH (08:32)
[2025-01-12] MEDS: DILAUDID INJ IVP PRN (11:04)
[2025-01-12] MEDS: APRESOLINE INJ 20 MG VIAL IVP PRN (11:28)
--- NOTE | 2025-01-12 11:33 | PCM.PROG ---
Progress Note Progress Note for Day of Date of Exam: 01/12/25 Subjective Subjective: Patient seen at bedside, no acute events overnight. She is s/p partial gastrectomy for non-healing peptic ulcer located in the prepyloric area and duodenum. She is admitted by general surgery-Dr Morton. She is currently n.p.o. with NG tube. She did require Narcan yesterday due to to depressed breathing. She has responded well. Her blood pressure has remained elevated. Labs/imaging reviewed: -WBC 14.2, hemoglobin 7.6, platelets 357, sodium 132, potassium 4.6, creatinine 0.74, glucose 242 -Hepatitis panel (-) Plan: Follow surgery recommendations. NPO with NG tube. Continue current treatment. Continue IV Flagyl. She is receiving IV dilaudid prn for pain, monitor closely. She will get 1 units packed red blood cells transfused today. Order IV hydralazine 10mg q4h prn for hypertension. Replace electrolytes prn. Continue TPN and hydration. Monitor AM labs/imaging. Past Medical Family Social History Allergies: Allergies No Known Drug Allergies Allergy (Unknown, Verified 11/24/24 14:05) Onset Date: 09/23/2021 Review of Systems ROS changes noted: see HPI Vital Signs and I&O's Vital Signs: Vital Signs Temperature 97.5 F Temperature 98.1 F Pulse Rate [Right Brachial] 103 Pulse Rate [Right Brachial] 103 Pulse Rate [Right Brachial] 109 Pulse Rate [Right Brachial] 106 Respiratory Rate 19 Respiratory Rate 24 Respiratory Rate 16 Respiratory Rate 15 Respiratory Rate 12 Respiratory Rate 14 Respiratory Rate 19 Respiratory Rate 18 Respiratory Rate 15 Blood Pressure [Right Arm] 173/96 Blood Pressure [Right Arm] 165/91 Blood Pressure [Right Arm] 140/90 Blood Pressure [Right Arm] 151/84 O2 Sat by Pulse Oximetry 100 O2 Sat by Pulse Oximetry 100 O2 Sat by Pulse Oximetry 100 O2 Sat by Pulse Oximetry 100 Intake and Output: Intake & Output 01/09/25 01/10/25 01/11/25 01/12/25 23:59 23:59 23:59 23:59 Intake Total 3068 / 3068 4576 / 4576 6696 / 6696 1540 / 1540 Output Total 3625 / 3775 383 / 383 Balance 3068 / 3068 4576 / 4576 3071 / 2921 1157 / 1157 Physical Exam Oriented: Normal Eyes: Normal Ear: Normal Nose: Normal Throat: Normal Respiratory: Normal Cardiovascular: Normal : Normal Auscultation: Bowel Sounds: Decreased Tenderness: Epigastric and Other (Diffuse incisional tenderness.) Skin: Normal Musculoskeletal: Normal Psychiatric: Normal Mood Description: Anxious Affect: Normal Speech Pattern: Clear and Appropriate Laboratory and Diagnostics 01/12/25 04:34 01/12/25 04:34 Labs: 01/04/25 20:10 Sputum - Expectorated Sputum Sputum Culture - Final 01/04/25 20:10 Sputum - Expectorated Sputum - Final Laboratory WBC 14.2 X10^3/uL (3.6-10.0) H D 01/12/25 04:34 RBC 2.40 X10^6/uL (3.5-5.4) L 01/12/25 04:34 Hgb 7.6 g/dL (12.0-16.0) L 01/12/25 04:34 Hct 22.6 % (36.0-47.0) L 01/12/25 04:34 MCV 94.3 fL (80.0-100.0) 01/12/25 04:34 MCH 31.7 pg (27.0-34.0) 01/12/25 04:34 MCHC 33.6 g/dL (33.0-35.0) 01/12/25 04:34 RDW 17.5 % (11.6-16.5) H 01/12/25 04:34 Plt Count 357 X10^3/uL (150.0-450.0) 01/12/25 04:34 Plt Count Comment Adequate (ADEQUATE) 01/12/25 04:34 MPV 8.2 fL (7.4-11.0) 01/12/25 04:34 Neut % (Auto) 87.5 % (42.0-75.0) H 01/12/25 04:34 Lymph % (Auto) 5.7 % (21.0-51.0) L 01/12/25 04:34 [place] % (Auto) 6.6 % (0.0-13.0) 01/12/25 04:34 Eos % (Auto) 0.0 % (0.9-2.9) L 01/12/25 04:34 Baso % (Auto) 0.2 % (0.2-1.0) 01/12/25 04:34 Neut # (Auto) 12.4 x10^3/uL (2.2-4.8) H 01/12/25 04:34 Lymph # (Auto) 0.8 X10^3/uL (1.3-2.9) L 01/12/25 04:34 [place] # (Auto) 0.9 x10^3/uL (0.3-0.8) H 01/12/25 04:34 Eos # (Auto) 0.0 x10^3/uL (0.0-0.2) 01/12/25 04:34 Baso # (Auto) 0.0 X10^3/uL (0.0-0.1) 01/12/25 04:34 Absolute Nucleated RBC 0.0 /100WBC 01/12/25 04:34 Plt Morphology Comment Normal (NORMAL) 01/12/25 04:34 RBC Morphology Abnormal (NORMAL) A 01/12/25 04:34 Anisocytosis Slight A 01/12/25 04:34 Target Cells Slight A 01/09/25 04:36 Tear Drop Cells 1+ A 01/09/25 04:36 Ovalocytes Slight A 01/09/25 04:36 Stomatocytes 1+ A 01/11/25 05:42 Sodium 132 mmol/L (136-145) L 01/12/25 04:34 Corrected Sodium 135 mmol/L (136-145) L 01/12/25 04:34 Potassium 4.6 mmol/L (3.5-5.1) 01/12/25 04:34 Chloride 101 mmol/L (98-107) 01/12/25 04:34 Carbon Dioxide 25.6 mmol/L (21-32) 01/12/25 04:34 BUN 41 mg/dL (7-18) H 01/12/25 04:34 Creatinine 0.74 mg/dL (0.55-1.02) 01/12/25 04:34 Est GFR (MDRD) Af Amer > 60 (>60) 01/12/25 04:34 Est GFR (MDRD) Non-Af > 60 (>60) 01/12/25 04:34 Glucose 242 mg/dL (65-99) H 01/12/25 04:34 Calcium 7.9 mg/dL (8.5-10.1) L 01/12/25 04:34 Corrected Calcium 9.3 mg/dL (8.5-10.1) 01/12/25 04:34 Phosphorus 3.1 mg/dL (2.6-4.7) 01/09/25 18:55 Magnesium 2.1 mg/dL (2.0-2.9) 01/09/25 18:55 Total Bilirubin 0.30 mg/dL (0.2-1.0) 01/12/25 04:34 AST 108 Units/L (15-37) H 01/12/25 04:34 ALT 216 Units/L (12-78) H 01/12/25 04:34 Alkaline Phosphatase 391 Units/L (46-116) H 01/12/25 04:34 Total Protein 5.1 g/dL (6.4-8.2) L 01/12/25 04:34 Albumin 2.3 g/dL (3.4-5.0) L 01/12/25 04:34 Globulin 2.8 g/dL (2.5-4.5) 01/12/25 04:34 Albumin/Globulin Ratio 0.8 Ratio (1.1-2.1) L 01/12/25 04:34 Prealbumin 48.7 mg/dL (18-35.7) H 01/07/25 05:25 Triglycerides 138 mg/dL (0-150) 01/09/25 18:55 Lipase > 250 Units/L (16-77) H 01/12/25 04:34 Specimen Type Clean catch urine 01/06/25 13:56 Urine Color Pale yellow (YELLOW) 01/06/25 13:56 Urine Appearance Clear (CLEAR) 01/06/25 13:56 Urine pH 7.0 (5.0 - 8.0) 01/06/25 13:56 Ur Specific [place] 1.010 (1.000-1.030) 01/06/25 13:56 Urine Protein Negative (NEGATIVE) 01/06/25 13:56 Urine Glucose (UA) Negative (NEGATIVE) 01/06/25 13:56 Urine Ketones Negative (NEGATIVE) 01/06/25 13:56 Urine Blood Negative (NEGATIVE) 01/06/25 13:56 Urine Nitrite Negative (NEGATIVE) 01/06/25 13:56 Urine Bilirubin Negative (NEGATIVE) 01/06/25 13:56 Urine Urobilinogen Normal (NORMAL) 01/06/25 13:56 Ur Leukocyte Esterase Negative (NEGATIVE) 01/06/25 13:56 Urine RBC 30-50 /HPF (0-3) A 01/03/25 18:51 Urine WBC 0-2 /HPF (0-5) 01/03/25 18:51 Ur Squamous Epith Cells Rare /HPF (NEGATIVE) 01/03/25 18:51 Urine Bacteria Negative /HPF (NEGATIVE) 01/03/25 18:51 Ur Culture Indicated? No/not indicated 01/03/25 18:51 Urine Opiates Screen Positive (NEG=<300) A 01/06/25 13:56 Urine Methadone Screen Negative (NEG=<300) 01/06/25 13:56 Ur Barbiturates Screen Negative (NEG=<200) 01/06/25 13:56 Ur Phencyclidine Scrn Negative (NEG=<25) 01/06/25 13:56 Ur Amphetamines Screen Negative (NEG=<1000) 01/06/25 13:56 U Benzodiazepines Scrn Negative (NEG=<200) 01/06/25 13:56 Urine Cocaine Screen Negative (NEG=<300) 01/06/25 13:56 U Marijuana (THC) Screen Positive (NEG=<50) A 01/06/25 13:56 Hepatitis A IgM Ab Non-reactive (NON-REACTIVE) 01/05/25 07:18 Hep Bs Antigen Non-reactive (NON-REACTIVE) 01/05/25 07:18 Hep B Core IgM Ab Non-reactive (NON-REACTIVE) 01/05/25 07:18 Hepatitis C Antibody Non-reactive (NON-REACTIVE) 01/05/25 07:18 Resp Viral Panel (PCR) See scanned report 01/03/25 22:51 Blood Type A POSITIVE 01/10/25 08:20 Antibody Screen Negative 01/10/25 08:20 Crossmatch See Detail 01/10/25 08:20 Plan (1) Abdominal pain: Status: Acute (2) Elevated LFTs: Status: Acute (3) Streptococcal pneumonia: Status: Acute (4) Hx of duodenal ulcer: Status: Chronic (5) Microcytic anemia: Status: Chronic (6) PUD (peptic ulcer disease): Status: Chronic
[2025-01-12] MEDS: LOPRESSOR INJ 5 MG AMP IVP ONE ×2 (12:06→13:49)
[2025-01-12] MEDS: LOPRESSOR INJ 5 MG AMP ONE (12:17)
[2025-01-12] MEDS: APRESOLINE INJ 20 MG VIAL IVP ONE (12:52)
[2025-01-12 19:41] LABS: HEMATOCRIT 27.3 % (36.0-47.0); HEMOGLOBIN 9.2 g/dL (12.0-16.0)
[2025-01-12 19:53] LABS: MAGNESIUM 1.5 mg/dL (2.0-2.9)
[2025-01-13 06:34] LABS: BASOPHILS # (AUTO) 0.1 X10^3/uL (0.0-0.1); BASOPHILS % (AUTO) 0.4 % (0.2-1.0); EOSINOPHILS % (AUTO) 0.3 % (0.9-2.9); HEMATOCRIT 22.9 % (36.0-47.0); HEMOGLOBIN 7.9 g/dL (12.0-16.0); LYMPHOCYTES # (AUTO) 1.3 X10^3/uL (1.3-2.9); LYMPHOCYTES % (AUTO) 9.7 % (21.0-51.0); MEAN CORPUSCULAR HEMOGLOBIN 31.6 pg (27.0-34.0); MEAN CORPUSCULAR HGB CONC 34.3 g/dL (33.0-35.0); MEAN CORPUSCULAR VOLUME 92.1 fL (80.0-100.0); MEAN PLATELET VOLUME 8.3 fL (7.4-11.0); MONOCYTES # (AUTO) 1.1 x10^3/uL (0.3-0.8); NEUTROPHILS # (AUTO) 10.9 x10^3/uL (2.2-4.8); NEUTROPHILS % (AUTO) 81.6 % (42.0-75.0); PLATELET COUNT 303 X10^3/uL (150.0-450.0); RED BLOOD COUNT 2.49 X10^6/uL (3.5-5.4); RED CELL DISTRIBUTION WIDTH 16.2 % (11.6-16.5); WHITE BLOOD COUNT 13.4 X10^3/uL (3.6-10.0)
[2025-01-13 06:37] LABS: PREALBUMIN 25.4 mg/dL (18-35.7)
[2025-01-13 06:42] LABS: ALANINE AMINOTRANSFERASE 146 Units/L (12-78); ALBUMIN 2.4 g/dL (3.4-5.0); ALKALINE PHOSPHATASE 297 Units/L (46-116); ASPARTATE AMINO TRANSFERASE 92 Units/L (15-37); BLOOD UREA NITROGEN 31 mg/dL (7-18); CALCIUM 8.6 mg/dL (8.5-10.1); CARBON DIOXIDE 26.2 mmol/L (21-32); CHLORIDE 102 mmol/L (98-107); COR CA(FOR HYPOALB) 9.9 mg/dL (8.5-10.1); CREATININE 0.34 mg/dL (0.55-1.02); GLUCOSE 110 mg/dL (65-99); POTASSIUM 3.8 mmol/L (3.5-5.1); SODIUM 136 mmol/L (136-145); TOTAL PROTEIN 5.6 g/dL (6.4-8.2); eGFR NON BLACK RACES > 60 (>60)
[2025-01-13] MEDS: DILAUDID INJ ONE (07:11)
[2025-01-13] MEDS: DILAUDID INJ IVP ONE (07:11)
[2025-01-13] MEDS: NARCAN INJ ONE (07:11)
[2025-01-13] MEDS: D5 1/2 NS 1,000 ML 1,000 ML IV ONE (07:12)
[2025-01-13] MEDS: MORPHINE SULFATE PCA 30 MG ONE (07:12)
[2025-01-13] MEDS: CONSULT PHARMACY - POTASSIUM & MAGNESIUM XX SCH (07:13)
[2025-01-13] MEDS: DRUG FILTER EXTENSION SET ONE ×3 (07:13→07:55)
[2025-01-13] MEDS: CLINIMIX 5 %/20 % 1,000 ML with MVI INJ (ADULT) 10 ML, TPN ELECTROLYTES 20 ML, POTASSIU... IV SCH (07:51)
[2025-01-13] MEDS: MAGNESIUM SULFATE 1 GRAM/100 mL PREMIX 1 G/100 ML BAG IV SCH (08:10)
[2025-01-13] MEDS: ZOFRAN INJ 4 MG VIAL IVP PRN (08:42)
[2025-01-13] MEDS: NS 500 ML IV 500 ML IV ONE (08:43)
[2025-01-13] MEDS ORDERED: K-RIDER 10 MEQ/100 ML WATER 10 MEQ/100 ML BAG IV SCH (09:00)
--- NOTE | 2025-01-13 10:35 | DR.PROGNOT ---
HOSPITAL PROGRESS NOTE Progress Note for Day of: Progress Note Date: 01/13/25 Chief Complaint Chief Complaint: Postop partial gastrectomy day 2 for chronic intractable pyloric ulcer, chronic anemia required transfusion and gastric outlet obstruction. The findings were penetrating pyloric ulcer with dense scarring and partial obstruction. Complaining of significant incisional pain, WBC 13.4, hemoglobin 7.9, BUN 31, creatinine 0.3, blood sugar 110, bilirubin 0.3 all liver enzymes are still slightly elevated , . Minimal drainage in MAILE and minimal drainage and NG tube, urine output is concentrated and IV fluid was increased last night, patient will be transfused with 1 unit of packed cells today. Same postoperative care, D/C NJT ,out of bed, same [employer], DVT prophylaxis and incentive spirometer.. only water . Past Medical Family Social History Allergies: Allergies No Known Drug Allergies Allergy (Unknown, Verified 11/24/24 14:05) Onset Date: 09/23/2021 Review Of Systems ROS: No change since H&P Changes in ROS: see HPI Vital Signs Vital Signs: Vital Signs Temperature 98.3 F Pulse Rate [Right Brachial] 104 Pulse Rate [Right Brachial] 107 Pulse Rate [Right Brachial] 94 Pulse Rate [Right Brachial] 85 Pulse Rate 100 Pulse Rate 101 Pulse Rate 98 Pulse Rate 105 Pulse Rate 98 Pulse Rate 92 Pulse Rate 94 Respiratory Rate 12 Respiratory Rate 11 Respiratory Rate 13 Respiratory Rate 13 Respiratory Rate 21 Respiratory Rate 9 Respiratory Rate 30 Respiratory Rate 13 Respiratory Rate 13 Respiratory Rate 22 Respiratory Rate 15 Respiratory Rate 15 Respiratory Rate 12 Blood Pressure [Right Arm] 139/79 Blood Pressure [Right Arm] 134/69 Blood Pressure [Right Arm] 128/65 Blood Pressure [Right Arm] 128/60 Blood Pressure 141/72 Blood Pressure 135/80 Blood Pressure 137/81 Blood Pressure 133/62 Blood Pressure 142/79 O2 Sat by Pulse Oximetry 99 O2 Sat by Pulse Oximetry 100 O2 Sat by Pulse Oximetry 100 O2 Sat by Pulse Oximetry 100 O2 Sat by Pulse Oximetry 100 O2 Sat by Pulse Oximetry 100 O2 Sat by Pulse Oximetry 100 O2 Sat by Pulse Oximetry 100 O2 Sat by Pulse Oximetry 100 O2 Sat by Pulse Oximetry 100 O2 Sat by Pulse Oximetry 100 Physical Exam Oriented: Normal Eyes: Normal Ear: Normal Nose: Normal Throat: Normal Respiratory: Normal Cardiovascular: Normal : Normal GI:Auscultation: Decreased GI:Palpation: Normal GI: Tenderness: Epigastric and Other (Diffuse incisional tenderness.) Skin: Normal Musculoskeletal: Normal Psychiatric: Normal Mood Description: Anxious Affect: Normal Speech Pattern: Clear and Appropriate Laboratory and Diagnostics 01/13/25 05:17 01/13/25 05:17 Labs: 01/04/25 20:10 Sputum - Expectorated Sputum Sputum Culture - Final 01/04/25 20:10 Sputum - Expectorated Sputum - Final Laboratory WBC 13.4 X10^3/uL (3.6-10.0) H 01/13/25 05:17 RBC 2.49 X10^6/uL (3.5-5.4) L 01/13/25 05:17 Hgb 7.9 g/dL (12.0-16.0) L 01/13/25 05:17 Hct 22.9 % (36.0-47.0) L 01/13/25 05:17 MCV 92.1 fL (80.0-100.0) 01/13/25 05:17 MCH 31.6 pg (27.0-34.0) 01/13/25 05:17 MCHC 34.3 g/dL (33.0-35.0) 01/13/25 05:17 RDW 16.2 % (11.6-16.5) 01/13/25 05:17 Plt Count 303 X10^3/uL (150.0-450.0) 01/13/25 05:17 Plt Count Comment Adequate (ADEQUATE) 01/12/25 04:34 MPV 8.3 fL (7.4-11.0) 01/13/25 05:17 Neut % (Auto) 81.6 % (42.0-75.0) H 01/13/25 05:17 Lymph % (Auto) 9.7 % (21.0-51.0) L 01/13/25 05:17 [place] % (Auto) 8.0 % (0.0-13.0) 01/13/25 05:17 Eos % (Auto) 0.3 % (0.9-2.9) L 01/13/25 05:17 Baso % (Auto) 0.4 % (0.2-1.0) 01/13/25 05:17 Neut # (Auto) 10.9 x10^3/uL (2.2-4.8) H 01/13/25 05:17 Lymph # (Auto) 1.3 X10^3/uL (1.3-2.9) 01/13/25 05:17 [place] # (Auto) 1.1 x10^3/uL (0.3-0.8) H 01/13/25 05:17 Eos # (Auto) 0.0 x10^3/uL (0.0-0.2) 01/13/25 05:17 Baso # (Auto) 0.1 X10^3/uL (0.0-0.1) 01/13/25 05:17 Absolute Nucleated RBC 0.0 /100WBC 01/13/25 05:17 Plt Morphology Comment Normal (NORMAL) 01/12/25 04:34 RBC Morphology Abnormal (NORMAL) A 01/12/25 04:34 Anisocytosis Slight A 01/12/25 04:34 Target Cells Slight A 01/09/25 04:36 Tear Drop Cells 1+ A 01/09/25 04:36 Ovalocytes Slight A 01/09/25 04:36 Stomatocytes 1+ A 01/11/25 05:42 Sodium 136 mmol/L (136-145) 01/13/25 05:17 Corrected Sodium TNP 01/13/25 05:17 Potassium 3.8 mmol/L (3.5-5.1) 01/13/25 05:17 Chloride 102 mmol/L (98-107) 01/13/25 05:17 Carbon Dioxide 26.2 mmol/L (21-32) 01/13/25 05:17 BUN 31 mg/dL (7-18) H 01/13/25 05:17 Creatinine 0.34 mg/dL (0.55-1.02) L 01/13/25 05:17 Est GFR (MDRD) Af Amer > 60 (>60) 01/13/25 05:17 Est GFR (MDRD) Non-Af > 60 (>60) 01/13/25 05:17 Glucose 110 mg/dL (65-99) H 01/13/25 05:17 Calcium 8.6 mg/dL (8.5-10.1) 01/13/25 05:17 Corrected Calcium 9.9 mg/dL (8.5-10.1) 01/13/25 05:17 Phosphorus 3.0 mg/dL (2.6-4.7) 01/12/25 19:32 Magnesium 1.7 mg/dL (2.0-2.9) L 01/13/25 05:17 Total Bilirubin 0.20 mg/dL (0.2-1.0) 01/13/25 05:17 AST 92 Units/L (15-37) H 01/13/25 05:17 ALT 146 Units/L (12-78) H 01/13/25 05:17 Alkaline Phosphatase 297 Units/L (46-116) H 01/13/25 05:17 Total Protein 5.6 g/dL (6.4-8.2) L 01/13/25 05:17 Albumin 2.4 g/dL (3.4-5.0) L 01/13/25 05:17 Globulin 3.2 g/dL (2.5-4.5) 01/13/25 05:17 Albumin/Globulin Ratio 0.8 Ratio (1.1-2.1) L 01/13/25 05:17 Prealbumin 25.4 mg/dL (18-35.7) 01/13/25 05:17 Triglycerides 95 mg/dL (0-150) 01/12/25 19:32 Lipase > 250 Units/L (16-77) H 01/12/25 04:34 Specimen Type Clean catch urine 01/06/25 13:56 Urine Color Pale yellow (YELLOW) 01/06/25 13:56 Urine Appearance Clear (CLEAR) 01/06/25 13:56 Urine pH 7.0 (5.0 - 8.0) 01/06/25 13:56 Ur Specific [place] 1.010 (1.000-1.030) 01/06/25 13:56 Urine Protein Negative (NEGATIVE) 01/06/25 13:56 Urine Glucose (UA) Negative (NEGATIVE) 01/06/25 13:56 Urine Ketones Negative (NEGATIVE) 01/06/25 13:56 Urine Blood Negative (NEGATIVE) 01/06/25 13:56 Urine Nitrite Negative (NEGATIVE) 01/06/25 13:56 Urine Bilirubin Negative (NEGATIVE) 01/06/25 13:56 Urine Urobilinogen Normal (NORMAL) 01/06/25 13:56 Ur Leukocyte Esterase Negative (NEGATIVE) 01/06/25 13:56 Urine RBC 30-50 /HPF (0-3) A 01/03/25 18:51 Urine WBC 0-2 /HPF (0-5) 01/03/25 18:51 Ur Squamous Epith Cells Rare /HPF (NEGATIVE) 01/03/25 18:51 Urine Bacteria Negative /HPF (NEGATIVE) 01/03/25 18:51 Ur Culture Indicated? No/not indicated 01/03/25 18:51 Urine Opiates Screen Positive (NEG=<300) A 01/06/25 13:56 Urine Methadone Screen Negative (NEG=<300) 01/06/25 13:56 Ur Barbiturates Screen Negative (NEG=<200) 01/06/25 13:56 Ur Phencyclidine Scrn Negative (NEG=<25) 01/06/25 13:56 Ur Amphetamines Screen Negative (NEG=<1000) 01/06/25 13:56 U Benzodiazepines Scrn Negative (NEG=<200) 01/06/25 13:56 Urine Cocaine Screen Negative (NEG=<300) 01/06/25 13:56 U Marijuana (THC) Screen Positive (NEG=<50) A 01/06/25 13:56 Hepatitis A IgM Ab Non-reactive (NON-REACTIVE) 01/05/25 07:18 Hep Bs Antigen Non-reactive (NON-REACTIVE) 01/05/25 07:18 Hep B Core IgM Ab Non-reactive (NON-REACTIVE) 01/05/25 07:18 Hepatitis C Antibody Non-reactive (NON-REACTIVE) 01/05/25 07:18 Resp Viral Panel (PCR) See scanned report 01/03/25 22:51 Blood Type A POSITIVE 01/10/25 08:20 Antibody Screen Negative 01/10/25 08:20 Crossmatch See Detail 01/10/25 08:20 Assessment and Plan 1: Postoperative day 2 partial gastrectomy. Penetrating pyloric ulcer, partial gastric outlet obstruction and chronic anemia required transfusion. Same postoperative care as mentioned above. On TPN. D/C NJT , may have water today .. 2: Liver dysfunctions , improving slowly. 3: Scarring around the common bile duct which could explain the patient elevated liver function tests. Problem Patient Problems: Patient Problems (Updated 01/09/25 @ 10:37 by Shelby Palacios MD) LLL pneumonia (Acute) J18.9 Abdominal pain (Acute) R10.9 Elevated LFTs (Acute) R79.89 Constipation (Acute) K59.00 PUD (peptic ulcer disease) (Chronic) K27.9
[2025-01-13 12:54] LABS: HEMATOCRIT 27.9 % (36.0-47.0); HEMOGLOBIN 9.7 g/dL (12.0-16.0)
[2025-01-13] MEDS: D5 1/2 NS 1,000 ML 1,000 ML IV SCH (20:02)
[2025-01-14 05:54] LABS: BASOPHILS % (AUTO) 0.3 % (0.2-1.0); EOSINOPHILS % (AUTO) 0.4 % (0.9-2.9); HEMATOCRIT 27.2 % (36.0-47.0); HEMOGLOBIN 9.5 g/dL (12.0-16.0); LYMPHOCYTES # (AUTO) 0.6 X10^3/uL (1.3-2.9); LYMPHOCYTES % (AUTO) 5.6 % (21.0-51.0); MEAN CORPUSCULAR HEMOGLOBIN 32.2 pg (27.0-34.0); MEAN CORPUSCULAR HGB CONC 35.1 g/dL (33.0-35.0); MEAN CORPUSCULAR VOLUME 91.8 fL (80.0-100.0); MEAN PLATELET VOLUME 7.8 fL (7.4-11.0); MONOCYTES # (AUTO) 0.7 x10^3/uL (0.3-0.8); NEUTROPHILS # (AUTO) 9.9 x10^3/uL (2.2-4.8); NEUTROPHILS % (AUTO) 87.7 % (42.0-75.0); PLATELET COUNT 312 X10^3/uL (150.0-450.0); RED BLOOD COUNT 2.96 X10^6/uL (3.5-5.4); RED CELL DISTRIBUTION WIDTH 15.6 % (11.6-16.5); WHITE BLOOD COUNT 11.3 X10^3/uL (3.6-10.0)
[2025-01-14 06:09] LABS: ALANINE AMINOTRANSFERASE 118 Units/L (12-78); ALBUMIN 2.4 g/dL (3.4-5.0); ALKALINE PHOSPHATASE 256 Units/L (46-116); ASPARTATE AMINO TRANSFERASE 66 Units/L (15-37); BLOOD UREA NITROGEN 11 mg/dL (7-18); CALCIUM 8.6 mg/dL (8.5-10.1); CARBON DIOXIDE 27.1 mmol/L (21-32); CHLORIDE 101 mmol/L (98-107); COR CA(FOR HYPOALB) 9.9 mg/dL (8.5-10.1); COR NA(FOR HYPERGLY) 137 mmol/L (136-145); CREATININE 0.29 mg/dL (0.55-1.02); GLUCOSE 139 mg/dL (65-99); POTASSIUM 3.3 mmol/L (3.5-5.1); SODIUM 136 mmol/L (136-145); TOTAL PROTEIN 5.8 g/dL (6.4-8.2); eGFR NON BLACK RACES > 60 (>60)
[2025-01-14] MEDS ORDERED: CONSULT PHARMACY - POTASSIUM & MAGNESIUM XX SCH (08:00)
[2025-01-14] MEDS ORDERED: MAGNESIUM SULFATE 1 GRAM/100 mL PREMIX 1 G/100 ML BAG IV SCH (09:00)
[2025-01-14] MEDS ORDERED: K-RIDER 10 MEQ/100 ML WATER 10 MEQ/100 ML BAG IV SCH (09:00)
[2025-01-14] MEDS: CLINIMIX 5 %/20 % 1,000 ML with MVI INJ (ADULT) 10 ML, TPN ELECTROLYTES 20 ML, POTASSIU... IV SCH (09:49)
--- NOTE | 2025-01-14 10:10 | PCM.PROG ---
Progress Note Progress Note for Day of Date of Exam: 01/13/25 Subjective Subjective: Patient is a 39 year old female s/p partial gastrectomy for non- healing peptic ulcer located in the prepyloric area and duodenum. She is admitted by general surgery-Dr Morton. She is currently n.p.o. with NG tube. She is resting in bed this morning, no acute events overnight. Labs/imaging reviewed: -WBC 13.4, hemoglobin 7.9, platelets 303, sodium 136, potassium 3.8, creatinine 0.34, glucose 110 -Hepatitis panel (-) Plan: Follow surgery recommendations. Plan to remove NG tube and have on water only intake. Continue current treatment. Continue IV Flagyl. She is receiving IV dilaudid prn for pain, monitor closely. She will get 1 units packed red blood cells transfused today. IV hydralazine 10mg q4h prn for hypertension. Replace electrolytes prn. Continue TPN and hydration. Monitor AM labs/imaging. Past Medical Family Social History Allergies: Allergies No Known Drug Allergies Allergy (Unknown, Verified 11/24/24 14:05) Onset Date: 09/23/2021 Review of Systems ROS changes noted: see HPI Vital Signs and I&O's Vital Signs: Vital Signs Temperature 98.8 F Pulse Rate [Right Brachial] 95 Respiratory Rate 20 Respiratory Rate 20 Blood Pressure [Right Arm] 173/89 O2 Sat by Pulse Oximetry 99 Intake and Output: Intake & Output 01/11/25 01/12/25 01/13/25 01/14/25 23:59 23:59 23:59 23:59 Intake Total 6696 / 6696 4377 / 4377 4226 / 4226 1752 / 1752 Output Total 3625 / 3775 1623 / 1623 2235 / 2235 3150 / 3150 Balance 3071 / 2921 2754 / 2754 1990 / 1990 -1398 / -1398 Physical Exam Oriented: Normal Eyes: Normal Ear: Normal Nose: Normal Throat: Normal Respiratory: Normal Cardiovascular: Normal : Normal Auscultation: Bowel Sounds: Decreased Tenderness: Epigastric and Other (Diffuse incisional tenderness.) Skin: Normal Musculoskeletal: Normal Psychiatric: Normal Mood Description: Anxious Affect: Normal Speech Pattern: Clear and Appropriate Laboratory and Diagnostics 01/14/25 05:14 01/14/25 05:14 Labs: 01/04/25 20:10 Sputum - Expectorated Sputum Sputum Culture - Final 01/04/25 20:10 Sputum - Expectorated Sputum - Final Laboratory WBC 11.3 X10^3/uL (3.6-10.0) H 01/14/25 05:14 RBC 2.96 X10^6/uL (3.5-5.4) L 01/14/25 05:14 Hgb 9.5 g/dL (12.0-16.0) L 01/14/25 05:14 Hct 27.2 % (36.0-47.0) L 01/14/25 05:14 MCV 91.8 fL (80.0-100.0) 01/14/25 05:14 MCH 32.2 pg (27.0-34.0) 01/14/25 05:14 MCHC 35.1 g/dL (33.0-35.0) H 01/14/25 05:14 RDW 15.6 % (11.6-16.5) 01/14/25 05:14 Plt Count 312 X10^3/uL (150.0-450.0) 01/14/25 05:14 Plt Count Comment Adequate (ADEQUATE) 01/12/25 04:34 MPV 7.8 fL (7.4-11.0) 01/14/25 05:14 Neut % (Auto) 87.7 % (42.0-75.0) H 01/14/25 05:14 Lymph % (Auto) 5.6 % (21.0-51.0) L 01/14/25 05:14 [place] % (Auto) 6.0 % (0.0-13.0) 01/14/25 05:14 Eos % (Auto) 0.4 % (0.9-2.9) L 01/14/25 05:14 Baso % (Auto) 0.3 % (0.2-1.0) 01/14/25 05:14 Neut # (Auto) 9.9 x10^3/uL (2.2-4.8) H 01/14/25 05:14 Lymph # (Auto) 0.6 X10^3/uL (1.3-2.9) L 01/14/25 05:14 [place] # (Auto) 0.7 x10^3/uL (0.3-0.8) 01/14/25 05:14 Eos # (Auto) 0.0 x10^3/uL (0.0-0.2) 01/14/25 05:14 Baso # (Auto) 0.0 X10^3/uL (0.0-0.1) 01/14/25 05:14 Absolute Nucleated RBC 0.0 /100WBC 01/14/25 05:14 Plt Morphology Comment Normal (NORMAL) 01/12/25 04:34 RBC Morphology Abnormal (NORMAL) A 01/12/25 04:34 Anisocytosis Slight A 01/12/25 04:34 Target Cells Slight A 01/09/25 04:36 Tear Drop Cells 1+ A 01/09/25 04:36 Ovalocytes Slight A 01/09/25 04:36 Stomatocytes 1+ A 01/11/25 05:42 Sodium 136 mmol/L (136-145) 01/14/25 05:14 Corrected Sodium 137 mmol/L (136-145) 01/14/25 05:14 Potassium 3.3 mmol/L (3.5-5.1) L 01/14/25 05:14 Chloride 101 mmol/L (98-107) 01/14/25 05:14 Carbon Dioxide 27.1 mmol/L (21-32) 01/14/25 05:14 BUN 11 mg/dL (7-18) 01/14/25 05:14 Creatinine 0.29 mg/dL (0.55-1.02) L 01/14/25 05:14 Est GFR (MDRD) Af Amer > 60 (>60) 01/14/25 05:14 Est GFR (MDRD) Non-Af > 60 (>60) 01/14/25 05:14 Glucose 139 mg/dL (65-99) H 01/14/25 05:14 Calcium 8.6 mg/dL (8.5-10.1) 01/14/25 05:14 Corrected Calcium 9.9 mg/dL (8.5-10.1) 01/14/25 05:14 Phosphorus 3.0 mg/dL (2.6-4.7) 01/12/25 19:32 Magnesium 1.6 mg/dL (2.0-2.9) L 01/14/25 05:14 Total Bilirubin 0.30 mg/dL (0.2-1.0) 01/14/25 05:14 AST 66 Units/L (15-37) H 01/14/25 05:14 ALT 118 Units/L (12-78) H 01/14/25 05:14 Alkaline Phosphatase 256 Units/L (46-116) H 01/14/25 05:14 Total Protein 5.8 g/dL (6.4-8.2) L 01/14/25 05:14 Albumin 2.4 g/dL (3.4-5.0) L 01/14/25 05:14 Globulin 3.4 g/dL (2.5-4.5) 01/14/25 05:14 Albumin/Globulin Ratio 0.7 Ratio (1.1-2.1) L 01/14/25 05:14 Prealbumin 25.4 mg/dL (18-35.7) 01/13/25 05:17 Triglycerides 95 mg/dL (0-150) 01/12/25 19:32 Lipase > 250 Units/L (16-77) H 01/12/25 04:34 Specimen Type Clean catch urine 01/06/25 13:56 Urine Color Pale yellow (YELLOW) 01/06/25 13:56 Urine Appearance Clear (CLEAR) 01/06/25 13:56 Urine pH 7.0 (5.0 - 8.0) 01/06/25 13:56 Ur Specific [place] 1.010 (1.000-1.030) 01/06/25 13:56 Urine Protein Negative (NEGATIVE) 01/06/25 13:56 Urine Glucose (UA) Negative (NEGATIVE) 01/06/25 13:56 Urine Ketones Negative (NEGATIVE) 01/06/25 13:56 Urine Blood Negative (NEGATIVE) 01/06/25 13:56 Urine Nitrite Negative (NEGATIVE) 01/06/25 13:56 Urine Bilirubin Negative (NEGATIVE) 01/06/25 13:56 Urine Urobilinogen Normal (NORMAL) 01/06/25 13:56 Ur Leukocyte Esterase Negative (NEGATIVE) 01/06/25 13:56 Urine RBC 30-50 /HPF (0-3) A 01/03/25 18:51 Urine WBC 0-2 /HPF (0-5) 01/03/25 18:51 Ur Squamous Epith Cells Rare /HPF (NEGATIVE) 01/03/25 18:51 Urine Bacteria Negative /HPF (NEGATIVE) 01/03/25 18:51 Ur Culture Indicated? No/not indicated 01/03/25 18:51 Urine Opiates Screen Positive (NEG=<300) A 01/06/25 13:56 Urine Methadone Screen Negative (NEG=<300) 01/06/25 13:56 Ur Barbiturates Screen Negative (NEG=<200) 01/06/25 13:56 Ur Phencyclidine Scrn Negative (NEG=<25) 01/06/25 13:56 Ur Amphetamines Screen Negative (NEG=<1000) 01/06/25 13:56 U Benzodiazepines Scrn Negative (NEG=<200) 01/06/25 13:56 Urine Cocaine Screen Negative (NEG=<300) 01/06/25 13:56 U Marijuana (THC) Screen Positive (NEG=<50) A 01/06/25 13:56 Hepatitis A IgM Ab Non-reactive (NON-REACTIVE) 01/05/25 07:18 Hep Bs Antigen Non-reactive (NON-REACTIVE) 01/05/25 07:18 Hep B Core IgM Ab Non-reactive (NON-REACTIVE) 01/05/25 07:18 Hepatitis C Antibody Non-reactive (NON-REACTIVE) 01/05/25 07:18 Resp Viral Panel (PCR) See scanned report 01/03/25 22:51 Blood Type A POSITIVE 01/10/25 08:20 Antibody Screen Negative 01/10/25 08:20 Crossmatch See Detail 01/10/25 08:20 Plan (1) Abdominal pain: Status: Acute (2) Elevated LFTs: Status: Acute (3) Streptococcal pneumonia: Status: Acute (4) Hx of duodenal ulcer: Status: Chronic (5) Microcytic anemia: Status: Chronic (6) PUD (peptic ulcer disease): Status: Chronic
[2025-01-15 06:08] LABS: BASOPHILS % (AUTO) 0.4 % (0.2-1.0); EOSINOPHILS # (AUTO) 0.1 x10^3/uL (0.0-0.2); EOSINOPHILS % (AUTO) 0.8 % (0.9-2.9); HEMOGLOBIN 9.9 g/dL (12.0-16.0); LYMPHOCYTES % (AUTO) 11.2 % (21.0-51.0); MEAN CORPUSCULAR HEMOGLOBIN 32.3 pg (27.0-34.0); MEAN CORPUSCULAR HGB CONC 35.2 g/dL (33.0-35.0); MEAN CORPUSCULAR VOLUME 91.7 fL (80.0-100.0); MEAN PLATELET VOLUME 7.4 fL (7.4-11.0); MONOCYTES # (AUTO) 0.7 x10^3/uL (0.3-0.8); MONOCYTES % (AUTO) 7.7 % (0.0-13.0); NEUTROPHILS # (AUTO) 6.8 x10^3/uL (2.2-4.8); NEUTROPHILS % (AUTO) 79.9 % (42.0-75.0); PLATELET COUNT 389 X10^3/uL (150.0-450.0); RED BLOOD COUNT 3.05 X10^6/uL (3.5-5.4); RED CELL DISTRIBUTION WIDTH 15.3 % (11.6-16.5); WHITE BLOOD COUNT 8.5 X10^3/uL (3.6-10.0)
[2025-01-15 06:22] LABS: ALANINE AMINOTRANSFERASE 93 Units/L (12-78); ALBUMIN 2.3 g/dL (3.4-5.0); ALKALINE PHOSPHATASE 235 Units/L (46-116); ASPARTATE AMINO TRANSFERASE 41 Units/L (15-37); BLOOD UREA NITROGEN 12 mg/dL (7-18); CALCIUM 8.6 mg/dL (8.5-10.1); CARBON DIOXIDE 29.4 mmol/L (21-32); CHLORIDE 101 mmol/L (98-107); COR NA(FOR HYPERGLY) 138 mmol/L (136-145); CREATININE 0.26 mg/dL (0.55-1.02); GLUCOSE 134 mg/dL (65-99); POTASSIUM 3.1 mmol/L (3.5-5.1); SODIUM 137 mmol/L (136-145); eGFR NON BLACK RACES > 60 (>60)
[2025-01-15] MEDS: DRUG FILTER EXTENSION SET ONE (06:58)
[2025-01-15] MEDS: CLINIMIX 5 %/20 % 1,000 ML with MVI INJ (ADULT) 10 ML, TPN ELECTROLYTES 20 ML, POTASSIU... IV SCH (09:53)
[2025-01-15] MEDS: PHENERGAN INJ 25 MG IM PRN (21:20)
[2025-01-16] MEDS: PHENERGAN INJ 25 MG IM ONE (01:29)
[2025-01-16] MEDS ORDERED: DRUG FILTER EXTENSION SET ONE (04:05)
[2025-01-16 05:41] LABS: BASOPHILS # (AUTO) 0.1 X10^3/uL (0.0-0.1); BASOPHILS % (AUTO) 0.6 % (0.2-1.0); EOSINOPHILS # (AUTO) 0.1 x10^3/uL (0.0-0.2); EOSINOPHILS % (AUTO) 1.3 % (0.9-2.9); HEMATOCRIT 28.7 % (36.0-47.0); LYMPHOCYTES # (AUTO) 0.8 X10^3/uL (1.3-2.9); LYMPHOCYTES % (AUTO) 9.8 % (21.0-51.0); MEAN CORPUSCULAR HEMOGLOBIN 32.1 pg (27.0-34.0); MEAN CORPUSCULAR HGB CONC 34.7 g/dL (33.0-35.0); MEAN CORPUSCULAR VOLUME 92.5 fL (80.0-100.0); MEAN PLATELET VOLUME 7.1 fL (7.4-11.0); MONOCYTES # (AUTO) 0.7 x10^3/uL (0.3-0.8); MONOCYTES % (AUTO) 8.5 % (0.0-13.0); NEUTROPHILS # (AUTO) 6.8 x10^3/uL (2.2-4.8); NEUTROPHILS % (AUTO) 79.8 % (42.0-75.0); PLATELET COUNT 416 X10^3/uL (150.0-450.0); RED BLOOD COUNT 3.11 X10^6/uL (3.5-5.4); RED CELL DISTRIBUTION WIDTH 15.1 % (11.6-16.5); WHITE BLOOD COUNT 8.5 X10^3/uL (3.6-10.0)
[2025-01-16 05:44] LABS: BLOOD UREA NITROGEN 19 mg/dL (7-18); CALCIUM 8.1 mg/dL (8.5-10.1); CARBON DIOXIDE 28.1 mmol/L (21-32); CHLORIDE 103 mmol/L (98-107); COR NA(FOR HYPERGLY) 140 mmol/L (136-145); CREATININE 0.46 mg/dL (0.55-1.02); GLUCOSE 123 mg/dL (65-99); POTASSIUM 3.4 mmol/L (3.5-5.1); SODIUM 139 mmol/L (136-145); eGFR NON BLACK RACES > 60 (>60)
[2025-01-16 06:03] LABS: MAGNESIUM 1.9 mg/dL (2.0-2.9)
[2025-01-16 06:59] LABS: ALANINE AMINOTRANSFERASE 85 Units/L (12-78); ALBUMIN 2.2 g/dL (3.4-5.0); ALKALINE PHOSPHATASE 245 Units/L (46-116); ASPARTATE AMINO TRANSFERASE 42 Units/L (15-37); COR CA(FOR HYPOALB) 9.5 mg/dL (8.5-10.1); TOTAL PROTEIN 5.9 g/dL (6.4-8.2)
[2025-01-16] MEDS ORDERED: CONSULT PHARMACY - POTASSIUM & MAGNESIUM XX SCH (07:00)
[2025-01-16] MEDS ORDERED: MAGNESIUM SULFATE 1 GRAM/100 mL PREMIX 1 G/100 ML BAG IV SCH (09:00)
[2025-01-16] MEDS ORDERED: K-RIDER 10 MEQ/100 ML WATER 10 MEQ/100 ML BAG IV SCH (09:00)
--- NOTE | 2025-01-16 09:48 | PCM.PROG ---
Progress Note Progress Note for Day of Date of Exam: 01/16/25 Subjective Subjective: Patient seen at bedside, overnight she has had worsening nausea and vomiting. She states she got up later in the day yesterday and started having severe pain in the abdomen. She was on clears but due to worsening symptoms, switched to NPO. She is POD # 5 ex-lap, lysis of adhesions and hemigastrectomy. She did get some phenergan which helped. She remains on fluids and TPN. Labs/imaging reviewed: -WBC 8.5, hemoglobin 10.0, platelets 416 K 3.4 BUN/Cr 19/0.46 AST/ALT 42/85 AP 245 -Hepatitis panel (-) Plan: Continue NPO status for now. Continue pain control, phenergan prn. Continue protonix and fluids. Continue antibiotics. Monitor H&H. Diet as per surgery. Replace electrolytes prn. Continue TPN and hydration. Monitor BP, hydralazine prn. Monitor AM labs/imaging. Past Medical Family Social History Allergies: Allergies No Known Drug Allergies Allergy (Unknown, Verified 11/24/24 14:05) Onset Date: 09/23/2021 Review of Systems ROS: No change since H&P Vital Signs and I&O's Vital Signs: Vital Signs Temperature 97.9 F Temperature 98 F Pulse Rate [Right Brachial] 91 Pulse Rate [Right Brachial] 75 Respiratory Rate 17 Respiratory Rate 18 Respiratory Rate 19 Blood Pressure [Right Arm] 174/96 Blood Pressure [Right Arm] 168/97 O2 Sat by Pulse Oximetry 97 O2 Sat by Pulse Oximetry 97 Intake and Output: Intake & Output 01/13/25 01/14/25 01/15/25 01/16/25 23:59 23:59 23:59 23:59 Intake Total 4226 / 4226 4082 / 4082 2200 / 2200 1926 / 1926 Output Total 2235 / 2235 4550 / 4550 3165 / 3165 258 / 258 Balance 1990 / 1990 -468 / -468 -965 / -965 1668 / 1668 Physical Exam Oriented: Normal Eyes: Normal Ear: Normal Nose: Normal Throat: Normal Respiratory: Normal Cardiovascular: Normal Auscultation: Bowel Sounds: Decreased Tenderness: Epigastric and Other (Diffuse incisional tenderness.) Skin: Normal Musculoskeletal: Normal Psychiatric: Normal Mood Description: Anxious Affect: Normal Speech Pattern: Clear and Appropriate Laboratory and Diagnostics 01/16/25 05:27 01/16/25 05:27 Labs: 01/04/25 20:10 Sputum - Expectorated Sputum Sputum Culture - Final 01/04/25 20:10 Sputum - Expectorated Sputum - Final Laboratory WBC 8.5 X10^3/uL (3.6-10.0) 01/16/25 05:27 RBC 3.11 X10^6/uL (3.5-5.4) L 01/16/25 05:27 Hgb 10.0 g/dL (12.0-16.0) L 01/16/25 05:27 Hct 28.7 % (36.0-47.0) L 01/16/25 05:27 MCV 92.5 fL (80.0-100.0) 01/16/25 05:27 MCH 32.1 pg (27.0-34.0) 01/16/25 05:27 MCHC 34.7 g/dL (33.0-35.0) 01/16/25 05:27 RDW 15.1 % (11.6-16.5) 01/16/25 05:27 Plt Count 416 X10^3/uL (150.0-450.0) 01/16/25 05:27 Plt Count Comment Adequate (ADEQUATE) 01/12/25 04:34 MPV 7.1 fL (7.4-11.0) L 01/16/25 05:27 Neut % (Auto) 79.8 % (42.0-75.0) H 01/16/25 05:27 Lymph % (Auto) 9.8 % (21.0-51.0) L 01/16/25 05:27 [place] % (Auto) 8.5 % (0.0-13.0) 01/16/25 05:27 Eos % (Auto) 1.3 % (0.9-2.9) 01/16/25 05:27 Baso % (Auto) 0.6 % (0.2-1.0) 01/16/25 05:27 Neut # (Auto) 6.8 x10^3/uL (2.2-4.8) H 01/16/25 05:27 Lymph # (Auto) 0.8 X10^3/uL (1.3-2.9) L 01/16/25 05:27 [place] # (Auto) 0.7 x10^3/uL (0.3-0.8) 01/16/25 05:27 Eos # (Auto) 0.1 x10^3/uL (0.0-0.2) 01/16/25 05:27 Baso # (Auto) 0.1 X10^3/uL (0.0-0.1) 01/16/25 05:27 Absolute Nucleated RBC 0.0 /100WBC 01/16/25 05:27 Plt Morphology Comment Normal (NORMAL) 01/12/25 04:34 RBC Morphology Abnormal (NORMAL) A 01/12/25 04:34 Anisocytosis Slight A 01/12/25 04:34 Target Cells Slight A 01/09/25 04:36 Tear Drop Cells 1+ A 01/09/25 04:36 Ovalocytes Slight A 01/09/25 04:36 Stomatocytes 1+ A 01/11/25 05:42 Sodium 139 mmol/L (136-145) 01/16/25 05:27 Corrected Sodium 140 mmol/L (136-145) 01/16/25 05:27 Potassium 3.4 mmol/L (3.5-5.1) L 01/16/25 05:27 Chloride 103 mmol/L (98-107) 01/16/25 05:27 Carbon Dioxide 28.1 mmol/L (21-32) 01/16/25 05:27 BUN 19 mg/dL (7-18) H 01/16/25 05:27 Creatinine 0.46 mg/dL (0.55-1.02) L 01/16/25 05:27 Est GFR (MDRD) Af Amer > 60 (>60) 01/16/25 05:27 Est GFR (MDRD) Non-Af > 60 (>60) 01/16/25 05:27 Glucose 123 mg/dL (65-99) H 01/16/25 05:27 Calcium 8.1 mg/dL (8.5-10.1) L 01/16/25 05:27 Corrected Calcium 9.5 mg/dL (8.5-10.1) 01/16/25 05:27 Phosphorus 3.0 mg/dL (2.6-4.7) 01/12/25 19:32 Magnesium 1.9 mg/dL (2.0-2.9) L 01/16/25 05:27 Total Bilirubin 0.60 mg/dL (0.2-1.0) 01/16/25 05:27 AST 42 Units/L (15-37) H 01/16/25 05:27 ALT 85 Units/L (12-78) H 01/16/25 05:27 Alkaline Phosphatase 245 Units/L (46-116) H 01/16/25 05:27 Total Protein 5.9 g/dL (6.4-8.2) L 01/16/25 05:27 Albumin 2.2 g/dL (3.4-5.0) L 01/16/25 05:27 Globulin 3.7 g/dL (2.5-4.5) 01/16/25 05:27 Albumin/Globulin Ratio 0.6 Ratio (1.1-2.1) L 01/16/25 05:27 Prealbumin 25.4 mg/dL (18-35.7) 01/13/25 05:17 Triglycerides 95 mg/dL (0-150) 01/12/25 19:32 Lipase > 250 Units/L (16-77) H 01/12/25 04:34 Specimen Type Clean catch urine 01/06/25 13:56 Urine Color Pale yellow (YELLOW) 01/06/25 13:56 Urine Appearance Clear (CLEAR) 01/06/25 13:56 Urine pH 7.0 (5.0 - 8.0) 01/06/25 13:56 Ur Specific [place] 1.010 (1.000-1.030) 01/06/25 13:56 Urine Protein Negative (NEGATIVE) 01/06/25 13:56 Urine Glucose (UA) Negative (NEGATIVE) 01/06/25 13:56 Urine Ketones Negative (NEGATIVE) 01/06/25 13:56 Urine Blood Negative (NEGATIVE) 01/06/25 13:56 Urine Nitrite Negative (NEGATIVE) 01/06/25 13:56 Urine Bilirubin Negative (NEGATIVE) 01/06/25 13:56 Urine Urobilinogen Normal (NORMAL) 01/06/25 13:56 Ur Leukocyte Esterase Negative (NEGATIVE) 01/06/25 13:56 Urine RBC 30-50 /HPF (0-3) A 01/03/25 18:51 Urine WBC 0-2 /HPF (0-5) 01/03/25 18:51 Ur Squamous Epith Cells Rare /HPF (NEGATIVE) 01/03/25 18:51 Urine Bacteria Negative /HPF (NEGATIVE) 01/03/25 18:51 Ur Culture Indicated? No/not indicated 01/03/25 18:51 Urine Opiates Screen Positive (NEG=<300) A 01/06/25 13:56 Urine Methadone Screen Negative (NEG=<300) 01/06/25 13:56 Ur Barbiturates Screen Negative (NEG=<200) 01/06/25 13:56 Ur Phencyclidine Scrn Negative (NEG=<25) 01/06/25 13:56 Ur Amphetamines Screen Negative (NEG=<1000) 01/06/25 13:56 U Benzodiazepines Scrn Negative (NEG=<200) 01/06/25 13:56 Urine Cocaine Screen Negative (NEG=<300) 01/06/25 13:56 U Marijuana (THC) Screen Positive (NEG=<50) A 01/06/25 13:56 Hepatitis A IgM Ab Non-reactive (NON-REACTIVE) 01/05/25 07:18 Hep Bs Antigen Non-reactive (NON-REACTIVE) 01/05/25 07:18 Hep B Core IgM Ab Non-reactive (NON-REACTIVE) 01/05/25 07:18 Hepatitis C Antibody Non-reactive (NON-REACTIVE) 01/05/25 07:18 Resp Viral Panel (PCR) See scanned report 01/03/25 22:51 Blood Type A POSITIVE 01/10/25 08:20 Antibody Screen Negative 01/10/25 08:20 Crossmatch See Detail 01/10/25 08:20 Plan (1) Post-op pain: Status: Acute (2) Elevated LFTs: Status: Acute (3) S/P partial gastrectomy: Status: Acute (4) Hypokalemia: Status: Acute (5) Streptococcal pneumonia: Status: Acute (6) Hx of duodenal ulcer: Status: Chronic (7) Microcytic anemia: Status: Chronic (8) PUD (peptic ulcer disease): Status: Chronic
[2025-01-16] MEDS: DUONEB 0.5 MG/3 MG (3 mL) NEB SCH (13:38)
--- NOTE | 2025-01-16 15:38 | DR.PROGNOT ---
HOSPITAL PROGRESS NOTE Progress Note for Day of: Progress Note Date: 01/16/25 Chief Complaint Chief Complaint: was nauseated vomited bile yesterday . still c/o nausea and vomiting today .. no BM yet . minimal drainage in MAILE WBC 8.5 .Hgb 10 .. K3.4 Alk Ph 245 . Bilir normal .. afebrile Soft abdomen . BS+ Past Medical Family Social History Past Med/Fam/Surg Hx: No changes since H&P Allergies: Allergies No Known Drug Allergies Allergy (Unknown, Verified 11/24/24 14:05) Onset Date: 09/23/2021 Review Of Systems ROS: No change since H&P Changes in ROS: see HPI Vital Signs Vital Signs: Vital Signs Temperature 97.5 F Temperature 97.9 F Pulse Rate [Right Brachial] 82 Pulse Rate [Right Brachial] 91 Respiratory Rate 20 Respiratory Rate 17 Respiratory Rate 17 Respiratory Rate 17 Blood Pressure [Right Arm] 173/99 Blood Pressure [Right Arm] 174/96 O2 Sat by Pulse Oximetry 97 O2 Sat by Pulse Oximetry 97 Physical Exam Oriented: Normal Eyes: Normal Ear: Normal Nose: Normal Throat: Normal Respiratory: Normal Cardiovascular: Normal : Normal GI:Auscultation: Decreased GI:Palpation: Normal GI: Tenderness: Epigastric and Other (Diffuse incisional tenderness.) Skin: Normal Musculoskeletal: Normal Psychiatric: Normal Mood Description: Anxious Affect: Normal Speech Pattern: Clear and Appropriate Laboratory and Diagnostics 01/16/25 05:27 01/16/25 05:27 Labs: 01/04/25 20:10 Sputum - Expectorated Sputum Sputum Culture - Final 01/04/25 20:10 Sputum - Expectorated Sputum - Final Laboratory WBC 8.5 X10^3/uL (3.6-10.0) 01/16/25 05:27 RBC 3.11 X10^6/uL (3.5-5.4) L 01/16/25 05:27 Hgb 10.0 g/dL (12.0-16.0) L 01/16/25 05:27 Hct 28.7 % (36.0-47.0) L 01/16/25 05:27 MCV 92.5 fL (80.0-100.0) 01/16/25 05:27 MCH 32.1 pg (27.0-34.0) 01/16/25 05:27 MCHC 34.7 g/dL (33.0-35.0) 01/16/25 05:27 RDW 15.1 % (11.6-16.5) 01/16/25 05:27 Plt Count 416 X10^3/uL (150.0-450.0) 01/16/25 05:27 Plt Count Comment Adequate (ADEQUATE) 01/12/25 04:34 MPV 7.1 fL (7.4-11.0) L 01/16/25 05:27 Neut % (Auto) 79.8 % (42.0-75.0) H 01/16/25 05:27 Lymph % (Auto) 9.8 % (21.0-51.0) L 01/16/25 05:27 [place] % (Auto) 8.5 % (0.0-13.0) 01/16/25 05:27 Eos % (Auto) 1.3 % (0.9-2.9) 01/16/25 05:27 Baso % (Auto) 0.6 % (0.2-1.0) 01/16/25 05:27 Neut # (Auto) 6.8 x10^3/uL (2.2-4.8) H 01/16/25 05:27 Lymph # (Auto) 0.8 X10^3/uL (1.3-2.9) L 01/16/25 05:27 [place] # (Auto) 0.7 x10^3/uL (0.3-0.8) 01/16/25 05:27 Eos # (Auto) 0.1 x10^3/uL (0.0-0.2) 01/16/25 05:27 Baso # (Auto) 0.1 X10^3/uL (0.0-0.1) 01/16/25 05:27 Absolute Nucleated RBC 0.0 /100WBC 01/16/25 05:27 Plt Morphology Comment Normal (NORMAL) 01/12/25 04:34 RBC Morphology Abnormal (NORMAL) A 01/12/25 04:34 Anisocytosis Slight A 01/12/25 04:34 Target Cells Slight A 01/09/25 04:36 Tear Drop Cells 1+ A 01/09/25 04:36 Ovalocytes Slight A 01/09/25 04:36 Stomatocytes 1+ A 01/11/25 05:42 Sodium 139 mmol/L (136-145) 01/16/25 05:27 Corrected Sodium 140 mmol/L (136-145) 01/16/25 05:27 Potassium 3.4 mmol/L (3.5-5.1) L 01/16/25 05:27 Chloride 103 mmol/L (98-107) 01/16/25 05:27 Carbon Dioxide 28.1 mmol/L (21-32) 01/16/25 05:27 BUN 19 mg/dL (7-18) H 01/16/25 05:27 Creatinine 0.46 mg/dL (0.55-1.02) L 01/16/25 05:27 Est GFR (MDRD) Af Amer > 60 (>60) 01/16/25 05:27 Est GFR (MDRD) Non-Af > 60 (>60) 01/16/25 05:27 Glucose 123 mg/dL (65-99) H 01/16/25 05:27 Calcium 8.1 mg/dL (8.5-10.1) L 01/16/25 05:27 Corrected Calcium 9.5 mg/dL (8.5-10.1) 01/16/25 05:27 Phosphorus 3.0 mg/dL (2.6-4.7) 01/12/25 19:32 Magnesium 1.9 mg/dL (2.0-2.9) L 01/16/25 05:27 Total Bilirubin 0.60 mg/dL (0.2-1.0) 01/16/25 05:27 AST 42 Units/L (15-37) H 01/16/25 05:27 ALT 85 Units/L (12-78) H 01/16/25 05:27 Alkaline Phosphatase 245 Units/L (46-116) H 01/16/25 05:27 Total Protein 5.9 g/dL (6.4-8.2) L 01/16/25 05:27 Albumin 2.2 g/dL (3.4-5.0) L 01/16/25 05:27 Globulin 3.7 g/dL (2.5-4.5) 01/16/25 05:27 Albumin/Globulin Ratio 0.6 Ratio (1.1-2.1) L 01/16/25 05:27 Prealbumin 25.4 mg/dL (18-35.7) 01/13/25 05:17 Triglycerides 95 mg/dL (0-150) 01/12/25 19:32 Lipase > 250 Units/L (16-77) H 01/12/25 04:34 Specimen Type Clean catch urine 01/06/25 13:56 Urine Color Pale yellow (YELLOW) 01/06/25 13:56 Urine Appearance Clear (CLEAR) 01/06/25 13:56 Urine pH 7.0 (5.0 - 8.0) 01/06/25 13:56 Ur Specific [place] 1.010 (1.000-1.030) 01/06/25 13:56 Urine Protein Negative (NEGATIVE) 01/06/25 13:56 Urine Glucose (UA) Negative (NEGATIVE) 01/06/25 13:56 Urine Ketones Negative (NEGATIVE) 01/06/25 13:56 Urine Blood Negative (NEGATIVE) 01/06/25 13:56 Urine Nitrite Negative (NEGATIVE) 01/06/25 13:56 Urine Bilirubin Negative (NEGATIVE) 01/06/25 13:56 Urine Urobilinogen Normal (NORMAL) 01/06/25 13:56 Ur Leukocyte Esterase Negative (NEGATIVE) 01/06/25 13:56 Urine RBC 30-50 /HPF (0-3) A 01/03/25 18:51 Urine WBC 0-2 /HPF (0-5) 01/03/25 18:51 Ur Squamous Epith Cells Rare /HPF (NEGATIVE) 01/03/25 18:51 Urine Bacteria Negative /HPF (NEGATIVE) 01/03/25 18:51 Ur Culture Indicated? No/not indicated 01/03/25 18:51 Urine Opiates Screen Positive (NEG=<300) A 01/06/25 13:56 Urine Methadone Screen Negative (NEG=<300) 01/06/25 13:56 Ur Barbiturates Screen Negative (NEG=<200) 01/06/25 13:56 Ur Phencyclidine Scrn Negative (NEG=<25) 01/06/25 13:56 Ur Amphetamines Screen Negative (NEG=<1000) 01/06/25 13:56 U Benzodiazepines Scrn Negative (NEG=<200) 01/06/25 13:56 Urine Cocaine Screen Negative (NEG=<300) 01/06/25 13:56 U Marijuana (THC) Screen Positive (NEG=<50) A 01/06/25 13:56 Hepatitis A IgM Ab Non-reactive (NON-REACTIVE) 01/05/25 07:18 Hep Bs Antigen Non-reactive (NON-REACTIVE) 01/05/25 07:18 Hep B Core IgM Ab Non-reactive (NON-REACTIVE) 01/05/25 07:18 Hepatitis C Antibody Non-reactive (NON-REACTIVE) 01/05/25 07:18 Resp Viral Panel (PCR) See scanned report 01/03/25 22:51 Blood Type A POSITIVE 01/10/25 08:20 Antibody Screen Negative 01/10/25 08:20 Crossmatch See Detail 01/10/25 08:20 Assessment and Plan 1: Postoperative day 5 Penetrating pyloric ulcer, partial gastric outlet obstruction and chronic anemia required transfusion. Same postoperative care as mentioned above. On TPN. D/C MAILE , may have water today .. 2: Liver dysfunctions , improving slowly. 3: Scarring around the common bile duct which could explain the elevated liver function tests. Problem Patient Problems: Patient Problems LLL pneumonia (Acute) J18.9 Abdominal pain (Acute) R10.9 Elevated LFTs (Acute) R79.89 Constipation (Acute) K59.00 PUD (peptic ulcer disease) (Chronic) K27.9
[2025-01-16] MEDS: DRUG FILTER EXTENSION SET ONE (23:11)
[2025-01-17 06:21] LABS: BASOPHILS # (AUTO) 0.1 X10^3/uL (0.0-0.1); BASOPHILS % (AUTO) 0.9 % (0.2-1.0); EOSINOPHILS # (AUTO) 0.1 x10^3/uL (0.0-0.2); EOSINOPHILS % (AUTO) 1.3 % (0.9-2.9); HEMATOCRIT 31.2 % (36.0-47.0); LYMPHOCYTES % (AUTO) 9.4 % (21.0-51.0); MEAN CORPUSCULAR HEMOGLOBIN 32.4 pg (27.0-34.0); MEAN CORPUSCULAR HGB CONC 35.3 g/dL (33.0-35.0); MEAN CORPUSCULAR VOLUME 91.8 fL (80.0-100.0); MEAN PLATELET VOLUME 7.3 fL (7.4-11.0); MONOCYTES # (AUTO) 0.8 x10^3/uL (0.3-0.8); MONOCYTES % (AUTO) 7.8 % (0.0-13.0); NEUTROPHILS # (AUTO) 8.5 x10^3/uL (2.2-4.8); NEUTROPHILS % (AUTO) 80.6 % (42.0-75.0); PLATELET COUNT 517 X10^3/uL (150.0-450.0); WHITE BLOOD COUNT 10.5 X10^3/uL (3.6-10.0)
[2025-01-17 07:10] LABS: ALANINE AMINOTRANSFERASE 72 Units/L (12-78); ALKALINE PHOSPHATASE 245 Units/L (46-116); ASPARTATE AMINO TRANSFERASE 38 Units/L (15-37); BLOOD UREA NITROGEN 17 mg/dL (7-18); CALCIUM 8.5 mg/dL (8.5-10.1); CARBON DIOXIDE 25.5 mmol/L (21-32); CHLORIDE 100 mmol/L (98-107); COR NA(FOR HYPERGLY) 135 mmol/L (136-145); CREATININE 0.46 mg/dL (0.55-1.02); GLUCOSE 124 mg/dL (65-99); MAGNESIUM 1.8 mg/dL (2.0-2.9); POTASSIUM 3.1 mmol/L (3.5-5.1); SODIUM 134 mmol/L (136-145); TOTAL PROTEIN 6.1 g/dL (6.4-8.2); eGFR NON BLACK RACES > 60 (>60)
--- NOTE | 2025-01-17 07:41 | DR.PROGNOT ---
HOSPITAL PROGRESS NOTE Progress Note for Day of: Progress Note Date: 01/17/25 Chief Complaint Chief Complaint: still c/o nausea and vomiting today .. no BM yet . WBC 10.5 .Hgb 10 .. K3.4 Alk Ph 245 . Bilir normal .. afebrile Soft abdomen . BS+ same TPN, clear liquid Past Medical Family Social History Past Med/Fam/Surg Hx: No changes since H&P Allergies: Allergies No Known Drug Allergies Allergy (Unknown, Verified 11/24/24 14:05) Onset Date: 09/23/2021 Review Of Systems ROS: No change since H&P Changes in ROS: see HPI Vital Signs Vital Signs: Vital Signs Temperature 97.9 F Pulse Rate [Right Brachial] 83 Respiratory Rate 20 Respiratory Rate 20 Respiratory Rate 18 Respiratory Rate 20 Respiratory Rate 19 Blood Pressure [Right Arm] 157/95 O2 Sat by Pulse Oximetry 98 Physical Exam Oriented: Normal Eyes: Normal Ear: Normal Nose: Normal Throat: Normal Respiratory: Normal Cardiovascular: Normal : Normal GI:Auscultation: Decreased GI:Palpation: Normal GI: Tenderness: Epigastric and Other (Diffuse incisional tenderness.) Skin: Normal Musculoskeletal: Normal Psychiatric: Normal Mood Description: Anxious Affect: Normal Speech Pattern: Clear and Appropriate Laboratory and Diagnostics 01/17/25 05:20 01/16/25 05:27 Labs: 01/04/25 20:10 Sputum - Expectorated Sputum Sputum Culture - Final 01/04/25 20:10 Sputum - Expectorated Sputum - Final Laboratory WBC 10.5 X10^3/uL (3.6-10.0) H 01/17/25 05:20 RBC 3.40 X10^6/uL (3.5-5.4) L 01/17/25 05:20 Hgb 11.0 g/dL (12.0-16.0) L 01/17/25 05:20 Hct 31.2 % (36.0-47.0) L 01/17/25 05:20 MCV 91.8 fL (80.0-100.0) 01/17/25 05:20 MCH 32.4 pg (27.0-34.0) 01/17/25 05:20 MCHC 35.3 g/dL (33.0-35.0) H 01/17/25 05:20 RDW 15.0 % (11.6-16.5) 01/17/25 05:20 Plt Count 517 X10^3/uL (150.0-450.0) H 01/17/25 05:20 Plt Count Comment Adequate (ADEQUATE) 01/12/25 04:34 MPV 7.3 fL (7.4-11.0) L 01/17/25 05:20 Neut % (Auto) 80.6 % (42.0-75.0) H 01/17/25 05:20 Lymph % (Auto) 9.4 % (21.0-51.0) L 01/17/25 05:20 [place] % (Auto) 7.8 % (0.0-13.0) 01/17/25 05:20 Eos % (Auto) 1.3 % (0.9-2.9) 01/17/25 05:20 Baso % (Auto) 0.9 % (0.2-1.0) 01/17/25 05:20 Neut # (Auto) 8.5 x10^3/uL (2.2-4.8) H 01/17/25 05:20 Lymph # (Auto) 1.0 X10^3/uL (1.3-2.9) L 01/17/25 05:20 [place] # (Auto) 0.8 x10^3/uL (0.3-0.8) 01/17/25 05:20 Eos # (Auto) 0.1 x10^3/uL (0.0-0.2) 01/17/25 05:20 Baso # (Auto) 0.1 X10^3/uL (0.0-0.1) 01/17/25 05:20 Absolute Nucleated RBC 0.0 /100WBC 01/17/25 05:20 Plt Morphology Comment Normal (NORMAL) 01/12/25 04:34 RBC Morphology Abnormal (NORMAL) A 01/12/25 04:34 Anisocytosis Slight A 01/12/25 04:34 Target Cells Slight A 01/09/25 04:36 Tear Drop Cells 1+ A 01/09/25 04:36 Ovalocytes Slight A 01/09/25 04:36 Stomatocytes 1+ A 01/11/25 05:42 Sodium 139 mmol/L (136-145) 01/16/25 05:27 Corrected Sodium 140 mmol/L (136-145) 01/16/25 05:27 Potassium 3.4 mmol/L (3.5-5.1) L 01/16/25 05:27 Chloride 103 mmol/L (98-107) 01/16/25 05:27 Carbon Dioxide 28.1 mmol/L (21-32) 01/16/25 05:27 BUN 19 mg/dL (7-18) H 01/16/25 05:27 Creatinine 0.46 mg/dL (0.55-1.02) L 01/16/25 05:27 Est GFR (MDRD) Af Amer > 60 (>60) 01/16/25 05:27 Est GFR (MDRD) Non-Af > 60 (>60) 01/16/25 05:27 Glucose 123 mg/dL (65-99) H 01/16/25 05:27 Calcium 8.1 mg/dL (8.5-10.1) L 01/16/25 05:27 Corrected Calcium 9.5 mg/dL (8.5-10.1) 01/16/25 05:27 Phosphorus 3.0 mg/dL (2.6-4.7) 01/12/25 19:32 Magnesium 1.9 mg/dL (2.0-2.9) L 01/16/25 05:27 Total Bilirubin 0.60 mg/dL (0.2-1.0) 01/16/25 05:27 AST 42 Units/L (15-37) H 01/16/25 05:27 ALT 85 Units/L (12-78) H 01/16/25 05:27 Alkaline Phosphatase 245 Units/L (46-116) H 01/16/25 05:27 Total Protein 5.9 g/dL (6.4-8.2) L 01/16/25 05:27 Albumin 2.2 g/dL (3.4-5.0) L 01/16/25 05:27 Globulin 3.7 g/dL (2.5-4.5) 01/16/25 05:27 Albumin/Globulin Ratio 0.6 Ratio (1.1-2.1) L 01/16/25 05:27 Prealbumin 25.4 mg/dL (18-35.7) 01/13/25 05:17 Triglycerides 95 mg/dL (0-150) 01/12/25 19:32 Lipase > 250 Units/L (16-77) H 01/12/25 04:34 Specimen Type Clean catch urine 01/06/25 13:56 Urine Color Pale yellow (YELLOW) 01/06/25 13:56 Urine Appearance Clear (CLEAR) 01/06/25 13:56 Urine pH 7.0 (5.0 - 8.0) 01/06/25 13:56 Ur Specific [place] 1.010 (1.000-1.030) 01/06/25 13:56 Urine Protein Negative (NEGATIVE) 01/06/25 13:56 Urine Glucose (UA) Negative (NEGATIVE) 01/06/25 13:56 Urine Ketones Negative (NEGATIVE) 01/06/25 13:56 Urine Blood Negative (NEGATIVE) 01/06/25 13:56 Urine Nitrite Negative (NEGATIVE) 01/06/25 13:56 Urine Bilirubin Negative (NEGATIVE) 01/06/25 13:56 Urine Urobilinogen Normal (NORMAL) 01/06/25 13:56 Ur Leukocyte Esterase Negative (NEGATIVE) 01/06/25 13:56 Urine RBC 30-50 /HPF (0-3) A 01/03/25 18:51 Urine WBC 0-2 /HPF (0-5) 01/03/25 18:51 Ur Squamous Epith Cells Rare /HPF (NEGATIVE) 01/03/25 18:51 Urine Bacteria Negative /HPF (NEGATIVE) 01/03/25 18:51 Ur Culture Indicated? No/not indicated 01/03/25 18:51 Urine Opiates Screen Positive (NEG=<300) A 01/06/25 13:56 Urine Methadone Screen Negative (NEG=<300) 01/06/25 13:56 Ur Barbiturates Screen Negative (NEG=<200) 01/06/25 13:56 Ur Phencyclidine Scrn Negative (NEG=<25) 01/06/25 13:56 Ur Amphetamines Screen Negative (NEG=<1000) 01/06/25 13:56 U Benzodiazepines Scrn Negative (NEG=<200) 01/06/25 13:56 Urine Cocaine Screen Negative (NEG=<300) 01/06/25 13:56 U Marijuana (THC) Screen Positive (NEG=<50) A 01/06/25 13:56 Hepatitis A IgM Ab Non-reactive (NON-REACTIVE) 01/05/25 07:18 Hep Bs Antigen Non-reactive (NON-REACTIVE) 01/05/25 07:18 Hep B Core IgM Ab Non-reactive (NON-REACTIVE) 01/05/25 07:18 Hepatitis C Antibody Non-reactive (NON-REACTIVE) 01/05/25 07:18 Resp Viral Panel (PCR) See scanned report 01/03/25 22:51 Blood Type A POSITIVE 01/10/25 08:20 Antibody Screen Negative 01/10/25 08:20 Crossmatch See Detail 01/10/25 08:20 Assessment and Plan 1: Postoperative day 6 Penetrating pyloric ulcer, partial gastric outlet obstruction and chronic anemia required transfusion. Same postoperative care as mentioned above. On TPN. , on liquid diet .. 2: Liver dysfunctions , improving slowly. 3: Scarring around the common bile duct which could explain the elevated liver function tests. Problem Patient Problems: Patient Problems LLL pneumonia (Acute) J18.9 Abdominal pain (Acute) R10.9 Elevated LFTs (Acute) R79.89 Constipation (Acute) K59.00 PUD (peptic ulcer disease) (Chronic) K27.9
[2025-01-17 07:44] LABS: ALBUMIN 2.4 g/dL (3.4-5.0); COR CA(FOR HYPOALB) 9.8 mg/dL (8.5-10.1)
[2025-01-17] MEDS: POTASSIUM CHLORIDE INJ 40 MEQ VIAL 40 MEQ, MAGNESIUM SULFATE 50% INJ VIAL 4 G in NS 500... IV ONE (09:01)
--- NOTE | 2025-01-17 10:22 | PCM.PROG ---
Progress Note Progress Note for Day of Date of Exam: 01/17/25 Subjective Subjective: Patient seen at bedside, no acute events overnight. She is feeling slightly better today. Her N/V has improved slightly, able to tolerate clears again. She still has not had a BM and reports not having flatus. She states abdominal pain is tolerable, MAILE drain was removed yesterday. She is POD # 6 ex-lap, lysis of adhesions and hemigastrectomy. She remains on fluids and TPN. Labs/imaging reviewed: -WBC 10.5, hemoglobin 11.0, platelets 517 K 3.1 BUN/Cr 17/0.46 AST/ALT 38/72 AP 245 Mag 1.8 -Hepatitis panel (-) Plan: Follow surgery recommendations, continue clear liquids. Continue pain control, phenergan prn. Continue protonix and fluids. Continue antibiotics. Diet as per surgery. Replace electrolytes prn. Continue TPN and hydration. Monitor BP, hydralazine prn. PT/OT as tolerated. Monitor AM labs/imaging. Past Medical Family Social History Past Med/Fam/Surg Hx: No changes since H&P Allergies: Allergies No Known Drug Allergies Allergy (Unknown, Verified 11/24/24 14:05) Onset Date: 09/23/2021 Review of Systems ROS: No change since H&P Vital Signs and I&O's Vital Signs: Vital Signs Temperature 97.4 F Temperature 97.9 F Pulse Rate [Right Brachial] 83 Pulse Rate [Right Brachial] 83 Respiratory Rate 18 Respiratory Rate 18 Respiratory Rate 20 Respiratory Rate 20 Respiratory Rate 18 Blood Pressure [Right Arm] 169/86 Blood Pressure [Right Arm] 157/95 O2 Sat by Pulse Oximetry 97 O2 Sat by Pulse Oximetry 98 Intake and Output: Intake & Output 01/14/25 01/15/25 01/16/25 01/17/25 23:59 23:59 23:59 23:59 Intake Total 4082 / 4082 2200 / 2200 4115 / 4115 1200 / 1200 Output Total 4550 / 4550 3165 / 3165 1373 / 1373 Balance -468 / -468 -965 / -965 2742 / 2742 1200 / 1200 Physical Exam Oriented: Normal Eyes: Normal Ear: Normal Nose: Normal Throat: Normal Respiratory: Normal Cardiovascular: Normal : Normal Auscultation: Bowel Sounds: Decreased Tenderness: Epigastric and Other (Diffuse incisional tenderness.) Skin: Normal Musculoskeletal: Normal Psychiatric: Normal Mood Description: Anxious Affect: Normal Speech Pattern: Clear and Appropriate Laboratory and Diagnostics 01/17/25 05:20 01/17/25 05:20 Labs: 01/04/25 20:10 Sputum - Expectorated Sputum Sputum Culture - Final 01/04/25 20:10 Sputum - Expectorated Sputum - Final Laboratory WBC 10.5 X10^3/uL (3.6-10.0) H 01/17/25 05:20 RBC 3.40 X10^6/uL (3.5-5.4) L 01/17/25 05:20 Hgb 11.0 g/dL (12.0-16.0) L 01/17/25 05:20 Hct 31.2 % (36.0-47.0) L 01/17/25 05:20 MCV 91.8 fL (80.0-100.0) 01/17/25 05:20 MCH 32.4 pg (27.0-34.0) 01/17/25 05:20 MCHC 35.3 g/dL (33.0-35.0) H 01/17/25 05:20 RDW 15.0 % (11.6-16.5) 01/17/25 05:20 Plt Count 517 X10^3/uL (150.0-450.0) H 01/17/25 05:20 Plt Count Comment Adequate (ADEQUATE) 01/12/25 04:34 MPV 7.3 fL (7.4-11.0) L 01/17/25 05:20 Neut % (Auto) 80.6 % (42.0-75.0) H 01/17/25 05:20 Lymph % (Auto) 9.4 % (21.0-51.0) L 01/17/25 05:20 [place] % (Auto) 7.8 % (0.0-13.0) 01/17/25 05:20 Eos % (Auto) 1.3 % (0.9-2.9) 01/17/25 05:20 Baso % (Auto) 0.9 % (0.2-1.0) 01/17/25 05:20 Neut # (Auto) 8.5 x10^3/uL (2.2-4.8) H 01/17/25 05:20 Lymph # (Auto) 1.0 X10^3/uL (1.3-2.9) L 01/17/25 05:20 [place] # (Auto) 0.8 x10^3/uL (0.3-0.8) 01/17/25 05:20 Eos # (Auto) 0.1 x10^3/uL (0.0-0.2) 01/17/25 05:20 Baso # (Auto) 0.1 X10^3/uL (0.0-0.1) 01/17/25 05:20 Absolute Nucleated RBC 0.0 /100WBC 01/17/25 05:20 Plt Morphology Comment Normal (NORMAL) 01/12/25 04:34 RBC Morphology Abnormal (NORMAL) A 01/12/25 04:34 Anisocytosis Slight A 01/12/25 04:34 Target Cells Slight A 01/09/25 04:36 Tear Drop Cells 1+ A 01/09/25 04:36 Ovalocytes Slight A 01/09/25 04:36 Stomatocytes 1+ A 01/11/25 05:42 Sodium 134 mmol/L (136-145) L 01/17/25 05:20 Corrected Sodium 135 mmol/L (136-145) L 01/17/25 05:20 Potassium 3.1 mmol/L (3.5-5.1) L 01/17/25 05:20 Chloride 100 mmol/L (98-107) 01/17/25 05:20 Carbon Dioxide 25.5 mmol/L (21-32) 01/17/25 05:20 BUN 17 mg/dL (7-18) 01/17/25 05:20 Creatinine 0.46 mg/dL (0.55-1.02) L 01/17/25 05:20 Est GFR (MDRD) Af Amer > 60 (>60) 01/17/25 05:20 Est GFR (MDRD) Non-Af > 60 (>60) 01/17/25 05:20 Glucose 124 mg/dL (65-99) H 01/17/25 05:20 Calcium 8.5 mg/dL (8.5-10.1) 01/17/25 05:20 Corrected Calcium 9.8 mg/dL (8.5-10.1) 01/17/25 05:20 Phosphorus 3.0 mg/dL (2.6-4.7) 01/12/25 19:32 Magnesium 1.8 mg/dL (2.0-2.9) L 01/17/25 05:20 Total Bilirubin 0.80 mg/dL (0.2-1.0) 01/17/25 05:20 AST 38 Units/L (15-37) H 01/17/25 05:20 ALT 72 Units/L (12-78) 01/17/25 05:20 Alkaline Phosphatase 245 Units/L (46-116) H 01/17/25 05:20 Total Protein 6.1 g/dL (6.4-8.2) L 01/17/25 05:20 Albumin 2.4 g/dL (3.4-5.0) L 01/17/25 05:20 Globulin 3.7 g/dL (2.5-4.5) 01/17/25 05:20 Albumin/Globulin Ratio 0.6 Ratio (1.1-2.1) L 01/17/25 05:20 Prealbumin 25.4 mg/dL (18-35.7) 01/13/25 05:17 Triglycerides 95 mg/dL (0-150) 01/12/25 19:32 Lipase > 250 Units/L (16-77) H 01/12/25 04:34 Specimen Type Clean catch urine 01/06/25 13:56 Urine Color Pale yellow (YELLOW) 01/06/25 13:56 Urine Appearance Clear (CLEAR) 01/06/25 13:56 Urine pH 7.0 (5.0 - 8.0) 01/06/25 13:56 Ur Specific [place] 1.010 (1.000-1.030) 01/06/25 13:56 Urine Protein Negative (NEGATIVE) 01/06/25 13:56 Urine Glucose (UA) Negative (NEGATIVE) 01/06/25 13:56 Urine Ketones Negative (NEGATIVE) 01/06/25 13:56 Urine Blood Negative (NEGATIVE) 01/06/25 13:56 Urine Nitrite Negative (NEGATIVE) 01/06/25 13:56 Urine Bilirubin Negative (NEGATIVE) 01/06/25 13:56 Urine Urobilinogen Normal (NORMAL) 01/06/25 13:56 Ur Leukocyte Esterase Negative (NEGATIVE) 01/06/25 13:56 Urine RBC 30-50 /HPF (0-3) A 01/03/25 18:51 Urine WBC 0-2 /HPF (0-5) 01/03/25 18:51 Ur Squamous Epith Cells Rare /HPF (NEGATIVE) 01/03/25 18:51 Urine Bacteria Negative /HPF (NEGATIVE) 01/03/25 18:51 Ur Culture Indicated? No/not indicated 01/03/25 18:51 Urine Opiates Screen Positive (NEG=<300) A 01/06/25 13:56 Urine Methadone Screen Negative (NEG=<300) 01/06/25 13:56 Ur Barbiturates Screen Negative (NEG=<200) 01/06/25 13:56 Ur Phencyclidine Scrn Negative (NEG=<25) 01/06/25 13:56 Ur Amphetamines Screen Negative (NEG=<1000) 01/06/25 13:56 U Benzodiazepines Scrn Negative (NEG=<200) 01/06/25 13:56 Urine Cocaine Screen Negative (NEG=<300) 01/06/25 13:56 U Marijuana (THC) Screen Positive (NEG=<50) A 01/06/25 13:56 Hepatitis A IgM Ab Non-reactive (NON-REACTIVE) 01/05/25 07:18 Hep Bs Antigen Non-reactive (NON-REACTIVE) 01/05/25 07:18 Hep B Core IgM Ab Non-reactive (NON-REACTIVE) 01/05/25 07:18 Hepatitis C Antibody Non-reactive (NON-REACTIVE) 01/05/25 07:18 Resp Viral Panel (PCR) See scanned report 01/03/25 22:51 Blood Type A POSITIVE 01/10/25 08:20 Antibody Screen Negative 01/10/25 08:20 Crossmatch See Detail 01/10/25 08:20 Plan (1) Post-op pain: Status: Acute (2) Elevated LFTs: Status: Acute (3) S/P partial gastrectomy: Status: Acute (4) Hypokalemia: Status: Acute (5) Streptococcal pneumonia: Status: Acute (6) Hx of duodenal ulcer: Status: Chronic (7) Microcytic anemia: Status: Chronic (8) PUD (peptic ulcer disease): Status: Chronic
[2025-01-17] MEDS: ALBUMIN HUMAN 25%- 100 ML 100 ML IV ONE (11:27)
[2025-01-17] MEDS: DRUG FILTER EXTENSION SET ONE (18:54)
[2025-01-17] MEDS: MILK OF MAGNESIA PO SCH (20:26)
[2025-01-18] MEDS: NORCO 5/325 MG TAB PO PRN (00:24)
[2025-01-18 05:48] LABS: BASOPHILS % (AUTO) 0.4 % (0.2-1.0); EOSINOPHILS # (AUTO) 0.1 x10^3/uL (0.0-0.2); EOSINOPHILS % (AUTO) 1.4 % (0.9-2.9); HEMATOCRIT 32.8 % (36.0-47.0); HEMOGLOBIN 11.2 g/dL (12.0-16.0); LYMPHOCYTES % (AUTO) 9.6 % (21.0-51.0); MEAN CORPUSCULAR HEMOGLOBIN 31.7 pg (27.0-34.0); MEAN CORPUSCULAR HGB CONC 34.1 g/dL (33.0-35.0); MEAN PLATELET VOLUME 7.1 fL (7.4-11.0); MONOCYTES # (AUTO) 0.8 x10^3/uL (0.3-0.8); MONOCYTES % (AUTO) 7.3 % (0.0-13.0); NEUTROPHILS # (AUTO) 8.7 x10^3/uL (2.2-4.8); NEUTROPHILS % (AUTO) 81.3 % (42.0-75.0); PLATELET COUNT 609 X10^3/uL (150.0-450.0); RED BLOOD COUNT 3.52 X10^6/uL (3.5-5.4); WHITE BLOOD COUNT 10.7 X10^3/uL (3.6-10.0)
[2025-01-18 06:07] LABS: ALANINE AMINOTRANSFERASE 61 Units/L (12-78); ALKALINE PHOSPHATASE 227 Units/L (46-116); ASPARTATE AMINO TRANSFERASE 44 Units/L (15-37); BLOOD UREA NITROGEN 18 mg/dL (7-18); CALCIUM 8.7 mg/dL (8.5-10.1); CARBON DIOXIDE 26.8 mmol/L (21-32); CHLORIDE 100 mmol/L (98-107); COR CA(FOR HYPOALB) 9.5 mg/dL (8.5-10.1); COR NA(FOR HYPERGLY) 135 mmol/L (136-145); CREATININE 0.43 mg/dL (0.55-1.02); GLUCOSE 125 mg/dL (65-99); MAGNESIUM 2.3 mg/dL (2.0-2.9); POTASSIUM 3.3 mmol/L (3.5-5.1); SODIUM 134 mmol/L (136-145); TOTAL PROTEIN 6.5 g/dL (6.4-8.2); eGFR NON BLACK RACES > 60 (>60)
--- NOTE | 2025-01-18 10:09 | PCM.PROG ---
Progress Note Progress Note for Day of Date of Exam: 01/18/25 Subjective Subjective: POD # 7 ex-lap, lysis of adhesions and hemigastrectomy. Patient seen at bedside, overnight patient continued to have increased nausea and vomiting. She states she was doing better during the day and did ambulate some. She had been drinking clears. She states she was given a regular food tray last night and she ate some of that which made it worse. She has been getting phenergan which does help. She has not had a BM post-op. Denies any flatus. She remains on fluids and TPN. Labs/imaging reviewed: -WBC 10.7 hemoglobin 11.2, platelets 609 K 3.3 BUN/Cr 18/0.43 AST/ALT 44/61 AP 227 -Hepatitis panel (-) Plan: Will order KUB stat. Follow surgery recommendations, diet as per surgery. Continue pain control, phenergan prn. Continue protonix and fluids. Continue antibiotics. Replace electrolytes prn. Continue TPN and hydration. Monitor BP, hydralazine prn. PT/OT as tolerated. Monitor AM labs/imaging. Past Medical Family Social History Past Med/Fam/Surg Hx: No changes since H&P Allergies: Allergies No Known Drug Allergies Allergy (Unknown, Verified 11/24/24 14:05) Onset Date: 09/23/2021 Review of Systems ROS: No change since H&P Vital Signs and I&O's Vital Signs: Vital Signs Temperature 97.7 F Temperature 98.0 F Pulse Rate [Right Brachial] 89 Pulse Rate [Right Brachial] 96 Respiratory Rate 22 Respiratory Rate 17 Respiratory Rate 18 Respiratory Rate 18 Respiratory Rate 18 Blood Pressure [Right Arm] 143/90 Blood Pressure [Right Arm] 157/90 O2 Sat by Pulse Oximetry 97 O2 Sat by Pulse Oximetry 98 Intake and Output: Intake & Output 01/15/25 01/16/25 01/17/25 01/18/25 23:59 23:59 23:59 23:59 Intake Total 2200 / 2200 4115 / 4115 4492 / 4492 1300 / 1300 Output Total 3165 / 3165 1373 / 1373 700 / 700 Balance -965 / -965 2742 / 2742 3792 / 3792 1300 / 1300 Physical Exam Oriented: Normal Eyes: Normal Ear: Normal Nose: Normal Throat: Normal Respiratory: Normal Cardiovascular: Normal : Normal Auscultation: Bowel Sounds: Decreased Tenderness: Epigastric, Moderate and Other (Diffuse incisional tenderness.) Skin: Normal Musculoskeletal: Normal Psychiatric: Normal Mood Description: Anxious Affect: Normal Speech Pattern: Clear and Appropriate Laboratory and Diagnostics 01/18/25 05:35 01/18/25 05:35 Labs: 01/04/25 20:10 Sputum - Expectorated Sputum Sputum Culture - Final 01/04/25 20:10 Sputum - Expectorated Sputum - Final Laboratory WBC 10.7 X10^3/uL (3.6-10.0) H 01/18/25 05:35 RBC 3.52 X10^6/uL (3.5-5.4) 01/18/25 05:35 Hgb 11.2 g/dL (12.0-16.0) L 01/18/25 05:35 Hct 32.8 % (36.0-47.0) L 01/18/25 05:35 MCV 93.0 fL (80.0-100.0) 01/18/25 05:35 MCH 31.7 pg (27.0-34.0) 01/18/25 05:35 MCHC 34.1 g/dL (33.0-35.0) 01/18/25 05:35 RDW 15.0 % (11.6-16.5) 01/18/25 05:35 Plt Count 609 X10^3/uL (150.0-450.0) H 01/18/25 05:35 Plt Count Comment Adequate (ADEQUATE) 01/12/25 04:34 MPV 7.1 fL (7.4-11.0) L 01/18/25 05:35 Neut % (Auto) 81.3 % (42.0-75.0) H 01/18/25 05:35 Lymph % (Auto) 9.6 % (21.0-51.0) L 01/18/25 05:35 [place] % (Auto) 7.3 % (0.0-13.0) 01/18/25 05:35 Eos % (Auto) 1.4 % (0.9-2.9) 01/18/25 05:35 Baso % (Auto) 0.4 % (0.2-1.0) 01/18/25 05:35 Neut # (Auto) 8.7 x10^3/uL (2.2-4.8) H 01/18/25 05:35 Lymph # (Auto) 1.0 X10^3/uL (1.3-2.9) L 01/18/25 05:35 [place] # (Auto) 0.8 x10^3/uL (0.3-0.8) 01/18/25 05:35 Eos # (Auto) 0.1 x10^3/uL (0.0-0.2) 01/18/25 05:35 Baso # (Auto) 0.0 X10^3/uL (0.0-0.1) 01/18/25 05:35 Absolute Nucleated RBC 0.0 /100WBC 01/18/25 05:35 Plt Morphology Comment Normal (NORMAL) 01/12/25 04:34 RBC Morphology Abnormal (NORMAL) A 01/12/25 04:34 Anisocytosis Slight A 01/12/25 04:34 Target Cells Slight A 01/09/25 04:36 Tear Drop Cells 1+ A 01/09/25 04:36 Ovalocytes Slight A 01/09/25 04:36 Stomatocytes 1+ A 01/11/25 05:42 Sodium 134 mmol/L (136-145) L 01/18/25 05:35 Corrected Sodium 135 mmol/L (136-145) L 01/18/25 05:35 Potassium 3.3 mmol/L (3.5-5.1) L 01/18/25 05:35 Chloride 100 mmol/L (98-107) 01/18/25 05:35 Carbon Dioxide 26.8 mmol/L (21-32) 01/18/25 05:35 BUN 18 mg/dL (7-18) 01/18/25 05:35 Creatinine 0.43 mg/dL (0.55-1.02) L 01/18/25 05:35 Est GFR (MDRD) Af Amer > 60 (>60) 01/18/25 05:35 Est GFR (MDRD) Non-Af > 60 (>60) 01/18/25 05:35 Glucose 125 mg/dL (65-99) H 01/18/25 05:35 Calcium 8.7 mg/dL (8.5-10.1) 01/18/25 05:35 Corrected Calcium 9.5 mg/dL (8.5-10.1) 01/18/25 05:35 Phosphorus 3.0 mg/dL (2.6-4.7) 01/12/25 19:32 Magnesium 2.3 mg/dL (2.0-2.9) 01/18/25 05:35 Total Bilirubin 0.80 mg/dL (0.2-1.0) 01/18/25 05:35 AST 44 Units/L (15-37) H 01/18/25 05:35 ALT 61 Units/L (12-78) 01/18/25 05:35 Alkaline Phosphatase 227 Units/L (46-116) H 01/18/25 05:35 Total Protein 6.5 g/dL (6.4-8.2) 01/18/25 05:35 Albumin 3.0 g/dL (3.4-5.0) L 01/18/25 05:35 Globulin 3.5 g/dL (2.5-4.5) 01/18/25 05:35 Albumin/Globulin Ratio 0.9 Ratio (1.1-2.1) L 01/18/25 05:35 Prealbumin 25.4 mg/dL (18-35.7) 01/13/25 05:17 Triglycerides 95 mg/dL (0-150) 01/12/25 19:32 Lipase > 250 Units/L (16-77) H 01/12/25 04:34 Specimen Type Clean catch urine 01/06/25 13:56 Urine Color Pale yellow (YELLOW) 01/06/25 13:56 Urine Appearance Clear (CLEAR) 01/06/25 13:56 Urine pH 7.0 (5.0 - 8.0) 01/06/25 13:56 Ur Specific [place] 1.010 (1.000-1.030) 01/06/25 13:56 Urine Protein Negative (NEGATIVE) 01/06/25 13:56 Urine Glucose (UA) Negative (NEGATIVE) 01/06/25 13:56 Urine Ketones Negative (NEGATIVE) 01/06/25 13:56 Urine Blood Negative (NEGATIVE) 01/06/25 13:56 Urine Nitrite Negative (NEGATIVE) 01/06/25 13:56 Urine Bilirubin Negative (NEGATIVE) 01/06/25 13:56 Urine Urobilinogen Normal (NORMAL) 01/06/25 13:56 Ur Leukocyte Esterase Negative (NEGATIVE) 01/06/25 13:56 Urine RBC 30-50 /HPF (0-3) A 01/03/25 18:51 Urine WBC 0-2 /HPF (0-5) 01/03/25 18:51 Ur Squamous Epith Cells Rare /HPF (NEGATIVE) 01/03/25 18:51 Urine Bacteria Negative /HPF (NEGATIVE) 01/03/25 18:51 Ur Culture Indicated? No/not indicated 01/03/25 18:51 Urine Opiates Screen Positive (NEG=<300) A 01/06/25 13:56 Urine Methadone Screen Negative (NEG=<300) 01/06/25 13:56 Ur Barbiturates Screen Negative (NEG=<200) 01/06/25 13:56 Ur Phencyclidine Scrn Negative (NEG=<25) 01/06/25 13:56 Ur Amphetamines Screen Negative (NEG=<1000) 01/06/25 13:56 U Benzodiazepines Scrn Negative (NEG=<200) 01/06/25 13:56 Urine Cocaine Screen Negative (NEG=<300) 01/06/25 13:56 U Marijuana (THC) Screen Positive (NEG=<50) A 01/06/25 13:56 Hepatitis A IgM Ab Non-reactive (NON-REACTIVE) 01/05/25 07:18 Hep Bs Antigen Non-reactive (NON-REACTIVE) 01/05/25 07:18 Hep B Core IgM Ab Non-reactive (NON-REACTIVE) 01/05/25 07:18 Hepatitis C Antibody Non-reactive (NON-REACTIVE) 01/05/25 07:18 Resp Viral Panel (PCR) See scanned report 01/03/25 22:51 Blood Type A POSITIVE 01/10/25 08:20 Antibody Screen Negative 01/10/25 08:20 Crossmatch See Detail 01/10/25 08:20 Plan (1) Nausea & vomiting: Status: Acute Qualifiers: Vomiting type: bilious vomiting Qualified Code(s): R11.14 - Bilious vomiting (2) Post-op pain: Status: Acute (3) S/P partial gastrectomy: Status: Acute (4) Hypokalemia: Status: Acute (5) Streptococcal pneumonia: Status: Acute (6) Hx of duodenal ulcer: Status: Chronic (7) Microcytic anemia: Status: Chronic (8) PUD (peptic ulcer disease): Status: Chronic
--- NOTE | 2025-01-18 10:21 | DR.PROGNOT ---
HOSPITAL PROGRESS NOTE Progress Note for Day of: Progress Note Date: 01/18/25 Chief Complaint Chief Complaint: Complaining of nausea and was vomiting bilious material last night.. no BM yet . WBC 10.5 .Hgb 11.2 .. K3.3 Alk Ph 245 . Bilir normal ..glucose 125. afebrile Soft abdomen . BS+ same TPN, clear liquid Past Medical Family Social History Past Med/Fam/Surg Hx: No changes since H&P Allergies: Allergies No Known Drug Allergies Allergy (Unknown, Verified 11/24/24 14:05) Onset Date: 09/23/2021 Review Of Systems ROS: No change since H&P Changes in ROS: see HPI Vital Signs Vital Signs: Vital Signs Temperature 97.7 F Temperature 98.0 F Pulse Rate [Right Brachial] 89 Pulse Rate [Right Brachial] 96 Respiratory Rate 22 Respiratory Rate 17 Respiratory Rate 18 Respiratory Rate 18 Respiratory Rate 18 Blood Pressure [Right Arm] 143/90 Blood Pressure [Right Arm] 157/90 O2 Sat by Pulse Oximetry 97 O2 Sat by Pulse Oximetry 98 Physical Exam Oriented: Normal Eyes: Normal Ear: Normal Nose: Normal Throat: Normal Respiratory: Normal Cardiovascular: Normal : Normal GI:Auscultation: Decreased GI:Palpation: Normal GI: Tenderness: Epigastric, Moderate and Other (Diffuse incisional tenderness.) Skin: Normal Musculoskeletal: Normal Psychiatric: Normal Mood Description: Anxious Affect: Normal Speech Pattern: Clear and Appropriate Laboratory and Diagnostics 01/18/25 05:35 01/18/25 05:35 Labs: 01/04/25 20:10 Sputum - Expectorated Sputum Sputum Culture - Final 01/04/25 20:10 Sputum - Expectorated Sputum - Final Laboratory WBC 10.7 X10^3/uL (3.6-10.0) H 01/18/25 05:35 RBC 3.52 X10^6/uL (3.5-5.4) 01/18/25 05:35 Hgb 11.2 g/dL (12.0-16.0) L 01/18/25 05:35 Hct 32.8 % (36.0-47.0) L 01/18/25 05:35 MCV 93.0 fL (80.0-100.0) 01/18/25 05:35 MCH 31.7 pg (27.0-34.0) 01/18/25 05:35 MCHC 34.1 g/dL (33.0-35.0) 01/18/25 05:35 RDW 15.0 % (11.6-16.5) 01/18/25 05:35 Plt Count 609 X10^3/uL (150.0-450.0) H 01/18/25 05:35 Plt Count Comment Adequate (ADEQUATE) 01/12/25 04:34 MPV 7.1 fL (7.4-11.0) L 01/18/25 05:35 Neut % (Auto) 81.3 % (42.0-75.0) H 01/18/25 05:35 Lymph % (Auto) 9.6 % (21.0-51.0) L 01/18/25 05:35 [place] % (Auto) 7.3 % (0.0-13.0) 01/18/25 05:35 Eos % (Auto) 1.4 % (0.9-2.9) 01/18/25 05:35 Baso % (Auto) 0.4 % (0.2-1.0) 01/18/25 05:35 Neut # (Auto) 8.7 x10^3/uL (2.2-4.8) H 01/18/25 05:35 Lymph # (Auto) 1.0 X10^3/uL (1.3-2.9) L 01/18/25 05:35 [place] # (Auto) 0.8 x10^3/uL (0.3-0.8) 01/18/25 05:35 Eos # (Auto) 0.1 x10^3/uL (0.0-0.2) 01/18/25 05:35 Baso # (Auto) 0.0 X10^3/uL (0.0-0.1) 01/18/25 05:35 Absolute Nucleated RBC 0.0 /100WBC 01/18/25 05:35 Plt Morphology Comment Normal (NORMAL) 01/12/25 04:34 RBC Morphology Abnormal (NORMAL) A 01/12/25 04:34 Anisocytosis Slight A 01/12/25 04:34 Target Cells Slight A 01/09/25 04:36 Tear Drop Cells 1+ A 01/09/25 04:36 Ovalocytes Slight A 01/09/25 04:36 Stomatocytes 1+ A 01/11/25 05:42 Sodium 134 mmol/L (136-145) L 01/18/25 05:35 Corrected Sodium 135 mmol/L (136-145) L 01/18/25 05:35 Potassium 3.3 mmol/L (3.5-5.1) L 01/18/25 05:35 Chloride 100 mmol/L (98-107) 01/18/25 05:35 Carbon Dioxide 26.8 mmol/L (21-32) 01/18/25 05:35 BUN 18 mg/dL (7-18) 01/18/25 05:35 Creatinine 0.43 mg/dL (0.55-1.02) L 01/18/25 05:35 Est GFR (MDRD) Af Amer > 60 (>60) 01/18/25 05:35 Est GFR (MDRD) Non-Af > 60 (>60) 01/18/25 05:35 Glucose 125 mg/dL (65-99) H 01/18/25 05:35 Calcium 8.7 mg/dL (8.5-10.1) 01/18/25 05:35 Corrected Calcium 9.5 mg/dL (8.5-10.1) 01/18/25 05:35 Phosphorus 3.0 mg/dL (2.6-4.7) 01/12/25 19:32 Magnesium 2.3 mg/dL (2.0-2.9) 01/18/25 05:35 Total Bilirubin 0.80 mg/dL (0.2-1.0) 01/18/25 05:35 AST 44 Units/L (15-37) H 01/18/25 05:35 ALT 61 Units/L (12-78) 01/18/25 05:35 Alkaline Phosphatase 227 Units/L (46-116) H 01/18/25 05:35 Total Protein 6.5 g/dL (6.4-8.2) 01/18/25 05:35 Albumin 3.0 g/dL (3.4-5.0) L 01/18/25 05:35 Globulin 3.5 g/dL (2.5-4.5) 01/18/25 05:35 Albumin/Globulin Ratio 0.9 Ratio (1.1-2.1) L 01/18/25 05:35 Prealbumin 25.4 mg/dL (18-35.7) 01/13/25 05:17 Triglycerides 95 mg/dL (0-150) 01/12/25 19:32 Lipase > 250 Units/L (16-77) H 01/12/25 04:34 Specimen Type Clean catch urine 01/06/25 13:56 Urine Color Pale yellow (YELLOW) 01/06/25 13:56 Urine Appearance Clear (CLEAR) 01/06/25 13:56 Urine pH 7.0 (5.0 - 8.0) 01/06/25 13:56 Ur Specific [place] 1.010 (1.000-1.030) 01/06/25 13:56 Urine Protein Negative (NEGATIVE) 01/06/25 13:56 Urine Glucose (UA) Negative (NEGATIVE) 01/06/25 13:56 Urine Ketones Negative (NEGATIVE) 01/06/25 13:56 Urine Blood Negative (NEGATIVE) 01/06/25 13:56 Urine Nitrite Negative (NEGATIVE) 01/06/25 13:56 Urine Bilirubin Negative (NEGATIVE) 01/06/25 13:56 Urine Urobilinogen Normal (NORMAL) 01/06/25 13:56 Ur Leukocyte Esterase Negative (NEGATIVE) 01/06/25 13:56 Urine RBC 30-50 /HPF (0-3) A 01/03/25 18:51 Urine WBC 0-2 /HPF (0-5) 01/03/25 18:51 Ur Squamous Epith Cells Rare /HPF (NEGATIVE) 01/03/25 18:51 Urine Bacteria Negative /HPF (NEGATIVE) 01/03/25 18:51 Ur Culture Indicated? No/not indicated 01/03/25 18:51 Urine Opiates Screen Positive (NEG=<300) A 01/06/25 13:56 Urine Methadone Screen Negative (NEG=<300) 01/06/25 13:56 Ur Barbiturates Screen Negative (NEG=<200) 01/06/25 13:56 Ur Phencyclidine Scrn Negative (NEG=<25) 01/06/25 13:56 Ur Amphetamines Screen Negative (NEG=<1000) 01/06/25 13:56 U Benzodiazepines Scrn Negative (NEG=<200) 01/06/25 13:56 Urine Cocaine Screen Negative (NEG=<300) 01/06/25 13:56 U Marijuana (THC) Screen Positive (NEG=<50) A 01/06/25 13:56 Hepatitis A IgM Ab Non-reactive (NON-REACTIVE) 01/05/25 07:18 Hep Bs Antigen Non-reactive (NON-REACTIVE) 01/05/25 07:18 Hep B Core IgM Ab Non-reactive (NON-REACTIVE) 01/05/25 07:18 Hepatitis C Antibody Non-reactive (NON-REACTIVE) 01/05/25 07:18 Resp Viral Panel (PCR) See scanned report 01/03/25 22:51 Blood Type A POSITIVE 01/10/25 08:20 Antibody Screen Negative 01/10/25 08:20 Crossmatch See Detail 01/10/25 08:20 Assessment and Plan 1: Postoperative day 7 Penetrating pyloric ulcer, partial gastric outlet obstruction and chronic anemia required transfusion. Same postoperative care as mentioned above. On TPN which will be increased to 100 cc an hour. , on liquid diet .. To have modified Gastrografin study today to rule out partial gastric outlet obstruction. 2: Liver dysfunctions , improving slowly. 3: Scarring around the common bile duct which could explain the elevated liver function tests. Problem Patient Problems: Patient Problems LLL pneumonia (Acute) J18.9 Abdominal pain (Acute) R10.9 Elevated LFTs (Acute) R79.89 Constipation (Acute) K59.00 PUD (peptic ulcer disease) (Chronic) K27.9
[2025-01-18] MEDS: MVI IV SCH (11:30)
[2025-01-18] MEDS: [UNRECOGNIZED DRUG - OTHER] IV SCH (11:30)
[2025-01-18] MEDS: CLINIMIX IV SCH (11:30)
[2025-01-18] MEDS: REGLAN INJ 10 MG VIAL IVP PRN (12:02)
--- NOTE | 2025-01-18 12:35 | RAD ---
EXAM:Portable KUBHISTORY:Postop painCOMPARISON:CT abdomen 01/03/2025FINDINGS:There is a large amount of fecal material distending the left colon. No definite abdominal mass or calcification noted. Surgical jazzy are noted in the abdominal midline. Surgical clips from cholecystectomy. Surgical jazzy are faintly identified in the left upper quadrant.IMPRESSION:Increase in fecal burden consistent with constipation. Postsurgical findings at various levels described above. Diffuse increase in soft tissue density in the pelvis is nonspecific and may represent distended urinary bladder or fluid filled intestinal segments.THIS IS AN ELECTRONICALLY VERIFIED FINAL REPORT01/18/2025 12:31 PM - Electronically signed by Leo Fay MD
--- NOTE | 2025-01-18 13:47 | RAD ---
EXAM: UPPER GI HISTORY: POST OP VOMITING; postop day 7 from partial gastrectomy for large pre-pyloric bleeding ulcer. Contin ued vomiting. Evaluate for obstruction. COMPARISON: KUB 01/18/2025 FINDINGS: Number of images: 24 Fluoroscopy time: 2.0 minutes The exam was performed by KARLENE Houston PA-C. Upper GI tract was studied by single contrast using 80 mL of Gastrografin and water. Swallowing mechanism appears normal with no aspiration. Esophageal caliber and motility appear bayron l. Small gastric volume is consistent with antrectomy. Mass or filling defect within the residual gastr ic lumen. The gastric/small bowel anastomosis was well identified. There is no obstruction with contrast readi ly flowing through into the small bowel. No extravasation is identified. The most proximal small bowel near the anastomosis is nondilated. But as contrast progresses more di stally, dilated small bowel is identified almost immediately measuring up to 5.3 cm in diameter. Thi s is seen on the 20 minute delayed KUB which is obtained. No evidence for extravasation. IMPRESSION: 1. Normal-appearing gastric/bowel anastomosis with no extravasation or obstruction 2. Dilated proximal small bowel loops appear unrelated to the anastomosis THIS IS AN ELECTRONICALLY VERIFIED FINAL REPORT 01/18/2025 1:44 PM - Electronically signed by Dandy Jesus MD
--- NOTE | 2025-01-19 05:31 | RAD ---
PROCEDURE: Abdomen 1 View.HISTORY: S/P PARTIAL GASTRECTOMY, VOMITING ; .TECHNIQUE: AP supine view of the abdomen.COMPARISON: None.TECHNICAL QUALITY: Satisfactory.FINDINGS:Contrast in the stomach, small bowel loops, and right colon from previous upper GI study.No dilated bowel loops suggesting obstruction or ileus.No organomegaly.Surgical clips in the midline.IMPRESSION:1. Nonspecific bowel gas pattern.2. Retained contrast from earlier GI series.THIS IS AN ELECTRONICALLY VERIFIED FINAL REPORT01/19/2025 5:27 AM - Electronically signed by Duane Prince MD
[2025-01-19 05:46] LABS: BILIRUBIN,URINE NEGATIVE (NEGATIVE); BLOOD/HEMOGLOBIN,URINE 1+ (NEGATIVE); GLUCOSE, URINE NEGATIVE (NEGATIVE); KETONES,URINE NEGATIVE (NEGATIVE); LEUKOCYTE ESTERASE ,URINE 1+ (NEGATIVE); NITRITES,URINE NEGATIVE (NEGATIVE); PROTEIN,URINE 2+ (NEGATIVE); UROBILINOGEN,URINE NORMAL (NORMAL)
[2025-01-19 06:05] LABS: BASOPHILS # (AUTO) 0.1 X10^3/uL (0.0-0.1); BASOPHILS % (AUTO) 0.9 % (0.2-1.0); EOSINOPHILS # (AUTO) 0.3 x10^3/uL (0.0-0.2); EOSINOPHILS % (AUTO) 2.4 % (0.9-2.9); HEMATOCRIT 33.8 % (36.0-47.0); HEMOGLOBIN 11.5 g/dL (12.0-16.0); LYMPHOCYTES # (AUTO) 1.2 X10^3/uL (1.3-2.9); LYMPHOCYTES % (AUTO) 9.4 % (21.0-51.0); MEAN CORPUSCULAR HEMOGLOBIN 31.6 pg (27.0-34.0); MEAN CORPUSCULAR VOLUME 93.1 fL (80.0-100.0); MEAN PLATELET VOLUME 7.3 fL (7.4-11.0); MONOCYTES % (AUTO) 8.1 % (0.0-13.0); NEUTROPHILS # (AUTO) 10.1 x10^3/uL (2.2-4.8); NEUTROPHILS % (AUTO) 79.2 % (42.0-75.0); PLATELET COUNT 623 X10^3/uL (150.0-450.0); RED BLOOD COUNT 3.63 X10^6/uL (3.5-5.4); RED CELL DISTRIBUTION WIDTH 15.5 % (11.6-16.5); WHITE BLOOD COUNT 12.7 X10^3/uL (3.6-10.0)
[2025-01-19 06:12] LABS: PREALBUMIN 27.9 mg/dL (18-35.7)
--- NOTE | 2025-01-19 06:13 | RAD ---
EXAM: KUB HISTORY: Status post partial gastrectomy, vomiting COMPARISON: 01/18/2025 FINDINGS: Surgical jazzy are present in the midabdomen. Surgical sutures are present in the left upper hung drant likely related to gastroenterostomy. There is a residual contrast within the colon from prior upper GI series. There is no residual contrast within the stomach. Abdominal gas pattern is nonspec ific and nonobstructive. No abnormal masses or abnormal calcifications are identified. Regional ske leton is intact. IMPRESSION: Postoperative changes as above Nonspecific, nonobstructive bowel gas pattern Residual contrast in the right colon from recent upper GI series THIS IS AN ELECTRONICALLY VERIFIED FINAL REPORT 01/19/2025 6:10 AM - Electronically signed by Bharath Joaquin MD
[2025-01-19 06:18] LABS: ALANINE AMINOTRANSFERASE 50 Units/L (12-78); ALBUMIN 2.9 g/dL (3.4-5.0); ALKALINE PHOSPHATASE 220 Units/L (46-116); ASPARTATE AMINO TRANSFERASE 44 Units/L (15-37); BLOOD UREA NITROGEN 28 mg/dL (7-18); CALCIUM 8.8 mg/dL (8.5-10.1); CARBON DIOXIDE 26.9 mmol/L (21-32); CHLORIDE 98 mmol/L (98-107); COR CA(FOR HYPOALB) 9.7 mg/dL (8.5-10.1); COR NA(FOR HYPERGLY) 134 mmol/L (136-145); CREATININE 0.38 mg/dL (0.55-1.02); GLUCOSE 133 mg/dL (65-99); POTASSIUM 3.5 mmol/L (3.5-5.1); SODIUM 133 mmol/L (136-145); TOTAL PROTEIN 6.5 g/dL (6.4-8.2); eGFR NON BLACK RACES > 60 (>60)
[2025-01-19 06:19] LABS: APPEARANCE,URINE CLEAR (CLEAR); BACTERIA,URINE TRACE /HPF (NEGATIVE); COLOR,URINE YELLOW (YELLOW); RBC,URINE 0-2 /HPF (0-3); SQUAMOUS EPITHELIAL CELL,UR RARE /HPF (NEGATIVE)
[2025-01-19] MEDS ORDERED: CONSULT PHARMACY - POTASSIUM & MAGNESIUM XX SCH (08:00)
[2025-01-19] MEDS: DRUG FILTER EXTENSION SET ONE ×2 (09:36→20:25)
--- NOTE | 2025-01-19 11:10 | PCM.PROG ---
Progress Note Progress Note for Day of Date of Exam: 01/19/25 Subjective Subjective: POD # 8 ex-lap, lysis of adhesions and hemigastrectomy. Patient seen at bedside. She does report drinking a little water this morning that did make her nauseous. She has not had a BM post-op. She remains on fluids and TPN. Labs/imaging reviewed: -WBC 12.7, hemoglobin 11.5, platelets 623, sodium 134, potassium 3.5, creatinine 0.38, glucose 133, -Urine culture pending -KUB revealed Nonspecific, nonobstructive bowel gas pattern. -Hepatitis panel (-) Plan: Follow surgery recommendations, diet as per surgery. She is currently on a full liquid diet. She will receive a soapsuds enema today. Continue pain control, phenergan prn. Continue protonix and fluids. Continue antibiotics. Replace electrolytes prn. Continue TPN and hydration. Monitor BP, hydralazine prn. PT/OT as tolerated. Monitor AM labs/imaging. Past Medical Family Social History Past Med/Fam/Surg Hx: No changes since H&P Allergies: Allergies No Known Drug Allergies Allergy (Unknown, Verified 11/24/24 14:05) Onset Date: 09/23/2021 Review of Systems ROS changes noted: see HPI Vital Signs and I&O's Vital Signs: Vital Signs Temperature 98.1 F Pulse Rate [Right Brachial] 93 Respiratory Rate 20 Respiratory Rate 18 Respiratory Rate 19 Respiratory Rate 18 Blood Pressure [Right Arm] 160/94 O2 Sat by Pulse Oximetry 96 Intake and Output: Intake & Output 01/16/25 01/17/25 01/18/25 01/19/25 23:59 23:59 23:59 23:59 Intake Total 4115 / 4115 4492 / 4492 2906 / 2906 1729 / 1729 Output Total 1373 / 1373 700 / 700 Balance 2742 / 2742 3792 / 3792 2906 / 2906 1729 / 1729 Physical Exam Oriented: Normal Eyes: Normal Ear: Normal Nose: Normal Throat: Normal Respiratory: Normal Cardiovascular: Normal : Normal Auscultation: Bowel Sounds: Decreased Tenderness: Epigastric, Moderate and Other (Diffuse incisional tenderness.) Skin: Normal Musculoskeletal: Normal Psychiatric: Normal Mood Description: Anxious Affect: Normal Speech Pattern: Clear and Appropriate Laboratory and Diagnostics 01/19/25 05:08 01/19/25 05:08 Labs: 01/19/25 05:30 Urine,Clean Catch Urine Culture - Preliminary 01/04/25 20:10 Sputum - Expectorated Sputum Sputum Culture - Final 01/04/25 20:10 Sputum - Expectorated Sputum - Final Laboratory WBC 12.7 X10^3/uL (3.6-10.0) H 01/19/25 05:08 RBC 3.63 X10^6/uL (3.5-5.4) 01/19/25 05:08 Hgb 11.5 g/dL (12.0-16.0) L 01/19/25 05:08 Hct 33.8 % (36.0-47.0) L 01/19/25 05:08 MCV 93.1 fL (80.0-100.0) 01/19/25 05:08 MCH 31.6 pg (27.0-34.0) 01/19/25 05:08 MCHC 34.0 g/dL (33.0-35.0) 01/19/25 05:08 RDW 15.5 % (11.6-16.5) 01/19/25 05:08 Plt Count 623 X10^3/uL (150.0-450.0) H 01/19/25 05:08 Plt Count Comment Adequate (ADEQUATE) 01/12/25 04:34 MPV 7.3 fL (7.4-11.0) L 01/19/25 05:08 Neut % (Auto) 79.2 % (42.0-75.0) H 01/19/25 05:08 Lymph % (Auto) 9.4 % (21.0-51.0) L 01/19/25 05:08 Mclennan % (Auto) 8.1 % (0.0-13.0) 01/19/25 05:08 Eos % (Auto) 2.4 % (0.9-2.9) 01/19/25 05:08 Baso % (Auto) 0.9 % (0.2-1.0) 01/19/25 05:08 Neut # (Auto) 10.1 x10^3/uL (2.2-4.8) H 01/19/25 05:08 Lymph # (Auto) 1.2 X10^3/uL (1.3-2.9) L 01/19/25 05:08 Mclennan # (Auto) 1.0 x10^3/uL (0.3-0.8) H 01/19/25 05:08 Eos # (Auto) 0.3 x10^3/uL (0.0-0.2) H 01/19/25 05:08 Baso # (Auto) 0.1 X10^3/uL (0.0-0.1) 01/19/25 05:08 Absolute Nucleated RBC 0.0 /100WBC 01/19/25 05:08 Plt Morphology Comment Normal (NORMAL) 01/12/25 04:34 RBC Morphology Abnormal (NORMAL) A 01/12/25 04:34 Anisocytosis Slight A 01/12/25 04:34 Target Cells Slight A 01/09/25 04:36 Tear Drop Cells 1+ A 01/09/25 04:36 Ovalocytes Slight A 01/09/25 04:36 Stomatocytes 1+ A 01/11/25 05:42 Sodium 133 mmol/L (136-145) L 01/19/25 05:08 Corrected Sodium 134 mmol/L (136-145) L 01/19/25 05:08 Potassium 3.5 mmol/L (3.5-5.1) 01/19/25 05:08 Chloride 98 mmol/L (98-107) 01/19/25 05:08 Carbon Dioxide 26.9 mmol/L (21-32) 01/19/25 05:08 BUN 28 mg/dL (7-18) H 01/19/25 05:08 Creatinine 0.38 mg/dL (0.55-1.02) L 01/19/25 05:08 Est GFR (MDRD) Af Amer > 60 (>60) 01/19/25 05:08 Est GFR (MDRD) Non-Af > 60 (>60) 01/19/25 05:08 Glucose 133 mg/dL (65-99) H 01/19/25 05:08 Calcium 8.8 mg/dL (8.5-10.1) 01/19/25 05:08 Corrected Calcium 9.7 mg/dL (8.5-10.1) 01/19/25 05:08 Phosphorus 3.0 mg/dL (2.6-4.7) 01/12/25 19:32 Magnesium 2.0 mg/dL (2.0-2.9) 01/19/25 05:08 Total Bilirubin 0.60 mg/dL (0.2-1.0) 01/19/25 05:08 AST 44 Units/L (15-37) H 01/19/25 05:08 ALT 50 Units/L (12-78) 01/19/25 05:08 Alkaline Phosphatase 220 Units/L (46-116) H 01/19/25 05:08 Total Protein 6.5 g/dL (6.4-8.2) 01/19/25 05:08 Albumin 2.9 g/dL (3.4-5.0) L 01/19/25 05:08 Globulin 3.6 g/dL (2.5-4.5) 01/19/25 05:08 Albumin/Globulin Ratio 0.8 Ratio (1.1-2.1) L 01/19/25 05:08 Prealbumin 27.9 mg/dL (18-35.7) 01/19/25 05:08 Triglycerides 95 mg/dL (0-150) 01/12/25 19:32 Lipase > 250 Units/L (16-77) H 01/12/25 04:34 Specimen Type Clean catch urine 01/19/25 05:30 Urine Color Yellow (YELLOW) 01/19/25 05:30 Urine Appearance Clear (CLEAR) 01/19/25 05:30 Urine pH 7.0 (5.0 - 8.0) 01/19/25 05:30 Ur Specific Sharon 1.015 (1.000-1.030) 01/19/25 05:30 Urine Protein 2+ (NEGATIVE) 01/19/25 05:30 Urine Glucose (UA) Negative (NEGATIVE) 01/19/25 05:30 Urine Ketones Negative (NEGATIVE) 01/19/25 05:30 Urine Blood 1+ (NEGATIVE) 01/19/25 05:30 Urine Nitrite Negative (NEGATIVE) 01/19/25 05:30 Urine Bilirubin Negative (NEGATIVE) 01/19/25 05:30 Urine Urobilinogen Normal (NORMAL) 01/19/25 05:30 Ur Leukocyte Esterase 1+ (NEGATIVE) 01/19/25 05:30 Urine RBC 0-2 /HPF (0-3) 01/19/25 05:30 Urine WBC 0-2 /HPF (0-5) 01/19/25 05:30 Ur Squamous Epith Cells Rare /HPF (NEGATIVE) 01/19/25 05:30 Urine Bacteria Trace /HPF (NEGATIVE) 01/19/25 05:30 Urine Mucus Few /HPF (NEGATIVE) 01/19/25 05:30 Ur Culture Indicated? Yes/culture set up 01/19/25 05:30 Urine Opiates Screen Positive (NEG=<300) A 01/06/25 13:56 Urine Methadone Screen Negative (NEG=<300) 01/06/25 13:56 Ur Barbiturates Screen Negative (NEG=<200) 01/06/25 13:56 Ur Phencyclidine Scrn Negative (NEG=<25) 01/06/25 13:56 Ur Amphetamines Screen Negative (NEG=<1000) 01/06/25 13:56 U Benzodiazepines Scrn Negative (NEG=<200) 01/06/25 13:56 Urine Cocaine Screen Negative (NEG=<300) 01/06/25 13:56 U Marijuana (THC) Screen Positive (NEG=<50) A 01/06/25 13:56 Hepatitis A IgM Ab Non-reactive (NON-REACTIVE) 01/05/25 07:18 Hep Bs Antigen Non-reactive (NON-REACTIVE) 01/05/25 07:18 Hep B Core IgM Ab Non-reactive (NON-REACTIVE) 01/05/25 07:18 Hepatitis C Antibody Non-reactive (NON-REACTIVE) 01/05/25 07:18 Resp Viral Panel (PCR) See scanned report 01/03/25 22:51 Blood Type A POSITIVE 01/10/25 08:20 Antibody Screen Negative 01/10/25 08:20 Crossmatch See Detail 01/10/25 08:20 Plan (1) Nausea & vomiting: Status: Acute Qualifiers: Vomiting type: bilious vomiting Qualified Code(s): R11.14 - Bilious vomiting (2) Post-op pain: Status: Acute (3) S/P partial gastrectomy: Status: Acute (4) Hypokalemia: Status: Acute (5) Streptococcal pneumonia: Status: Acute (6) Hx of duodenal ulcer: Status: Chronic (7) Microcytic anemia: Status: Chronic (8) PUD (peptic ulcer disease): Status: Chronic
[2025-01-19] MEDS: DULCOLAX SUPPOSITORY 10 MG RECTAL ONE (20:44)
[2025-01-19] MEDS: [UNRECOGNIZED DRUG - OTHER] PO ONE (21:12)
[2025-01-19] MEDS: BARIUM SULFATE PO ONE (21:12)
[2025-01-20 06:08] LABS: BASOPHILS # (AUTO) 0.2 X10^3/uL (0.0-0.1); BASOPHILS % (AUTO) 1.5 % (0.2-1.0); EOSINOPHILS # (AUTO) 0.3 x10^3/uL (0.0-0.2); EOSINOPHILS % (AUTO) 2.4 % (0.9-2.9); HEMATOCRIT 34.7 % (36.0-47.0); HEMOGLOBIN 11.8 g/dL (12.0-16.0); LYMPHOCYTES # (AUTO) 0.9 X10^3/uL (1.3-2.9); LYMPHOCYTES % (AUTO) 7.6 % (21.0-51.0); MEAN CORPUSCULAR HEMOGLOBIN 31.6 pg (27.0-34.0); MEAN CORPUSCULAR HGB CONC 34.1 g/dL (33.0-35.0); MEAN CORPUSCULAR VOLUME 92.6 fL (80.0-100.0); MEAN PLATELET VOLUME 7.1 fL (7.4-11.0); MONOCYTES # (AUTO) 0.9 x10^3/uL (0.3-0.8); NEUTROPHILS # (AUTO) 10.2 x10^3/uL (2.2-4.8); NEUTROPHILS % (AUTO) 81.5 % (42.0-75.0); PLATELET COUNT 562 X10^3/uL (150.0-450.0); RED BLOOD COUNT 3.75 X10^6/uL (3.5-5.4); RED CELL DISTRIBUTION WIDTH 14.7 % (11.6-16.5); WHITE BLOOD COUNT 12.5 X10^3/uL (3.6-10.0)
[2025-01-20 06:33] LABS: ALBUMIN 2.9 g/dL (3.4-5.0); BLOOD UREA NITROGEN 22 mg/dL (7-18); CALCIUM 8.7 mg/dL (8.5-10.1); CARBON DIOXIDE 25.8 mmol/L (21-32); CHLORIDE 97 mmol/L (98-107); COR CA(FOR HYPOALB) 9.6 mg/dL (8.5-10.1); COR NA(FOR HYPERGLY) 132 mmol/L (136-145); CREATININE 0.36 mg/dL (0.55-1.02); GLUCOSE 137 mg/dL (65-99); POTASSIUM 3.5 mmol/L (3.5-5.1); SODIUM 131 mmol/L (136-145); eGFR NON BLACK RACES > 60 (>60)
[2025-01-20 06:49] LABS: ALANINE AMINOTRANSFERASE 60 Units/L (12-78); ALKALINE PHOSPHATASE 285 Units/L (46-116); ASPARTATE AMINO TRANSFERASE 70 Units/L (15-37); TOTAL PROTEIN 6.7 g/dL (6.4-8.2)
[2025-01-20] MEDS ORDERED: CONSULT PHARMACY - POTASSIUM & MAGNESIUM XX SCH (07:00)
[2025-01-20] MEDS: NS 250 ML IV 250 ML IV ONE (07:47)
[2025-01-20] MEDS: DRUG FILTER EXTENSION SET ONE ×2 (08:52→21:50)
[2025-01-20] MEDS: MORPHINE SULFATE INJ 2 MG INJ IVP PRN (10:42)
[2025-01-20] MEDS: NS 1,000 ML IV 100 ML IV PRN (11:50)
[2025-01-20] MEDS: PEPCID 20 MG VIAL IVP PRN (11:53)
--- NOTE | 2025-01-20 11:56 | RAD ---
EXAM:KUBHISTORY:Bowel obstructionCOMPARISON:01/19/2025FINDINGS: .br.br present in the left upper quadrant. Residual contrast is present throughout the ascending distal transverse and descending colon from prior upper GI examination. Abdominal gas pattern is nonspecific and nonobstructive. No abnormal masses or abnormal calcifications identified. Regional skeleton is intact.IMPRESSION:Nonspecific nonobstructive bowel gas patternTHIS IS AN ELECTRONICALLY VERIFIED FINAL REPORT01/20/2025 11:52 AM - Electronically signed by Bharath Joaquin MD
[2025-01-20] MEDS: DIPRIVAN VIAL 200 ML IVP PRN (11:58)
[2025-01-20] MEDS: XYLOCAINE 2 % (PLAIN) INJ PRN (11:58)
[2025-01-20] MEDS: EPHEDRINE SULFATE INJ IVP PRN (12:09)
[2025-01-20] MEDS: DIPRIVAN VIAL 20 ML ONE (15:17)
[2025-01-20] MEDS: PEPCID 20 MG VIAL ONE (15:17)
[2025-01-20] MEDS: EPHEDRINE SULFATE INJ ONE (15:18)
[2025-01-20] MEDS: XYLOCAINE 2 % (PLAIN) ONE (15:18)
[2025-01-21] MEDS ORDERED: CONSULT PHARMACY - POTASSIUM & MAGNESIUM XX SCH (07:00)
--- NOTE | 2025-01-21 07:31 | RAD ---
EXAM:KUBHISTORY:Pain, fecal impactionCOMPARISON:01/20/2025FINDINGS:T here is residual contrast material noted in nondilated colon. Increased fecal material/retention is present. Diffuse opacity is noted in the true pelvic cavity without calcification. Surgical clips again noted in the right upper quadrant and abdominal wall.IMPRESSION:Little change since 1 day prior. See above. Soft tissue density in the pelvic cavity may represent distended urinary bladder or fluid-filled bowel segments; pelvic mass was not identified on recent CT exam.THIS IS AN ELECTRONICALLY VERIFIED FINAL REPORT01/21/2025 7:28 AM - Electronically signed by Leo Fay MD
[2025-01-21] MEDS ORDERED: ATIVAN INJ 2 MG VIAL ONE (09:11)
[2025-01-21] MEDS: ATIVAN INJ 2 MG VIAL IVP PRN (09:19)
[2025-01-21] MEDS: DIPRIVAN VIAL 20 ML ONE ×2 (09:54→10:24)
[2025-01-21] MEDS: NS 500 ML IV 500 ML IV ONE (09:56)
[2025-01-21] MEDS: NS 1,000 ML IV 200 ML IV PRN (09:56)
[2025-01-21] MEDS: DIPRIVAN VIAL 300 ML IVP PRN (10:02)
[2025-01-21] MEDS: DRUG FILTER EXTENSION SET ONE (11:15)
[2025-01-21 16:08] VITALS: BP 145/90; PULSE 95; TEMP 99.3; O2SAT 96
[2025-01-21] MEDS: MORPHINE SULFATE INJ 2 MG INJ IVP PRN (16:42)
[2025-01-21 23:50] VITALS: RESP 18
== END 2025-01-21 21:20 | disposition short-term general hospital (02) | DRG 326 ==
LOC: ER 15:35 → MED/SURG 15:35 → ICU 01-11 17:26 → MED/SURG 01-13 12:50
PROVIDERS: ADMIT Surgery; ATTEND Surgery
PROC: GASTERC (ICD-10-PCS; 2025-01-11 14:40)
PROC: SIGMOID (2025-01-20 10:20)
DX: D62 Acute posthemorrhagic anemia; R94.5 Abnormal results of liver function studies; Z01.810 Encounter for preprocedural cardiovascular examination; K90.2 Blind loop syndrome, not elsewhere classified; Z87.19 Personal history of other diseases of the digestive system; F12.90 Cannabis use, unspecified, uncomplicated; Z72.0 Tobacco use; J13 Pneumonia due to Streptococcus pneumoniae; R93.3 Abnormal findings on diagnostic imaging of other parts of digestive tract; K59.09 Other constipation; K66.0 Peritoneal adhesions (postprocedural) (postinfection); E87.6 Hypokalemia; R10.84 Generalized abdominal pain; K83.8 Other specified diseases of biliary tract; E83.42 Hypomagnesemia; K31.1 Adult hypertrophic pyloric stenosis; Z53.8 Procedure and treatment not carried out for other reasons; G89.18 Other acute postprocedural pain; N18.9 Chronic kidney disease, unspecified; F11.10 Opioid abuse, uncomplicated; R11.14 Bilious vomiting; R26.89 Other abnormalities of gait and mobility; K25.0 Acute gastric ulcer with hemorrhage; K21.00 Gastro-esophageal reflux disease with esophagitis, without bleeding